=== PATIENT | female | born 1955 | race Caucasian/White ===

== ENCOUNTER 2017-05-17 11:00 | Inpatient (IN) | payer BC ==
--- NOTE | 2017-05-09 10:23 | HP ---
HISTORY AND PHYSICAL: DATE OF SURGERY: 05/17/17 DATE OF OFFICE VISIT: 05/04/17 SURGEON: Amanda Wright MD * (DICTATED BY TED BARRIGA) PROCEDURE: Right total knee arthroplasty. CHIEF COMPLAINT: Right knee pain. HISTORY OF PRESENT ILLNESS: Ms. Medina is a 62-year-old female with complaints of right knee pain secondary to advanced osteoarthritis. She has failed conservative management, has elected to proceed with a right total knee arthroplasty, which is scheduled for 05/17/17, with Dr. Wright. PAST MEDICAL HISTORY: History of a pulmonary embolism, history of MS, hypertension, high cholesterol, diabetes, history of alcohol and drug abuse. PAST SURGICAL HISTORY: Cardiac stent placement x3, angioplasty, thyroid removal. CURRENT MEDICATIONS: 1. Nitrostat. 2. Prozac 40 mg 2 tabs everyday. 3. Coumadin 2 mg. 4. Lisinopril 40 mg daily. 5. Metoprolol 100 mg twice daily. 6. Plavix 75 mg daily. 7. Aspirin 81 mg daily. 8. Metformin 500 mg. 9. Januvia. 10. Abilify. 11. Lipitor 80 mg at bedtime. 12. Atorvastatin. 13. Calcium. ALLERGIES: ZITHROMAX and WELLBUTRIN. FAMILY HISTORY: Cancer, stroke, hypertension, and heart disease. 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 She does not smoke or use drugs. She does have a history of drug and alcohol abuse. REVIEW OF SYSTEMS: A complete 14-point review of systems is reviewed with the patient and was positive for history of DVT, PE, as well as diabetes. PHYSICAL EXAMINATION GENERAL: She is well developed, well nourished, in no acute distress. VITAL SIGNS: She stands 5 feet 5 inches tall, weighs 220 pounds. Her blood pressure is 132/84, heart rate is 78. HEENT: Normocephalic, atraumatic. NECK: Supple. No palpable lymph nodes. PULMONARY: Lungs are clear to auscultation bilaterally. CARDIO: Regular rate and rhythm. Strong S1 and S2. ABDOMEN: Soft, nontender, and nondistended. NEUROLOGIC: She is alert and oriented x3. Cranial nerves II through XII are intact. MUSCULOSKELETAL: Right lower extremity, the skin is intact. There are no open wounds or abrasions. She has some tenderness over the medial and lateral joint line, 0 to 120 degrees range of motion with mild joint effusion. Her lower extremity muscle group strengths are intact at 5/5. She has 2+ dorsalis pedis pulses. Intact sensation. ASSESSMENT AND PLAN: Ms. Medina is a 62-year-old female with complaints of right knee pain secondary to advanced osteoarthritis. She has failed conservative management and has elected to proceed with a right total knee arthroplasty, which is scheduled for 05/17/[address] Wright discussed the risks and benefits of the surgery and all of her questions answered. She is currently on Coumadin, Plavix, and aspirin. She was asked to stop taking her Coumadin 5 days before the surgery. She will start Lovenox injections at that time daily and stop the Lovenox 24 hours prior to surgery. She was asked to continue her aspirin, but she will stop the Plavix on . She will follow up with Dr. Wright 2 weeks after the surgery. TDE BARRIGA [id number]/[facility] #: [id number] MIESHA
[~2017-05-17 11:00] MED LIST: Buffered Lidocaine 0.9% SYRIN* 5 ML/SYR SYRINGE INTRADERM ONE; Famotidine IV* 10 MG/ML 2 ML (20 mg) IV ONE; PROCHLORPERAZINE INJ 5 MG/ML 2 ML VIAL IV PRN; fentaNYL* 50 MCG/ML 2 ML VIAL (100 MCG VIAL) IV PRN
[2017-05-17] MEDS ORDERED: Midazolam* 1 MG/ML 5 ML VIAL (5 MG) ONE (11:22)
[2017-05-17] MEDS ORDERED: KETAMINE HCL* 50 MG/ML 10 ML VIAL ONE (11:22)
[2017-05-17] MEDS ORDERED: fentaNYL* 50 MCG/ML 2 ML VIAL (100 MCG VIAL) ONE (11:22)
[2017-05-17] MEDS ORDERED: Famotidine IV* 10 MG/ML 2 ML (20 mg) ONE (11:57)
[2017-05-17] MEDS ORDERED: Buffered Lidocaine 0.9% SYRIN* 5 ML/SYR SYRINGE ONE (11:57)
[2017-05-17] MEDS ORDERED: ceFAZolin 2 GM PREMIX (*) 50 ML IVPB ONE (11:58)
[2017-05-17] MEDS ORDERED: Morphine INJ* 10 MG/ML 1 ML SYRINGE ONE ×2 (14:17→17:40)
[2017-05-17] MEDS ORDERED: Bupivacaine 0.5% SDV PF* 30 ML VIAL ONE (15:01)
[2017-05-17] MEDS ORDERED: oxyCODONE TAB* 5 MG TAB PO PRN (15:29)
[2017-05-17] MEDS ORDERED: oxyCODONE/Acetamin 5/325 MG* TAB PO PRN (15:29)
[2017-05-17] MEDS ORDERED: Ondansetron TAB* 4 MG PO PRN (15:29)
[2017-05-17] MEDS ORDERED: Polyethylene Glycol 3350* 17 GM PACKET PO PRN (15:29)
[2017-05-17] MEDS ORDERED: Bisacodyl SUPP* 10 MG SUPP PR PRN (15:29)
[2017-05-17] MEDS ORDERED: Magnesium Hydroxide LIQ* 30 ML UDC PO PRN (15:29)
[2017-05-17] MEDS ORDERED: Acetaminophen TAB* 325 MG PO PRN (15:29)
[2017-05-17] MEDS ORDERED: diPHENhydraMINE IV* 50 MG/ML 1 ml VIAL (BENADRYL) IV PRN (15:29)
[2017-05-17] MEDS ORDERED: Phenylephrine INJ* 10 MG/ML 1 ML VIAL (10 MG) ONE (15:53)
[2017-05-17] MEDS ORDERED: Bupivacaine 0.25% SDV* 30 ML ONE (15:53)
[2017-05-17] MEDS ORDERED: Phenylephrine IV* 40 MCG/ML 10 ML SYRINGE ONE (15:53)
[2017-05-17] MEDS ORDERED: Lidocaine 2% PF * 5 ML VIAL ONE ×2 (15:54→16:31)
[2017-05-17] MEDS ORDERED: Ondansetron INJ* 2 MG/ML VIAL ONE (15:54)
[2017-05-17] MEDS ORDERED: Propofol* 10 MG/ML 20 ML BTL IV PUSH ONE (15:54)
[2017-05-17] MEDS ORDERED: Glycopyrrolate IV* 0.2 MG/ML 1 ML VIAL ONE (15:54)
[2017-05-17] MEDS ORDERED: PROCHLORPERAZINE INJ 5 MG/ML 2 ML VIAL ONE (15:54)
[2017-05-17] MEDS ORDERED: Ketorolac INJ* 30 MG/ML 1 ML VIAL ONE (15:54)
[2017-05-17] MEDS ORDERED: Metoprolol Tartrate IV* 1 MG/ML 5 ML VIAL ONE (16:31)
[2017-05-17] MEDS: oxyCODONE/Acetamin 5/325 MG* TAB PO PRN ×2 (17:40→17:41)
[2017-05-17] MEDS ORDERED: oxyCODONE/Acetamin 5/325 MG* TAB ONE (17:40)
[2017-05-17] MEDS: Morphine INJ* 2 MG/ML 1 ML SYRINGE IV PRN ×2 (17:43→17:49)
--- NOTE | 2017-05-17 17:47 | RAD ---
Indication: Immediate postop exam following RIGHT total knee replacement. Comparison: March 09, 2017 Technique: Portable AP and cross table lateral views RIGHT knee. Report: Status post total knee replacement. Anterior surgical drain in place. Post-op fluid and gas is seen in the joint space and anterior subcutaneous tissues. Alignment is anatomic. No periprosthetic fracture evident. IMPRESSION: Unremarkable immediate postoperative appearance following RIGHT knee replacement.
[2017-05-17] MEDS: Warfarin TAB(*) 6 MG PO SCH (19:38)
[2017-05-17] MEDS: Atorvastatin* 80 MG TAB PO SCH (22:06)
[2017-05-17] MEDS: Metoprolol Tartrate TAB* 100 MG TAB PO SCH (22:06)
[2017-05-17] MEDS: FLUoxetine CAP* 20 MG PO SCH (22:06)
[2017-05-17] MEDS: ceFAZolin 1 GM VIAL(*) 1 GM in NS 0.9% 50 ML* 50 ML IVPB SCH (22:06)
[2017-05-17] MEDS: Docusate CAP* 100 MG PO SCH (22:06)
--- NOTE | 2017-05-17 22:11 | CONS ---
CONSULTATION REPORT: DATE OF CONSULTATION: 05/17/17 PRIMARY CARE PHYSICIAN: Zeinab Momin MD ORTHOPEDIC SURGEON: Amanda Wright MD PROCEDURE: Right total knee arthroplasty. HISTORY OF PRESENT ILLNESS: Ms. Medina is a 62-year-old female with a past medical history of CAD, status post cardiac stents in 2002 and 2008, hypothyroidism, diabetes mellitus (noninsulin dependent), hypertension, recurrent DVT, on lifelong anticoagulation, hyperlipidemia, depression, osteoarthritis, who presents on 05/17/17 for elective right total knee replacement with Dr. Wright. Hospitalist service has been consulted for question of anticoagulation given the patient's history of recurrent DVTs on lifelong Coumadin while also using dual antiplatelet therapy aspirin and Plavix for CAD in the setting of a new knee surgery. The patient's anticoagulation history is as follows. Following MT in 2002 Pt had stents, the patient was placed on aspirin and 6 months of Plavix. The patient developed a pulmonary embolism in 2006, only risk factor at that time seemed to be a 5-hour plane trip from [place] to [place] and then back. The patient was placed on Coumadin for 6 months and then stopped. However, the patient developed another DVT in the right leg in April 2008 that was seemingly unprovoked. 02/29/08 ultrasound showed popliteal and calf DVT. The patient was again put on Coumadin this time for life. Of note, she did have some history of labile INRs using green leafy vegetables like kale on and off, which would alter her levels. The patient, in 2008, was evaluated for swollen hand and ultimately left heart catheterization revealed further coronary artery disease and third stent was placed and aspirin and Plavix were initiated by Dr. Montero (?for life). The patient then developed what may have been a new DVT again on the right side in 2010 with 06/07/11 ultrasound describing a nonocclusive thrombus in the distal right femoral vein with hypoechoic thrombus, which "MAY" be acute. The popliteal vein was diminutive in size with partial occlusion. No known risk factors at the time of 2010 DVT and in fact INR at that time had reportedly been high around the 4 to 5 range.Pt denies any evidence of further DVT or significant bleeding events since. The patient denies any history of blood clots or DVT is in her family. No personal history of cancer, weight has been steady, had a colonoscopy twice in the last decade first with polyp and second unknown date without any reported findings. The patient has never seen a carburizer oncologist or had further workup for hypercoagulable states. The patient says that she would like to consider alternative anticoagulation therapy other than warfarin given her labile INRs which include checking every 1 to 2 weeks. She currently takes warfarin 4 mg Sunday, Sunday, Sunday and 2 mg other days of the week. Current INR is 1.03. Reported plan included bridging her with Lovenox back to Coumadin. Consult question is to whether restart plavix. MEDICATIONS: Home medications include: 1. Lipitor 80. 2. Januvia. 3. Lisinopril 40. 4. Toprol 100 mg b.i.d. 5. Metformin 500 b.i.d. 6. Prozac 40 mg. 7. Abilify 5 mg. 8. Warfarin 4 mg Sunday, Sunday, Sunday; 2 mg Sunday, , Sunday, and Sunday. 9. Plavix 75 mg. 10. Aspirin 81 mg. PHYSICAL EXAM: In no acute distress. Lying in postacute care unit after a right total knee surgery. The patient is alert, in no significant pain. HEENT : Moist mucous membranes. No scleral icterus. Normocephalic and atraumatic. Neck: Supple. Lungs: Clear to auscultation anteriorly with no wheezing, rales , or rhonchi. Cardiovascular: Regular rate and rhythm with no murmurs, rubs, or gallops. Abdomen: Soft, obese, and nontender. No masses appreciated. Extremities: Warm and well perfused. No edema. Right leg in brace. Vital Signs: Include temperature 97.9, heart rate 73, respiratory rate 16, O2 sat 94% on room air, blood pressure 143/80. DIAGNOSTIC STUDIES/LAB DATA: Include INR 1.03, previous labs demonstrate no transaminitis. Creatinine 0.87 with GFR 85 these all on 05/04/17. ASSESSMENT AND PLAN: The patient is a 62-year-old female with extensive cardiac and clotting history including hypertension, coronary artery disease with myocardial infarction, status post 3 stents, pulmonary embolism, 2 deep venous thromboses despite second one being while on Coumadin, Plavix, and aspirin, who is here for elected total right knee replacement surgery. In terms of her anticoagulation, given her history of labile INRs, although reported supra-elevated INR during 2011 episode of questionable new acute deep venous thrombosis versus subacute or chronic occlusion during periods of lower INR, the patient may be a good candidate ultimately for novel oral anticoagulant NOAC and seems to be eager to hear more about this options. In the present setting status post total knee replacement surgery, it is reasonable to continue Lovenox with bridge to Coumadin with transition to NOAC at a later time after therapeutic INRs are obtained and postsurgical bleeding risk is reduced. She is well outside the window that necessitates dual antiplatelet therapy given her last stent was in 2008. It is not clear how much benefit in terms of deep venous thrombosis prevention that those are having , switching to NOAC that is more reliably dosed without labile INRs may be more beneficial than continuing Plavix for presumed contribution to deep venous thrombosis prevention. Recommend continuing holding Plavix for now and following up with as an outpatient. Aspirin would be okay to continue. Her HAS-BLED score is 3 for hypertension, labile INRs, and antiplatelet agent use though only 2 if hypertension is controlled or the patient switches to a NOAC. Ultimately Eliquis 5 mg p.o. b.i.d. may be a good option as an outpatient. Thank you for the consultation for this very interesting case of this pleasant 62-year-old female. We will sign off but please call for any further questions. [id number]/[facility] #: [id number] [id number]/[facility] #: [id number] MIESHA
--- NOTE | 2017-05-17 22:53 | CONS ---
CONSULTATION REPORT: * ADDENDUM: HISTORY OF PRESENT ILLNESS: Dr. Montero performed 3rd stent in 2008 and of note the patient has been on aspirin, Plavix, and Coumadin continuously since then without further evidence of DVT or significant bleeding events. The patient denies any history of blood clots or DVT is in her family. No personal history of cancer, weight has been steady, had a colonoscopy twice in the last decade first with polyp and second unknown date without any reported findings. The patient has never seen a [facility] strip gauger oncologist or had further workup for hypercoagulable states. The patient says that she would like to consider alternative anticoagulation therapy other than warfarin given her labile INRs which include checking every 1 to 2 weeks. She currently takes 4 mg Sunday, Sunday, Sunday and 2 mg other days of the week. Current INR is 1.03 depending on bridging her with Lovenox back to Coumadin. MEDICATIONS: Home medications include: 1. Lipitor 80. 2. Januvia. 3. Lisinopril 40. 4. Toprol 100 mg b.i.d. 5. Metformin 500 b.i.d. 6. Prozac 40 mg. 7. Abilify 5 mg. 8. Warfarin 4 mg Sunday, Sunday, Sunday; 2 mg Sunday, , Sunday, and Sunday. 9. Plavix 75 mg. 10. Aspirin 81 mg. PHYSICAL EXAM: In no acute distress. Lying in postacute care unit after a right total knee surgery. The patient is alert, in no significant pain. HEENT : Moist mucous membranes. No scleral icterus. Normocephalic and atraumatic. Neck: Supple. Lungs: Clear to auscultation anteriorly with no wheezing, rales , or rhonchi. Cardiovascular: Regular rate and rhythm with no murmurs, rubs, or gallops. Abdomen: Soft, obese, and nontender. No masses appreciated. Extremities: Warm and well perfused. No edema. Right leg in brace. Vital Signs: Include temperature 97.9, heart rate 73, respiratory rate 16, O2 sat 94% on room air, blood pressure 143/80. DIAGNOSTIC STUDIES/LAB DATA: Include INR 1.03, previous labs demonstrate no transaminitis. Creatinine 0.87 with GFR 85 these all on 05/04/17. ASSESSMENT AND PLAN: The patient is a 62-year-old female with extensive cardiac and coag history including hypertension, coronary artery disease with myocardial infarction, status post 3 stents, pulmonary embolism, 2 deep venous thromboses despite second one being while on Coumadin, Plavix, and aspirin, who is here for elected total right knee replacement surgery. In terms of her anticoagulation, given her history of labile INRs, although reported supra- elevated INR during 2011 episode of questionable new acute deep venous thrombosis versus subacute or chronic occlusion during periods of lower INR, the patient may be a good candidate ultimately for novel oral anticoagulant NOAC and seems to be eager to hear more about said options. In the present setting status post total knee replacement surgery, it is reasonable to continue Lovenox with bridge to Coumadin with transition to NOAC at a later time after therapeutic INRs are obtained and postsurgical bleeding risk is reduced. She is well outside the window for dual antiplatelet therapy per her stents last of which is in 2008. It is not clear how much benefit in terms of deep venous thrombosis prevention that those are having, switching to NOAC that is more reliably dosed without labile INRs may be more beneficial than continuing Plavix for presumed contribution to deep venous thrombosis prevention. Recommend holding Plavix for now. Aspirin would will be okay to continue. Her HAS-BLED score is 3 for hypertension, labile INRs, and antiplatelet agent use though only 2 if hypertension is controlled and the patient switches to a NOAC. Reasonable to transition Lovenox to Eliquis 5 mg p.o. b.i.d. or otherwise return to Coumadin bridging with decision later on as an outpatient, but would agree with holding Plavix at this time as there is no clear indication at this time. Thank you for the consultation for this very interesting case of this pleasant 62-year-old female. Please call for any further questions. [id number]/[facility] #: [id number] MIESHA
[2017-05-18] MEDS: ceFAZolin 1 GM VIAL(*) 1 GM in NS 0.9% 50 ML* 50 ML IVPB SCH ×2 (05:50→14:58)
[2017-05-18] MEDS: Morphine INJ* 2 MG/ML 1 ML SYRINGE IV PRN (06:23)
[2017-05-18 08:14] LABS: Hematocrit 31 % (35-47); Hemoglobin 10.3 g/dl (12.0-16.0)
[2017-05-18] MEDS: Docusate CAP* 100 MG PO SCH ×2 (08:18→20:44)
[2017-05-18] MEDS: ARIPiprazole TAB* 5 MG PO SCH (08:18)
[2017-05-18] MEDS: oxyCODONE/Acetamin 5/325 MG* TAB PO PRN ×4 (08:18→20:42)
[2017-05-18] MEDS: Lisinopril TAB* 10 MG PO SCH (08:19)
[2017-05-18] MEDS: metFORMIN* 500 MG TAB PO SCH (08:19)
[2017-05-18] MEDS: FLUoxetine CAP* 20 MG PO SCH ×2 (08:19→20:44)
[2017-05-18] MEDS: Metoprolol Tartrate TAB* 100 MG TAB PO SCH ×2 (08:21→20:45)
[2017-05-18 08:27] LABS: BUN/Creatinine Ratio 16.9 (8-20); Calcium 8.4 mg/dL (8.6-10.3); EGFR African American 98.3 (>60); EGFR Non-African American 76.5 (>60); Potassium 3.6 mmol/L (3.5-5.0)
[2017-05-18] MEDS ORDERED: PTO: SitaGLIPtin (NF) 100 MG TAB PO SCH (09:00)
--- NOTE | 2017-05-18 09:38 | PN ---
Progress Note - Progress Note Date of Service: 05/18/17 SOAP: Subjective: 62 y/o female s/p L TKA 05/[address] Wright, uncomplicated. Reports fatigue after working with PT, mild lightheadedness. pain well controlled. VSS, afebrile overnight. Objective: General- Well appearing, NAD, fatigued appearing, sleeping in chair MSK- Surgical dressing intact, no drainage noted, drain removed by Dr. Wright in AM, no bleeding. + DF/PF, PT 2+ b/l neg homans b/l, sensation grossl intact b/l LEs Vital Signs Temp 98.3 F 05/18/17 07:42 Pulse 82 05/18/17 07:42 Resp 18 05/18/17 08:18 BP 145/77 05/18/17 07:42 Pulse Ox 95 05/18/17 07:42 Intake & Output 05/17/17 05/18/17 05/18/17 18:59 06:59 18:59 Intake Total 2150 2217 Output Total 700 Balance 2150 1517 Weight 212 lb 12.8 oz Intake: IV Fluids 2150 1118 LR 1118 NS 50ML, Cefazolin 2G 50 lr 2100 IVPB 119 cefazolin 119 Oral 980 Output: Mcmanus 700 Laboratory Results - last 24 hr 05/17/17 05/17/17 05/17/17 11:50 12:11 15:46 Hgb Hct INR (Anticoag Therapy) 1.03 Sodium Potassium Chloride Carbon Dioxide Anion Gap BUN Creatinine Est GFR ( Amer) Est GFR (Non-Af Amer) BUN/Creatinine Ratio Glucose POC Glucose (mg/dL) 129 H 131 H Calcium 05/18/17 05/18/17 05/18/17 07:32 07:32 07:32 Hgb 10.3 L Hct 31 L INR (Anticoag Therapy) 1.01 Sodium 134 Potassium 3.6 Chloride 101 Carbon Dioxide 27 Anion Gap 6 BUN 13 Creatinine 0.77 Est GFR ( Amer) 98.3 Est GFR (Non-Af Amer) 76.5 BUN/Creatinine Ratio 16.9 Glucose 171 H POC Glucose (mg/dL) Calcium 8.4 L Assessment: Stable 62 y/o female s/p L TKA 05/[address] Wright, uncomplicated. Plan: - DVT prophyl- lovenox, coumadin. Will D/C coumadin, continue lovenox. Elquis at D/C, give dose prior to D/C. Plavix to resume tomorrow. - H&H stable - Continue PT/ OT - DM management per hospitalist, hospialists call will continue to follow. Active Medications Generic Name Dose Route Start Last Admin Trade Name Freq PRN Reason Stop Dose Admin Acetaminophen 650 mg 05/17/17 15:29 Tylenol Tab* PO Q4H PRN PAIN OR TEMPERATURE Aripiprazole 5 mg 05/18/17 09:00 05/18/17 08:18 Abilify Tab* PO 5 mg DAILY ALL Administration Atorvastatin Calcium 80 mg 05/17/17 21:00 05/17/17 22:06 Lipitor* PO 80 mg BEDTIME ALL Administration Bisacodyl 10 mg 05/17/17 15:29 Dulcolax Supp* AR DAILY PRN constipation Diphenhydramine HCl 12.5 mg 05/17/17 15:29 Benadryl Iv* IV Q6H PRN PRURITIS Docusate Sodium 100 mg 05/17/17 21:00 05/18/17 08:18 Colace Cap* PO 100 mg BID ALL Administration Enoxaparin Sodium 40 mg 05/18/17 16:00 Lovenox(*) SUBCUT Q24H ALL Fluoxetine HCl 40 mg 05/17/17 21:00 05/18/17 08:19 Prozac Cap* PO 40 mg BID ALL Administration Cefazolin Sodium 1 gm/ Sodium 50 mls @ 200 mls/hr 05/17/17 22:00 05/18/17 05: 50 Chloride IVPB 05/18/17 14:14 200 mls/hr Q8H ALL Administration Lactated Ringer's 1,000 mls @ 100 mls/hr 05/17/17 16:00 05/18/17 04:32 Lactated Ringers 1000 Ml Bag* IV 100 mls/hr PER RATE ALL Administration Lactulose 30 ml 05/17/17 15:29 Lactulose* PO Q6H PRN constipation Lisinopril 40 mg 05/18/17 09:00 05/18/17 08:19 Prinivil Tab* PO 40 mg QAM ALL Administration Magnesium Hydroxide 30 ml 05/17/17 15:29 Milk Of Magnesia Liq* PO Q6H PRN constipation Metformin HCl 500 mg 05/18/17 09:00 05/18/17 08:19 Glucophage* PO 500 mg DAILY ALL Administration Metoprolol Tartrate 100 mg 05/17/17 21:00 05/18/17 08:21 Lopressor Tab* PO 100 mg BID ALL Administration Morphine Sulfate 2 mg 05/17/17 15:29 05/18/17 06:23 Morphine Inj (Syringe)* IV 2 mg Q2H PRN Administration PAIN Ondansetron HCl 4 mg 05/17/17 15:29 Zofran Tab* PO Q6H PRN NAUSEA Oxycodone HCl 10 mg 05/17/17 15:29 Roxycodone Tab* PO Q4H PRN SEVERE PAIN Oxycodone/Acetaminophen 1 tab 05/17/17 15:29 05/18/17 05:03 Percocet 5/325 Tab* PO 1 tab Q3H PRN Administration PAIN - MODERATE Oxycodone/Acetaminophen 2 tab 05/17/17 15:29 05/18/17 08:18 Percocet 5/325 Tab* PO 2 tab Q3H PRN Administration PAIN - MODERATE Pharmacy Profile Note 1 note 05/20/17 05:40 Scopolomine Patch Remove* PATCH OFF 05/20/17 05:41 Q72H ONE Polyethylene Glycol/Electrolytes 17 gm 05/17/17 15:29 Miralax* PO DAILY PRN Constipation Sitagliptin Phosphate 100 mg 05/18/17 09:00 05/18/17 08:37 Januvia (Nf) PO Not Given DAILY [facility] Warfarin Sodium 6 mg 05/17/17 18:30 05/17/17 19:38 Coumadin Tab(*) PO 6 mg DAILY@1700 ALL Administration Protocol
--- NOTE | 2017-05-18 10:26 | OP ---
OPERATIVE REPORT: DATE OF OPERATION: 05/17/17 DATE OF : 59 SURGEON: Amanda Wright MD REHABILITATOR: TED Mike Ms. Coleman did help throughout the procedure with preparation of the leg, wound retraction, manipulation of the knee and wound closure. ANESTHESIOLOGIST: Dr. King. ANESTHESIA: General with adductor nerve block. PRE-OP DIAGNOSIS: Severe end-stage degenerative osteoarthritis of the right knee joint. POST-OP DIAGNOSIS: Severe end-stage degenerative osteoarthritis of the right knee joint. OPERATIVE PROCEDURE: Right total knee arthroplasty. HARDWARE USED: [employer] cemented total knee hardware with 2 packages of Simplex bone cement. For the femur, a size 4 narrow right posterior stabilized Legion narrow Oxinium femoral component. For the tibia, a right size 3 tibial base plate. For the insert, an 11 mm size 3-4 right posterior stabilized articular insert and for the patella 35 mm 7.5 thickness 3 peg all poly patella. TOURNIQUET TIME: 57 minutes. COMPLICATIONS: None. SPECIMEN: Bone and cartilage of the right knee joint sent to pathology. ESTIMATED BLOOD LOSS: 300 cc. BRIEF HISTORY/INDICATION: Ms. Medina is a 62-year-old female with years of increasingly severe right knee pain. Radiograph showed [id number] arthritis. She failed conservative treatment with anti-inflammatories, pain medications, intra- articular injections and physical therapy. Due to continued pain and decreased quality of life, the patient elected to under right total knee arthroplasty. Informed consent was obtained. Patient understood the risks of procedure included, but were not limited to bleeding, infection, damage to nearby structures, continued pain, need for further surgery, intraoperative fracture, nerve palsy, hardware failure or loosening, knee stiffness, loss of motion, stroke, heart attack, blood clot, and . She wished to proceed. INTRAOPERATIVE FINDINGS: Intraoperatively, the patient was noted to have tricompartmental cartilage loss worse in the medial and patellofemoral compartments. She had extensive osteophyte formation. There was some abnormal soft tissue appearance. The soft tissue was a adelaida orange color consistent with hemosiderin accumulation and mildly consistent with PVNS appearance. SPECIMENS: Multiple soft tissue specimens were sent to pathology for evaluation. DESCRIPTION OF PROCEDURE: Ms. Medina was identified in the preanesthesia unit. Her right lower extremity was marked as the correct operative side. Informed consent was signed and placed in the chart. The patient was taken to the operating room and placed under adductor nerve block with general anesthesia. A Mcmanus catheter was placed. Tourniquet was placed on the right thigh. Right lower extremity was prepped and draped in the usual sterile fashion. Preop time-out was made to correctly identify the patient's side and site. Appropriate perioperative antibiotics were given within 1 hour of incision. Tourniquet was inflated and total tourniquet time for this procedure was 57 minutes. A 12-cm midline incision was made with a 10-blade. This was carried down to the extensor mechanism. A new 10-blade was used to make a standard medial parapatellar arthrotomy. The patella was subluxed laterally. Electrocautery was used to subperiosteally elevate soft tissue off the superomedial tibia to the mid sagittal plane. The knee was flexed up. Anterior horn of the lateral meniscus and ACL were sharply released. A drill was used to enter the distal femur. Intramedullary distal femoral cutting guide was pinned into place. 9 mm of distal femur was carefully removed with an oscillating saw. Next, the external rotation guide was pinned on the distal femur. Distal femur was sized to a size 4. Size 4 multi-cutting jig was pinned on the distal femur. Oscillating saw was used to make the appropriate chamfer cuts. The PCL was completely released and the tibia was subluxed anteriorly. Extramedullary tibial cutting guide was pinned on the proximal tibia. Oscillating saw was used to make proximal tibial cut perpendicular to the mechanical axis of the tibia. Tibial bone was carefully removed. The knee was brought out into full extension and a spacer block had good fit. Medial and lateral ligaments were well balanced. Flexion and extension gaps were well balanced. The knee was flexed up. Lamina project eng was placed both medially and laterally. Any remaining meniscus was carefully removed using electrocautery. Curved osteotome was used to remove posterior osteophytes. Tibial tray and drop leonel were placed to once again confirm satisfactory tibial cut. This was confirmed. A right narrow size 4 femoral trial was impacted onto the distal femur and had good fit. The box for the posterior stabilized implant was prepared using a reamer and box cut osteotome. Size 3 tibial tray trial and 11-mm insert trial were placed. The knee was taken through range of motion and had full extension to 130 degrees of flexion with satisfactory patellofemoral tracking. The patella was everted. 7 mm of patellar bone and cartilage was carefully removed with an oscillating saw. The patella was sized to a size 35. Three peg holes were drilled through the size 35 guide. A 7.5 thickness 35 patella was placed and the knee was taken through a range of motion. The patellofemoral tracking was satisfactory. All trials were carefully removed. The tibia was subluxed anteriorly and sized to a size 3. Proximal tibia was prepared using a size 3 keel punch. All bony cut surfaces were copiously irrigated with sterile saline and dried. Final implants were cemented into place starting with the tibia, followed by the femur , and last the patella. An 11-mm insert trial was placed while the knee was brought into full extension. Tourniquet was turned down at 57 minutes. The knee was copiously irrigated with sterile saline. Once the cement had fully cured, the insert trial was removed. Any excess cement was carefully removed from around the hardware and capsule. Electrocautery was used to obtain meticulous hemostasis. Final insert chosen was an 11-mm posterior stabilized articular insert. This was locked into position on the tibial tray. Stability of the insert was checked and rechecked and noted to be stable. The knee was copiously irrigated with sterile saline. The extensor mechanism was closed using interrupted #1 Vicryl's over a medium Hemovac drain. The rest of the incision was closed in a layered fashion using 0 and 2-0 Vicryls. Skin was closed using running 3-0 nylon suture. Sterile Xeroform, 4x4s, and Webril were used to cover the incision. Golden wrap and cold pack were placed over this. Patient's anesthesia was reversed without difficulty. She was taken to the PACU in stable condition. Intended weightbearing will be weightbearing as tolerated. Intended DVT prophylaxis will be Lovenox in the hospital and home on eliquis. [id number] #: [id number] MIESHA
[2017-05-18] MEDS ORDERED: Dextrose 50% Syringe 50 ML* 25 GM/50 ML SYRINGE IV PUSH PRN (11:28)
--- NOTE | 2017-05-18 11:36 | CONSULT ---
Consult Consult: Full note to follow. Asked about DM managment. POCT qachs with SSI lispro ordered. For anticoagulation: Eliquis 5mg BID. Not a strong indication for Plavix given stents 8 years old but on review of outpatient notes, seems like her internventional fly worker wants her on life-long plavix. Given relatively low bleeding risk HAS-BLED 1-2 (if not using coumadin) really comes down to patient preference of reisk/benefit of bleed vs additional clot. No strong objection to reordering plavix but also would be reasonable to hold until she can follow-up as an outpatient with her fly worker.
[2017-05-18] MEDS: PTO: SitaGLIPtin (NF) 100 MG TAB PO SCH (14:58)
[2017-05-18] MEDS: Warfarin TAB(*) 6 MG PO SCH (16:22)
[2017-05-18] MEDS: Enoxaparin(*) 40 MG/0.4 ML SYR SUBCUT SCH (16:22)
--- NOTE | 2017-05-18 18:58 | CONSULT ---
Subjective Date of Service: 05/18/17 Interval History: POD#1 for TKR. Denies chest pain, SOB. Pain controlled. Review of Systems - Measurements Intake and Output: Intake and Output Last 24 Hours 05/16/17 05/17/17 05/18/17 05/19/17 06:59 06:59 06:59 06:59 Intake Total 4367 1486 Output Total 700 1200 Balance 3667 286 Weight 96.524 kg Intake: IV Fluids 3268 836 LR 1118 836 NS 50ML, Cefazolin 2G 50 lr 2100 IVPB 119 cefazolin 119 Oral 980 650 Output: Urine 350 Mcmanus 700 850 - Review of Systems General Comments: Reduced mobility 2/2 OA pain. Constitutional Symptoms: Positive: Weight Gain Dermatology: Positive: Normal HEENT: Positive: Normal Eyes: Positive: Normal Thyroid: Positive: Normal Pulmonary: Positive: Normal Cardiology: Positive: Normal Gastroenterology: Positive: Normal Genital - Urinary: Positive: Normal Musculoskeletal: Positive: Joint Pain, Arthritis Endocrinology: Positive: Obesity, Diabetes Mellitus Hematologic/Lymphatic: Positive: Use of Anticoagulant Neurology: Positive: Normal Psychiatry: Positive: Normal Objective Active Medications: Acetaminophen (Tylenol Tab*) 650 mg PO Q4H PRN PRN Reason: PAIN OR TEMPERATURE Aripiprazole (Abilify Tab*) 5 mg PO DAILY [facility] Last Admin: 05/18/17 08:18 Dose: 5 mg Atorvastatin Calcium (Lipitor*) 80 mg PO BEDTIME [facility] Last Admin: 05/17/17 22:06 Dose: 80 mg Bisacodyl (Dulcolax Supp*) 10 mg MO DAILY PRN PRN Reason: constipation Clopidogrel Bisulfate (Plavix Tab*) 75 mg PO DAILY [facility] Dextrose (D50w Syringe 50 Ml*) 12.5 gm IV PUSH .FOR FS < 60 - SS PRN PRN Reason: FS < 60 Diphenhydramine HCl (Benadryl Iv*) 12.5 mg IV Q6H PRN PRN Reason: PRURITIS Docusate Sodium (Colace Cap*) 100 mg PO BID [facility] Last Admin: 05/18/17 08:18 Dose: 100 mg Enoxaparin Sodium (Lovenox(*)) 40 mg SUBCUT Q24H [facility] Last Admin: 05/18/17 16:22 Dose: 40 mg Fluoxetine HCl (Prozac Cap*) 40 mg PO BID [facility] Last Admin: 05/18/17 08:19 Dose: 40 mg Lactated Ringer's (Lactated Ringers 1000 Ml Bag*) 1,000 mls @ 100 mls/hr IV PER RATE [facility] Last Admin: 05/18/17 04:32 Dose: 100 mls/hr Insulin Human Lispro (Humalog*) 0 units SUBCUT ACHS PRN; Protocol PRN Reason: PER PROTOCOL Lactulose (Lactulose*) 30 ml PO Q6H PRN PRN Reason: constipation Lisinopril (Prinivil Tab*) 40 mg PO QAM [facility] Last Admin: 05/18/17 08:19 Dose: 40 mg Magnesium Hydroxide (Milk Of Magnesia Liq*) 30 ml PO Q6H PRN PRN Reason: constipation Metformin HCl (Glucophage*) 500 mg PO DAILY [facility] Last Admin: 05/18/17 08:19 Dose: 500 mg Metoprolol Tartrate (Lopressor Tab*) 100 mg PO BID [facility] Last Admin: 05/18/17 08:21 Dose: 100 mg Morphine Sulfate (Morphine Inj (Syringe)*) 2 mg IV Q2H PRN PRN Reason: PAIN Last Admin: 05/18/17 06:23 Dose: 2 mg Ondansetron HCl (Zofran Tab*) 4 mg PO Q6H PRN PRN Reason: NAUSEA Oxycodone HCl (Roxycodone Tab*) 10 mg PO Q4H PRN PRN Reason: SEVERE PAIN Oxycodone/Acetaminophen (Percocet 5/325 Tab*) 1 tab PO Q3H PRN PRN Reason: PAIN - MODERATE Last Admin: 05/18/17 05:03 Dose: 1 tab Oxycodone/Acetaminophen (Percocet 5/325 Tab*) 2 tab PO Q3H PRN PRN Reason: PAIN - MODERATE Last Admin: 05/18/17 16:39 Dose: 2 tab Pharmacy Profile Note (Scopolomine Patch Remove*) 1 note PATCH OFF Q72H ONE Stop: 05/20/17 05:41 Polyethylene Glycol/Electrolytes (Miralax*) 17 gm PO DAILY PRN PRN Reason: Constipation Sitagliptin Phosphate (Januvia (Nf)) 100 mg PO 0900 [facility] Last Admin: 05/18/17 14:58 Dose: 100 mg Warfarin Sodium (Coumadin Tab(*)) 6 mg PO DAILY@1700 ALL PRN Reason: Protocol Last Admin: 05/18/17 16:22 Dose: 6 mg Vital Signs 05/17/17 05/17/17 05/17/17 19:03 20:00 20:11 Temperature 97.0 F 97.3 F Pulse Rate 66 72 Respiratory 16 16 17 Rate Blood Pressure 119/77 124/67 (mmHg) O2 Sat by Pulse 98 95 Oximetry 05/17/17 05/18/17 05/18/17 22:03 00:01 03:36 Temperature 96.7 F 98.4 F 98.3 F Pulse Rate 70 69 69 Respiratory 16 18 18 Rate Blood Pressure 119/61 112/57 118/68 (mmHg) O2 Sat by Pulse 95 96 97 Oximetry 05/18/17 05/18/17 05/18/17 05:03 06:23 07:03 Temperature Pulse Rate Respiratory 18 18 16 Rate Blood Pressure (mmHg) O2 Sat by Pulse Oximetry 05/18/17 05/18/17 05/18/17 07:23 07:40 07:42 Temperature 98.3 F Pulse Rate 82 Respiratory 16 18 18 Rate Blood Pressure 145/77 (mmHg) O2 Sat by Pulse 95 95 Oximetry 05/18/17 05/18/17 05/18/17 08:18 10:18 11:30 Temperature 98.6 F Pulse Rate 70 Respiratory 18 16 16 Rate Blood Pressure 123/69 (mmHg) O2 Sat by Pulse 97 Oximetry 05/18/17 05/18/17 05/18/17 12:33 14:33 14:59 Temperature Pulse Rate Respiratory 16 16 Rate Blood Pressure (mmHg) O2 Sat by Pulse 97 Oximetry 05/18/17 05/18/17 05/18/17 15:30 16:00 16:39 Temperature 98.5 F Pulse Rate 80 Respiratory 18 16 Rate Blood Pressure 131/85 (mmHg) O2 Sat by Pulse 97 97 Oximetry Oxygen Devices in Use Now: None Appearance: no acute distress. Sitting with leg propped up Eyes: No Scleral Icterus, PERRLA Ears/Nose/Mouth/Throat: NL Teeth, Lips, Gums, Mucous Membranes Moist Neck: NL Appearance and Movements; NL JVP, Trachea Midline Respiratory: Clear to Auscultation, Clear to Percussion Cardiovascular: NL Sounds; No Murmurs; No JVD, RRR Abdominal: NL Sounds; No Tenderness; No Distention, No Hepatosplenomegaly Extremities: No Edema, - - right leg in brace Skin: No Rash or Ulcers Neurological: Alert and Oriented x 3 Nutrition: Taking PO's Result Diagrams: 05/18/17 07:32 05/18/17 07:32 Additional Lab and Data: Laboratory Results - last 24 hr 05/18/17 05/18/17 05/18/17 07:32 07:32 07:32 Hgb 10.3 L Hct 31 L INR (Anticoag Therapy) 1.01 Sodium 134 Potassium 3.6 Chloride 101 Carbon Dioxide 27 Anion Gap 6 BUN 13 Creatinine 0.77 Est GFR ( Amer) 98.3 Est GFR (Non-Af Amer) 76.5 BUN/Creatinine Ratio 16.9 Glucose 171 H POC Glucose (mg/dL) Calcium 8.4 L 05/18/17 05/18/17 11:57 17:50 Hgb Hct INR (Anticoag Therapy) Sodium Potassium Chloride Carbon Dioxide Anion Gap BUN Creatinine Est GFR ( Amer) Est GFR (Non-Af Amer) BUN/Creatinine Ratio Glucose POC Glucose (mg/dL) 234 H 238 H Calcium Assessment/Plan - Billing Plan By Medical Problem: 1. Anticoagulation: Recommend start Eliquis 5mg BID given patient history of labile INRs on coumadin (which may have been factor of treatment failure in 2010 ) along with patient preference. There is not a strong indication for Plavix given her last stent is 8 years old but on review of outpatient notes, seems like her outreach clinician Dr. Montero wants her on life-long plavix. Given relatively low bleeding risk HAS-BLED 1-2 (if not using coumadin) really comes down to patient preference of risk/benefit of bleed vs additional clot. Don't have a strong objection to reordering plavix but also would be reasonable to hold until she can follow-up as an outpatient with Dr. Montero. 2. Diabetes Mellitus: POCT qachs with SSI lispro ordered. home medications are Januvia/Metformin which primary team have also ordered. 3. CAD/HTN/HLD continue home lisinopril 40mg, toprol 100mg BID, atorvastatin 80mg VTE PPX: see a/c above Diet: as per ortho, carb consistent; hear healthy Code Status: Full Admission Status and Rationale: POD#1 for TKR Attending: Alfredo Daily
[2017-05-18] MEDS: Atorvastatin* 80 MG TAB PO SCH (20:43)
[2017-05-18] MEDS: Insulin LISPRO* 1 UNITS UNIT SUBCUT PRN (20:59)
[2017-05-19] MEDS: oxyCODONE/Acetamin 5/325 MG* TAB PO PRN ×5 (01:22→21:16)
[2017-05-19] MEDS: Morphine INJ* 2 MG/ML 1 ML SYRINGE IV PRN (04:00)
[2017-05-19 07:45] LABS: Hematocrit 31 % (35-47); Hemoglobin 10.2 g/dl (12.0-16.0)
[2017-05-19 07:46] LABS: Comments Flag Yes
[2017-05-19] MEDS: Metoprolol Tartrate TAB* 100 MG TAB PO SCH ×2 (08:07→21:15)
[2017-05-19] MEDS: FLUoxetine CAP* 20 MG PO SCH ×2 (08:07→21:15)
[2017-05-19] MEDS: metFORMIN* 500 MG TAB PO SCH (08:09)
[2017-05-19] MEDS: Docusate CAP* 100 MG PO SCH ×2 (08:09→21:15)
[2017-05-19] MEDS: Lisinopril TAB* 10 MG PO SCH (08:09)
[2017-05-19] MEDS: ARIPiprazole TAB* 5 MG PO SCH (08:14)
[2017-05-19] MEDS: PTO: SitaGLIPtin (NF) 100 MG TAB PO SCH (08:15)
[2017-05-19] MEDS: Insulin LISPRO* 1 UNITS UNIT SUBCUT PRN ×4 (10:00→21:17)
--- NOTE | 2017-05-19 11:21 | PN ---
Progress Note - Progress Note Date of Service: 05/19/17 SOAP: Subjective: 62 y/o female s/p L TKA 05/[address] Wright, uncomplicated. States that she did not sleep well last night. pain well controlled. VSS, afebrile overnight. Objective: General- Well appearing, NAD, fatigued appearing MSK- Surgical dressing changed today, incision is c/d/i, no drainage noted. + DF/PF, PT 2+ b/l neg homans b/l, sensation grossl intact b/l LEs Vital Signs Temp 98.8 F 05/19/17 07:58 Pulse 74 05/19/17 07:58 Resp 15 05/19/17 10:00 BP 144/81 05/19/17 07:58 Pulse Ox 97 05/19/17 07:58 Intake & Output 05/18/17 05/19/17 05/19/17 18:59 06:59 18:59 Intake Total 1486 1220 240 Output Total 1200 1650 100 Balance 286 -430 140 Intake: IV Fluids 836 LR 836 Oral 650 1220 240 Output: Urine 350 1650 100 Mcmanus 850 Assessment: Stable 62 y/o female s/p L TKA 05/[address] Wright, uncomplicated. Plan: - DVT prophyl- continue current. Elquis at D/C, give dose prior to D/C. - H&H stable - Continue PT/ OT - DM management per hospitalist, hospialists call will continue to follow. - Likely D/C home tomorrow
[2017-05-19] MEDS: Clopidogrel TAB* 75 MG PO SCH (12:01)
[2017-05-19] MEDS: Enoxaparin(*) 40 MG/0.4 ML SYR SUBCUT SCH (16:00)
[2017-05-19] MEDS: Warfarin TAB(*) 6 MG PO SCH (16:00)
--- NOTE | 2017-05-19 16:11 | PN ---
Subjective Date of Service: 05/19/17 Interval History: Patient reports her knee pain is better today. Plan to go home tomorrow, reports she feels ready and has help at home. Overall she feels that she is doing well. Reports good appetite, No fever or chills. Denies CP/SOB. Objective Active Medications: Acetaminophen (Tylenol Tab*) 650 mg PO Q4H PRN PRN Reason: PAIN OR TEMPERATURE Aripiprazole (Abilify Tab*) 5 mg PO DAILY [facility] Last Admin: 05/19/17 08:14 Dose: 5 mg Atorvastatin Calcium (Lipitor*) 80 mg PO BEDTIME [facility] Last Admin: 05/18/17 20:43 Dose: 80 mg Bisacodyl (Dulcolax Supp*) 10 mg MS DAILY PRN PRN Reason: constipation Clopidogrel Bisulfate (Plavix Tab*) 75 mg PO DAILY [facility] Last Admin: 05/19/17 12:01 Dose: 75 mg Dextrose (D50w Syringe 50 Ml*) 12.5 gm IV PUSH .FOR FS < 60 - SS PRN PRN Reason: FS < 60 Diphenhydramine HCl (Benadryl Iv*) 12.5 mg IV Q6H PRN PRN Reason: PRURITIS Docusate Sodium (Colace Cap*) 100 mg PO BID [facility] Last Admin: 05/19/17 08:09 Dose: 100 mg Enoxaparin Sodium (Lovenox(*)) 40 mg SUBCUT Q24H [facility] Last Admin: 05/19/17 16:00 Dose: 40 mg Fluoxetine HCl (Prozac Cap*) 40 mg PO BID [facility] Last Admin: 05/19/17 08:07 Dose: 40 mg Lactated Ringer's (Lactated Ringers 1000 Ml Bag*) 1,000 mls @ 100 mls/hr IV PER RATE [facility] Last Admin: 05/18/17 04:32 Dose: 100 mls/hr Insulin Human Lispro (Humalog*) 0 units SUBCUT ACHS PRN; Protocol PRN Reason: PER PROTOCOL Last Admin: 05/19/17 12:20 Dose: 2 units Lactulose (Lactulose*) 30 ml PO Q6H PRN PRN Reason: constipation Lisinopril (Prinivil Tab*) 40 mg PO QAM [facility] Last Admin: 05/19/17 08:09 Dose: 40 mg Magnesium Hydroxide (Milk Of Magnesia Liq*) 30 ml PO Q6H PRN PRN Reason: constipation Metformin HCl (Glucophage*) 500 mg PO DAILY [facility] Last Admin: 05/19/17 08:09 Dose: 500 mg Metoprolol Tartrate (Lopressor Tab*) 100 mg PO BID [facility] Last Admin: 05/19/17 08:07 Dose: 100 mg Morphine Sulfate (Morphine Inj (Syringe)*) 2 mg IV Q2H PRN PRN Reason: PAIN Last Admin: 05/19/17 04:00 Dose: 2 mg Ondansetron HCl (Zofran Tab*) 4 mg PO Q6H PRN PRN Reason: NAUSEA Oxycodone HCl (Roxycodone Tab*) 10 mg PO Q4H PRN PRN Reason: SEVERE PAIN Oxycodone/Acetaminophen (Percocet 5/325 Tab*) 1 tab PO Q3H PRN PRN Reason: PAIN - MODERATE Last Admin: 05/18/17 05:03 Dose: 1 tab Oxycodone/Acetaminophen (Percocet 5/325 Tab*) 2 tab PO Q3H PRN PRN Reason: PAIN - MODERATE Last Admin: 05/19/17 16:00 Dose: 2 tab Pharmacy Profile Note (Scopolomine Patch Remove*) 1 note PATCH OFF Q72H ONE Stop: 05/20/17 05:41 Polyethylene Glycol/Electrolytes (Miralax*) 17 gm PO DAILY PRN PRN Reason: Constipation Sitagliptin Phosphate (Januvia (Nf)) 100 mg PO 0900 [facility] Last Admin: 05/19/17 08:15 Dose: 100 mg Warfarin Sodium (Coumadin Tab(*)) 6 mg PO DAILY@1700 [facility] PRN Reason: Protocol Last Admin: 05/19/17 16:00 Dose: 6 mg Vital Signs 05/18/17 05/18/17 05/18/17 16:39 19:45 20:42 Temperature 99.2 F Pulse Rate 74 Respiratory 16 16 18 Rate Blood Pressure 138/80 (mmHg) O2 Sat by Pulse 98 Oximetry 05/18/17 05/19/17 05/19/17 21:13 00:00 00:02 Temperature 99.0 F Pulse Rate 83 Respiratory 18 16 Rate Blood Pressure 126/66 (mmHg) O2 Sat by Pulse 95 95 Oximetry 05/19/17 05/19/17 05/19/17 01:22 03:21 04:00 Temperature 99.1 F Pulse Rate 80 Respiratory 18 16 16 Rate Blood Pressure 146/79 (mmHg) O2 Sat by Pulse 97 Oximetry 05/19/17 05/19/17 05/19/17 05:00 07:58 08:00 Temperature 98.8 F Pulse Rate 74 Respiratory 16 15 15 Rate Blood Pressure 144/81 (mmHg) O2 Sat by Pulse 97 Oximetry 05/19/17 05/19/17 05/19/17 08:05 10:00 11:32 Temperature 98.8 F Pulse Rate 69 Respiratory 17 15 14 Rate Blood Pressure 127/74 (mmHg) O2 Sat by Pulse 96 Oximetry 05/19/17 05/19/17 05/19/17 11:54 13:29 15:28 Temperature 98.8 F Pulse Rate 72 Respiratory 15 17 16 Rate Blood Pressure 113/65 (mmHg) O2 Sat by Pulse 97 Oximetry 05/19/17 05/19/17 15:54 16:00 Temperature Pulse Rate Respiratory 18 18 Rate Blood Pressure (mmHg) O2 Sat by Pulse Oximetry Oxygen Devices in Use Now: None Appearance: 62 yo female A+O x3 in NAD Eyes: No Scleral Icterus, PERRLA Ears/Nose/Mouth/Throat: NL Teeth, Lips, Gums, Mucous Membranes Moist Neck: NL Appearance and Movements; NL JVP Respiratory: Symmetrical Chest Expansion and Respiratory Effort, Clear to Auscultation Cardiovascular: NL Sounds; No Murmurs; No JVD, RRR, No Edema Abdominal: NL Sounds; No Tenderness; No Distention Extremities: No Edema, No Clubbing, Cyanosis, - - right knee with cryo unit + DP pulses Skin: No Rash or Ulcers Neurological: Alert and Oriented x 3, NL Sensation, NL Muscle Strength and Tone Lines/Tubes/Other Access: Clean, Dry and Intact Peripheral IV Nutrition: Taking PO's Result Diagrams: 05/19/17 07:27 05/18/17 07:32 Additional Lab and Data: Laboratory Results - last 24 hr 05/18/17 05/18/17 05/18/17 07:32 07:32 07:32 Hgb 10.3 L Hct 31 L INR (Anticoag Therapy) 1.01 Sodium 134 Potassium 3.6 Chloride 101 Carbon Dioxide 27 Anion Gap 6 BUN 13 Creatinine 0.77 Est GFR ( Amer) 98.3 Est GFR (Non-Af Amer) 76.5 BUN/Creatinine Ratio 16.9 Glucose 171 H POC Glucose (mg/dL) Calcium 8.4 L 05/18/17 05/18/17 11:57 17:50 Hgb Hct INR (Anticoag Therapy) Sodium Potassium Chloride Carbon Dioxide Anion Gap BUN Creatinine Est GFR ( Amer) Est GFR (Non-Af Amer) BUN/Creatinine Ratio Glucose POC Glucose (mg/dL) 234 H 238 H Calcium Assess/Plan/Problems-Billing - Patient Problems (1) Total knee replacement status Comment: Management per Ortho post-op day #2 - overall doing well clincially pain management/Bowel regimen PT Plan for possible DC tomorrow? (2) HTN (hypertension) Comment: continue home lisinopril 40mg, toprol 100mg BID (3) Diabetes Comment: FS QACHS with SSI lispro ordered. home medications are Januvia/Metformin which primary team have also ordered. (4) CAD (coronary artery disease) Comment: asymptomatic continue BB, plavix, atorvastatin (5) DVT prophylaxis Comment: continue lovenox to coumadin bridge (6) Full code status Status and Disposition: Dispo per ortho.
[2017-05-19] MEDS: Atorvastatin* 80 MG TAB PO SCH (21:15)
[2017-05-20] MEDS: oxyCODONE/Acetamin 5/325 MG* TAB PO PRN ×2 (02:10→07:42)
[2017-05-20] MEDS ORDERED: Scopolomine PATCH Remove* 1 NOTE MISC PATCH OFF ONE (05:40)
[2017-05-20] MEDS: ARIPiprazole TAB* 5 MG PO SCH (07:41)
[2017-05-20] MEDS: Lisinopril TAB* 10 MG PO SCH (07:41)
[2017-05-20] MEDS: Metoprolol Tartrate TAB* 100 MG TAB PO SCH (07:41)
[2017-05-20] MEDS: FLUoxetine CAP* 20 MG PO SCH (07:41)
[2017-05-20] MEDS: metFORMIN* 500 MG TAB PO SCH (07:42)
[2017-05-20] MEDS: Docusate CAP* 100 MG PO SCH (07:42)
[2017-05-20] MEDS: Clopidogrel TAB* 75 MG PO SCH (07:42)
[2017-05-20] MEDS: PTO: SitaGLIPtin (NF) 100 MG TAB PO SCH (07:43)
[2017-05-20 08:41] LABS: Hematocrit 30 % (35-47); Hemoglobin 9.6 g/dl (12.0-16.0); Mean Platelet Volume 9 um3 (7.4-10.4)
[2017-05-20] MEDS: Insulin LISPRO* 1 UNITS UNIT SUBCUT PRN (08:47)
--- NOTE | 2017-05-20 08:47 | PN ---
Progress Note - Progress Note Date of Service: 05/20/17 SOAP: SOAP: Subjective: 62 y/o female s/p L TKA 05/[address] Wright, uncomplicated. States that she slept much better last night. pain well controlled. VSS, afebrile overnight. Objective: General- Well appearing, NAD, fatigued appearing MSK- Surgical dressing is c/d/i. + DF/PF, PT 2+ b/l neg homans b/l, sensation grossl intact b/l LEs Vital Signs Temp 98.2 F 05/20/17 04:34 Pulse 69 05/20/17 04:34 Resp 18 05/20/17 07:42 BP 117/68 05/20/17 04:34 Pulse Ox 97 05/20/17 04:34 Intake & Output 05/19/17 05/20/17 05/20/17 18:59 06:59 18:59 Intake Total 240 1000 240 Output Total 1200 800 400 Balance -960 200 -160 Intake: Oral 240 1000 240 Output: Urine 1200 800 400 Other: # Bowel Movements 0 Assessment: Stable 62 y/o female s/p L TKA 05/[address] Wright, uncomplicated. Plan: - D/C home today. - DVT prophyl- Eliquis 5mg bid at home until she follows up with Dr. Montero. - Continue PT/ OT
[2017-05-20 09:22] VITALS: BP 134/80
[2017-05-20] MEDS ORDERED: Apixaban* 5 MG TAB PO SCH (10:00)
--- NOTE | 2017-05-21 17:13 | DS ---
DISCHARGE SUMMARY: DATE OF ADMISSION: 05/17/17 DATE OF DISCHARGE: 05/20/17 PROVIDER: Amanda Wright MD * (DICTATED BY TED LUO) ADMITTING DIAGNOSIS: Right total knee arthroplasty. CONSULTATIONS: Physical therapy, Occupational Therapy, Hospital Medicine. HISTORY OF PRESENT ILLNESS: Ms. Medina is a 62-year-old female with complaints of right knee pain secondary to advanced osteoarthritis. She had failed conservative management, elected to proceed with a right total knee arthroplasty, which was performed on 05/17/[address] Amanda Wright. HOSPITAL COURSE: The patient was admitted to [facility] on 05/17/17 and underwent a right total knee arthroplasty with no complications. The patient recovered briefly on the postanesthesia care unit and was then transferred to the short stay surgical unit in stable condition. On postop day #1, the patient's H and H was 10.3 and 31, INR was 1.01 after 6 mg of Coumadin the night before. Dressing was clean, dry, and intact, right lower extremity was neurovascularly intact. She did demonstrate dorsiflexion and plantar flexion with good strength. The patient was able to get out of bed with physical therapy. Pain was controlled with oral Percocet 5/325. On postop day #2, the urinary catheter was discontinued and the patient was able to void without difficulty. Incision was found to be benign with minimal drainage. No erythema or warmth. The patient's H and H was 10.2 and 31. INR was 1.52. Pain was well controlled with Percocet 5/325. The patient was able to ambulate with use of a rolling walker and assistance. On postop day #3, the patient's H and H was 9.6 and 30. INR was 1.77. The patient's pain was well controlled and found to be stable for discharge throughout the hospital course. The vital signs remained stable and the patient was afebrile. DISCHARGE CONDITION: Good. DISCHARGE MEDICATIONS: New medications: 1. Eliquis 5 mg. 2. Percocet 5/325. 3. Colace 100 mg. Home medications: 1. Nitrostat. 2. Prozac 40 mg. 3. Lisinopril 40 mg. 4. Metoprolol 100 mg. 5. Plavix 75 mg. 6. Aspirin 81 mg. 7. Metformin 500 mg. 8. Januvia. 9. Abilify. 10. Lipitor. 11. Atorvastatin. 12. Calcium. DISCHARGE INSTRUCTIONS: Weightbearing as tolerated. Wound care, okay to shower, no bathing, swimming, and submerging wound. Use gentle soap, pat dry. Cover with gauze, Golden wrap or tape. Call orthopedic office for increased drainage, redness, increased pain or fever. Go to the ER with shortness of breath or chest pain. DIET: Regular diet. Increase fluids and fiber to prevent constipation. Continue to use stool softeners. Call office if no bowel motion within 48 hours. Continue physical therapy and occupational therapy exercise as shown. Visiting home nurses to do wound check. Please utilize Eliquis 5 mg b.i.d. until you follow up with Dr. Montero. Antibiotics required prior to any dental work. FOLLOWUP: Follow up with Dr. Amanda Wright within 10 to 14 days and call for an appointment. TED LUO [id number]/[facility] #: [id number] MTDTomasz
== END 2017-05-20 11:55 | disposition home health service (06) | DRG 302 ==
LOC: AA 12:00 → SSU 15:29
PROVIDERS: ADMIT Orthopaedic Surgery Adult Reconstructive Orthopaedic Surgery; ATTEND Orthopaedic Surgery Adult Reconstructive Orthopaedic Surgery
PROC: 0SRC0J9 Replacement of Right Knee Joint with Synthetic Substitute, Cemented, Open Approach (ICD-10-PCS; principal; 2017-05-17 14:15)
DX: M17.11 Unilateral primary osteoarthritis, right knee (principal); I10 Essential (primary) hypertension; E78.00 Pure hypercholesterolemia, unspecified; E11.9 Type 2 diabetes mellitus without complications; E89.0 Postprocedural hypothyroidism; I25.10 Atherosclerotic heart disease of native coronary artery without angina pectoris; F32.9 Major depressive disorder, single episode, unspecified; M25.761 Osteophyte, right knee; Z79.01 Long term (current) use of anticoagulants; Z87.891 Personal history of nicotine dependence; Z80.9 Family history of malignant neoplasm, unspecified; Z82.3 Family history of stroke; Z82.49 Family history of ischemic heart disease and other diseases of the circulatory system; Z88.8 Allergy status to other drugs, medicaments and biological substances; Z86.718 Personal history of other venous thrombosis and embolism; Z88.1 Allergy status to other antibiotic agents; Z95.5 Presence of coronary angioplasty implant and graft; Z79.02 Long term (current) use of antithrombotics/antiplatelets; Z79.82 Long term (current) use of aspirin; Z79.84 Long term (current) use of oral hypoglycemic drugs; Z86.711 Personal history of pulmonary embolism; Z87.898 Personal history of other specified conditions; I25.2 Old myocardial infarction
CPT/HCPCS: 36415; 80048; 85014; 85018; 85049; 85610; 94760; A9270-GY; C1776; J0690; J0780; J1650; J1885; J2250; J2270; J2405; J2704; J3010

== ENCOUNTER 2017-10-30 07:30 | Inpatient (IN) | payer BC ==
--- NOTE | 2017-10-25 19:28 | HP ---
HISTORY AND PHYSICAL: DATE OF ADMISSION: 11/01/17 ATTENDING PROVIDER: Dr. Wright * (DICTATED BY TED LUO) HISTORY OF PRESENT ILLNESS: Ms. Medina is a 62-year-old female who is now status post right total knee arthroplasty. She also has pain in her left knee due to severe osteoarthritis. She would like to undergo a left total knee arthroplasty on 11/01/17. She has failed conservative management and is in pain daily. PAST MEDICAL HISTORY: 1. Essential hypertension. 2. Localized primary osteoarthritis. 3. Depressive disorder. 4. Type 2 diabetes mellitus, uncontrolled. 5. Pure hypercholesterolemia. 6. residential use of anticoagulant. PAST SURGICAL HISTORY: 1. Myomectomy, 2000. 2. Angioplasty, 2007, 2002. 3. Right total knee arthroplasty. MEDICATIONS: 1. Eliquis 5 mg 1 by mouth twice a day. 2. Nitrostat 0.4 mg one SL q. 5 up to 3 times a day as needed. 3. Prozac 40 mg take 2 capsules by mouth every day. 4. Lisinopril 40 mg 1 tablet. 5. Metoprolol 100 mg. 6. Plavix 75 mg. 7. Aspirin 81. 8. Januvia 100 mg. 9. Metformin extended release 500 mg. 10. Abilify 5 mg. 11. Lipitor 80 mg. ALLERGIES: 1. ZITHROMAX causes hives. 2. WELLBUTRIN causes headaches. FAMILY HISTORY: Heart disease, hypertension. SOCIAL HISTORY: The patient denies any illicit drug use. Denies any drinking. She does have a history of smoking one-pack per day x20 years but she quit in 1996. REVIEW OF SYSTEMS: The patient denies any fevers, chills, night sweats. No known anesthesia problems. HEENT: The patient denies headaches, lightheadedness, syncopal episodes. Cardiothoracic: Denies any shortness of breath, chest pain, heart palpitations. Pulmonary: Denies any shortness of breath with exertion, chronic cough, or COPD. GI: The patient denies any nausea, vomiting, diarrhea, or constipation. : The patient denies any nocturia, urinary frequency or urgency. MSK: The patient admits to left knee pain. Denies any chronic or intermittent back pain or fractures. Neuro: The patient denies any paresthesias, numbness, seizure, stroke. Integument: The patient denies any abrasions, lesions, rashes, lumps. PHYSICAL EXAMINATION GENERAL: The patient is alert and oriented x3 with appropriate mood and affect. HEENT: Normocephalic, atraumatic. Hearing and vision are grossly intact. PULMONARY: Lungs are clear to auscultation bilaterally. No wheezes, rales, or rhonchi. CARDIO: Regular rate and rhythm. Normal S1 and S2. No appreciable S3 or S4. No murmurs, rubs, or gallops. MSK: Inspection of the left knee reveals no erythema, no ecchymosis. Skin is warm, dry and intact. She has range of motion from 0 to 120 degrees of flexion with pain at terminal flexion. She has positive medial joint line tenderness to palpation, some mild lateral joint line tenderness to palpation. Negative Antonia. Negative anterior and posterior drawer test. Negative varus and valgus stress testing. She is neurovascularly intact, with 2+ dorsalis pedis pulse. IMPRESSION: Left knee osteoarthritis. PLAN: The patient will go to the OR on 11/01/17 for left total knee arthroplasty. The patient will return 10 to 14 days postoperatively for suture removal and to follow up. A prescription for Percocet has been sent to the pharmacy for record. 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 TED LUO [id number]/[facility] #: [id number] MIESHA
[2017-10-31] MEDS ORDERED: Buffered Lidocaine 0.9% SYRIN* 5 ML/SYR SYRINGE INTRADERM ONE (09:56)
[2017-11-01] MEDS ORDERED: ceFAZolin 2 GM in 100 MLS NS (*) BAG IVPB ONE (07:11)
[2017-11-01] MEDS ORDERED: Buffered Lidocaine 0.9% SYRIN* 5 ML/SYR SYRINGE ONE (07:11)
--- OUTSIDE RECORDS SUMMARY | 2017-11-01 07:13 | XMS REPORT ---
:1955 External Reference #:[id number] Author Organization [employer] Address [address] [address] Phone [phone] Care Team Providers Name Role Phone Zeinab Momin MD Primary Care Physician Unavailable Payers Type Date Identification Numbers Payment Provider Subscriber Health Maintenance Policy Number: [facility] Amanda Owens [place] Organization (O) [id number] Group Number: [id number] Group Name: [facility] [place] [address] PayID: [id number] Problems Date Description Provider Status Onset: 12/05/2013 Chronic ischemic heart disease oRland Montero M.D., Active CASSANDRA CORTEZ Onset: 11/03/2013 Coronary arteriosclerosis Roland Montero M.D., Active DIEGO, CASSANDRA Onset: 12/05/2013 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 Active Onset: 08/08/2017 Arthroplasty of knee Amanda Wright M.D. Active Family History Date Family Member(s) Problem(s) Comments General Heart Disease General Cancer Bone Marrow General Hypertension General Stroke Father Heart Disease passed Father due to Heart Disease () - [place] (55), Valve Disease, HTN, Hyperlipidemia Age 72 Mother Cancer passed Mother Bone Marrow Cancer HTN Age 83 Siblings 2 1 Brother - CAD - [place], stent (59) Age 62 1 Sister - Overweight, HTN Age 54 Social History Type Date Description Comments Marital Status Single Lives With Alone Occupation [employer] Occupation Retired ETOH Use Denies alcohol use Smoking Patient is a former smoker quit in 1996 Recreational Drug Use Denies Drug Use Smoking Not exposed to second hand smoke. Daily Caffeine consumes chocolate frequently Daily Caffeine Consumes on average 1 cup of regular coffee per day Exercise Type/Frequency Exercises sporadically Walks occasionally Allergies, Adverse Reactions, Alerts Date Description Reaction Status Severity Comments 10/14/2009 Zithromax RASH active Moderate 06/29/2010 Wellbutrin weird headaches active Moderate Medications Medication Date Status Form Strength Qnty SIG Indications Ordering Provider Alcohol Prep 07/26/ Active Pads 70% 400un Reva 2016 its Varn, N.P. Blood Glucose 05/22/ Active Kit W/Device 1unit test blood Reva Monitoring 2016 s sugars Varn, N.P. System once fasting and 2 hours after dinner meal Blood Glucose 05/22/ Active Strips 100un test blood Reva Test 2017 its sugar Varn, N.P. fasting in in the morning and 2 hours after dinner meal Eliquis 05/20/ Active Tablets 5mg 60tab 1 by mouth Reva 2017 s twice a Varn, N.P. day x 30 days( Pt states she continues to take replaced Warfarin) Nitrostat 02/15/ Active Tablets 0.4mg 25tab one sl Roland North 2014 Sub s q5min up Winston, to 3 doses M.D., as needed CASSANDRA CORTEZ Prozac 11/12/ Active Capsules 40mg 90cap take two Reva 2013 s capsules Varn, N.P. by mouth every day Lisinopril 02/23/ Active Tablets 40mg 90tab 1 tablet Roland North 2009 s daily Mark Montero, CASSANDRA CORTEZ Metoprolol 02/23/ Active Tablets 100mg 180ta 1 tablet Roland North Tartrate 2009 bs twice a Winston, day M.Jose, [facility] Plavix 02/23/ Active Tablets 75mg 90tab 1 tablet Roland North 2009 s daily Mark Montero, [facility] Aspir-81 02/23/ Active Tablets DR 81mg 1 tablet Yeni 2009 daily Mark Zavala, [facility] Januvia 02/23/ Active Tablets 100mg 90tab take 1 2009 s tablet Varn, N.P. every day 1 hour before dinner Metformin HCL 02/23/ Active Tablets ER 500mg 180ta take 2 Zeinab ER 2009 24HR bs tablets by Cotton, mouth once M.D. daily ( Pt continues to take Only 1 tablet po daily ) Abilify / Active Tablets 5mg 30tab 1 tabs [place] 0000 s by mouth rvath, every day DIMITRI HnacockW-R, RN Lipitor / Active Tablets 80mg 90tab Take 1 Zeinab 0000 s Tablet By Cotton, Mouth In M.D. The Evening Amoxicillin 05/04/ Hx Capsules 500mg 20cap take one Amanda 2016 - tab 4 Kyle, 10/11/ times a M.D. 2017 day for 5 days Percocet 05/04/ Hx Tablets 5-325mg 90tab 1-2 by Amanda 2016 - mouth Kyle, 10/21/ every 4-6 M.D. 2018 hours as needed for post-op pain. Lovenox 04/18/ Hx Solution 100mg/ml 7unit 1 Z01.818 Reva 2016 - injection Varn, N.P. 05/18/ q 12 hours 2016 starting 4 days before surgery, to stop 24 hours prior to surgery Fish Oil 04/16/ Hx Capsules 1000mg 30cap 1 by mouth Other 2014 - s every day Ordering 08/13/ Provider 2015 Nitrostat 11/02/ Hx Tablets 0.4mg 25tab one sl 414.01 Roland North 2015 - Sub s q5min up Winston, 02/15/ to 3 doses M.D., 2014 as needed, [facility], if no FASAL relief after 3 call 911 Prozac 07/11/ Hx Capsules 20mg 90cap Take One 311 Reva 2012 - s Capsule By Varn, N.P. 01/20/ Mouth 2015 Every Day Lovenox 05/29/ Hx Solution 40mg/0.4ML 10uni 1 Zeinab 2012 - ts injection Cotton, 10/31/ daily M.D. 2014 Flovent HFA 09/23/ Hx Aerosol 44mcg/Act 1unit 2 puffs 786.2 Yeni 2012 - s twice Sally, 10/31/ daily for M.D., FACP 2014 10 days Ipratropium 09/23/ Hx Solution 0.03% 30ml instill 2 786.2 Yeni [place] 2013 - sprays in Sally, 10/31/ each M.D., FACP 2014 nostril twice a day for 10 days Warfarin Sodium 04/12/ Hx Tablets 2mg 180ta 2 tablets Reva 2011 - bs for 5 days Varn, N.P. 05/22/ a week and 2016 1 tablet twice a week or as directed.( will stop 5 days prior to surgery) Warfarin Sodium 09/26/ Hx Tabs 3mg 45tab Take as Yeni 2010 - s Directed Sally, 10/31/ M.D., FACP 2013 Warfarin Sodium 08/28/ Hx Tabs 2.5mg 30tab Take as Yeni 2009 - s Directed , 10/31/ M.D., FACP 2013 Trazodone HCL 06/29/ Hx Tablets 50mg 30tab 1 tablet Yeni 2009 - s at bedtime Sally, 10/19/ as needed M.D., FACP 2010 Simvastatin 02/23/ Hx Tablets 80mg 45tab 1 tablet Yeni 2009 - s at bedtime Sally, 09/11/ M.D., FACP 2012 Nitroglycerin 02/23/ Hx Tablets 0.4mg 25tab 1 tablet Roland Can 2009 - Sub s under Montero, 02/15/ tongue as M.D., 2015 needed FACC, chest FASNC pain, may repeat x2 q5 mins, if no relief call 911 Contour Hx Test Yeni Glucometer 2010 - Strips Sally, 10/31/ M.D., FACP 2014 Microlet 02/23/ Hx Lancets Yeni 2009 - Sally, 10/31/ M.D., FACP 2014 Januvia 02/23/ Hx Tabs 100mg 30tab Take 1 Yeni 2009 - s Tablet Sally, 02/15/ Every Day Mark, FACP 2010 1 Hour Before Dinner Metformin HCL 02/23/ Hx Tablets ER 500mg 30tab Take 1 Yeni ER 2009 - 24HR s Tablet Sally, 06/08/ With Mark, FACP 2010 Dinner Coumadin 02/22/ Hx Tablets 3mg 60tab take as Yeni 2009 - s directed Sally, 10/19/ by dr Flores, FACP 2010 Fluoxetine HCL 02/22/ Hx Capsules 40mg 90cap Take One Yeni 2009 - Capsule By Sally, 11/12/ Mouth Mark, FACP 2012 Every Day Zetia / Hx Tablets 10mg 90tab 1 po qd Roland North 0000 - s Winston, 10/06/ Mark, 2014 FACC, FASNC Fluoxetine HCL / Hx Capsules 40mg 1 by mouth Unknown 0000 - every day 2016 Nitroglycerin / Hx Tablets 0.4mg 1 sl Unknown 0000 - Sub q5mins x3 04/18/ as needed 2016 for chest pain Atorvastatin / Hx Tablets 80mg 1 by mouth Unknown Calcium 0000 - every day 2016 Medications Administered in Office Medication Date Status Form Strength Qnty SIG Indications Ordering Provider Inj, Administered Injection Rolandsurya North Regadenoson, 018 Montero, 0.1 MG Mark, DIEGO, FASNC Technetium TC Administered Injection Roland North 99M 018 Portia Montero M.D., FACMiki, Per Unit Dose FASNC Up To 40 Millicuries Technetium TC Administered Injection Roland Can 99M 018 Portia Montero M.D., FACMiki, Per Unit Dose FASNC Up To 40 Millicuries Depomedrol Administered Injection Amanda 40MG Shasha Wright M.D. Depomedrol Administered Injection Amanda 40MG 017 Mark Wright Inj, Administered Injection Francois S. Regadenoson, 016 DO Ravindra 0.1 MG FACC Technetium TC Administered Injection Francois S. 99M 016 DO Ravindra Tetrofosmin, FACC Per Unit Dose Up To 40 Millicuries Depomedrol Administered Injection Aristeo 80MG 015 Mark Pimentel Inj, Administered Injection Joshua Regadenoson, 013 Stefek, 0.1 MG MEdawrDEdwar, FACC, FSCAI Technetium TC Administered Injection Joshua 99M 013 Stefek, TetrofosminMark, FACC, Per Unit Dose FSCAI Up To 40 Millicuries Immunizations CPT Code Status Date Vaccine Lot # [id number] Given 05/24/2016 Afluria Vaccine Q2039 Given 05/22/2014 Flu Vaccine NOS [id number] Given 07/11/2013 Pneumonia Vaccine [id number] Given 07/11/2013 Tdap - Tetanus/Diptheria/Acellular Pertussis [id number] Given 05/22/2013 Afluria Vaccine Q2035 Given 05/23/2012 Afluria Vaccine 16350 Given 06/08/2011 Influenza Virus 3Yrs & Over [id number] Given 06/29/2010 Influenza Virus 3Yrs & Over 53617 Given 10/14/2009 Influenza Virus Vaccine, Pandemic Formulation 66069 Given 10/14/2009 Administration Swine Flu Shot Vital Signs Date Vital Result Comment 10/22/2017 Height 65 inches 5'5" Weight 220.00 lb Heart Rate 76 /min BP Systolic 132 mmHg BP Diastolic 82 mmHg BMI (Body Mass Index) 36.6 kg/m2 10/17/2017 Height 65 inches 5'5" Weight 220.00 lb No shoes Heart Rate 68 /min BP Systolic Sitting 146 mmHg Lue lrg cuff BP Diastolic Sitting 88 mmHg Lue lrg cuff BP Systolic Standing 150 mmHg Lue lrg cuff BP Diastolic Standing 90 mmHg Lue lrg cuff Respiratory Rate 17 /min BMI (Body Mass Index) 36.6 kg/m2 Ejection Fraction 55-60% 04/30/17-echo 10/12/2017 Height 65 inches 5'5" Weight 223.00 lb with shoes Heart Rate 82 /min BP Systolic 140 mmHg BP Diastolic 70 mmHg Body Temperature 98.8 F O2 % BldC Oximetry 96 % BMI (Body Mass Index) 37.1 kg/m2 08/08/2017 Height 65 inches 5'5" Weight 208.00 lb BP Systolic 134 mmHg BP Diastolic 82 mmHg Body Temperature 97.8 F BMI (Body Mass Index) 34.6 kg/m2 07/11/2017 Height 65.5 inches 5'5.50" Weight 210.00 lb Heart Rate 82 /min Respiratory Rate 16 /min Body Temperature 97.2 F Pain Level 1 BMI (Body Mass Index) 34.4 kg/m2 06/12/2017 Height 65.5 inches 5'5.50" Weight 210.00 lb BP Systolic 124 mmHg BP Diastolic 78 mmHg Respiratory Rate 20 /min Pain Level 3 BMI (Body Mass Index) 34.4 kg/m2 05/28/2017 Height 65.5 inches 5'5.50" Weight 210.00 lb Heart Rate 72 /min BP Systolic 150 mmHg BP Diastolic 85 mmHg Body Temperature 97.8 F Pain Level 4 BMI (Body Mass Index) 34.4 kg/m2 05/07/2017 Height 65 inches 5'5" Weight 214.00 lb with shoes Heart Rate 62 /min BP Systolic Sitting 130 mmHg Rue lrg cuff BP Diastolic Sitting 88 mmHg Rue lrg cuff BP Systolic Standing 126 mmHg Rue lrg cuff BP Diastolic Standing 86 mmHg Rue lrg cuff Respiratory Rate 16 /min BMI (Body Mass Index) 35.6 kg/m2 Ejection Fraction 55-60% 04/30/2017-echo 05/04/2017 Height 65 inches 5'5" Weight 222.00 lb Heart Rate 78 /min BP Systolic 132 mmHg BP Diastolic 84 mmHg Respiratory Rate 18 /min Body Temperature 97.5 F Pain Level 0 BMI (Body Mass Index) 36.9 kg/m2 04/18/2017 Height 65 inches 5'5" Weight 213.00 lb Heart Rate 61 /min BP Systolic Sitting 144 mmHg BP Diastolic Sitting 98 mmHg O2 % BldC Oximetry 96 % BMI (Body Mass Index) 35.4 kg/m2 03/09/2017 Height 65 inches 5'5" Weight 222.00 lb Heart Rate 82 /min BP Systolic 132 mmHg BP Diastolic 80 mmHg Respiratory Rate 16 /min Body Temperature 95.3 F Pain Level 0 BMI (Body Mass Index) 36.9 kg/m2 12/06/2016 Weight 222.00 lb with shoes Heart Rate 62 /min BP Systolic 130 mmHg BP Diastolic 80 mmHg O2 % BldC Oximetry 99 % 09/07/2016 Height 65 inches 5'5" Weight 221.00 lb Heart Rate 67 /min BP Systolic 132 mmHg BP Diastolic 82 mmHg Body Temperature 96.5 F O2 % BldC Oximetry 97 % BMI (Body Mass Index) 36.8 kg/m2 07/12/2016 Height 65.5 inches 5'5.50" Weight 223.00 lb no shoes Heart Rate 74 /min BP Systolic Sitting 142 mmHg Rue large cuff BP Diastolic Sitting 90 mmHg Rue large cuff BP Systolic Standing 140 mmHg Rue large cuff BP Diastolic Standing 90 mmHg Rue large cuff Respiratory Rate 16 /min BMI (Body Mass Index) 36.5 kg/m2 04/26/2016 Height 65.5 inches 5'5.50" Weight 217.00 lb Heart Rate 76 /min BP Systolic Sitting 114 mmHg Ra large cuff BP Diastolic Sitting 78 mmHg Ra large cuff BP Systolic Standing 110 mmHg Ra BP Diastolic Standing 84 mmHg Ra Respiratory Rate 18 /min BMI (Body Mass Index) 35.6 kg/m2 Ejection Fraction 60-65% 02/15/2016 Weight 201.00 lb Heart Rate 62 /min BP Systolic Sitting 100 mmHg BP Diastolic Sitting 70 mmHg Body Temperature 96.0 F O2 % BldC Oximetry 99 % 01/03/2016 Height 65 inches 5'5" Weight 215.00 lb with shoes Heart Rate 80 /min BP Systolic Sitting 136 mmHg Ra reg cuff BP Diastolic Sitting 88 mmHg Ra reg cuff BP Systolic Standing 132 mmHg Ra reg cuff BP Diastolic Standing 88 mmHg Ra reg cuff Respiratory Rate 17 /min BMI (Body Mass Index) 35.8 kg/m2 Ejection Fraction 60-65% 10/04/12 08/13/2015 Height 65 inches 5'5" Weight 206.50 lb Heart Rate 82 /min BP Systolic Sitting 114 mmHg BP Diastolic Sitting 80 mmHg Body Temperature 96.2 F Pain Level 0 O2 % BldC Oximetry 97 % BMI (Body Mass Index) 34.4 kg/m2 02/05/2015 Weight 200.00 lb Heart Rate 75 /min BP Systolic Sitting 131 mmHg BP Diastolic Sitting 85 mmHg Body Temperature 96.2 F 12/04/2014 Height 65 inches 5'5" Heart Rate 61 /min BP Systolic 119 mmHg BP Diastolic 86 mmHg 11/02/2014 Height 65 inches 5'5" Weight 208.00 lb Heart Rate 68 /min BP Systolic Sitting 128 mmHg right arm, large cuff BP Diastolic Sitting 80 mmHg right arm, large cuff BP Systolic Standing 126 mmHg right arm, large cuff BP Diastolic Standing 80 mmHg right arm, large cuff Respiratory Rate 16 /min BMI (Body Mass Index) 34.6 kg/m2 10/20/2014 Height 65 inches 5'5" Weight 200.00 lb Heart Rate 77 /min BP Systolic 120 mmHg BP Diastolic 85 mmHg Pain Level 4 BMI (Body Mass Index) 33.3 kg/m2 09/29/2014 Weight 202.50 lb Heart Rate 76 /min BP Systolic Sitting 142 mmHg BP Diastolic Sitting 82 mmHg Body Temperature 98.2 F 01/28/2014 Height 65.5 inches 5'5.50" Weight 195.00 lb Heart Rate 72 /min BP Systolic 138 mmHg BP Diastolic 80 mmHg BMI (Body Mass Index) 32.0 kg/m2 11/03/2013 Height 65.5 inches 5'5.50" Weight 193.31 lb without shoes Heart Rate 68 /min sit and reg BP Systolic Sitting 138 mmHg LA reg cuff BP Diastolic Sitting 100 mmHg LA reg cuff BP Systolic Standing 130 mmHg LA reg cuff BP Diastolic Standing 100 mmHg LA reg cuff Respiratory Rate 17 /min BMI (Body Mass Index) 31.7 kg/m2 07/11/2013 Height 65 inches 5'5" Weight 204.00 lb Heart Rate 66 /min BP Systolic Sitting 122 mmHg BP Diastolic Sitting 80 mmHg BMI (Body Mass Index) 33.9 kg/m2 02/24/2013 Weight 196.00 lb Heart Rate 68 /min BP Systolic Sitting 130 mmHg BP Diastolic Sitting 84 mmHg 12/19/2012 Weight 185.00 lb Heart Rate 60 /min BP Systolic Sitting 124 mmHg BP Diastolic Sitting 76 mmHg 09/23/2012 Height 65 inches 5'5" Weight 177.00 lb Heart Rate 74 /min BP Systolic Sitting 122 mmHg BP Diastolic Sitting 76 mmHg Body Temperature 97.2 F BMI (Body Mass Index) 29.5 kg/m2 09/11/2012 Height 65 inches 5'5" Weight 176.00 lb Heart Rate 64 /min BP Systolic Sitting 124 mmHg BP Diastolic Sitting 76 mmHg BMI (Body Mass Index) 29.3 kg/m2 06/21/2012 Height 65 inches 5'5" Weight 166.00 lb Heart Rate 72 /min BP Systolic Sitting 122 mmHg BP Diastolic Sitting 78 mmHg BMI (Body Mass Index) 27.6 kg/m2 01/15/2012 Height 65 inches 5'5" Weight 192.00 lb Heart Rate 64 /min BP Systolic Sitting 104 mmHg BP Diastolic Sitting 72 mmHg BMI (Body Mass Index) 31.9 kg/m2 06/15/2011 Height 65 inches 5'5" Weight 187.00 lb Heart Rate 78 /min BP Systolic Sitting 130 mmHg BP Diastolic Sitting 68 mmHg BMI (Body Mass Index) 31.1 kg/m2 06/08/2011 Height 65 inches 5'5" Weight 184.00 lb Heart Rate 64 /min BP Systolic Sitting 138 mmHg BP Diastolic Sitting 66 mmHg BMI (Body Mass Index) 30.6 kg/m2 02/15/2011 Height 65 inches 5'5" Weight 176.00 lb Heart Rate 76 /min BP Systolic Sitting 122 mmHg BP Diastolic Sitting 78 mmHg BMI (Body Mass Index) 29.3 kg/m2 10/19/2010 Weight 204.00 lb Heart Rate 60 /min BP Systolic 124 mmHg BP Diastolic 96 mmHg 08/01/2010 Weight 209.75 lb Heart Rate 72 /min BP Systolic 140 mmHg BP Diastolic 88 mmHg Body Temperature 98.4 F 06/29/2010 Weight 206.00 lb Heart Rate 58 /min BP Systolic 130 mmHg BP Diastolic 86 mmHg Results Test Date Test Result H/L Range Note Laboratory test finding 10/12/2017 Hemoglobin A1c 7.2 High 5-7 Inr/Protime 05/08/2017 Inr 2.72 High 0.89-1.11 Comp Metabolic Panel 05/04/2017 Sodium 137 mmol/L 133-145 Potassium 4.0 mmol/L 3.5-5.0 Chloride 107 mmol/L 101-111 Co2 Carbon Dioxide 26 mmol/L 22-32 Anion Gap 4 mmol/L 2-11 Glucose 103 mg/dL High 70-100 Blood Urea Nitrogen 17 mg/dL 6-24 Creatinine 0.87 mg/dL 0.51-0.95 BUN/Creatinine Ratio 19.5 8-20 Calcium 9.4 mg/dL 8.6-10.3 Total Protein 6.7 g/dL 6.4-8.9 Albumin 4.1 g/dL 3.2-5.2 Globulin 2.6 g/dL 2-4 Albumin/Globulin Ratio 1.6 1-3 Total Bilirubin 0.60 mg/dL 0.2-1.0 Alkaline Phosphatase 54 U/L 34-104 Alt 36 U/L 7-52 Ast 24 U/L 13-39 Egfr Non- 66.4 >60 Egfr 85.4 >60 1 CBC No Diff 05/04/2017 White Blood Count 7.5 10^3/uL 3.5-10.8 Red Blood Count 5.42 10^6/uL High 4.0-5.4 Hemoglobin 13.2 g/dL 12.0-16.0 Hematocrit 41 % 35-47 Mean Corpuscular Volume 75 fL Low 80-97 Mean Corpuscular Hemoglobin 24 pg Low 27-31 Mean Corpuscular HGB Conc 32 g/dL 31-36 Red Cell Distribution Width 16 % High 10.5-15 Platelet Count 221 10^3/uL 150-450 Mean Platelet Volume 9 um3 7.4-10.4 Type & Screen 05/04/2017 Patient Blood Type B Positive Antibody Screen NEGATIVE Inr/Protime 05/01/2017 Inr 2.19 High 0.89-1.11 Inr/Protime 04/24/2017 Inr 1.40 High 0.89-1.11 Urine Culture And 04/24/2017 Urine Culture SEE RESULT BELOW 2 Sensitivities Urinalysis Profile 04/24/2017 Urine Color Jaki Urine Appearance Cloudy Urine Specific Ismay 1.025 1.010-1.030 Urine pH 5.0 5-9 Urine Urobilinogen Negative Negative Urine Ketones Negative Negative Urine Protein Negative Negative Urine Leukocytes 1+ Negative Urine Blood Negative Negative * * Negative 3 Urine Nitrite Negative Negative Urine Bilirubin Negative Negative Urine Glucose Negative Negative Urine White Blood Cell Trace(0-5/hpf) Absent Urine Red Blood Cell 1+(3-5/hpf) Absent Urine Bacteria Absent Absent Urine Squamous Epithelial Cell Present Absent Urine Hyaline Casts Present Absent Comp Metabolic Panel 04/24/2017 Sodium 139 mmol/L 133-145 Potassium 4.0 mmol/L 3.5-5.0 Chloride 105 mmol/L 101-111 Co2 Carbon Dioxide 27 mmol/L 22-32 Anion Gap 7 mmol/L 2-11 Glucose 129 mg/dL High 70-100 Blood Urea Nitrogen 13 mg/dL 6-24 Creatinine 0.99 mg/dL High 0.51-0.95 BUN/Creatinine Ratio 13.1 8-20 Calcium 9.1 mg/dL 8.6-10.3 Total Protein 6.7 g/dL 6.4-8.9 Albumin 4.3 g/dL 3.2-5.2 Globulin 2.4 g/dL 2-4 Albumin/Globulin Ratio 1.8 1-3 Total Bilirubin 0.80 mg/dL 0.2-1.0 Alkaline Phosphatase 58 U/L 34-104 Alt 40 U/L 7-52 Ast 30 U/L 13-39 Egfr Non- 57.2 >60 Egfr 73.6 >60 4 CBC Auto Diff 04/24/2017 White Blood Count 6.7 10^3/uL 3.5-10.8 Red Blood Count 5.40 10^6/uL 4.0-5.4 Hemoglobin 13.0 g/dL 12.0-16.0 Hematocrit 41 % 35-47 Mean Corpuscular Volume 75 fL Low 80-97 Mean Corpuscular Hemoglobin 24 pg Low 27-31 Mean Corpuscular HGB Conc 32 g/dL 31-36 Red Cell Distribution Width 15 % 10.5-15 Platelet Count 183 10^3/uL 150-450 Mean Platelet Volume 8 um3 7.4-10.4 Abs Neutrophils 4.1 10^3/uL 1.5-7.7 Abs Lymphocytes 1.6 10^3/uL 1.0-4.8 Abs Monocytes 0.5 10^3/uL 0-0.8 Abs Eosinophils 0.4 10^3/uL 0-0.6 Abs Basophils 0.1 10^3/uL 0-0.2 Abs Nucleated RBC 0.03 10^3/uL Granulocyte % 61.8 % 38-83 Lymphocyte % 24.4 % Low 25-47 Monocyte % 7.3 % 1-9 Eosinophil % 5.2 % 0-6 Basophil % 1.3 % 0-2 Nucleated Red Blood Cells % 0.5 Inr/Protime 04/17/2017 Inr 4.02 High 0.89-1.11 Inr/Protime 04/05/2017 Inr 3.28 High 0.89-1.11 Laboratory test finding 03/09/2017 Hemoglobin A1c 6.6 5-7 Inr/Protime 03/08/2017 Inr 2.79 High 0.89-1.11 Protime W/ Inr 02/13/2017 Prothrombin Time <pending> Inr <pending> Protime W/ Inr 02/08/2017 Inr 2.22 High 0.89-1.11 Inr/Protime 2017 Inr 2.74 High 0.89-1.11 Inr/Protime 12/28/2016 Inr 2.79 High 0.89-1.11 Inr/Protime 12/14/2016 Inr 2.03 High 0.89-1.11 Inr/Protime 12/07/2016 Inr 1.83 High 0.89-1.11 Inr/Protime 11/30/2016 Inr 1.82 High 0.89-1.11 Inr/Protime 11/23/2016 Inr 1.63 High 0.89-1.11 Inr/Protime 11/09/2016 Inr 2.30 High 0.89-1.11 Inr/Protime 11/03/2016 Inr 3.29 High 0.89-1.11 Inr/Protime 10/23/2016 Inr 2.12 High 0.89-1.11 Inr/Protime 10/02/2016 Inr 2.69 High 0.89-1.11 Inr/Protime 09/25/2016 Inr 2.72 High 0.89-1.11 Inr/Protime 09/21/2016 Inr 1.33 High 0.89-1.11 Laboratory test finding 09/07/2016 Cytology SEE RESULT BELOW 5 HPV Rna Ww/Reflex Genotype Negative Negative 6 Laboratory test finding 09/07/2016 Hemoglobin A1c 6.8 5-7 Inr/Protime 08/31/2016 Inr 2.05 High 0.89-1.11 Inr/Protime 07/27/2016 Inr 1.89 High 0.89-1.11 Inr/Protime 07/20/2016 Inr 2.05 High 0.89-1.11 Inr/Protime 07/14/2016 Inr 3.23 High 0.89-1.11 Inr/Protime 06/30/2016 Inr 2.27 High 0.89-1.11 Lipid Profile (Trig/Chol/HDL) 06/16/2016 Triglycerides 154 mg/dL 7 Cholesterol 148 mg/dL 8 HDL Cholesterol 44.2 mg/dL 9 LDL Cholesterol 73 mg/dL 10 Comp Metabolic Panel 06/16/2016 Sodium 138 mmol/L 133-145 Potassium 4.1 mmol/L 3.5-5.0 Chloride 104 mmol/L 101-111 Co2 Carbon Dioxide 25 mmol/L 22-32 Anion Gap 9 mmol/L 2-11 Glucose 141 mg/dL High 70-100 Blood Urea Nitrogen 19 mg/dL 6-24 Creatinine 0.97 mg/dL High 0.51-0.95 BUN/Creatinine Ratio 19.6 8-20 Calcium 8.9 mg/dL 8.6-10.3 Total Protein 6.6 g/dL 6.4-8.9 Albumin 3.9 g/dL 3.2-5.2 Globulin 2.7 g/dL 2-4 Albumin/Globulin Ratio 1.4 1-3 Total Bilirubin 0.50 mg/dL 0.2-1.0 Alkaline Phosphatase 66 U/L 34-104 Alt 40 U/L 7-52 Ast 25 U/L 13-39 Egfr Non- 58.8 >60 Egfr 75.6 >60 11 Inr/Protime 06/16/2016 Inr 2.46 High 0.89-1.11 Inr/Protime 05/31/2016 Inr 2.10 High 0.89-1.11 Inr/Protime 05/24/2016 Inr 1.65 High 0.89-1.11 Inr/Protime 04/26/2016 Inr 2.22 High 0.89-1.11 Laboratory test finding 04/26/2016 Free T4 (Free 0.86 ng/dL 0.61-1.12 Thyroxine) TSH (Thyroid Stim Horm) 1.38 mcIU/mL 0.34-5.60 Magnesium 2.3 mg/dL 1.9-2.7 Comp Metabolic Panel 04/26/2016 Sodium 139 mmol/L 133-145 Potassium 4.5 mmol/L 3.5-5.0 Chloride 102 mmol/L 101-111 Co2 Carbon Dioxide 28 mmol/L 22-32 Anion Gap 9 mmol/L 2-11 Glucose 97 mg/dL 70-100 Blood Urea Nitrogen 20 mg/dL 6-24 Creatinine 0.96 mg/dL High 0.51-0.95 BUN/Creatinine Ratio 20.8 High 8-20 Calcium 9.5 mg/dL 8.6-10.3 Total Protein 6.5 g/dL 6.4-8.9 Albumin 4.0 g/dL 3.2-5.2 Globulin 2.5 g/dL 2-4 Albumin/Globulin Ratio 1.6 1-3 Total Bilirubin 0.40 mg/dL 0.2-1.0 Alkaline Phosphatase 66 U/L 34-104 Alt 28 U/L 7-52 Ast 22 U/L 13-39 Egfr Non- 59.5 >60 Egfr 76.5 >60 12 CBC Auto Diff 04/26/2016 White Blood Count 8.7 10^3/uL 3.5-10.8 Red Blood Count 5.47 10^6/uL High 4.0-5.4 Hemoglobin 13.4 g/dL 12.0-16.0 Hematocrit 42 % 35-47 Mean Corpuscular Volume 76 fL Low 80-97 Mean Corpuscular Hemoglobin 25 pg Low 27-31 Mean Corpuscular HGB Conc 32 g/dL 31-36 Red Cell Distribution Width 16 % High 10.5-15 Platelet Count 215 10^3/uL 150-450 Mean Platelet Volume 9 um3 7.4-10.4 Abs Neutrophils 5.0 10^3/uL 1.5-7.7 Abs Lymphocytes 2.3 10^3/uL 1.0-4.8 Abs Monocytes 0.7 10^3/uL 0-0.8 Abs Eosinophils 0.5 10^3/uL 0-0.6 Abs Basophils 0.1 10^3/uL 0-0.2 Abs Nucleated RBC 0.02 10^3/uL Granulocyte % 58.0 % 38-83 Lymphocyte % 26.7 % 25-47 Monocyte % 8.0 % 1-9 Eosinophil % 6.3 % High 0-6 Basophil % 1.0 % 0-2 Nucleated Red Blood Cells % 0.2 Laboratory test finding 04/26/2016 B-Type Natriuretic 54 pg/mL 13 Peptide BNP Inr/Protime 04/11/2016 Inr 2.52 High 0.89-1.11 Inr/Protime 04/03/2016 Inr 2.67 High 0.89-1.11 Inr/Protime 03/28/2016 Inr 3.85 High 0.89-1.11 Inr/Protime 03/15/2016 Inr 2.21 High 0.89-1.11 Inr/Protime 03/06/2016 Inr 1.87 High 0.89-1.11 Inr/Protime 03/02/2016 Inr 3.89 High 0.89-1.11 Inr/Protime 02/29/2016 Inr 5.78 High 0.89-1.11 14 Inr/Protime 02/14/2016 Inr 2.84 High 0.89-1.11 Inr/Protime 01/31/2016 Inr 2.23 High 0.89-1.11 Inr/Protime 01/24/2016 Inr 1.72 High 0.89-1.11 Inr/Protime 01/17/2016 Inr 1.64 High 0.89-1.11 Inr/Protime 01/10/2016 Inr 1.66 High 0.89-1.11 Inr/Protime 01/07/2016 Inr 4.44 High 0.89-1.11 Inr/Protime 12/10/2015 Inr 2.73 High 0.89-1.11 Laboratory test finding 11/11/2015 Inr/Protime 2.07 High 0.89-1.11 15 Laboratory test finding 10/27/2015 Inr/Protime 2.76 High 0.89-1.11 16 Laboratory test finding 10/20/2015 Inr/Protime 1.87 High 0.89-1.11 17 Laboratory test finding 10/13/2015 Inr/Protime 3.51 High 0.89-1.11 18 Laboratory test finding 10/06/2015 Inr/Protime 3.48 High 0.89-1.11 Laboratory test finding 09/29/2015 Inr/Protime 1.95 High 0.89-1.11 19 Laboratory test finding 09/22/2015 Inr/Protime 1.95 High 0.89-1.11 Laboratory test finding 09/15/2015 Inr/Protime 1.68 High 0.89-1.11 Laboratory test finding 09/01/2015 Inr/Protime 2.27 High 0.89-1.11 Laboratory test finding 08/26/2015 Inr/Protime 1.60 High 0.89-1.11 Laboratory test finding 08/23/2015 Inr/Protime 1.76 High 0.89-1.11 Inr/Protime 08/20/2015 Inr 4.39 High 0.89-1.11 Urine Microalbumin 08/13/2015 Ur Microalbumin (mg/L) 16.0 mg/L Random Urine Creatinine 254.50 mg/dL Urine Microalbumin/Creatinine 6.2 ug/mg <31 Laboratory test 08/13/2015 Hemoglobin A1c 6.3 5-7 finding Laboratory test 07/30/2015 Inr/Protime 2.87 High 0.89-1.11 20 finding Laboratory test 07/16/2015 Inr/Protime 1.99 High 0.89-1.11 21 finding Laboratory test 06/18/2015 Inr/Protime 2.58 High 0.78-1.07 22, 23 finding Laboratory test 06/04/2015 Inr/Protime 2.62 High 0.78-1.07 24 finding Laboratory test 05/27/2015 Inr/Protime 1.63 High 0.78-1.07 finding Laboratory test 05/06/2015 Inr/Protime 2.28 High 0.78-1.07 25 finding Laboratory test 04/29/2015 Inr/Protime 2.22 High 0.78-1.07 26 finding Laboratory test 04/22/2015 Inr/Protime 1.19 High 0.78-1.07 27 finding Laboratory test 04/16/2015 Inr/Protime 4.41 High 0.78-1.07 finding Laboratory test 04/09/2015 Inr/Protime 3.88 High 0.78-1.07 28 finding Inr/Protime 03/19/2015 Inr 2.96 High 0.78-1.07 Laboratory test 03/05/2015 Inr/Protime 2.28 High 0.78-1.07 finding Laboratory test 02/25/2015 Inr/Protime 1.95 High 0.78-1.07 finding Laboratory test 02/18/2015 Inr/Protime 1.71 High 0.78-1.07 finding Laboratory test 02/02/2015 TSH (Thyroid Stim 1.56 ?IU/mL 0.34-5.60 29, 30 finding Horm) Hemoglobin A1c (Glyco HGB) 6.0 % Less than 6.0 29, 31 Hepatitis C Antibody Nonreactive Nonreactive 29 Lipid Profile (Trig/Chol/HDL) 02/02/2015 Triglycerides 69 mg/dL 29, 32 Cholesterol 113 mg/dL 29, 33 HDL Cholesterol 38.1 mg/dL 29, 34 LDL Cholesterol 61 mg/dL 29, 35 Comp Metabolic Panel 02/02/2015 Sodium 139 mmol/L 133-145 29 Potassium 4.0 mmol/L 3.5-5.0 29 Chloride 107 mmol/L 101-111 29 Co2 Carbon Dioxide 26 mmol/L 22-32 29 Anion Gap 6 mmol/L 2-11 29 Glucose 118 mg/dL High 70-100 29 Blood Urea Nitrogen 22 mg/dL 6-24 29 Creatinine 1.05 mg/dL High 0.51-0.95 29 BUN/Creatinine Ratio 21.0 High 8-20 29 Calcium 9.2 mg/dL 8.6-10.3 29 Total Protein 6.3 g/dL Low 6.4-8.9 29 Albumin 4.1 g/dL 3.2-5.2 29 Globulin 2.2 g/dL 2-4 29 Albumin/Globulin Ratio 1.9 1-3 29 Total Bilirubin 0.50 mg/dL 0.2-1.0 29 Alkaline Phosphatase 56 U/L 34-104 29 Alt 24 U/L 7-52 29 Ast 18 U/L 13-39 29 Egfr Non- 53.8 >60 29 Egfr 69.2 >60 29, 36 Laboratory test finding 01/21/2015 Inr 2.02 High 0.78-1.07 Laboratory test finding 01/07/2015 Inr 2.43 High 0.78-1.07 Laboratory test finding 12/31/2014 Inr 3.66 High 0.78-1.07 Laboratory test finding 12/18/2014 Inr 2.84 High 0.78-1.07 Laboratory test finding 12/03/2014 Inr 2.22 High 0.78-1.07 Laboratory test finding 11/26/2014 Inr 1.93 High 0.78-1.07 Laboratory test finding 11/19/2014 Inr 1.48 High 0.78-1.07 Laboratory test finding 11/05/2014 Inr 2.29 High 0.78-1.07 37 Laboratory test finding 10/30/2014 Inr 1.42 High 0.78-1.07 38 Laboratory test finding 10/23/2014 Inr 1.53 High 0.78-1.07 39 Laboratory test finding 10/16/2014 Inr 1.98 High 0.78-1.07 40 Laboratory test finding 10/12/2014 Inr 2.32 High 0.78-1.07 41 Laboratory test finding 10/08/2014 Inr 4.21 High 0.78-1.07 42 Laboratory test finding 10/05/2014 Inr 2.54 High 0.85-1.06 Inr/Protime 10/02/2014 Inr 5.11 High 0.85-1.06 Laboratory test finding 09/24/2014 Inr 3.30 High 0.85-1.06 Laboratory test finding 09/17/2014 Inr 1.76 High 0.85-1.06 Laboratory test finding 09/07/2014 Inr 1.91 High 0.85-1.06 Laboratory test finding 08/20/2014 Inr 2.01 High 0.85-1.06 Laboratory test finding 08/13/2014 Inr 1.91 High 0.85-1.06 Laboratory test finding 07/30/2014 Inr 2.58 High 0.85-1.06 Laboratory test finding 07/23/2014 Inr 3.17 High 0.85-1.06 Laboratory test finding 07/09/2014 Inr 2.18 High 0.85-1.06 Laboratory test finding 07/02/2014 Inr 1.48 High 0.85-1.06 Laboratory test finding 06/18/2014 Inr 1.53 High 0.85-1.06 Laboratory test finding 05/29/2014 Inr 2.39 High 0.85-1.06 Laboratory test finding 05/20/2014 Inr 3.89 High 0.85-1.06 Laboratory test finding 05/13/2014 Inr 3.13 High 0.85-1.06 CBC Auto Diff 04/27/2014 White Blood Count 5.7 10^3/uL 4.8-10.8 Red Blood Count 5.06 10^6/uL 4.0-5.4 Hemoglobin 12.5 g/dL 12.0-16.0 Hematocrit 38 % 35-47 Mean Corpuscular Volume 75 fL Low 80-97 Mean Corpuscular Hemoglobin 25 pg Low 27-31 Mean Corpuscular HGB Conc 33 g/dL 31-36 Red Cell Distribution Width 16 % High 10.5-15 Platelet Count 174 10^3/uL 150-450 Mean Platelet Volume 8 um3 7.4-10.4 Abs Neutrophils 3.6 10^3/uL 1.5-7.7 Abs Lymphocytes 1.4 10^3/uL 1.0-4.8 Abs Monocytes 0.3 10^3/uL 0-0.8 Abs Eosinophils 0.4 10^3/uL 0-0.6 Abs Basophils 0.1 10^3/uL 0-0.2 Abs Nucleated RBC 0.01 10^3/uL Granulocyte % 63.6 % 38-83 Lymphocyte % 24.0 % Low 25-47 Monocyte % 4.9 % 1-9 Eosinophil % 6.4 % High 0-6 Basophil % 1.1 % 0-2 Nucleated Red Blood Cells % 0.1 Laboratory test 04/27/2014 Inr 2.52 High 0.85-1.06 finding Laboratory test 04/20/2014 Inr 1.77 High 0.85-1.06 finding Laboratory test 04/06/2014 Inr 2.25 High 0.85-1.06 29, 43 finding Inr/Protime 03/30/2014 Inr 4.09 High 0.85-1.06 Laboratory test 03/19/2014 Inr 1.48 High 0.85-1.06 finding Laboratory test 03/05/2014 Inr 2.25 High 0.85-1.06 finding Laboratory test 02/26/2014 Inr 2.15 High 0.85-1.06 finding Laboratory test 02/24/2014 Inr 5.10 High 0.85-1.06 finding Laboratory test 01/28/2014 Hemoglobin A1c 6.0 5-7 finding Urine Microalbumin 01/28/2014 Ur Microalbumin 5.0 mg/dL <30 44 Random (mg/L) Urine Creatinine 66.09 mg/dL Urine Microalbumin/Creatinine 7.5 Less Than 31 Laboratory test 01/21/2014 Inr 2.35 High 0.85-1.06 finding Laboratory test 01/21/2014 TSH (Thyroid 1.67 IU/mL 0.34-5.60 45, 46 finding Stimulating Horm) Hemoglobin A1c 4.3 % Less than 6.0 45, 47 Hepatitis C Antibody Nonreactive Nonreactive 45 Comp Metabolic Panel 01/21/2014 Sodium 139 mmol/L 133-145 45 Potassium 4.1 mmol/L 3.7-5.6 45 Chloride 106 mmol/L 101-111 45 Co2 Carbon Dioxide 25 mmol/L 22-32 45 Anion Gap 8 mmol/L 2-11 45 Glucose 124 mg/dL High 70-100 45 Blood Urea Nitrogen 17 mg/dL 6-24 45 Creatinine 0.92 mg/dL 0.51-0.95 45 BUN/Creatinine Ratio 18.5 8-20 45 Calcium 8.9 mg/dL 8.6-10.3 45 Total Protein 6.3 g/dL Low 6.4-8.9 45 Albumin 3.9 g/dL 3.2-5.2 45 Globulin 2.4 g/dL 2-4 45 Albumin/Globulin Ratio 1.6 1-3 45 Total Bilirubin 0.50 mg/dL 0.2-1.0 45 Alkaline Phosphatase 43 U/L 34-104 45 Alt 33 U/L 7-52 45 Ast 23 U/L 13-39 45 Egfr Non- 62.9 >60 45 Egfr 80.9 >60 45, 48 Lipid Profile (Trig/Chol/HDL) 01/21/2014 Triglycerides 94 mg/dL 45, 49 Cholesterol 137 mg/dL 45, 50 HDL Cholesterol 55.4 mg/dL 45, 51 LDL Cholesterol 63 mg/dL 45, 52 Laboratory test finding 01/07/2014 Inr 2.04 High 0.85-1.06 Laboratory test finding 12/31/2013 Inr 1.35 High 0.85-1.06 Laboratory test finding 12/12/2013 Inr 2.80 High 0.85-1.06 Laboratory test finding 12/05/2013 Inr 3.73 High 0.85-1.06 Laboratory test finding 11/24/2013 Inr 1.72 High 0.85-1.06 Laboratory test finding 11/21/2013 Inr 4.08 High 0.85-1.06 Laboratory test finding 11/06/2013 Inr 3.07 High 0.85-1.06 Laboratory test finding 10/23/2013 Inr 2.24 High 0.85-1.06 Laboratory test finding 10/16/2013 Inr 1.80 High 0.85-1.06 Laboratory test finding 10/09/2013 Inr 1.78 High 0.85-1.06 Laboratory test finding 10/02/2013 Inr 1.68 High 0.85-1.06 Inr/Protime 09/25/2013 Inr 1.55 High 0.85-1.06 Laboratory test finding 09/11/2013 Inr 2.91 High 0.85-1.06 Laboratory test finding 08/28/2013 Inr 3.36 High 0.85-1.06 53 Laboratory test finding 08/21/2013 Inr 4.20 High 0.85-1.06 54 Laboratory test finding 08/14/2013 Inr 4.14 High 0.85-1.06 55 Laboratory test finding 07/17/2013 Inr 2.45 High 0.85-1.06 56 Laboratory test finding 07/10/2013 Inr 3.12 High 0.87-0.97 Laboratory test finding 07/03/2013 Inr 3.52 High 0.87-0.97 Laboratory test finding 06/23/2013 Inr 3.88 High 0.87-0.97 Laboratory test finding 06/16/2013 Inr 2.31 High 0.87-0.97 Laboratory test finding 06/13/2013 Inr 1.12 High 0.87-0.97 Laboratory test finding 05/30/2013 Inr 2.45 High 0.87-0.97 Laboratory test finding 05/01/2013 Inr 2.68 High 0.87-0.97 Laboratory test finding 04/04/2013 Inr 2.27 High 0.87-0.97 Inr/Protime 03/07/2013 Inr 2.61 High 0.87-0.97 Laboratory test finding 02/20/2013 Inr 2.97 High 0.87-0.97 CBC Auto Diff 02/16/2013 White Blood Count 7.6 10^3/uL 4.8-10.8 Red Blood Count 4.98 10^6/uL 4.0-5.4 Hemoglobin 12.6 g/dL 12.0-16.0 Hematocrit 38 % 35-47 Mean Corpuscular Volume 77 fL Low 80-97 Mean Corpuscular Hemoglobin 25 pg Low 27-31 Mean Corpuscular HGB Conc 33 g/dL 31-36 Red Cell Distribution Width 16 % High 10.5-15 Platelet Count 174 10^3/uL 150-450 Mean Platelet Volume 9 um3 7.4-10.4 Abs Neutrophils 4.8 10^3/uL 1.5-7.7 Abs Lymphocytes 1.6 10^3/uL 1.0-4.8 Abs Monocytes 0.7 10^3/uL 0-0.8 Abs Eosinophils 0.5 10^3/uL 0-0.6 Abs Basophils 0.1 10^3/uL 0-0.2 Abs Nucleated RBC 0.06 10^3/uL Granulocyte % 62.4 % 38-83 Lymphocyte % 20.4 % Low 25-47 Monocyte % 9.6 % High 1-9 Eosinophil % 6.7 % High 0-6 Basophil % 0.9 % 0-2 Nucleated Red Blood Cells % 0.7 Inr/Protime 02/16/2013 Inr 1.98 High 0.87-0.97 Laboratory test finding 02/13/2013 Inr 4.56 High 0.87-0.97 Laboratory test finding 01/23/2013 Inr 2.56 High 0.87-0.97 Laboratory test finding 01/16/2013 Inr 3.51 High 0.87-0.97 Protime W/ Inr 12/19/2012 Prothrombin Time 32.8 Inr 2.7 Laboratory test finding 12/05/2012 Inr 2.64 High 0.87-0.97 57 Laboratory test finding 11/28/2012 Inr 3.36 High 0.87-0.97 58 Laboratory test finding 11/21/2012 Inr 3.78 High 0.87-0.97 59 Laboratory test finding 11/14/2012 Inr 3.19 High 0.87-0.97 60 Laboratory test finding 11/07/2012 Inr 4.56 High 0.87-0.97 61 Basic Metabolic Panel 11/07/2012 Sodium 139 mmol/L 133-145 Potassium 4.1 mmol/L 3.5-5.0 Chloride 105 mmol/L 101-111 Co2 Carbon Dioxide 26.0 mmol/L 22-32 Anion Gap 8.0 mmol/L 2-11 Glucose 168 mg/dL High 70-100 Blood Urea Nitrogen 22 mg/dL 6-24 Creatinine 1.00 mg/dL 0.50-1.40 BUN/Creatinine Ratio 22.0 High 8-20 Calcium 9.1 mg/dL 8.1-9.9 Egfr Non- 57.6 >60 Egfr 74.0 >60 62 Laboratory test finding 10/07/2012 Inr 2.66 High 0.82-1.17 63 Laboratory test finding 09/11/2012 Hemoglobin A1c 5.6 5-7 Protime W/ Inr 09/11/2012 Inr 1.9 Laboratory test finding 09/09/2012 Inr 1.57 High 0.82-1.17 64 Inr/Protime 09/06/2012 Inr 3.76 High 0.82-1.17 65 Lipid Profile (Trig/Chol/HDL) 08/31/2012 Triglycerides 115 mg/dL 40-200 Cholesterol 194 mg/dL Less than 200 HDL Cholesterol 80 mg/dL High 40-60 66 Cholesterol/HDL Ratio 2.4 Average 1-4.44 LDL Cholesterol 91.0 mg/dL Less Than 100 67 Urine Microalbumin Random 08/31/2012 Ur Microalbumin (Mg/L) 23.0 mg/L 68 Urine Creatinine 197.5 mg/dL Urine Microalbumin/Creatinine 11.6 UG/MG Less Than 31 Laboratory test finding 08/31/2012 Hemoglobin A1c 5.8 % Less than 6.0 69 Laboratory test finding 08/29/2012 Inr 1.95 High 0.82-1.17 70 Laboratory test finding 08/22/2012 Inr 3.81 High 0.82-1.17 71 Laboratory test finding 07/19/2012 Inr 3.08 High 0.82-1.17 72 Laboratory test finding 07/17/2012 Inr 2.94 High 0.82-1.17 73 D Dimer Quantitative < 200 NG/ML Less Than 230 74 Laboratory test finding 07/17/2012 Uric Acid 5.4 mg/dL 2.6-7.2 C Reactive Protein < 0.5 mg/dL Less Than 0.5 CBC Auto Diff 07/17/2012 White Blood Count 8.6 10^3/uL 4.8-10.8 Red Blood Count 4.84 10^6/uL 4.0-5.4 Hemoglobin 12.1 g/dL 12.0-16.0 Hematocrit 37 % 35-47 Mean Corpuscular Volume 77 fL Low 80-97 Mean Corpuscular Hemoglobin 25 pg Low 27-31 Mean Corpuscular HGB Conc 33 g/dL 31-36 Red Cell Distribution Width 16 % High 10.5-15 Platelet Count 161 10^3/uL 150-450 Mean Platelet Volume 9 um3 7.4-10.4 Abs Neutrophils 5.9 10^3/uL 1.5-7.7 Abs Lymphocytes 1.5 10^3/uL 1.0-4.8 Abs Monocytes 0.7 10^3/uL 0-0.8 Abs Eosinophils 0.4 10^3/uL 0-0.6 Abs Basophils 0.1 10^3/uL 0-0.2 Abs Nucleated RBC 0 10^3/uL Granulocyte % 68.6 % 38-83 Lymphocyte % 17.8 % Low 25-47 Monocyte % 8.0 % 1-9 Eosinophil % 4.5 % 0-6 Basophil % 1.1 % 0-2 Nucleated Red Blood Cells % 0 Laboratory test finding 07/17/2012 Erythrocyte Sed Rate 9 MM/HR 0-30 Laboratory test finding 06/21/2012 Inr 2.25 High 0.82-1.17 75 International Normalized 05/24/2012 Inr 2.62 High 0.88-1.13 76 Ratio Protime 32.5 SEC High 10.3-13.5 77 International Normalized Ratio 04/26/2012 Inr 2.69 High 0.88-1.13 78 Protime 33.3 SEC High 10.3-13.5 79 International Normalized Ratio 04/19/2012 Inr 2.37 High 0.88-1.13 80 Protime 29.2 SEC High 10.3-13.5 81 International Normalized Ratio 04/12/2012 Inr 1.73 High 0.88-1.13 82 Protime 21.0 SEC High 10.3-13.5 83 International Normalized Ratio 04/05/2012 Inr 1.73 High 0.88-1.13 84 Protime 21.1 SEC High 10.3-13.5 85 International Normalized Ratio 03/22/2012 Inr 2.13 High 0.88-1.13 86 Protime 26.1 SEC High 10.3-13.5 87 Protime 03/15/2012 Inr 1.63 High 0.88-1.13 88 Protime 19.8 SEC High 10.3-13.5 89 Protime 02/15/2012 Inr 1.87 High 0.88-1.13 90 Protime 22.8 SEC High 10.3-13.5 91 International Normalized Ratio 01/18/2012 Inr 3.12 High 0.88-1.13 92 Protime 38.9 SEC High 10.3-13.5 93 International Normalized Ratio 01/04/2012 Inr 3.21 High 0.88-1.13 94 Protime 40.1 SEC High 10.3-13.5 95 International Normalized Ratio 12/07/2011 Inr 2.01 High 0.88-1.13 96 Protime 24.6 SEC High 10.3-13.5 97 International Normalized Ratio 11/09/2011 Inr 2.68 High 0.88-1.13 98 Protime 32.9 SEC High 10.3-13.5 99 International Normalized Ratio 10/11/2011 Inr 2.16 High 0.88-1.13 100 Protime 26.3 SEC High 10.3-13.5 101 International Normalized Ratio 09/27/2011 Inr 2.00 High 0.88-1.13 102 Protime 24.3 SEC High 10.3-13.5 103 International Normalized Ratio 09/13/2011 Inr 2.75 High 0.88-1.13 104 Protime 33.8 SEC High 10.3-13.5 105 Basic Metabolic Panel 09/08/2011 Sodium 140 mmol/L 135-145 Potassium 4.2 mmol/L 3.5-5.0 Chloride 107 mmol/L 101-111 Co2 (Carbon Dioxide) 26.0 mmol/L 22-32 Anion Gap 7.0 mmol/L 2-11 106 Glucose 122 mg/dL High 70-100 BUN 14 mg/dL 6-24 Creatinine 1.0 mg/dL 0.50-1.40 One Over Creatinine 1.00 BUN/Creatinine Ratio 14.0 8-20 Calcium 8.9 mg/dL 8.1-9.9 eGFR Non- 57.8 > 60 eGFR 74.3 > 60 107 Lipid Profile (Trig/Chol/HDL) 09/08/2011 Triglyceride 97 mg/dL 40-200 Cholesterol 120 mg/dL Less Than 200 108 High Density Lipoprotein 42 mg/dL 40-60 109 Cholesterol/HDL Ratio 2.86 AVERAGE 1-4.44 Low Density Lipoprotein 59 mg/dL Less Than 100 110 Laboratory test finding 09/08/2011 Alt (SGPT) 47 U/L 14-54 Protime 09/06/2011 Inr 3.57 High 0.88-1.13 111 Protime 44.4 SEC High 10.3-13.5 112 Protime W/ Inr 08/30/2011 Prothrombin Time 29.4 Inr 2.94 Protime W/ Inr 08/23/2011 Prothrombin Time 39.4 Inr 3.97 Protime W/ Inr 08/16/2011 Prothrombin Time 26.3 Inr 2.63 Protime W/ Inr 08/09/2011 Prothrombin Time 43.3 Inr 4.37 Protime W/ Inr 08/02/2011 Prothrombin Time 37.5 Inr 3.77 Protime W/ Inr 07/27/2011 Prothrombin Time 39.4 Inr 3.97 Protime W/ Inr 07/13/2011 Prothrombin Time 27.4 Inr 2.74 Protime W/ Inr 07/06/2011 Prothrombin Time 32.9 Inr 3.30 Protime W/ Inr 07/03/2011 Prothrombin Time 40.5 Inr 4.08 Protime W/ Inr 06/19/2011 Prothrombin Time 25.0 Inr 2.5 Protime W/ Inr 06/15/2011 Prothrombin Time 40.8 Inr 3.4 International Normalized Ratio 06/12/2011 Inr 1.53 High 0.82-1.17 113 Protime 18.5 SEC High 10.2-14.8 114 International Normalized Ratio 06/09/2011 Inr 4.26 High 0.82-1.17 115 Protime 54.2 SEC High 10.2-14.8 116 CBC Auto Diff 06/07/2011 White Blood Count 8.4 CUMM 4.8-10.8 Red Cell Count 4.42 CUMM 4.2-5.4 Hemoglobin 11.4 g/dL Low 12.0-16.0 Hematocrit 34 % Low 35-47 Mean Corpuscular Volume 76 um3 Low 79-97 Mean Corpuscular Hemoglob 26 pg Low 27-31 Mean Corpuscular HGB Cone 34 g/dL 32-36 Redcell Distribution WDTH 16 % High 10.5-15 Platelet Count 179 CUMM 150-450 Mean Platelet Volume 8.7 um3 7.4-10.4 117 Manual Differential 06/07/2011 Polysegmented Neutrophil 62 % 38-83 Lymphocyte 27 % 25-47 Monocyte 7 % 0-13 Eosinophil 4 % 0-6 Absolute Neutrophil Count 5.2 Anisocytosis SLIGHT Hypochromasia SLIGHT Polychromasia SLIGHT Ovalocytes FEW Protime 06/07/2011 Inr 5.66 High 0.82-1.17 118 Protime 73.1 SEC High 10.2-14.8 119 Laboratory test finding 06/07/2011 PTT (Aptt) 56.3 High 25.15-38.53 International Normalized Ratio 05/12/2011 Inr 2.94 High 0.82-1.17 120 Protime 36.7 SEC High 10.2-14.8 121 International Normalized Ratio 05/05/2011 Inr 3.54 High 0.82-1.17 122 Protime 44.6 SEC High 10.2-14.8 123 International Normalized Ratio 04/07/2011 Inr 2.02 High 0.82-1.17 124 Protime 24.7 SEC High 10.2-14.8 125 Lipid Profile (Trig/Chol/HDL) 04/07/2011 Triglyceride 82 mg/dL 40-200 Cholesterol 132 mg/dL Less Than 200 126 High Density Lipoprotein 45 mg/dL 40-60 127 Cholesterol/HDL Ratio 2.93 AVERAGE 1-4.44 Low Density Lipoprotein 71 mg/dL Less Than 100 128 Laboratory test finding 04/07/2011 Alt (SGPT) 32 U/L 14-54 International Normalized Ratio 03/10/2011 Inr 2.47 High 0.82-1.17 129 Protime 30.6 SEC High 10.2-14.8 130 International Normalized Ratio 02/24/2011 Inr 3.12 High 0.82-1.17 131 Protime 39.1 SEC High 10.2-14.8 132 International Normalized Ratio 02/17/2011 Inr 3.23 High 0.82-1.17 133 Protime 40.6 SEC High 10.2-14.8 134 Laboratory test finding 02/14/2011 Hemoglobin A1c 5.4 % Less Than 6.0 135 Protime W/ Inr 02/02/2011 Prothrombin Time 28.0 Inr 2.27 Protime W/ Inr 01/26/2011 Prothrombin Time 18.9 Inr 1.56 Protime W/ Inr 01/19/2011 Prothrombin Time 26 Inr 2.12 Protime W/ Inr 01/12/2011 Prothrombin Time 21.2 Inr 1.74 Protime W/ Inr 12/29/2010 Prothrombin Time 27.5 Inr 2.23 Protime W/ Inr 12/15/2010 Prothrombin Time 21.4 Inr 1.76 Protime W/ Inr 12/08/2010 Prothrombin Time 18.7 Inr 1.55 Low 2-3 Protime W/ Inr 12/01/2010 Prothrombin Time 17.1 Inr 1.42 Low 2-3 Protime W/ Inr 11/24/2010 Prothrombin Time 17.3 Inr 1.44 Low 2-3 DVT Protime W/ Inr 11/17/2010 Prothrombin Time 19.5 Inr 1.61 Low 2-3 Protime W/ Inr 11/10/2010 Prothrombin Time 21.7 Inr 1.78 Low 2-3 DVT Protime W/ Inr 10/12/2010 Inr 2.13 1 Because ethnic data is not always readily available, this report includes an eGFR for both -Americans and non- Americans. The National Kidney Disease Education Program (NKDEP) does not endorse the use of the MDRD equation for patients that are not between the ages of 18 and 70, are , have extremes of body size, muscle mass, or nutritional status, or are non- or non-. According to the National Kidney Foundation, irrespective of diagnosis, the stage of the disease is based on the level of kidney function: Stage Description GFR(mL/min/1.73 m(2)) 1 Kidney damage with normal or decreased GFR 90 2 Kidney damage with mild decrease in GFR 60-89 3 Moderate decrease in GFR 30-59 4 Severe decrease in GFR 15-29 5 Kidney failure <15 (or dialysis) 2 SEE RESULT BELOW Name: AMANDA MEDINA : [address]: Reva Birch NP Acct: [id number] Unit: [id number] AGE: 62 Location: LAB Re04/24/17 SEX: F Status: REG REF SPEC: [id number] ELDON: 04/24/17-[address]: Reva Birch NP REQ: [id number] RECD: 04/24/17-1049 STATUS: COMP _ SOURCE: URINE SPDESC: ORDERED: Urine Culture Procedure Result Reported Site Urine Culture Final 04/25/17- 1533 ML Organism 1 STREP GROUP B [place] Count 1-10,000 (Few) CFU/ML Susceptibility testing of penicillins and other B-lactams approved by FDA for treatment of Streptococcus pyogenes (Group A Strep) and Streptococcus agalactiae (Group B Strep) is not necessary for clinical purposes and need not be done routinely, since as with vancomycin, resistant strains have not been recognized. (CLSI K050-B15;p.66) Positive isolates will be saved for one week. Please call the Microbiology Laboratory if further susceptibility testing is needed. * ML - MAIN LAB (PSYCHIATRIC) . END OF REPORT * ML=Testing performed at Main Lab DEPARTMENT OF PATHOLOGY, [address] [place] [address] Scott Zapata M.D. Director [facility] # [id number] 3 *Ascorbic acid is present which may interfere with detection of blood. 4 Because ethnic data is not always readily available, this report includes an eGFR for both -Americans and non- Americans. The National Kidney Disease Education Program (NKDEP) does not endorse the use of the MDRD equation for patients that are not between the ages of 18 and 70, are , have extremes of body size, muscle mass, or nutritional status, or are non- or non-. According to the National Kidney Foundation, irrespective of diagnosis, the stage of the disease is based on the level of kidney function: Stage Description GFR(mL/min/1.73 m(2)) 1 Kidney damage with normal or decreased GFR 90 2 Kidney damage with mild decrease in GFR 60-89 3 Moderate decrease in GFR 30-59 4 Severe decrease in GFR 15-29 5 Kidney failure <15 (or dialysis) 5 SEE RESULT BELOW Name: AMANDA MEDINA : [address]: Reva Birch NP Acct: [id number] Unit: [id number] AGE: 61 Location: [facility] Re09/07/16 SEX: F Status: REG REF SPEC: [id number] ELDON: 09/07/16-[address] [facility] [address]: Reva Birhc NP REQ: [id number] RECD: 09/07/16 STATUS: SOUT _ ORDERED: IMAGE ANALYSIS, HPV/Thin Prep, HPV 16/18 GENE COMMENTS: [id number] FINAL DIAGNOSIS Negative for Intraepithelial lesion or Malignancy A. Ectocervical/Endocervical Specimen Adequacy: Satisfactory of evaluation Transformation zone component cannot be definitely identified due to presence of atrophy or other hormonal changes Patient Information: HPV: High risk HPV RNA testing regardless of pap results. HPV 16/18 Genotype Reflex Actual Specimen Date: 09/07/16 Spec Date if unknown: 10 yrs ago ?: N Post Menopausal?: Y Hysterectomy?: N Previous Abnormal Pap Smears?:N Date Time Test Result Flag (u) Normal Range 09/07/16 1010 HPV RNA RFLX GE Negative Negative The high-risk HPV types detected by the assay include: 16, 18, 31, 33, 35, 39, 45, 51, 52, 56, 58, 59, 66, and 68. Signed (signature on file) [facility]08 132 This Pap test was evaluated with the assistance of the Microbiome The[employer] Test Imaging System. Due to cytologic findings at the destination imagination coordinator microscope, comprehensive manual rescreening by a Hogshead Opener may be required. The Pap Smear is a screening test designed to aid in the detection of premalignant and malignant conditions of the uterine cervix. It is not a diagnostic procedure and should not be used as the sole means of detecting cervical cancer. Both false- positive and false- negative reports do occur. Depending on your risk status, a Pap smear should be obtained and evaluated every 1-3 years. END OF REPORT * ML=Testing performed at Main Lab DEPARTMENT OF PATHOLOGY, [address] [place] [address] RUN DATE: 09/08/16 [facility] LAB LIVE PAGE 1 Patient: AMANDA MEDINA [id number] (Continued) Scott Zapata M.D. Director [facility] # [id number] 6 The high-risk HPV types detected by the assay include: 16, 18, 31, 33, 35, 39, 45, 51, 52, 56, 58, 59, 66, and 68. 7 Desirable <150 Borderline high 150-199 High 200-499 Very High >500 8 Desirable <200 Borderline high 200-239 High >239 9 Low <40 Desirable: 40-60 High: >60 10 Desirable: <100 mg/dL Near Optimal: 100-129 mg/dL Borderline High: 130-159 mg/dL High: 160-189 mg/dL Very High: >189 mg/dL 11 Because ethnic data is not always readily available, this report includes an eGFR for both -Americans and non- Americans. The National Kidney Disease Education Program (NKDEP) does not endorse the use of the MDRD equation for patients that are not between the ages of 18 and 70, are , have extremes of body size, muscle mass, or nutritional status, or are non- or non-. According to the [employer], irrespective of diagnosis, the stage of the disease is based on the level of kidney function: Stage Description GFR(mL/min/1.73 m(2)) 1 Kidney damage with normal or decreased GFR 90 2 Kidney damage with mild decrease in GFR 60-89 3 Moderate decrease in GFR 30-59 4 Severe decrease in GFR 15-29 5 Kidney failure <15 (or dialysis) 12 Because ethnic data is not always readily available, this report includes an eGFR for both -Americans and non- Americans. The National Kidney Disease Education Program (NKDEP) does not endorse the use of the MDRD equation for patients that are not between the ages of 18 and 70, are , have extremes of body size, muscle mass, or nutritional status, or are non- or non-. According to the National Kidney Foundation, irrespective of diagnosis, the stage of the disease is based on the level of kidney function: Stage Description GFR(mL/min/1.73 m(2)) 1 Kidney damage with normal or decreased GFR 90 2 Kidney damage with mild decrease in GFR 60-89 3 Moderate decrease in GFR 30-59 4 Severe decrease in GFR 15-29 5 Kidney failure <15 (or dialysis) 13 >100 to <200 pg/mL: likely compensated congestive heart failure (CHF) 200 to 400 pg/mL: likely moderate CHF >400 pg/mL: likely moderate to severe CHF [address] Jj by [id number] at 0750 on 02/29/16. Results read back accurately. 15 STANDING ORDER VALID 07/30/15-01/28/16 STAT 16 STANDING ORDER VALID 07/30/15-01/28/16 STAT 17 STANDING ORDER VALID 07/30/15-01/28/16 STAT 18 STANDING ORDER VALID 07/30/15-01/28/16 STAT 19 STANDING ORDER VALID 07/30/15-01/28/16 STAT 20 Effective immediately, due to a laboratory mean normal Protime change, the reference range for the INR has changed. 21 Effective immediately, due to a laboratory mean normal Protime change, the reference range for the INR has changed. 22 EXP 09/07/15 23 EXP 09/07/15 24 EXP 09/07/15 25 EXP 09/07/15 26 EXP 09/07/15 27 EXP 09/07/15 28 EXP 09/07/15 29 FASTING 30 FASTING 31 Therapeutic target for the treatment of diabetes Mellitus patients is <7% HBA1C, and in selective patients <6.0%.Please refer to [place] [employer] Diabetic care guidelines for further information. 32 Desirable <150 Borderline high 150-199 High 200-499 Very High >500 33 Desirable <200 Borderline high 200-239 High >239 34 Low <40 Desirable: 40-60 High: >60 35 Desirable: <100 mg/dL Near Optimal: 100-129 mg/dL Borderline High: 130-159 mg/dL High: 160-189 mg/dL Very High: >189 mg/dL 36 Because ethnic data is not always readily available, this report includes an eGFR for both -Americans and non- Americans. The National Kidney Disease Education Program (NKDEP) does not endorse the use of the MDRD equation for patients that are not between the ages of 18 and 70, are , have extremes of body size, muscle mass, or nutritional status, or are non- or non-. According to the National Kidney Foundation, irrespective of diagnosis, the stage of the disease is based on the level of kidney function: Stage Description GFR(mL/min/1.73 m(2)) 1 Kidney damage with normal or decreased GFR 90 2 Kidney damage with mild decrease in GFR 60-89 3 Moderate decrease in GFR 30-59 4 Severe decrease in GFR 15-29 5 Kidney failure <15 (or dialysis) 37 Please note: Effective October 07, 2014, the reference value for this test has changed due to the validation and activation of a new reagent lot number. 38 Please note: Effective October 07, 2014, the reference value for this test has changed due to the validation and activation of a new reagent lot number. 39 Please note: Effective October 07, 2014, the reference value for this test has changed due to the validation and activation of a new reagent lot number. 40 Please note: Effective October 07, 2014, the reference value for this test has changed due to the validation and activation of a new reagent lot number. 41 Please note: Effective October 07, 2014, the reference value for this test has changed due to the validation and activation of a new reagent lot number. 42 Please note: Effective October 07, 2014, the reference value for this test has changed due to the validation and activation of a new reagent lot number. 43 FASTING 44 Microalbuminuria in a random sample is defined as: Microalbumin/Creatinine ratio of 30-299 ug/mg. 45 PT IS FASTING 46 PT IS FASTING 47 Therapeutic target for the treatment of diabetes Mellitus patients is <7% HBA1C, and in selective patients <6.0%.Please refer to [place] [employer] Diabetic care guidelines for further information. 48 Because ethnic data is not always readily available, this report includes an eGFR for both -Americans and non- Americans. The National Kidney Disease Education Program (NKDEP) does not endorse the use of the MDRD equation for patients that are not between the ages of 18 and 70, are , have extremes of body size, muscle mass, or nutritional status, or are non- or non-. According to the National Kidney Foundation, irrespective of diagnosis, the stage of the disease is based on the level of kidney function: Stage Description GFR(mL/min/1.73 m(2)) 1 Kidney damage with normal or decreased GFR 90 2 Kidney damage with mild decrease in GFR 60-89 3 Moderate decrease in GFR 30-59 4 Severe decrease in GFR 15-29 5 Kidney failure <15 (or dialysis) 49 Desirable <150 Borderline high 150-199 High 200-499 Very High >500 50 Desirable <200 Borderline high 200-239 High >239 51 Low <40 Desirable: 40-60 High: >60 52 Desirable <100 Near Optimal 100-129 Borderline high 130-159 High 160-189 Very High >189 53 Please note the change in the INR reference range effective 13. 54 Please note the change in the INR reference range effective 13. 55 Please note the change in the INR reference range effective 13. 56 Please note the change in the INR reference range effective 13. 57 Please note the change in INR reference range effective 12. The INR(International Normalized Ratio) was adopted by the World Health Organization (WHO) in 1983 as a standardized system of reporting PT (Prothrombin Time). The Centers for Disease Control (CDC) states that reporting of PT results in INR only is the preferred method. Recommended INR for Patients on Oral Anticoagulants Prophylaxis 2.0 - 3.0 Treatment of thrombosis 2.0 - 3.0 Prevention of embolism 2.0 - 3.0 Prevention of embolism from prosthetic heart valves 2.5 - 3.5 58 Please note the change in INR reference range effective 12. The INR(International Normalized Ratio) was adopted by the World Health Organization (WHO) in 1982 as a standardized system of reporting PT (Prothrombin Time). The Centers for Disease Control (CDC) states that reporting of PT results in INR only is the preferred method. Recommended INR for Patients on Oral Anticoagulants Prophylaxis 2.0 - 3.0 Treatment of thrombosis 2.0 - 3.0 Prevention of embolism 2.0 - 3.0 Prevention of embolism from prosthetic heart valves 2.5 - 3.5 59 Please note the change in INR reference range effective 12. The INR(International Normalized Ratio) was adopted by the World Health Organization (WHO) in 1982 as a standardized system of reporting PT (Prothrombin Time). The Centers for Disease Control (CDC) states that reporting of PT results in INR only is the preferred method. Recommended INR for Patients on Oral Anticoagulants Prophylaxis 2.0 - 3.0 Treatment of thrombosis 2.0 - 3.0 Prevention of embolism 2.0 - 3.0 Prevention of embolism from prosthetic heart valves 2.5 - 3.5 60 Please note the change in INR reference range effective 12. The INR(International Normalized Ratio) was adopted by the World Health Organization (WHO) in 1982 as a standardized system of reporting PT (Prothrombin Time). The Centers for Disease Control (CDC) states that reporting of PT results in INR only is the preferred method. Recommended INR for Patients on Oral Anticoagulants Prophylaxis 2.0 - 3.0 Treatment of thrombosis 2.0 - 3.0 Prevention of embolism 2.0 - 3.0 Prevention of embolism from prosthetic heart valves 2.5 - 3.5 61 Please note the change in INR reference range effective 12. The INR(International Normalized Ratio) was adopted by the World Health Organization (WHO) in 1982 as a standardized system of reporting PT (Prothrombin Time). The Centers for Disease Control (CDC) states that reporting of PT results in INR only is the preferred method. Recommended INR for Patients on Oral Anticoagulants Prophylaxis 2.0 - 3.0 Treatment of thrombosis 2.0 - 3.0 Prevention of embolism 2.0 - 3.0 Prevention of embolism from prosthetic heart valves 2.5 - 3.5 62 Because ethnic data is not always readily available, this report includes an eGFR for both -Americans and non- Americans. The National Kidney Disease Education Program (NKDEP) does not endorse the use of the MDRD equation for patients that are not between the ages of 18 and 70, are , have extremes of body size, muscle mass, or nutritional status, or are non- or non-. According to the National Kidney Foundation, irrespective of diagnosis, the stage of the disease is based on the level of kidney function: Stage Description GFR(mL/min/1.73 m(2)) 1 Kidney damage with normal or decreased GFR 90 2 Kidney damage with mild decrease in GFR 60-89 3 Moderate decrease in GFR 30-59 4 Severe decrease in GFR 15-29 5 Kidney failure <15 (or dialysis) 63 The INR(International Normalized Ratio) was adopted by the World Health Organization (WHO) in 1982 as a standardized system of reporting PT (Prothrombin Time). The Centers for Disease Control (CDC) states that reporting of PT results in INR only is the preferred method. Recommended INR for Patients on Oral Anticoagulants Prophylaxis 2.0 - 3.0 Treatment of thrombosis 2.0 - 3.0 Prevention of embolism 2.0 - 3.0 Prevention of embolism from prosthetic heart valves 2.5 - 3.5 64 The INR(International Normalized Ratio) was adopted by the World Health Organization (WHO) in 1982 as a standardized system of reporting PT (Prothrombin Time). The Centers for Disease Control (CDC) states that reporting of PT results in INR only is the preferred method. Recommended INR for Patients on Oral Anticoagulants Prophylaxis 2.0 - 3.0 Treatment of thrombosis 2.0 - 3.0 Prevention of embolism 2.0 - 3.0 Prevention of embolism from prosthetic heart valves 2.5 - 3.5 65 The INR(International Normalized Ratio) was adopted by the World Health Organization (WHO) in 1982 as a standardized system of reporting PT (Prothrombin Time). The Centers for Disease Control (CDC) states that reporting of PT results in INR only is the preferred method. Recommended INR for Patients on Oral Anticoagulants Prophylaxis 2.0 - 3.0 Treatment of thrombosis 2.0 - 3.0 Prevention of embolism 2.0 - 3.0 Prevention of embolism from prosthetic heart valves 2.5 - 3.5 66 HDL Interpretation: Undesirable: High Risk: Less than 40 MG/DL Desirable: Low Risk: Greater than 60 MG/DL 67 LDL Interpretation: Low Risk Optimal Level: LDL Less than 100 MG/DL Near or Above Optimal: LDL 100-129 MG/DL Borderline High Risk: LDL 130-159 MG/DL High Risk: LDL 160-189 MG/DL Very High Risk: LDL Greater than 189 MG/DL 68 Microalbuminuria in a random sample is defined as: Microalbumin/Creatinine ratio of 30-299 ug/mg. 69 Therapeutic target for the treatment of diabetes Mellitus patients is <7% HBA1C, and in selective patients <6.0%.Please refer to [place] [employer] Diabetic care guidelines for further information. 70 The INR(International Normalized Ratio) was adopted by the World Health Organization (WHO) in 1983 as a standardized system of reporting PT (Prothrombin Time). The Centers for Disease Control (CDC) states that reporting of PT results in INR only is the preferred method. Recommended INR for Patients on Oral Anticoagulants Prophylaxis 2.0 - 3.0 Treatment of thrombosis 2.0 - 3.0 Prevention of embolism 2.0 - 3.0 Prevention of embolism from prosthetic heart valves 2.5 - 3.5 71 The INR(International Normalized Ratio) was adopted by the World Health Organization (WHO) in 1983 as a standardized system of reporting PT (Prothrombin Time). The Centers for Disease Control (CDC) states that reporting of PT results in INR only is the preferred method. Recommended INR for Patients on Oral Anticoagulants Prophylaxis 2.0 - 3.0 Treatment of thrombosis 2.0 - 3.0 Prevention of embolism 2.0 - 3.0 Prevention of embolism from prosthetic heart valves 2.5 - 3.5 72 Effective June 10, 2012, in conjunction with the upgrade of the hospital information system, [facility] will release the International Normalized Ratio (INR) only. Patient reports will no longer contain prothrombin time (PT) results in seconds. This allows for consistency in patient evaluation and treatment. The INR was adopted by the World Health Organization (WHO) in 1983 as a standardized system of reporting PT. The Centers for Disease Control (CDC) states that reporting of PT results in INR only is the preferred method. Recommended INR for Patients on Oral Anticoagulants Prophylaxis 2.0 - 3.0 Treatment of thrombosis 2.0 - 3.0 Prevention of embolism 2.0 - 3.0 Prevention of embolism from prosthetic heart valves 2.5 - 3.5 73 Effective June 10, 2012, in conjunction with the upgrade of the hospital information system, [facility] will release the International Normalized Ratio (INR) only. Patient reports will no longer contain prothrombin time (PT) results in seconds. This allows for consistency in patient evaluation and treatment. The INR was adopted by the World Health Organization (WHO) in 1983 as a standardized system of reporting PT. The Centers for Disease Control (CDC) states that reporting of PT results in INR only is the preferred method. Recommended INR for Patients on Oral Anticoagulants Prophylaxis 2.0 - 3.0 Treatment of thrombosis 2.0 - 3.0 Prevention of embolism 2.0 - 3.0 Prevention of embolism from prosthetic heart valves 2.5 - 3.5 74 Please note: The following may produce a false positive D Dimer test: - Rheumatoid factor greater than 60 IU/ml - Plasma hemoglobin greater than 0.05 gm/dl - Bilirubin greater than 50 mg/dl - Lipids greater than 1000 mg/dl - FDP greater than 20 ug/ml 75 Recommended INR for Patients on Oral Anticoagulants Prophylaxis 2.0 - 3.0 Treatment of thrombosis 2.0 - 3.0 Prevention of embolism 2.0 - 3.0 Prevention of embolism from prosthetic heart valves 2.5 - 3.5 76 Recommended INR for Patients on Oral Anticoagulants Prophylaxis 2.0 - 3.0 Treatment of thrombosis 2.0 - 3.0 Prevention of embolism 2.0 - 3.0 Prevention of embolism from prosthetic heart valves 2.5 - 3.5 77 DIAGNOSIS,TREATMENT,AND THERAPY MUST BE BASED ON THE INR VALUE ALONE. 78 Recommended INR for Patients on Oral Anticoagulants Prophylaxis 2.0 - 3.0 Treatment of thrombosis 2.0 - 3.0 Prevention of embolism 2.0 - 3.0 Prevention of embolism from prosthetic heart valves 2.5 - 3.5 79 DIAGNOSIS,TREATMENT,AND THERAPY MUST BE BASED ON THE INR VALUE ALONE. 80 Recommended INR for Patients on Oral Anticoagulants Prophylaxis 2.0 - 3.0 Treatment of thrombosis 2.0 - 3.0 Prevention of embolism 2.0 - 3.0 Prevention of embolism from prosthetic heart valves 2.5 - 3.5 81 DIAGNOSIS,TREATMENT,AND THERAPY MUST BE BASED ON THE INR VALUE ALONE. 82 Recommended INR for Patients on Oral Anticoagulants Prophylaxis 2.0 - 3.0 Treatment of thrombosis 2.0 - 3.0 Prevention of embolism 2.0 - 3.0 Prevention of embolism from prosthetic heart valves 2.5 - 3.5 83 DIAGNOSIS,TREATMENT,AND THERAPY MUST BE BASED ON THE INR VALUE ALONE. 84 Recommended INR for Patients on Oral Anticoagulants Prophylaxis 2.0 - 3.0 Treatment of thrombosis 2.0 - 3.0 Prevention of embolism 2.0 - 3.0 Prevention of embolism from prosthetic heart valves 2.5 - 3.5 85 DIAGNOSIS,TREATMENT,AND THERAPY MUST BE BASED ON THE INR VALUE ALONE. 86 Recommended INR for Patients on Oral Anticoagulants Prophylaxis 2.0 - 3.0 Treatment of thrombosis 2.0 - 3.0 Prevention of embolism 2.0 - 3.0 Prevention of embolism from prosthetic heart valves 2.5 - 3.5 87 DIAGNOSIS,TREATMENT,AND THERAPY MUST BE BASED ON THE INR VALUE ALONE. 88 Recommended INR for Patients on Oral Anticoagulants Prophylaxis 2.0 - 3.0 Treatment of thrombosis 2.0 - 3.0 Prevention of embolism 2.0 - 3.0 Prevention of embolism from prosthetic heart valves 2.5 - 3.5 89 DIAGNOSIS,TREATMENT,AND THERAPY MUST BE BASED ON THE INR VALUE ALONE. 90 Recommended INR for Patients on Oral Anticoagulants Prophylaxis 2.0 - 3.0 Treatment of thrombosis 2.0 - 3.0 Prevention of embolism 2.0 - 3.0 Prevention of embolism from prosthetic heart valves 2.5 - 3.5 91 DIAGNOSIS,TREATMENT,AND THERAPY MUST BE BASED ON THE INR VALUE ALONE. 92 Recommended INR for Patients on Oral Anticoagulants Prophylaxis 2.0 - 3.0 Treatment of thrombosis 2.0 - 3.0 Prevention of embolism 2.0 - 3.0 Prevention of embolism from prosthetic heart valves 2.5 - 3.5 93 DIAGNOSIS,TREATMENT,AND THERAPY MUST BE BASED ON THE INR VALUE ALONE. 94 Recommended INR for Patients on Oral Anticoagulants Prophylaxis 2.0 - 3.0 Treatment of thrombosis 2.0 - 3.0 Prevention of embolism 2.0 - 3.0 Prevention of embolism from prosthetic heart valves 2.5 - 3.5 95 DIAGNOSIS,TREATMENT,AND THERAPY MUST BE BASED ON THE INR VALUE ALONE. 96 Recommended INR for Patients on Oral Anticoagulants Prophylaxis 2.0 - 3.0 Treatment of thrombosis 2.0 - 3.0 Prevention of embolism 2.0 - 3.0 Prevention of embolism from prosthetic heart valves 2.5 - 3.5 97 DIAGNOSIS,TREATMENT,AND THERAPY MUST BE BASED ON THE INR VALUE ALONE. 98 Recommended INR for Patients on Oral Anticoagulants Prophylaxis 2.0 - 3.0 Treatment of thrombosis 2.0 - 3.0 Prevention of embolism 2.0 - 3.0 Prevention of embolism from prosthetic heart valves 2.5 - 3.5 99 DIAGNOSIS,TREATMENT,AND THERAPY MUST BE BASED ON THE INR VALUE ALONE. 100 Recommended INR for Patients on Oral Anticoagulants Prophylaxis 2.0 - 3.0 Treatment of thrombosis 2.0 - 3.0 Prevention of embolism 2.0 - 3.0 Prevention of embolism from prosthetic heart valves 2.5 - 3.5 101 DIAGNOSIS,TREATMENT,AND THERAPY MUST BE BASED ON THE INR VALUE ALONE. 102 Recommended INR for Patients on Oral Anticoagulants Prophylaxis 2.0 - 3.0 Treatment of thrombosis 2.0 - 3.0 Prevention of embolism 2.0 - 3.0 Prevention of embolism from prosthetic heart valves 2.5 - 3.5 103 DIAGNOSIS,TREATMENT,AND THERAPY MUST BE BASED ON THE INR VALUE ALONE. 104 Recommended INR for Patients on Oral Anticoagulants Prophylaxis 2.0 - 3.0 Treatment of thrombosis 2.0 - 3.0 Prevention of embolism 2.0 - 3.0 Prevention of embolism from prosthetic heart valves 2.5 - 3.5 105 DIAGNOSIS,TREATMENT,AND THERAPY MUST BE BASED ON THE INR VALUE ALONE. 106 Anion gap measurement may be of limited value in the presence of any alkalosis, especially in a combined acid base disorder. . 107 Because ethnic data is not always readily available, this report includes an eGFR for both -Americans and non- Americans. The National Kidney Disease Education Program (NKDEP) does not endorse the use of the MDRD equation for patients that are not between the ages of 18 and 70, are , have extremes of body size, muscle mass, or nutritional status, or are non- or non-. According to the National Kidney Foundation, irrespective of diagnosis, the stage of the disease is based on the level of kidney function: Stage Description GFR(mL/min/1.73 m(2)) 1 Kidney damage with normal or decreased GFR 90 2 Kidney damage with mild decrease in GFR 60-89 3 Moderate decrease in GFR 30-59 4 Severe decrease in GFR 15-29 5 Kidney failure <15 (or dialysis) 108 CHOLESTEROL INTERPRETATION: Desirable: Less than 200 MG/DL Borderline-High Risk: 200-239 MG/DL High-Risk: 240 MG/DL and over 109 HDL INTERPRETATION: Undesirable: High Risk: Less than 40 MG/DL Desirable: Low Risk: Greater than 60 MG/DL 110 LDL INTERPRETATION: Low Risk Optimal Level: LDL Less than 100 MG/DL Near or Above Optimal: LDL 100-129 MG/DL Borderline High Risk: LDL 130-159 MG/DL High Risk: LDL 160-189 MG/DL Very High Risk: LDL Greater than 189 MG/DL 111 Recommended INR for Patients on Oral Anticoagulants Prophylaxis 2.0 - 3.0 Treatment of thrombosis 2.0 - 3.0 Prevention of embolism 2.0 - 3.0 Prevention of embolism from prosthetic heart valves 2.5 - 3.5 112 DIAGNOSIS,TREATMENT,AND THERAPY MUST BE BASED ON THE INR VALUE ALONE. 113 Recommended INR for Patients on Oral Anticoagulants Prophylaxis 2.0 - 3.0 Treatment of thrombosis 2.0 - 3.0 Prevention of embolism 2.0 - 3.0 Prevention of embolism from prosthetic heart valves 2.5 - 3.5 114 DIAGNOSIS,TREATMENT,AND THERAPY MUST BE BASED ON THE INR VALUE ALONE. 115 Recommended INR for Patients on Oral Anticoagulants Prophylaxis 2.0 - 3.0 Treatment of thrombosis 2.0 - 3.0 Prevention of embolism 2.0 - 3.0 Prevention of embolism from prosthetic heart valves 2.5 - 3.5 116 DIAGNOSIS,TREATMENT,AND THERAPY MUST BE BASED ON THE INR VALUE ALONE. 117 Imm. NE 1 118 VERBAL TO KEITH/ED BY EDD at 1944 on 06/07/11. Results read back accurately. RESULTS VERIFIED BY REPEAT ANALYSIS ON THE SAME SAMPLE. REPEATED RESULT IS:5.87 Recommended INR for Patients on Oral Anticoagulants Prophylaxis 2.0 - 3.0 Treatment of thrombosis 2.0 - 3.0 Prevention of embolism 2.0 - 3.0 Prevention of embolism from prosthetic heart valves 2.5 - 3.5 119 DIAGNOSIS,TREATMENT,AND THERAPY MUST BE BASED ON THE INR VALUE ALONE. 120 Recommended INR for Patients on Oral Anticoagulants Prophylaxis 2.0 - 3.0 Treatment of thrombosis 2.0 - 3.0 Prevention of embolism 2.0 - 3.0 Prevention of embolism from prosthetic heart valves 2.5 - 3.5 121 DIAGNOSIS,TREATMENT,AND THERAPY MUST BE BASED ON THE INR VALUE ALONE. 122 Recommended INR for Patients on Oral Anticoagulants Prophylaxis 2.0 - 3.0 Treatment of thrombosis 2.0 - 3.0 Prevention of embolism 2.0 - 3.0 Prevention of embolism from prosthetic heart valves 2.5 - 3.5 123 DIAGNOSIS,TREATMENT,AND THERAPY MUST BE BASED ON THE INR VALUE ALONE. 124 Recommended INR for Patients on Oral Anticoagulants Prophylaxis 2.0 - 3.0 Treatment of thrombosis 2.0 - 3.0 Prevention of embolism 2.0 - 3.0 Prevention of embolism from prosthetic heart valves 2.5 - 3.5 125 DIAGNOSIS,TREATMENT,AND THERAPY MUST BE BASED ON THE INR VALUE ALONE. 126 CHOLESTEROL INTERPRETATION: Desirable: Less than 200 MG/DL Borderline-High Risk: 200-239 MG/DL High-Risk: 240 MG/DL and over 127 HDL INTERPRETATION: Undesirable: High Risk: Less than 40 MG/DL Desirable: Low Risk: Greater than 60 MG/DL 128 LDL INTERPRETATION: Low Risk Optimal Level: LDL Less than 100 MG/DL Near or Above Optimal: LDL 100-129 MG/DL Borderline High Risk: LDL 130-159 MG/DL High Risk: LDL 160-189 MG/DL Very High Risk: LDL Greater than 189 MG/DL 129 Recommended INR for Patients on Oral Anticoagulants Prophylaxis 2.0 - 3.0 Treatment of thrombosis 2.0 - 3.0 Prevention of embolism 2.0 - 3.0 Prevention of embolism from prosthetic heart valves 2.5 - 3.5 130 DIAGNOSIS,TREATMENT,AND THERAPY MUST BE BASED ON THE INR VALUE ALONE. 131 Recommended INR for Patients on Oral Anticoagulants Prophylaxis 2.0 - 3.0 Treatment of thrombosis 2.0 - 3.0 Prevention of embolism 2.0 - 3.0 Prevention of embolism from prosthetic heart valves 2.5 - 3.5 132 DIAGNOSIS,TREATMENT,AND THERAPY MUST BE BASED ON THE INR VALUE ALONE. 133 Recommended INR for Patients on Oral Anticoagulants Prophylaxis 2.0 - 3.0 Treatment of thrombosis 2.0 - 3.0 Prevention of embolism 2.0 - 3.0 Prevention of embolism from prosthetic heart valves 2.5 - 3.5 134 DIAGNOSIS,TREATMENT,AND THERAPY MUST BE BASED ON THE INR VALUE ALONE. 135 THERAPEUTIC TARGET FOR THE TREATMENT OF DIABETES MELLITUS PATIENTS IS <7% HBA1C, AND IN SELECTIVE PATIENTS <6.0%. PLEASE REFER TO [place] DIABETIC CARE GUIDELINES FOR FURTHER INFORMATION. Procedures Date CPT Code Description Status Comment 10/17/2017 18244 Stress Test Completed 10/17/2017 71762 EKG Tracing & Completed Interpretation 05/17/2017 76702 TKR Total Knee Replacement Completed 05/17/2017 61202 TKR Total Knee Replacement Completed 05/07/2017 09158 EKG Tracing & Completed Interpretation 05/04/2017 64442 EKG, Interpretation Only Completed 04/30/2017 64620 ECHO Transthoracic, Real-Time Completed 2D With Doppler And Color Flow 03/09/2017 [id number] Inject/Drain Joint/Bursa Major Completed 09/27/2016 Mammogram Completed 06/02/2016 01298 Event Monitor/Phys Completed Review/Interp. 05/10/2016 57014 Myocardial Perfusion Imaging Completed Tomographic (Spect) Multiple Studies 05/10/2016 29994 Stress Test Completed 05/05/2016 56330 Holter Monitor Review (24 hr)dr Completed review & interp only 05/03/2016 14040 ECG Monitor/Recording W/Visual Completed Superimposition Scanning 04/26/2016 64297 ECG Monitor/Recording W/Visual Completed Superimposition Scanning 04/26/2016 34264 EKG Tracing & Completed Interpretation 01/03/2016 65169 EKG Tracing & Completed Interpretation 11/01/2015 Diabetic Retinal Eye Exam Completed 08/26/2015 Mammogram Completed 11/02/2014 98313 EKG Tracing & Completed Interpretation 10/20/2014 97817 Inject/Drain Joint/Bursa Major Completed 06/09/2014 Diabetic Retinal Eye Exam Completed 04/23/2014 Diabetic Retinal Eye Exam Completed Document: 04/23/14 - Eye Exam Form For Diabetes 11/03/2013 61641 EKG Tracing & Completed Interpretation 06/11/2013 Colonoscopy Completed 12/23/2012 Diabetic Retinal Eye Exam Completed 10/04/2012 15401 ECHO Transthoracic, Real-Time Completed 2D With Doppler And Color Flow 10/01/2012 28751 Stress Test Completed 10/01/2012 94041 Myocardial Perfusion Imaging Completed Tomographic (Spect) Multiple Studies 09/26/2012 66953 EKG Tracing & Completed Interpretation 09/11/2012 86199 EKG Tracing & Completed Interpretation 2010 95232 Endometrial Sampling W Or W/O Completed Endocervical BX W Or W/O Cerv Dilat 12/31/2009 30293 Endometrial Sampling W Or W/O Completed Endocervical BX W Or W/O Cerv Dilat 07/10/2008 Mammogram Completed 06/04/2008 16667 EKG Tracing & Completed Interpretation Encounters Type Date Location Provider CPT E/M Dx Office Visit 10/12/2017 [facility] Internal Zeinab Momin, 00142 Z01.818 4:20p Tonja - Elijah Flores E11.9 Z79.01 M17.12 Office Visit 07/11/2017 9:15a [facility] Wright M.D. 05757 M25.562 C.[facility]. M25.462 M17.12 Office Visit 05/19/2017 2:13p [facility] [place] [address] I25.10 Assoc, Hospitalists Z79.01 Z86.711 Z96.651 Office Visit 05/18/2017 2:12p [facility], [place] [address] I25.10 Hospitalists Z79.01 Z86.711 Z96.651 Office Visit 05/17/2017 2:10p [facility], [place] [address] Z79.01 Hospitalists Z86.711 I25.10 Z96.651 Office Visit 05/07/2017 11:15a [facility] Roland Montero, 15449 I25.10 Marcelina Flores, [facility] M17.11 Z01.810 Office Visit 04/18/2017 11:20a [facility] Reva Birch, N.P. 51716 Z01.818 - [place] M17.0 E11.9 Z86.711 I25.10 I10 E78.00 Office Visit 03/09/2017 10:20a [facility] Reva Birch, N.P. 09407 E11.9 - [place] I10 Office Visit 03/09/2017 8:00a [facility] Wright M.D. 51644 M25.562 C.M.A. M25.561 M25.462 M25.461 M17.0 Office Visit 02/08/2017 8:00a [facility] Zeinab Momin 56118 Z79.01 - Elijah RodD. Z86.711 Office Visit 12/06/2016 8:40a [facility] Reva Birch, N.P. 71507 I10 - [place] Office Visit 10/23/2016 8:00a [facility] Reva Birch, N.P. 30994 Z79.01 - [place] Z86.711 Office Visit 09/21/2016 8:00a [facility] Reva Birch, N.P. 26717 Z79.01 - [place] Z86.711 Office Visit 09/07/2016 9:00a [facility] Reva Birch, N.P. 92156 Z00.01 - [place] Z12.31 I10 E78.00 Z79.84 E11.9 D68.8 I25.10 Z12.4 Z11.51 Office Visit 07/12/2016 8:45a [facility] Roland Montero, 04290 R07.9 Marcelina Flores, [facility] I25.10 Office Visit 06/01/2016 12:37p [facility] Reva Birch, N.P. 49487 Z79.01 - [place] Z86.711 Office Visit 04/26/2016 2:20p [facility] [place] [address] R07.9 [facility] R00.2 R06.02 I25.2 Z86.711 R94.31 I10 E11.9 Z79.01 E78.5 Office Visit 02/15/2016 4:00p [facility] Reva Birch, N.P. 33821 I10 [place] E11.9 Office Visit 01/03/2016 8:45a [facility] Roland Montero, 85906 I25.10 Marcelina Flores, [facility] Office Visit 08/13/2015 3:20p [facility] Reva Birch, N.P. 99708 Z00.00 - [place] Z12.39 I10 D68.8 E11.9 I25.10 F32.9 Office Visit 03/10/2015 4:03p [facility] Reva Birch, N.P. 60572 286.9 - [place] V58.61 Office Visit 02/05/2015 8:40a [facility] Reva Birch, N.P. 07110 401.1 - [place] 250.00 272.4 Office Visit 12/09/2014 4:01p [facility] Reva Birch, N.P. 82123 286.9 - [place] V58.61 Office Visit 12/04/2014 10:30a [facility] Aristeo Pimentel, 84268 715.16 C.M.A. M.D. Office Visit 11/02/2014 8:45a [facility] Roland Can Montero, 42146 414.01 Marcelina Flores, [facility] Office Visit 10/20/2014 11:00a [facility] Aritseo Pimentel, 48246 715.16 C.M.A. M.Tomasz. Office Visit 09/29/2014 4:00p [facility] Reva Birch, N.P. 11485 844.9 - [place] 719.46 Office Visit 09/11/2014 12:35p [facility] Reva Birch, N.P. 58068 286.9 - [place] V58.61 Office Visit 06/10/2014 8:53a [facility] Zeinab Momin 38340 V58.61 - [place] M.D. 286.9 Office Visit 03/10/2014 3:14p [facility] Zeinab Momin 51884 286.9 - [place] M.D. V58.61 Office Visit 01/28/2014 4:00p [facility] Reva Birch, N.P. 04584 250.00 - [place] 401.1 681.11 Office Visit 12/09/2013 9:40a [facility] Samira Zavala M.D., 55796 286.9 [place] FACP V58.61 Office Visit 11/03/2013 12:15p [facility] Rolandsurya Montero, 83099 414.01 Marcelina Flores, [facility] Office Visit 09/11/2013 3:43p [facility] - Yeni Zavala M.D., 36642 286.9 [place] FACP V58.61 Office Visit 07/11/2013 3:00p [facility] Reva Birch, N.P. 75870 V70.0 - [place] V76.10 250.00 272.4 286.9 414.01 401.1 311 V03.82 V06.1 Office Visit 06/10/2013 9:48a [facility] Yeni Zavala M.D., 31863 V58.61 - [place] FACP 444.22 Office Visit 03/10/2013 10:12a [facility] Yeni Zavala M.D., 59444 V58.61 - [place] FACP 444.22 Office Visit 02/24/2013 2:20p [facility] Reva Birch, N.P. 29667 729.5 - [place] Office Visit 12/19/2012 4:00p [facility] Yeni Zavala M.D., 49949 414.01 - [place] FACP V58.61 719.46 Office Visit 12/09/2012 8:59a [facility] Yeni Zavala M.D., 26981 V58.61 - [place] FACP 444.22 Office Visit 10/07/2012 10:15a [facility] Roland Montero, 36278 414.9 Marcelina Flores, FAC, [facility] Office Visit 09/26/2012 8:30a [facility] Montero, 54021 414.9 Marcelina Flores, FACC, FASAL Office Visit 09/23/2012 12:00p [facility] - Yeni Zavala M.D., 90318 786.2 [place] FACP Office Visit 09/11/2012 4:11p [facility] - Yeni Zavala M.D., 27764 444.22 [place] FACP V58.61 Office Visit 09/11/2012 4:20p [facility] Yeni Zavala M.D., 96445 V72.84 - [place] FACP 414.00 250.00 626.8 Office Visit 06/21/2012 3:40p [facility] Reva Birch, N.P. 67257 789.07 - [place] Office Visit 06/10/2012 9:04a [facility] Yeni Zavala M.D., 51630 V58.61 - [place] FACP 444.22 Office Visit 01/15/2012 1:20p [facility] Reva Birch, N.P. 37712 719.43 - [place] Office Visit 06/15/2011 4:00p DO Not Use Yeni Zavala M.D., 51527 V58.61 [facility] FACP 444.22 Office Visit 06/08/2011 11:40a DO Not Use [facility] Yeni Zavala, 00505 924.00 M.D., FACP 444.22 v04.81 Office Visit 02/15/2011 4:00p DO Not Use [facility] Yeni Zavala, 28739 250.00 M.D., FACP Office Visit 10/19/2010 4:00p DO Not Use [facility] Yeni Zavala, 06739 250.00 M.D., FACP 414.00 780.79 401.1 Office Visit 08/01/2010 4:00p DO Not Use Reva Birch, 60720 535.00 [facility] N.P. Office Visit 06/29/2010 4:00p DO Not Use Yeni Zavala M.D., 06003 414.00 [facility] FACP 250.00 780.79 311 V04.81 Office Visit 02/23/2010 4:00p DO Not Use [facility] Yeni Zavala 44615 250.00 M.D., FACP 414.00 Office Visit 12/01/2009 11:30a DO Not Use Reva Birch, 93665 626.2 [facility] N.P. Office Visit 11/22/2009 10:15a DO Not Use Yeni Zavala M.D., 66526 250.00 [facility] FACP 626.2 Office Visit 10/14/2009 4:00p DO Not Use [facility] Yeni Zavala 28807 382.9 M.D., FACP V04.81 Office Visit 06/30/2009 9:30a DO Not Use [facility] Yeniluther Zavala, 12991 250.00 M.D., FACP 414.00 Office Visit 03/30/2009 9:45a DO Not Use [facility] Yeniluther Zavala, 00327 250.02 M.D., FACP Office Visit 02/04/2009 9:00a DO Not Use [facility] Yeniluther Zavala, 31718 250.00 M.D., FACP 414.00 Office Visit 01/05/2009 11:00a DO Not Use Reva Birch, 01714 727.05 [facility] N.P. Office Visit 10/02/2008 9:00a DO Not Use Yeni Zavala M.D., 66378 250.00 [facility] FACP Office Visit 08/28/2008 9:00a DO Not Use Yeni Zavala M.D., 60105 414.00 [facility] FACP 277.7 Office Visit 06/17/2008 8:30a DO Not Use [facility] Reva Birch, 94142 272.0 N.P. 790.21 Office Visit 06/04/2008 10:15a DO Not Use Reva Varn, 48382 V72.31 [facility] N.P. 401.1 Plan of Care Future Appointment(s):11/09/2017 8:45 am - Amanda Wright M.D. at [facility]01/14/2018 4:00 pm - Reva Birch, N.P. at [facility] - Nnkoamoff14/22/2018 9:30 am - Darrin Diop PA-C at [facility]11/01/2017 9:30 am - TED Marroquin at [facility]11/01/2017 9:30 am - Amanda Wright M.D. at [facility]10/22/2017 - Amanda Wright M.D.M25.562 Pain in left kneeFollow up:Follow up: to orM17.12 Unilateral primary osteoarthritis, left knee
--- OUTSIDE RECORDS SUMMARY | 2017-11-01 07:15 | XMS REPORT ---
:1955 External Reference #:[id number] Author Organization [facility] Address [address] [address] Phone [phone] Care Team Providers Name Role Phone Zeinab Momin MD Primary Care Physician Unavailable Payers Type Date Identification Numbers Payment Provider Subscriber Health Maintenance Policy Number: [facility] Amanda Owens [place] Organization (O) [id number] Group Number: [id number] Group Name: [facility] [place] [id number] PayID: [id number] Problems Date Description Provider Status Onset: 12/05/2013 Chronic ischemic heart disease Roland Montero M.D., Active CASSANDRA CORTEZ Onset: 11/03/2013 Coronary arteriosclerosis Roland Montero M.D., Active DIEGO, CASSANDRA Onset: 12/05/2013 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 Zavala M.D., CANDY Active leg artery Onset: 12/05/2013 Anticoagulants Nursing Home (Current) Yeni Zavala M.D., FACP Active Use [...] Father due to Heart Disease () - MD (55), Valve Disease, HTN, Hyperlipidemia Age 72 Mother Cancer passed Mother Bone Marrow Cancer HTN Age 83 Siblings 2 1 Brother - CAD - MD, stent (59) Age 62 1 Sister - Overweight, HTN Age 54 Social History Type Date Description Comments Marital Status Single Lives With Alone 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 System once fasting and 2 hours after dinner meal Blood Glucose 05/22/ Active Strips 100un test blood Reva Test 2017 its sugar Varn, N.P. fasting in in the morning and 2 hours after dinner meal Eliquis 05/20/ Active Tablets 5mg 60tab 1 by mouth Reva 2016 s twice a Varn, N.P. day x 30 days( Pt states she continues to take replaced Warfarin) Percocet 05/04/ Active Tablets 5-325mg 90tab 1-2 by Amanda 2017 s mouth Kyle, every 4-6 M.D. hours as needed for post-op pain. Nitrostat 02/15/ Active Tablets 0.4mg 25tab one sl Roland North 2014 Sub s q5min up Montero, to 3 doses M.D., as needed FACC, FASNC Prozac 11/12/ Active Capsules 40mg 90cap take two Reva 2012 s capsules Varn, N.P. by mouth every day Lisinopril 02/23/ Active Tablets 40mg 90tab 1 tablet Roland North 2009 s daily Mark Montero, [facility], [facility] Metoprolol 02/23/ Active Tablets 100mg 180ta 1 tablet Roland North Tartrate 2009 bs twice a Winston, day Mark, [facility] Plavix 02/23/ Active Tablets 75mg 90tab 1 tablet Roland North 2009 s daily Mark Montero, [facility] Aspir-81 02/23/ Active Tablets DR 81mg 1 tablet Yeni 2009 daily Mark Zavala, [facility] Januvia 02/23/ Active Tablets 100mg 90tab take 1 Reva 2010 s tablet Varn, N.P. every day 1 hour before dinner Metformin HCL 02/23/ Active Tablets ER 500mg 180ta take 2 Zeinab ER 2009 24HR bs tablets by Cotton, mouth once M.D. daily ( Pt continues to take Only 1 tablet po daily ) Abilify / Active Tablets 5mg 30tab 1 tabs [place] 0000 s by mouth rvath, every day Argenis Scott, CENSUS CLERK-R, RN Lipitor / Active Tablets 80mg 90tab Take 1 Zeinab 0000 s Tablet By Cotton, Mouth In M.D. The Evening Amoxicillin 05/04/ Hx Capsules 500mg 20cap take one Amanda 2016 - s tab 4 Kyle, 10/11/ times a M.D. 2017 day for 5 days Lovenox 04/18/ Hx Solution 100mg/ml 7unit 1 Z01.818 Reva 2016 - s injection Varn, N.P. 05/18/ q 12 hours 2016 starting 4 days before surgery, to stop 24 hours prior to surgery Fish Oil 04/16/ Hx Capsules 1000mg 30cap 1 by mouth Other 2014 - s every day Ordering 08/13/ Provider 2015 Nitrostat 11/02/ Hx Tablets 0.4mg 25tab one sl 414.01 Roland North 2015 - Sub s q5min up Winston 02/15/ to 3 doses M.D., 2015 as needed, [facility], if no FASNC relief after 3 call 911 Prozac 07/11/ Hx Capsules 20mg 90cap Take One 311 Reva 2012 - s Capsule By Varn, N.P. 09/29/ Mouth 2015 Every Day Lovenox 05/29/ Hx Solution 40mg/0.4ML 10uni 1 Zeinab 2012 - ts injection Cotton, 10/31/ daily M.D. 2014 Flovent HFA 09/23/ Hx Aerosol 44mcg/Act 1unit 2 puffs 786.2 Yeni 2012 - s twice Sally, 10/31/ daily for M.D., FACP 2014 10 days Ipratropium 09/23/ Hx Solution 0.03% 30ml instill 2 786.2 Yeni [place] 2013 - sprays in Sally, 10/31/ each [...] - s Directed , 10/31/ M.D., FACP 2014 Trazodone HCL 06/29/ Hx Tablets 50mg 30tab 1 tablet Yeni 2009 - s at bedtime Sally, 10/19/ as needed M.D., FACP 2010 Simvastatin 02/23/ Hx Tablets 80mg 45tab 1 tablet Yeni 2009 - s at bedtime Sally, 09/11/ M.D., FACP 2012 Nitroglycerin 02/23/ Hx Tablets 0.4mg 25tab 1 tablet Roland North 2009 - Sub s under Montero, 02/15/ tongue as M.D., 2015 needed FACC, chest FASNC pain, may repeat x2 q5 mins, if no relief call 911 Contour Hx Test Yeni Glucometer 2009 - Strips Sally, 10/31/ M.D., FACP 2014 Microlet Hx Lancets Yeni 2009 - Sally, 10/31/ [...] Tablets 10mg 90tab 1 po qd Roland Can 0000 - s Winston, 10/06/ Mark, 2014 [...] SIG Indications Ordering Provider Inj, Administered Injection Roland North Regadenoson, 018 Montero, 0.1 MG Mark, FACC, FASNC Technetium TC Administered Injection Roland North 99M 018 Portia Montero M.D., FACC, Per Unit Dose FASNC Up To 40 Millicuries Technetium TC Administered Injection Roland North 99M 018 Portia Montero M.D., FACC, Per Unit Dose FASNC Up To 40 Millicuries Depomedrol Administered Injection Amanda 40MG Shasha Wright M.D. Depomedrol Administered Injection Amanda 40MG 017 Mark Wright Inj, Administered Injection Francois Scott Regadenoson, 016 DO Ravindra 0.1 MG FACC Technetium TC Administered Injection Francois SEdwar 99M 016 DO Ravindra Tetrofosmin, FACC Per Unit Dose Up To 40 Millicuries Depomedrol Administered Injection Aristeo 80MG 015 Mark Pimentel Inj, Administered Injection Joshua Regadenoson, 013 Stefek, 0.1 MG M.DEdwar, FACC, FSCAI Technetium TC Administered Injection Joshua 99M 013 Stefek, Tetrofosmin, Mark, FACC, Per Unit Dose FSCAI Up To 40 Millicuries Immunizations CPT Code Status Date Vaccine Lot # [id number] Given 05/24/2016 Afluria Vaccine Q2039 Given 05/22/2014 Flu Vaccine NOS 02860 Given 07/11/2013 Pneumonia Vaccine [id number] Given 07/11/2013 Tdap - Tetanus/Diptheria/Acellular Pertussis [id number] Q2035 Given 05/22/2013 Afluria Vaccine Q2035 Given 05/23/2012 Afluria Vaccine 51035 Given 06/08/2011 Influenza Virus 3Yrs & Over [id number] 66709 Given 06/29/2010 Influenza Virus 3Yrs & Over 89000 Given 10/14/2009 Influenza Virus Vaccine, Pandemic Formulation [id number] Given 10/14/2009 Administration Swine Flu Shot Vital Signs Date Vital Result Comment 10/17/2017 Height 65 inches 5'5" Weight 220.00 [...] NEGATIVE Inr/Protime 05/01/2017 Inr 2.19 High 0.89-1.11 CBC Auto Diff 04/24/2017 White Blood Count [...] 0-2 Nucleated Red Blood Cells % 0.5 Comp Metabolic Panel 04/24/2017 Sodium 139 mmol/L [...] Egfr Non- 57.2 >60 Egfr 73.6 >60 2 Urinalysis Profile 04/24/2017 Urine Color Jaki Urine Appearance Cloudy Urine Specific [place] 1.025 1.010-1.030 Urine pH 5.0 5-9 Urine [...] Present Absent Urine Hyaline Casts Present Absent Inr/Protime 04/24/2017 Inr 1.40 High 0.89-1.11 Urine Culture And 04/24/2017 Urine Culture SEE RESULT BELOW 4 Sensitivities Inr/Protime 04/17/2017 Inr 4.02 High 0.89-1.11 Inr/Protime [...] 0.89-1.11 Inr/Protime 06/30/2016 Inr 2.27 High 0.89-1.11 Inr/Protime 06/16/2016 Inr 2.46 High 0.89-1.11 Comp Metabolic Panel 06/16/2016 Sodium 138 mmol/L [...] Egfr Non- 58.8 >60 Egfr 75.6 >60 7 Lipid Profile (Trig/Chol/HDL) 06/16/2016 Triglycerides 154 mg/dL 8 Cholesterol 148 mg/dL 9 HDL Cholesterol 44.2 mg/dL 10 LDL Cholesterol 73 mg/dL 11 Inr/Protime 05/31/2016 Inr 2.10 High 0.89-1.11 Inr/Protime 05/24/2016 Inr 1.65 High 0.89-1.11 Laboratory test 04/26/2016 B-Type Natriuretic 54 pg/mL 12 finding Peptide BNP CBC Auto Diff 04/26/2016 White Blood Count [...] 0-2 Nucleated Red Blood Cells % 0.2 Comp Metabolic Panel 04/26/2016 Sodium 139 mmol/L [...] Egfr Non- 59.5 >60 Egfr 76.5 >60 13 Laboratory test finding 04/26/2016 Free T4 (Free Thyroxine) 0.86 ng/dL 0.61-1.12 TSH (Thyroid Stim Horm) 1.38 mcIU/mL 0.34-5.60 Magnesium 2.3 mg/dL 1.9-2.7 Inr/Protime 04/26/2016 Inr 2.22 High 0.89-1.11 Inr/Protime 04/11/2016 Inr 2.52 High 0.89-1.11 Inr/Protime [...] Urine Microalbumin/Creatinine 6.2 ug/mg <31 Laboratory test finding 08/13/2015 Hemoglobin A1c 6.3 5-7 Laboratory test finding 07/30/2015 Inr/Protime 2.87 High 0.89-1.11 20 Laboratory test finding 07/16/2015 Inr/Protime 1.99 High 0.89-1.11 21 Laboratory test finding 06/18/2015 Inr/Protime 2.58 High 0.78-1.07 22, 23 Laboratory test finding 06/04/2015 Inr/Protime 2.62 High 0.78-1.07 24 Laboratory test finding 05/27/2015 Inr/Protime 1.63 High 0.78-1.07 Laboratory test finding 05/06/2015 Inr/Protime 2.28 High 0.78-1.07 25 Laboratory test finding 04/29/2015 Inr/Protime 2.22 High 0.78-1.07 26 Laboratory test finding 04/22/2015 Inr/Protime 1.19 High 0.78-1.07 27 Laboratory test finding 04/16/2015 Inr/Protime 4.41 High 0.78-1.07 Laboratory test finding 04/09/2015 Inr/Protime 3.88 High 0.78-1.07 28 Inr/Protime 03/19/2015 Inr 2.96 High 0.78-1.07 Laboratory test finding 03/05/2015 Inr/Protime 2.28 High 0.78-1.07 Laboratory test finding 02/25/2015 Inr/Protime 1.95 High 0.78-1.07 Laboratory test finding 02/18/2015 Inr/Protime 1.71 High 0.78-1.07 Comp Metabolic Panel 02/02/2015 Sodium 139 mmol/L [...] 53.8 >60 29 Egfr 69.2 >60 29, 30 Lipid Profile (Trig/Chol/HDL) 02/02/2015 Triglycerides 69 mg/dL 29, 31 Cholesterol 113 mg/dL 29, 32 HDL Cholesterol 38.1 mg/dL 29, 33 LDL Cholesterol 61 mg/dL 29, 34 Laboratory test finding 02/02/2015 TSH (Thyroid Stim 1.56 ?IU/mL 0.34- 5.60 29, 35 Horm) Hemoglobin A1c (Glyco HGB) 6.0 % Less than 6.0 29, 36 Hepatitis C Antibody Nonreactive Nonreactive 29 Laboratory test finding 01/21/2015 Inr 2.02 High [...] mg/dL Urine Microalbumin/Creatinine 7.5 Less Than 31 Lipid Profile (Trig/Chol/HDL) 01/21/2014 Triglycerides 94 mg/dL 45, 46 Cholesterol 137 mg/dL 45, 47 HDL Cholesterol 55.4 mg/dL 45, 48 LDL Cholesterol 63 mg/dL 45, 49 Comp Metabolic Panel 01/21/2014 Sodium 139 mmol/L [...] 62.9 >60 45 Egfr 80.9 >60 45, 50 Laboratory test 01/21/2014 TSH (Thyroid 1.67 IU/mL 0.34-5.60 45, 51 finding Stimulating Horm) Hemoglobin A1c 4.3 % Less than 6.0 45, 52 Hepatitis C Antibody Nonreactive Nonreactive 45 Laboratory test finding 01/21/2014 Inr 2.35 High 0.85-1.06 Laboratory test finding 01/07/2014 Inr 2.04 High [...] finding 10/07/2012 Inr 2.66 High 0.82-1.17 63 Protime W/ Inr 09/11/2012 Inr 1.9 Laboratory test finding 09/11/2012 Hemoglobin A1c 5.6 5-7 Laboratory test finding 09/09/2012 Inr 1.57 High [...] 122 Protime 44.6 SEC High 10.2-14.8 123 Lipid Profile (Trig/Chol/HDL) 04/07/2011 Triglyceride 82 mg/dL 40-200 Cholesterol 132 mg/dL Less Than 200 124 High Density Lipoprotein 45 mg/dL 40-60 125 Cholesterol/HDL Ratio 2.93 AVERAGE 1-4.44 Low Density Lipoprotein 71 mg/dL Less Than 100 126 Laboratory test finding 04/07/2011 Alt (SGPT) 32 U/L 14-54 International Normalized Ratio 04/07/2011 Inr 2.02 High 0.82-1.17 127 Protime 24.7 SEC High 10.2-14.8 128 International Normalized Ratio 03/10/2011 Inr 2.47 High [...] 5 Kidney failure <15 (or dialysis) 2 Because ethnic data is not always readily [...] 15-29 5 Kidney failure <15 (or dialysis) 3 *Ascorbic acid is present which may interfere with detection of blood. 4 SEE RESULT BELOW Name: AMANDA MEDINA : [address]: Reva Birch NP Acct: [id number] Unit: [id number] AGE: 62 Location: LAB Re04/24/17 SEX: F Status: REG REF SPEC: [id number] ELDON: 04/24/17-[address]: Reva Birch NP REQ: [id number] RECD: 04/24/17 STATUS: COMP _ SOURCE: URINE SPDESC: ORDERED: Urine Culture Procedure Result Reported Site Urine Culture Final 04/25/17- 1533 ML Organism 1 STREP GROUP B Treece Count 1-10,000 (Few) CFU/ML Susceptibility testing of penicillins and other B-lactams approved by FDA for treatment of Streptococcus pyogenes (Group A Strep) and Streptococcus agalactiae (Group B Strep) is not necessary for clinical purposes and need not be done routinely, since as with vancomycin, resistant strains have not been recognized. (CLSI C414-L22;p.66) Positive isolates will be saved for one week. Please call the Microbiology Laboratory if further susceptibility testing is needed. * ML - MAIN LAB ([facility]) . END OF REPORT * ML=Testing performed at Main Lab DEPARTMENT OF PATHOLOGY, [address] [place] [address] Scott Zapata M.D. Director [facility] # [id number] 5 SEE RESULT BELOW Name: AMANDA MEDINA : [address]: Reva Birch NP Acct: [id number] Unit: [id number] AGE: 61 Location: [facility] Re09/07/16 SEX: F Status: REG REF SPEC: [id number] ELDON: 09/07/16-1010 [facility] DR: Reva Birch NP REQ: [id number] RECD: 09/07/16 STATUS: SOUT _ ORDERED: IMAGE ANALYSIS, HPV/Thin Prep, HPV 16/18 GENE COMMENTS: [id number] FINAL DIAGNOSIS Negative for Intraepithelial lesion or [...] 66, and 68. Signed (signature on file) NIRAV Simpson (ASCP) 09/08 8195 This Pap test was evaluated with the assistance of the Pllop.itp Test Imaging System. Due to cytologic findings at the concierge receptionist microscope, comprehensive manual rescreening by a Proof Passer may be required. The Pap Smear is [...] performed at Main Lab DEPARTMENT OF PATHOLOGY, [address] [place] [address] RUN DATE: 09/08/16 [facility] LAB LIVE PAGE 1 Patient: AMANDA MEDINA [id number] (Continued) Scott Zapata M.D. Director [facility] # [id number] 6 The high-risk HPV types detected by the assay include: 16, 18, 31, 33, 35, 39, 45, 51, 52, 56, 58, 59, 66, and 68. 7 Because ethnic data is not always readily [...] 15-29 5 Kidney failure <15 (or dialysis) 8 Desirable <150 Borderline high 150-199 High 200-499 Very High >500 9 Desirable <200 Borderline high 200-239 High >239 10 Low <40 Desirable: 40-60 High: >60 11 Desirable: <100 mg/dL Near Optimal: 100-129 mg/dL Borderline High: 130-159 mg/dL High: 160-189 mg/dL Very High: >189 mg/dL 12 >100 to <200 pg/mL: likely compensated congestive heart failure (CHF) 200 to 400 pg/mL: likely moderate CHF >400 pg/mL: likely moderate to severe CHF 13 Because ethnic data is not always readily [...] 15-29 5 Kidney failure <15 (or dialysis) [address] Jj by [id number] at 0750 on 02/29/16. Results read back [...] 09/07/15 28 EXP 09/07/15 29 FASTING 30 Because ethnic data is not always readily [...] 15-29 5 Kidney failure <15 (or dialysis) 31 Desirable <150 Borderline high 150-199 High 200-499 Very High >500 32 Desirable <200 Borderline high 200-239 High >239 33 Low <40 Desirable: 40-60 High: >60 34 Desirable: <100 mg/dL Near Optimal: 100-129 mg/dL Borderline High: 130-159 mg/dL High: 160-189 mg/dL Very High: >189 mg/dL 35 FASTING 36 Therapeutic target for the treatment of diabetes Mellitus patients is <7% HBA1C, and in selective patients <6.0%.Please refer to [employer] Diabetic care guidelines for further information. 37 Please note: Effective October 07, 2014, [...] 30-299 ug/mg. 45 PT IS FASTING 46 Desirable <150 Borderline high 150-199 High 200-499 Very High >500 47 Desirable <200 Borderline high 200-239 High >239 48 Low <40 Desirable: 40-60 High: >60 49 Desirable <100 Near Optimal 100-129 Borderline high 130-159 High 160-189 Very High >189 50 Because ethnic data is not always readily [...] 15-29 5 Kidney failure <15 (or dialysis) 51 PT IS FASTING 52 Therapeutic target for the treatment of diabetes Mellitus patients is <7% HBA1C, and in selective patients <6.0%.Please refer to [employer] Diabetic care guidelines for further information. 53 Please note the change in the [...] and in selective patients <6.0%.Please refer to [employer] Diabetic care guidelines for further [...] in conjunction with the upgrade of the reading hospital information [facility] will release the International Normalized Ratio [...] the upgrade of the hospital information system, [facility] will release the International Normalized Ratio (INR) only. Patient reports will no longer contain prothrombin time (PT) results in seconds. This allows for consistency in patient evaluation and treatment. The INR was adopted by the World Health Organization (WHO) in 1982 as a standardized system of reporting PT. [...] BASED ON THE INR VALUE ALONE. 124 CHOLESTEROL INTERPRETATION: Desirable: Less than 200 MG/DL Borderline-High Risk: 200-239 MG/DL High-Risk: 240 MG/DL and over 125 HDL INTERPRETATION: Undesirable: High Risk: Less than 40 MG/DL Desirable: Low Risk: Greater than 60 MG/DL 126 LDL INTERPRETATION: Low Risk Optimal Level: LDL Less than 100 MG/DL Near or Above Optimal: LDL 100-129 MG/DL Borderline High Risk: LDL 130-159 MG/DL High Risk: LDL 160-189 MG/DL Very High Risk: LDL Greater than 189 MG/DL 127 Recommended INR for Patients on Oral Anticoagulants Prophylaxis 2.0 - 3.0 Treatment of thrombosis 2.0 - 3.0 Prevention of embolism 2.0 - 3.0 Prevention of embolism from prosthetic heart valves 2.5 - 3.5 128 DIAGNOSIS,TREATMENT,AND THERAPY MUST BE BASED ON THE INR VALUE ALONE. 129 Recommended INR for Patients on Oral [...] IN SELECTIVE PATIENTS <6.0%. PLEASE REFER TO [place] [employer] DIABETIC CARE GUIDELINES FOR FURTHER INFORMATION. Procedures Date CPT Code Description Status Comment 10/17/2017 98316 EKG Tracing & Completed Interpretation 05/17/2017 06117 TKR Total Knee Replacement Completed 05/17/2017 36195 TKR Total Knee Replacement Completed 05/07/2017 83440 EKG Tracing & Completed Interpretation 05/04/2017 97491 EKG, Interpretation Only Completed 04/30/2017 98945 ECHO Transthoracic, Real-Time Completed 2D With Doppler And Color Flow 03/09/2017 58712 Inject/Drain Joint/Bursa Major Completed 09/27/2016 Mammogram Completed 06/02/2016 66563 Event Monitor/Phys Completed Review/Interp. 05/10/2016 47131 Stress Test Completed 05/10/2016 84688 Myocardial Perfusion Imaging Completed Tomographic (Spect) Multiple Studies 05/05/2016 68562 Holter Monitor Review (24 hr)dr Completed review & interp only 05/03/2016 27678 ECG Monitor/Recording W/Visual Completed Superimposition Scanning 04/26/2016 08678 ECG Monitor/Recording W/Visual Completed Superimposition Scanning 04/26/2016 27961 EKG Tracing & Completed Interpretation 01/03/2016 39344 EKG Tracing & Completed Interpretation 11/01/2015 Diabetic Retinal Eye Exam Completed 08/26/2015 Mammogram Completed 11/02/2014 98905 EKG Tracing & Completed Interpretation 10/20/2014 26327 Inject/Drain Joint/Bursa Major Completed 06/09/2014 Diabetic Retinal Eye Exam Completed 04/23/2014 Diabetic Retinal Eye Exam Completed Document: 04/23/14 - Eye Exam Form For Diabetes 11/03/2013 36135 EKG Tracing & Completed Interpretation 06/11/2013 Colonoscopy Completed 12/23/2012 Diabetic Retinal Eye Exam Completed 10/04/2012 41460 ECHO Transthoracic, Real-Time Completed 2D With Doppler And Color Flow 10/01/2012 96947 Myocardial Perfusion Imaging Completed Tomographic (Spect) Multiple Studies 10/01/2012 78415 Stress Test Completed 09/26/2012 29207 EKG Tracing & Completed Interpretation 09/11/2012 00608 EKG Tracing & Completed Interpretation 2010 37310 Endometrial Sampling W Or W/O Completed Endocervical BX W Or W/O Cerv Dilat 12/31/2009 96267 Endometrial Sampling W Or W/O Completed Endocervical BX W Or W/O Cerv Dilat 07/10/2008 Mammogram Completed 06/04/2008 27394 EKG Tracing & Completed Interpretation Encounters Type Date Location Provider CPT E/M Dx Office Visit 10/17/2017 [facility] Roland Montero, 49862 I25.10 9:45a Marcelina Flores, [facility] Office Visit 07/11/2017 [facility] Amanda Wright M.D. 48024 M25.562 9:15a Of LillyMEdwarAEdwar M25.462 M17.12 Office Visit 05/19/2017 2:13p [facility] Lu Ellison, ROUTER OPERATOR 16505 I25.10 Assoc, Hospitalists Z79.01 Z86.711 Z96.651 Office Visit 05/18/2017 2:12p [facility] [place] [address] I25.10 Hospitalists Z79.01 Z86.711 Z96.651 Office Visit 05/17/2017 2:10p [facility] [place] [address] Z79.01 Hospitalists Z86.711 I25.10 Z96.651 Office Visit 05/07/2017 11:15a [facility] Roland Montero, 96115 I25.10 Marcelina Flores, [facility], [facility] M17.11 Z01.810 Office Visit 04/18/2017 11:20a [facility] Internal Medicine Reva Birch, N.P. 89460 Z01.818 - [place] M17.0 E11.9 Z86.711 I25.10 I10 E78.00 Office Visit 03/09/2017 10:20a [facility] Internal Medicine Reva Birch, N.P. 35187 E11.9 - [place] I10 Office Visit 03/09/2017 8:00a [facility] Of Amanda Wright M.D. 49069 M25.562 C.M.AEdwar M25.561 M25.462 M25.461 M17.0 Office Visit 02/08/2017 8:00a [facility] Internal Medicine Zeinab Momin 74678 Z79.01 - Elijah Flores Z86.711 Office Visit 12/06/2016 8:40a [facility] Internal Medicine Reva Birch, N.P. 07991 I10 - [place] Office Visit 10/23/2016 8:00a [facility] Internal Medicine Reva Birch, N.P. 81158 Z79.01 - [place] Z86.711 Office Visit 09/21/2016 8:00a [facility] Medicine Reva Birch, N.P. 56437 Z79.01 - [place] Z86.711 Office Visit 09/07/2016 9:00a [facility] Internal Medicine Reva Birch, N.P. 24228 Z00.01 - [place] Z12.31 I10 E78.00 Z79.84 E11.9 D68.8 I25.10 Z12.4 Z11.51 Office Visit 07/12/2016 8:45a [facility] Roland Montero, 84920 R07.9 [facility] Mark, [facility] I25.10 Office Visit 06/01/2016 12:37p [facility] Internal Medicine Reva Birch, N.P. 43985 Z79.01 - [place] Z86.711 Office Visit 04/26/2016 2:20p [facility] [place] [address] R07.9 [facility] R00.2 R06.02 I25.2 Z86.711 R94.31 I10 E11.9 Z79.01 E78.5 Office Visit 02/15/2016 4:00p [facility] Internal Medicine - Reva Birch, N.P. 04736 I10 [place] E11.9 Office Visit 01/03/2016 8:45a [facility] Roland Montero, 62632 I25.10 Marcelina Flores, [facility] Office Visit 08/13/2015 3:20p [facility] Internal Medicine Reva Birch, N.P. 94568 Z00.00 - [place] Z12.39 I10 D68.8 E11.9 I25.10 F32.9 Office Visit 03/10/2015 4:03p [facility] Internal Medicine Reva Birch, N.P. 62928 286.9 - [place] V58.61 Office Visit 02/05/2015 8:40a [facility] Internal Medicine Reva Birch, N.P. 12650 401.1 - [place] 250.00 272.4 Office Visit 12/09/2014 4:01p [facility] Internal Tonja Birch, N.P. 89112 286.9 - [place] V58.61 Office Visit 12/04/2014 10:30a [facility] Of Aristeo Pimentel, 90858 715.16 C.M.A. MeFderico. Office Visit 11/02/2014 8:45a [facility] Roland North Montero, 95354 414.01 Marcelina Flores, [facility] Office Visit 10/20/2014 11:00a [facility] Of [place]o Pimentel, 59404 715.16 C.M.A. MFederico. Office Visit 09/29/2014 4:00p [facility] Internal Medicine Reva Birch, N.P. 07536 844.9 - [place] 719.46 Office Visit 09/11/2014 12:35p [facility] Internal [facility] Reva Birch, N.P. 18759 286.9 - [place] V58.61 Office Visit 06/10/2014 8:53a [facility] Internal Medicine Zeinab Momin, 98153 V58.61 - [place] M.D. 286.9 Office Visit 03/10/2014 3:14p [facility] Internal Medicine Zeinab Momin, 29016 286.9 - [place] M.D. V58.61 Office Visit 01/28/2014 4:00p [facility] Internal [facility] Reva Birch, N.P. 54152 250.00 - [place] 401.1 681.11 Office Visit 12/09/2013 9:40a [facility] Internal Medicine Samira Zavala M.D., 47996 286.9 [place] FACP V58.61 Office Visit 11/03/2013 12:15p [facility] Roland Can Montero, 40479 414.01 Marcelina Flores, [facility] [facility] Office Visit 09/11/2013 3:43p [facility] - Yeni Zavala M.D., 81649 286.9 [place] FACP V58.61 Office Visit 07/11/2013 3:00p [facility] Reva Birch, N.P. 68978 V70.0 - [place] V76.10 250.00 272.4 286.9 414.01 401.1 311 V03.82 V06.1 Office Visit 06/10/2013 9:48a [facility] Yeni Zavala M.D., 94567 V58.61 - [place] FACP 444.22 Office Visit 03/10/2013 10:12a [facility] Yeni Zavala M.D., 03311 V58.61 - [place] FACP 444.22 Office Visit 02/24/2013 2:20p [facility] Reva Birch, N.P. 04265 729.5 - [place] Office Visit 12/19/2012 4:00p [facility] Yeni Zavala M.D., 46260 414.01 - [place] FACP V58.61 719.46 Office Visit 12/09/2012 8:59a [facility] Yeni Zavala M.D., 58183 V58.61 - [place] FACP 444.22 Office Visit 10/07/2012 10:15a [facility] Can Montero, 45854 414.9 [facility] Mark, FACC, FASNC Office Visit 09/26/2012 8:30a [facility] Can Montero, 25352 414.9 [facility] Mark, FACC, FASNC Office Visit 09/23/2012 12:00p [facility] - Yeni Zavala M.D., 94445 786.2 [place] FACP Office Visit 09/11/2012 4:11p [facility] - Yeni Zavala M.D., 39533 444.22 [place] FACP V58.61 Office Visit 09/11/2012 4:20p [facility] Yeni Zavala M.D., 26811 V72.84 - [place] FACP 414.00 250.00 626.8 Office Visit 06/21/2012 3:40p [facility] Reva Birch, N.P. 99714 789.07 - [place] Office Visit 06/10/2012 9:04a [facility] Yeni Zavala M.D., 96096 V58.61 - [place] FACP 444.22 Office Visit 01/15/2012 1:20p [facility] Reva Birch, N.P. 40041 719.43 - [place] Office Visit 06/15/2011 4:00p DO Not Use Yeni Zavala M.D., 17787 V58.61 [facility] FACP 444.22 Office Visit 06/08/2011 11:40a DO Not Use [facility] Yeni Zavala, 50229 924.00 M.D., FACP 444.22 v04.81 Office Visit 02/15/2011 4:00p DO Not Use [facility] Yeni Zavala, 98421 250.00 M.D., FACP Office Visit 10/19/2010 4:00p DO Not Use [facility] Yeni Zavala, 05714 250.00 M.D., FACP 414.00 780.79 401.1 Office Visit 08/01/2010 4:00p DO Not Use Reva Birch, 40710 535.00 [facility] N.P. Office Visit 06/29/2010 4:00p DO Not Use Yeni Zavala M.D., 70522 414.00 [facility] FACP 250.00 780.79 311 V04.81 Office Visit 02/23/2010 4:00p DO Not Use [facility] Yeni Zavala, 86498 250.00 M.D., FACP 414.00 Office Visit 12/01/2009 11:30a DO Not Use Reva Birch, 19544 626.2 [facility] N.P. Office Visit 11/22/2009 10:15a DO Not Use Yeni Zavala M.D., 99155 250.00 [facility] FACP 626.2 Office Visit 10/14/2009 4:00p DO Not Use [facility] Yeni Zavala, 04656 382.9 M.D., FACP V04.81 Office Visit 06/30/2009 9:30a DO Not Use [facility] Yeni Zavala, 50628 250.00 M.D., FACP 414.00 Office Visit 03/30/2009 9:45a DO Not Use [facility] Yeni Zavala, 28253 250.02 M.D., FACP Office Visit 02/04/2009 9:00a DO Not Use [facility] Yeni Zavala, 71669 250.00 M.D., FACP 414.00 Office Visit 01/05/2009 11:00a DO Not Use Reva Varn, 85490 727.05 [facility] N.P. Office Visit 10/02/2008 9:00a DO Not Use Yeni Zavala M.D., 23528 250.00 [facility] FACP Office Visit 08/28/2008 9:00a DO Not Use Yeni Zavala M.D., 28627 414.00 [facility] FACP 277.7 Office Visit 06/17/2008 8:30a DO Not Use [facility] Reva Varervin, 00022 272.0 N.P. 790.21 Office Visit 06/04/2008 10:15a DO Not Use Reva Varn, 23332 V72.31 [facility] N.P. 401.1 Plan of Care Future Appointment(s):01/14/2018 4:00 pm - Reva Birch, N.P. at [facility] - Amttkqoly67/22/2018 9:30 am - Darrin Diop PA-C at [facility]11/01/2017 9:30 am - TED Marroquin at [facility]10/22/2017 9:15 am - Amanda Wright M.D. at [facility]11/01/2017 9:30 am - Amanda Wright M.D. at [facility]10/17/2017 - Roland Montero M.D., [facility], [id number] [facility] heart disease of [place] coronary artery w/o ang pctrsComments:As discussed, I feel you may have left knee replacement with Dr. Wright as scheduled from a heart standpoint. Please stop Eliquis after your evening dose on 10/29/17 and stop Plavix after your dose on 10/26/17.Follow up:1 year
--- OUTSIDE RECORDS SUMMARY | 2017-11-01 07:17 | XMS REPORT ---
:1955 External Reference #:[id number] Author Organization [place] [employer] Address [address] [address] Phone [phone] Care Team Providers Name Role Phone Zeinab Momin MD Primary Care Physician Unavailable Payers Type Date Identification Numbers Payment Provider Subscriber Health Maintenance Policy Number: [facility] Amanda Owens [place] Organization (O) [id number] Group Number: [id number] Group Name: [facility] [place] [address] PayID: [id number] Problems Date Description Provider Status Onset: 12/05/2013 Chronic ischemic heart disease Roland Montero M.D., Active CASSANDRA CORTEZ Onset: 11/03/2013 Coronary arteriosclerosis Roland Montero M.D., Active DIEGO, CASSANDRA Onset: 12/05/2013 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 Zavala M.D., CANDY Active leg artery Onset: 12/05/2013 Anticoagulants Fdc (Current) Yeni Zavala M.D., FACP Active Use [...] Father due to Heart Disease () - [place] (55), Valve Disease, HTN, Hyperlipidemia Age 72 Mother Cancer passed Mother Bone Marrow Cancer HTN Age 83 Siblings 2 1 Brother - CAD - [place], stent (59) Age 62 1 Sister - Overweight, HTN Age 54 Social History Type Date Description Comments Marital Status Single Lives With Alone 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 day x 30 days Percocet 05/04/ Active Tablets 5-325mg 90tab 1-2 by Amanda 2017 s mouth Kyle, every 4-6 M.D. hours as needed for post-op pain. Nitrostat 02/15/ Active Tablets 0.4mg 25tab one sl Roland North 2014 Sub s q5min up Winston, to 3 doses M.D., as needed FACC, FASNC Prozac 11/12/ Active Capsules 40mg 90cap take two Reva 2013 s capsules Varn, N.P. by mouth every day Lisinopril 02/23/ Active Tablets 40mg 90tab 1 tablet Roland North 2009 s daily Mark Montero, [facility], [facility] Metoprolol 02/23/ Active Tablets 100mg 180ta 1 tablet Roland North Tartrate 2009 bs twice a Montero, kathy Owens.Jose, [facility], [facility] Plavix 02/23/ Active Tablets 75mg 90tab 1 tablet Roland [place] 2009 s daily Mark Montero, [facility] Aspir-81 02/23/ Active Tablets DR 81mg 1 tablet Yeni 2009 daily Mark Zavala, [facility] Januvia 02/23/ Active Tablets 100mg 90tab take 1 Reva 2010 s tablet Varn, N.P. every day 1 hour before dinner Metformin HCL 02/23/ Active Tablets ER 500mg 180ta take 2 Zeinab ER 2009 24HR bs tablets by Cotton, mouth once M.D. daily Abilify / Active Tablets 5mg 30tab 1 tabs [place]-Ho 0000 s by mouth rvath, every day Argenis Scott, ENVELOPE MACHINE ADJUSTER-R, RN Lipitor / Active Tablets 80mg 90tab [...] up Winston 02/15/ to 3 doses M.D., 2014 as needed, [facility], if no FASVA relief after 3 call 911 Prozac 07/11/ Hx Capsules 20mg 90cap Take One 311 Reva 2012 - s Capsule By Varn, N.P. 09/29/ Mouth 2014 Every Day Lovenox 05/29/ Hx Solution 40mg/0.4ML 10uni 1 Zeinab 2012 - ts injection Cotton, 10/31/ daily M.D. 2013 Flovent HFA 09/23/ Hx Aerosol 44mcg/Act 1unit 2 puffs 786.2 Yeni 2012 - s twice Sally, 10/31/ daily for M.D., FACP 2014 10 days Ipratropium 09/23/ Hx Solution 0.03% 30ml instill 2 786.2 Yeni Coldiron 2013 - sprays in Sally, 10/31/ each [...] Take as Yeni 2009 - s Directed Sally, 10/31/ M.D., FACP 2014 Trazodone HCL 06/29/ [...] - s Tablet Sally, 02/15/ Every Day M.D., FACP 2010 1 Hour Before Dinner Metformin [...] 0000 - s Winston, 10/06/ Mark, 2014 [facility], DANYELLEVA Fluoxetine HCL / Hx Capsules 40mg 1 [...] Form Strength Qnty SIG Indications Ordering Provider Depomedrol Administered Injection Amanda 40MG 017 Mark Wright Depomedrol Administered Injection Amanda 40MG 017 Mark Wright Inj, Administered Injection Francois SEdwar Regadenoson, 016 DO Ravindra 0.1 MG FACC Technetium TC Administered Injection Francois S. 99M 016 DO Ravindra Tetrofosmin, FACC Per Unit Dose Up To 40 Millicuries Depomedrol Administered Injection Aristeo 80MG 015 Mark Pimentel Inj, Administered Injection Joshua Regadenoson, 013 Stefek, 0.1 MG MEdwarDEdwar, FACMiki, FSCAI Technetium TC Administered Injection Joshua 99M 013 Vickk, TetrofMark harden, FACC, Per Unit Dose FSCAI Up To 40 Millicuries Immunizations CPT Code Status Date Vaccine Lot # [id number] Given 05/24/2016 Afluria Vaccine Q2039 Given 05/22/2014 Flu Vaccine NOS 55744 Given 07/11/2013 Pneumonia Vaccine [id number] 08327 Given 07/11/2013 Tdap - Tetanus/Diptheria/Acellular Pertussis [id number] Q2035 Given 05/22/2013 Afluria Vaccine Q2035 Given 05/23/2012 Afluria Vaccine 97826 Given 06/08/2011 Influenza Virus 3Yrs & Over [id number] 63050 Given 06/29/2010 Influenza Virus 3Yrs & Over 08942 Given 10/14/2009 Influenza Virus Vaccine, Pandemic Formulation 25479 Given 10/14/2009 Administration Swine Flu Shot Vital Signs Date Vital Result Comment 10/12/2017 Height 65 inches 5'5" Weight 223.00 [...] Color Jaki Urine Appearance Cloudy Urine Specific [place] 1.025 1.010-1.030 Urine pH 5.0 5-9 Urine [...] 1.33 High 0.89-1.11 Laboratory test finding 09/07/2016 Hemoglobin A1c 6.8 5-7 Laboratory test finding 09/07/2016 Cytology SEE RESULT BELOW 5 HPV Rna Ww/Reflex Genotype Negative Negative 6 Inr/Protime 08/31/2016 Inr 2.05 High 0.89-1.11 Inr/Protime [...] 11.6 UG/MG Less Than 31 Laboratory test 08/31/2012 Hemoglobin A1c 5.8 % Less than 6.0 69 finding Laboratory test 08/29/2012 Inr 1.95 High 0.82-1.17 70 finding Laboratory test 08/22/2012 Inr 3.81 High 0.82-1.17 71 finding Laboratory test 07/19/2012 Inr 3.08 High 0.82-1.17 72 finding Laboratory test 07/17/2012 Erythrocyte Sed Rate 9 MM/HR 0-30 finding CBC Auto Diff 07/17/2012 White Blood Count [...] Cells % 0 Laboratory test finding 07/17/2012 Uric Acid 5.4 mg/dL 2.6-7.2 C Reactive Protein < 0.5 mg/dL Less Than 0.5 Laboratory test finding 07/17/2012 Inr 2.94 High 0.82-1.17 73 D Dimer Quantitative < 200 NG/ML Less Than 230 74 Laboratory test finding 06/21/2012 Inr 2.25 High 0.82-1.17 75 International Normalized Ratio 05/24/2012 Inr 2.62 High 0.88-1.13 76 Protime 32.5 SEC High 10.3-13.5 77 International [...] 104 Protime 33.8 SEC High 10.3-13.5 105 Laboratory test finding 09/08/2011 Alt (SGPT) 47 U/L 14-54 Lipid Profile (Trig/Chol/HDL) 09/08/2011 Triglyceride 97 mg/dL 40-200 Cholesterol 120 mg/dL Less Than 200 106 High Density Lipoprotein 42 mg/dL 40-60 107 Cholesterol/HDL Ratio 2.86 AVERAGE 1-4.44 Low Density Lipoprotein 59 mg/dL Less Than 100 108 Basic Metabolic Panel 09/08/2011 Sodium 140 mmol/L 135-145 Potassium 4.2 mmol/L 3.5-5.0 Chloride 107 mmol/L 101-111 Co2 (Carbon Dioxide) 26.0 mmol/L 22-32 Anion Gap 7.0 mmol/L 2-11 109 Glucose 122 mg/dL High 70-100 BUN 14 mg/dL 6-24 Creatinine 1.0 mg/dL 0.50-1.40 One Over Creatinine 1.00 BUN/Creatinine Ratio 14.0 8-20 Calcium 8.9 mg/dL 8.1-9.9 eGFR Non- 57.8 > 60 eGFR 74.3 > 60 110 Protime 09/06/2011 Inr 3.57 High 0.88-1.13 111 [...] 115 Protime 54.2 SEC High 10.2-14.8 116 Manual Differential 06/07/2011 Polysegmented Neutrophil 62 % 38-83 Lymphocyte 27 % 25-47 Monocyte 7 % 0-13 Eosinophil 4 % 0-6 Absolute Neutrophil Count 5.2 Anisocytosis SLIGHT Hypochromasia SLIGHT Polychromasia SLIGHT Ovalocytes FEW Protime 06/07/2011 Inr 5.66 High 0.82-1.17 117 Protime 73.1 SEC High 10.2-14.8 118 Laboratory test finding 06/07/2011 PTT (Aptt) 56.3 High 25.15-38.53 CBC Auto Diff 06/07/2011 White Blood Count [...] 150-450 Mean Platelet Volume 8.7 um3 7.4-10.4 119 International Normalized Ratio 05/12/2011 Inr 2.94 High [...] [address]: Reva Birch NP Acct: [id number] Unit: [id number] AGE: 62 Location: LAB Re04/24/17 SEX: F Status: REG REF SPEC: [id number] ELDON: 04/24/17-[address]: Reva Birch NP REQ: [id number] RECD: 04/24/17 STATUS: COMP _ SOURCE: URINE SPDESC: ORDERED: Urine Culture Procedure Result Reported Site Urine Culture Final 04/25/17- 1533 ML Organism 1 STREP GROUP B Bryant Count 1-10,000 (Few) CFU/ML Susceptibility testing of penicillins and other B-lactams approved by FDA for treatment of Streptococcus pyogenes (Group A Strep) and Streptococcus agalactiae (Group B Strep) is not necessary for clinical purposes and need not be done routinely, since as with vancomycin, resistant strains have not been recognized. (CLSI M662-R56;p.66) Positive isolates will be saved for one week. Please call the Microbiology Laboratory if further susceptibility testing is needed. * ML - MAIN LAB ([facility]) . END OF REPORT * ML=Testing performed at Main Lab DEPARTMENT OF PATHOLOGY, [address] [place] [address] Scott Zapata M.D. 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 Due to cytologic findings at the undergraduate internship microscope, comprehensive manual rescreening by a Clinical Data Abstractor may be required. The Pap Smear is [...] performed at Main Lab DEPARTMENT OF PATHOLOGY, [address] [place] [address] RUN DATE: 09/08/16 [facility] LAB LIVE PAGE 1 Patient: MEDINAAMANDA [id number] (Continued) Scott Zapata M.D. Director [facility] # [id number] 6 The high-risk HPV types detected by [...] 5 Kidney failure <15 (or dialysis) 12 >100 to <200 pg/mL: likely compensated [...] dialysis) [address] Jj by [id number] at 0750 on 02/29/16. Results read back [...] and in selective patients <6.0%.Please refer to [place] [employer] Diabetic care guidelines for further [...] and in selective patients <6.0%.Please refer to [place] [employer] Diabetic care guidelines for further [...] and in selective patients <6.0%.Please refer to [place] [employer] Diabetic care guidelines for further [...] the upgrade of the hospital information system, [facility] will release the International Normalized Ratio [...] the upgrade of the hospital information system, [facility] will release the International Normalized Ratio [...] BASED ON THE INR VALUE ALONE. 106 CHOLESTEROL INTERPRETATION: Desirable: Less than 200 MG/DL Borderline-High Risk: 200-239 MG/DL High-Risk: 240 MG/DL and over 107 HDL INTERPRETATION: Undesirable: High Risk: Less than 40 MG/DL Desirable: Low Risk: Greater than 60 MG/DL 108 LDL INTERPRETATION: Low Risk Optimal Level: LDL Less than 100 MG/DL Near or Above Optimal: LDL 100-129 MG/DL Borderline High Risk: LDL 130-159 MG/DL High Risk: LDL 160-189 MG/DL Very High Risk: LDL Greater than 189 MG/DL 109 Anion gap measurement may be of limited value in the presence of any alkalosis, especially in a combined acid base disorder. . 110 Because ethnic data is not always readily [...] 15-29 5 Kidney failure <15 (or dialysis) 111 Recommended INR for Patients on Oral [...] BASED ON THE INR VALUE ALONE. 117 VERBAL TO KEITH/MARIO BY EDD at 1944 on 06/07/11. Results read back accurately. RESULTS VERIFIED BY REPEAT ANALYSIS ON THE SAME SAMPLE. REPEATED RESULT IS:5.87 Recommended INR for Patients on Oral Anticoagulants Prophylaxis 2.0 - 3.0 Treatment of thrombosis 2.0 - 3.0 Prevention of embolism 2.0 - 3.0 Prevention of embolism from prosthetic heart valves 2.5 - 3.5 118 DIAGNOSIS,TREATMENT,AND THERAPY MUST BE BASED ON THE INR VALUE ALONE. 119 Imm. NE 1 120 Recommended INR for Patients on Oral [...] IN SELECTIVE PATIENTS <6.0%. PLEASE REFER TO [place] [employer] DIABETIC CARE GUIDELINES FOR FURTHER INFORMATION. Procedures Date CPT Code Description Status Comment 05/17/2017 20020 TKR Total Knee Replacement Completed 05/17/2017 75865 TKR Total Knee Replacement Completed 05/07/2017 96515 EKG Tracing & Completed Interpretation 05/04/2017 46066 EKG, Interpretation Only Completed 04/30/2017 87816 ECHO Transthoracic, Real-Time Completed 2D With Doppler And Color Flow 03/09/2017 09194 Inject/Drain Joint/Bursa Major Completed 09/27/2016 Mammogram Completed 06/02/2016 78583 Event Monitor/Phys Completed Review/Interp. 05/10/2016 84921 Stress Test Completed 05/10/2016 35714 Myocardial Perfusion Imaging Completed Tomographic (Spect) Multiple Studies 05/05/2016 56052 Holter Monitor Review (24 hr) Completed review & interp only 05/03/2016 32825 ECG Monitor/Recording W/Visual Completed Superimposition Scanning 04/26/2016 21894 ECG Monitor/Recording W/Visual Completed Superimposition Scanning 04/26/2016 41668 EKG Tracing & Completed Interpretation 01/03/2016 17294 EKG Tracing & Completed Interpretation 11/01/2015 Diabetic Retinal Eye Exam Completed 08/26/2015 Mammogram Completed 11/02/2014 73580 EKG Tracing & Completed Interpretation 10/20/2014 59395 Inject/Drain Joint/Bursa Major Completed 06/09/2014 Diabetic Retinal Eye Exam Completed 04/23/2014 Diabetic Retinal Eye Exam Completed Document: 04/23/14 - Eye Exam Form For Diabetes 11/03/2013 02877 EKG Tracing & Completed Interpretation 06/11/2013 Colonoscopy Completed 12/23/2012 Diabetic Retinal Eye Exam Completed 10/04/2012 64458 ECHO Transthoracic, Real-Time Completed 2D With Doppler And Color Flow 10/01/2012 19915 Myocardial Perfusion Imaging Completed Tomographic (Spect) Multiple Studies 10/01/2012 24733 Stress Test Completed 09/26/2012 96762 EKG Tracing & Completed Interpretation 09/11/2012 59063 EKG Tracing & Completed Interpretation 2010 44999 Endometrial Sampling W Or W/O Completed Endocervical BX W Or W/O Cerv Dilat 12/31/2009 17740 Endometrial Sampling W Or W/O Completed Endocervical BX W Or W/O Cerv Dilat 07/10/2008 Mammogram Completed 06/04/2008 44941 EKG Tracing & Completed Interpretation Encounters Type Date Location Provider CPT E/M Dx Office Visit 07/11/2017 [facility] Amanda Wright M.D. 39016 M25.562 9:15a Of Miki.M.AEdwar M25.462 M17.12 Office Visit 05/19/2017 2:13p [facility] [address] I25.10 Assoc, Hospitalists Z79.01 Z86.711 Z96.651 Office Visit 05/18/2017 2:12p [facility], [place] [address] I25.10 Hospitalists Z79.01 Z86.711 Z96.651 Office Visit 05/17/2017 2:10p [facility],[place] [address] Z79.01 Hospitalists Z86.711 I25.10 Z96.651 Office Visit 05/07/2017 11:15a [facility] Roland Montero, 87836 I25.10 Marcelina Flores, [facility] M17.11 Z01.810 Office Visit 04/18/2017 11:20a [facility] Internal Medicine Reva Birch, N.P. 28557 Z01.818 - [place] M17.0 E11.9 Z86.711 I25.10 I10 E78.00 Office Visit 03/09/2017 8:00a [facility] Amanda Wright M.D. 07920 M25.562 Ajay M25.561 M25.462 M25.461 M17.0 Office Visit 03/09/2017 10:20a [facility] Internal Medicine Reva Birch, N.P. 07434 E11.9 - [place] I10 Office Visit 02/08/2017 8:00a [facility] Internal Medicine Zeinab Momin, 99608 Z79.01 - [place] MMitch Z86.711 Office Visit 12/06/2016 8:40a [facility] Internal Medicine Reva Birch, N.P. 39947 I10 - [place] Office Visit 10/23/2016 8:00a [facility] Internal Medicine Reva Birch, N.P. 51225 Z79.01 - [place] Z86.711 Office Visit 09/21/2016 8:00a [facility] Internal Medicine Reva Birch, N.P. 70390 Z79.01 - [place] Z86.711 Office Visit 09/07/2016 9:00a [facility] Internal Medicine Reva Birch, N.P. 01286 Z00.01 - [place] Z12.31 I10 E78.00 Z79.84 E11.9 D68.8 I25.10 Z12.4 Z11.51 Office Visit 07/12/2016 8:45a [facility] Roland Montero, 75191 R07.9 [facility] Mark, FAC, FASNC I25.10 Office Visit 06/01/2016 12:37p [facility] Internal Medicine Reva Birch, N.P. 91588 Z79.01 - [place] Z86.711 Office Visit 04/26/2016 2:20p [facility] [place] [address] R07.9 [facility] R00.2 R06.02 I25.2 Z86.711 R94.31 I10 E11.9 Z79.01 E78.5 Office Visit 02/15/2016 4:00p [facility] Internal Medicine - Reva Birch N.P. 01426 I10 [place] E11.9 Office Visit 01/03/2016 8:45a [facility] Rolandsurya Montero, 71869 I25.10 Marcelina Flores, [facility] Office Visit 08/13/2015 3:20p [facility] Internal Medicine Reva Birch, N.P. 27101 Z00.00 - [place] Z12.39 I10 D68.8 E11.9 I25.10 F32.9 Office Visit 03/10/2015 4:03p [facility] Internal Medicine Reva Birch, N.P. 57452 286.9 - [place] V58.61 Office Visit 02/05/2015 8:40a [facility] Internal Medicine Reva Birch, N.P. 77470 401.1 - [place] 250.00 272.4 Office Visit 12/09/2014 4:01p [facility] Internal [facility] Reva Birch, N.P. 83831 286.9 - [place] V58.61 Office Visit 12/04/2014 10:30a [facility] Aristeo Sandyino, 57067 715.16 C.MEdwarAEdwar Flores Office Visit 11/02/2014 8:45a [facility] Rolandsurya Montero, 93942 414.01 Marcelina Flores, [facility] Office Visit 10/20/2014 11:00a [facility] [place] Pimentel, 10616 715.16 C.MOllie Flores Office Visit 09/29/2014 4:00p [facility] Internal Medicine Reva Birch, N.P. 45806 844.9 - [place] 719.46 Office Visit 09/11/2014 12:35p [facility] Internal Medicine Reva Birch, N.P. 31100 286.9 - [place] V58.61 Office Visit 06/10/2014 8:53a [facility] Internal Medicine Zeinab Momin 28547 V58.61 - [place] Mark 286.9 Office Visit 03/10/2014 3:14p [facility] Internal Medicine Zeinab Momin 16074 286.9 - [place] MMitch V58.61 Office Visit 01/28/2014 4:00p [facility] Internal Medicine Reva Birch, N.P. 07888 250.00 - [place] 401.1 681.11 Office Visit 12/09/2013 9:40a [facility] Internal Medicine - Yeni Zavala M.D., 09148 286.9 [place] FACP V58.61 Office Visit 11/03/2013 12:15p [facility] Rolandsurya Montero, 84649 414.01 Marcelina Flores, FAC, [facility] Office Visit 09/11/2013 3:43p [facility] Internal Medicine - Yeni Zavala M.D., 40470 286.9 [place] FACP V58.61 Office Visit 07/11/2013 3:00p [facility] Internal Medicine Reva Birch, N.P. 68173 V70.0 - [place] V76.10 250.00 272.4 286.9 414.01 401.1 311 V03.82 V06.1 Office Visit 06/10/2013 9:48a [facility] Internal Medicine Yeni Zavala M.D., 86360 V58.61 - [place] FACP 444.22 Office Visit 03/10/2013 10:12a [facility] Internal Medicine Yeni Zavala M.D., 80168 V58.61 - [place] FACP 444.22 Office Visit 02/24/2013 2:20p [facility] Internal Medicine Reva Birch, N.P. 67586 729.5 - [place] Office Visit 12/19/2012 4:00p [facility] Internal Medicine Yeni Zavala M.D., 28117 414.01 - [place] FACP V58.61 719.46 Office Visit 12/09/2012 8:59a [facility] Internal Medicine Yeni Zavala M.D., 94555 V58.61 - [place] FACP 444.22 Office Visit 10/07/2012 10:15a [facility] Rolandsurya Montero, 67470 414.9 Marcelina Flores, FAC, [facility] Office Visit 09/26/2012 8:30a [facility] Roland Can Montero, 80192 414.9 Marcelina Flores, FACC, [facility] Office Visit 09/23/2012 12:00p [facility] Internal Medicine - Yeni Zavala M.D., 06118 786.2 [place] FACP Office Visit 09/11/2012 4:11p [facility] Internal Medicine - Yeni Zavala M.D., 10230 444.22 [place] FACP V58.61 Office Visit 09/11/2012 4:20p [facility] Internal Medicine Yeni Zavala M.D., 54787 V72.84 - [place] FACP 414.00 250.00 626.8 Office Visit 06/21/2012 3:40p [facility] Internal Medicine Reva Birch, N.P. 00704 789.07 - [place] Office Visit 06/10/2012 9:04a [facility] Internal Medicine Yeni Zavala M.D., 03127 V58.61 - [place] FACP 444.22 Office Visit 01/15/2012 1:20p [facility] Internal Medicine Reva Birch, N.P. 70883 719.43 - [place] Office Visit 06/15/2011 4:00p DO Not Use Yeni Zavala M.D., 24339 V58.61 [employer] FACP 444.22 Office Visit 06/08/2011 11:40a DO Not Use [employer] Yeni Zavala, 01146 924.00 M.D., FACP 444.22 v04.81 Office Visit 02/15/2011 4:00p DO Not Use [employer] Yeni Zavala 23002 250.00 M.D., FACP Office Visit 10/19/2010 4:00p DO Not Use [employer] Yeni Zavala, 86382 250.00 M.D., FACP 414.00 780.79 401.1 Office Visit 08/01/2010 4:00p DO Not Use Reva Birch, 48448 535.00 [employer] N.P. Office Visit 06/29/2010 4:00p DO Not Use Yeni Zavala M.D., 62495 414.00 [employer] FACP 250.00 780.79 311 V04.81 Office Visit 02/23/2010 4:00p DO Not Use [employer] Yeni Zavala 24123 250.00 M.D., FACP 414.00 Office Visit 12/01/2009 11:30a DO Not Use Reva Birch, 33964 626.2 [employer] N.P. Office Visit 11/22/2009 10:15a DO Not Use Yeni Zavala M.D., 28797 250.00 [employer] Agent[employer] FACP 626.2 Office Visit 10/14/2009 4:00p DO Not Use [employer] Yeni Zavala 67057 382.9 M.D., FACP V04.81 Office Visit 06/30/2009 9:30a DO Not Use [employer] Yeni Zavala, 29662 250.00 M.D., FACP 414.00 Office Visit 03/30/2009 9:45a DO Not Use [employer] Yeni Zavala, 30019 250.02 M.D., FACP Office Visit 02/04/2009 9:00a DO Not Use [employer] Yeni Zavala, 62767 250.00 M.D., FACP 414.00 Office Visit 01/05/2009 11:00a DO Not Use Reva Birch, 26061 727.05 [employer] Agent[employer] N.P. Office Visit 10/02/2008 9:00a DO Not Use Yeni Zavala M.D., 34554 250.00 Counter [employer] FACP Office Visit 08/28/2008 9:00a DO Not Use Yeni Zavala M.D., 22137 414.00 Counter [employer] FACP 277.7 Office Visit 06/17/2008 8:30a DO Not Use [employer] Reva Birch, 86181 272.0 N.P. 790.21 Office Visit 06/04/2008 10:15a DO Not Use Reva Birch, 28052 V72.31 Counter [employer] Agent[employer] N.P. 401.1 Plan of Care Future Appointment(s):01/14/2018 4:00 pm - Reva Birch, N.P. at [facility] Internal Medicine [facility]11/01/2017 9:30 am - Darrin Diop PA-C at [facility]11/01/2017 9:30 am - TED Marroquin at [facility]10/17/2017 9:45 am - [facility]10/22/2017 9:15 am - [facility]/15/2017 9:30 am - [facility]11/01/2017 9:30 am - Amanda Wright M.D. at [facility]10/12/2017 - Zeinab Momin M.D.Z01.818 Encounter for other preprocedural examinationComments:Please do fasting blood tests On the morning of surgery, take the lisinopril and metoprolol with a sip of yxdlwX96.9 Type 2 diabetes mellitus without complicationsComments:Your A1C today is 7.2 which is a little too highThe A1C measures the sugar level inside red blood cells. Since red cells circulate in the blood for 3 months, the A1C estimates the average blood sugar over that time frame. Increase the metformin to 2 tablets once dailyYou need to see Dr. Edwards - please call him for an appointment in December/JanuaryFollow up:January for diabetes with MVZ79.01 USP ( current) use of anticoagulantsComments:Take the last Eliquis dose 3 days prior to surgery (10/29). No Eliquis on 10/30 or 10/31.Dr. Wright willdetermine when you can resume Eliquis after surgery Please talk to Dr. Montero about the aspirin and Plavix
[2017-11-01] MEDS ORDERED: CEFAZOLIN IVPB ONE (07:30)
[2017-11-01] MEDS ORDERED: D5W IVPB ONE (07:30)
[2017-11-01] MEDS ORDERED: Midazolam* 1 MG/ML 2 ML VIAL (2 MG) ONE (08:49)
[2017-11-01] MEDS ORDERED: fentaNYL* 50 MCG/ML 2 ML VIAL (100 MCG VIAL) ONE ×3 (08:49→12:24)
[2017-11-01] MEDS ORDERED: Bupivacaine 0.25% SDV* 30 ML ONE (09:35)
[2017-11-01] MEDS ORDERED: Lidocaine 2% PF * 5 ML VIAL ONE (09:35)
[2017-11-01] MEDS ORDERED: Propofol* 10 MG/ML 20 ML BTL IV PUSH ONE ×2 (09:35→09:43)
[2017-11-01] MEDS ORDERED: Ondansetron INJ* 2 MG/ML VIAL ONE (09:35)
[2017-11-01] MEDS ORDERED: EPHEDrine (Pressors)* 50 MG/ML VIAL ONE (09:41)
[2017-11-01] MEDS ORDERED: DiMENhydriNATE IV* 50 MG/ML VIAL IV PUSH PRN (10:13)
[2017-11-01] MEDS ORDERED: HYDROcodone/ACETAMIN 5-325 MG* 1 TAB PO PRN (10:13)
[2017-11-01] MEDS ORDERED: Metoclopramide IV* 5 MG/ML 2 ML VIAL IV PRN (10:13)
[2017-11-01] MEDS ORDERED: Naloxone* 0.4 MG/ML 1 ML VIAL IV PRN (10:13)
[2017-11-01] MEDS ORDERED: HYDROmorphone INJ* 1 MG/ML CARPUJECT SYRINGE IV PRN (10:13)
[2017-11-01] MEDS ORDERED: PROCHLORPERAZINE INJ 5 MG/ML 2 ML VIAL IV PRN (10:13)
[2017-11-01] MEDS ORDERED: Ondansetron INJ* 2 MG/ML VIAL IV PRN (10:46)
[2017-11-01] MEDS ORDERED: Bisacodyl SUPP* 10 MG SUPP PR PRN (10:46)
[2017-11-01] MEDS ORDERED: Magnesium Hydroxide LIQ* 30 ML UDC PO PRN (10:46)
[2017-11-01] MEDS ORDERED: diPHENhydraMINE IV* 50 MG/ML 1 ml VIAL (BENADRYL) IV PRN (10:46)
[2017-11-01] MEDS ORDERED: oxyCODONE/Acetamin 5/325 MG* TAB PO PRN (10:46)
[2017-11-01] MEDS ORDERED: Cyclobenzaprine TAB* 10 MG PO PRN (10:46)
[2017-11-01] MEDS: fentaNYL* 50 MCG/ML 2 ML VIAL (100 MCG VIAL) IV PRN ×4 (12:27→13:06)
[2017-11-01] MEDS ORDERED: oxyCODONE/Acetamin 5/325 MG* TAB ONE (12:37)
--- NOTE | 2017-11-01 12:37 | RAD ---
Indication: Left total knee replacement. 2 views of left knee demonstrates bipolar left knee arthroplasty in satisfactory position. No loosening is noted. IMPRESSION: Left knee replacement in satisfactory position.
[2017-11-01] MEDS ORDERED: Dextrose 50% Syringe 50 ML* 25 GM/50 ML SYRINGE IV PUSH PRN (13:31)
[2017-11-01] MEDS: oxyCODONE TAB* 5 MG TAB PO PRN ×2 (14:47→21:13)
[2017-11-01] MEDS: Morphine INJ* 2 MG/ML 1 ML CARPUJECT IV PRN ×2 (16:35→22:13)
[2017-11-01] MEDS: ceFAZolin 1 GM in Dextrose (*) 1 GM/50 ML BAG IVPB SCH (17:43)
[2017-11-01] MEDS: Atorvastatin* 80 MG TAB PO SCH (17:44)
[2017-11-01] MEDS: Insulin LISPRO* 1 UNITS UNIT SUBCUT SCH (17:44)
[2017-11-01] MEDS: oxyCODONE/Acetamin 5/325 MG* TAB PO PRN ×2 (17:50→23:34)
[2017-11-01] MEDS: Docusate CAP* 100 MG PO SCH (21:12)
[2017-11-01] MEDS: Magnesium Hydroxide LIQ* 30 ML UDC PO SCH (21:13)
[2017-11-01] MEDS: Metoprolol Tartrate TAB* 100 MG TAB PO SCH (21:13)
--- NOTE | 2017-11-01 21:57 | CONS ---
CC: Dr. Momin; Dr. Wright * CONSULTATION REPORT: DATE OF CONSULT: 11/01/17 PRIMARY CARE PHYSICIAN: Dr. Momin. ATTENDING PHYSICIAN WHILE IN THE HOSPITAL: Eduardo Moody MD (report dictated by Garland Sanchez NP) REQUESTING PHYSICIAN FOR CONSULT: Dr. Amanda Wright. REASON FOR CONSULT: Evaluation and medical management of comorbid medical conditions. HISTORY OF PRESENT ILLNESS: I refer you to Dr. Wright's H and P for further details. In short, Ms. Medina is a 62-year-old female patient with multiple medical problems. She has a history of CAD, diabetes, arthritis, depression, hypertension, history of DVT and recurrent PE, history of CAD and also [place]. She has had heart catheterization with stenting most recently in the [facility]. She presented to Dr. Wright's service in the outpatient setting with complaints of left knee pain failing conservative therapy and it was felt that she would require a left knee replacement, so we were asked to evaluate for in consult. She was evaluated in the PACU. She states she is feeling well. She denies having any chest pain or shortness of breath. She says that she is having some pain in her knee, but it is tolerable. She denies having any nausea, vomiting. Denies having any headache and says she just feels drowsy, but no lightheadedness or dizziness. Because of her medical complexity, we were asked to evaluate. PAST MEDICAL HISTORY: Significant for: 1. Diabetes. 2. Arthritis. 3. Depression. 4. Hyperlipidemia. 5. DVT and PE. 6. CAD. 7. WV. PAST SURGICAL HISTORY: The patient has had a right total knee replacement, now she has had a left total knee replacement. She has had 2 heart catheterizations and she has had a myomectomy. HOME MEDICATIONS: Include: 1. Metformin 500 mg daily. 2. Metoprolol 100 mg p.o. b.i.d. 3. Lisinopril 40 mg daily. 4. Aspirin 81 mg daily. 5. Prozac 80 mg daily. 6. Eliquis 5 mg p.o. b.i.d. 7. Abilify 5 mg p.o. q.a.m. 8. Nitro 1 tablet sublingual every 5 minutes x3 for chest pain. 9. Lipitor 80 mg a day. 10. Plavix 75 mg a day. 11. Januvia 100 mg a day. ALLERGIES TO MEDICATIONS: Include AZITHROMYCIN, BUPROPION. She is also allergic to LACTULOSE. FAMILY HISTORY: Mother of cancer. Father had a history of an [place] at 55. SOCIAL HISTORY: She is a former smoker. 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 Her surrogate decision maker is her sister. REVIEW OF SYSTEMS: There is no documented fever. She denied having any significant weight change. No double vision. No ear discharge. There is no rhinorrhea, no sore throat, no thyroid enlargement. Denies having any chest pain. There is no orthopnea. There is no nocturnal dyspnea. There is no abdominal pain. No nausea, no vomiting. No dysuria, no frequency. No seizure. No loss of consciousness. No pruritus and no skin ulceration. Review of 14 systems completed, all others negative. PHYSICAL EXAM: Vital Signs: Blood pressure 151/95, pulse 62, respirations 14, O2 sat 94%, temperature 96.7. General: At this time, Ms. Medina is a 62-year- old female patient. She is sitting in the PACU stretcher. She is morbidly obese. She does not appear to be in any acute distress. HEENT: Head atraumatic, normocephalic. Eyes: Sclerae anicteric and not pale. Neck was supple. Throat: Oral mucosa appears to be moist. No oropharyngeal erythema. Heart: Sounds S1, S2. Regular rate and rhythm. No murmurs, rubs, or gallops. Lungs were clear to auscultation. No wheezes, rales, or rhonchi. Abdomen was soft, flat. Bowel sounds hypoactive. Extremities: Distal CSM checks were intact to the left lower extremity. She is moving her upper extremity with 5/5 strength. Neurologically, she is awake, alert, oriented x3. No gross focal deficits. Skin: Intact with the exception of incision to the left knee, which is clean, dry and intact. DIAGNOSTIC STUDIES/LAB DATA: Preop WBC of 9.2, RBC of 5.47, hemoglobin of 13.7 , hematocrit of 41, platelet count of 211. Chemistries: Sodium 138, potassium 4, chloride of 104, bicarb 26, BUN 16, creatinine 0.86. She did have a preop stress test, which was negative. She had a preop chest x-ray, impression: No acute cardiopulmonary disease. Preop EKG again shows a sinus bradycardia, rate of 47 with a left ventricular hypertrophy and no ST elevations. She did have inversions in lead III and aVF. Old medical records were reviewed. ASSESSMENT AND PLAN: Ms. Medina is a 62-year-old female patient with multiple medical problems presenting to orthopedic services today for an elective total knee replacement. We were asked to evaluate in consult. Recommendations at this point are: 1. Status post left total knee. Defer the management to Dr. Wright and her team. 2. Diabetes. Lispro sliding scale has been ordered. 3. Depression. Continue with supportive care. 4. Arthritis. Continue her current medical regimen. Follow with her primary. 5. Hyperlipidemia. Continue statin therapy. 6. History of coronary artery disease. Continue the patient's beta-rosa, statin. I am also going to continue her aspirin. She can restart her Plavix when it is deemed safe by Dr. Wright. 7. History of deep venous thrombosis and pulmonary embolism, now in the setting of having a total knee replacement. I would recommend getting her started back on full dose anticoagulation. I touched base with Dr. Wright. The plan would be for Lovenox 100 b.i.d., then Eliquis at discharge. DVT prophylaxis again. She is at high risk. She can be placed on therapeutic Lovenox. 8. Code status. Full code. 9. Fluids, electrolytes, and nutrition. She was ordered a regular diet. I recommend a consistent carb diet. TIME SPENT: Time spent on the consult 60 minutes, greater than half the time was spent [id number] with the patient obtaining my history and physical, the other half of the time was spent going over the plan of care with the patient and implementing plan of care. I did discuss the plan of care with my attending , Dr. Moody, he is in agreement. GARLAND SANCHEZ NP [id number]/[facility] #: [id number] MIESHA
[2017-11-02] MEDS: Morphine INJ* 2 MG/ML 1 ML CARPUJECT IV PRN (00:38)
[2017-11-02] MEDS: ceFAZolin 1 GM in Dextrose (*) 1 GM/50 ML BAG IVPB SCH ×2 (02:54→09:40)
[2017-11-02] MEDS: oxyCODONE/Acetamin 5/325 MG* TAB PO PRN ×2 (03:39→07:55)
[2017-11-02 05:40] LABS: ABS Basophils 0 10^3/ul (0-0.2); ABS Eosinophils 0.1 10^3/ul (0-0.6); ABS Lymphocytes 1.9 10^3/ul (1.0-4.8); ABS Monocytes 0.8 10^3/ul (0-0.8); ABS Neutrophils 7.2 10^3/ul (1.5-7.7); ABS Nucleated RBC 0 10^3/ul; Eosinophil % 0.8 % (0-6); Hematocrit 33 % (35-47); Lymphocyte % 18.6 % (25-47); Mean Corpuscular HGB Conc 33 g/dl (31-36); Mean Corpuscular Hemoglobin 25 pg (27-31); Mean Corpuscular Volume 75 fL (80-97); Mean Platelet Volume 8 um3 (7.4-10.4); Nucleated Red Blood Cells % 0.1; Platelet Count 183 10^3/ul (150-450); Red Blood Count 4.45 10^6/ul (4.0-5.4); Red Cell Distribution Width 15 % (10.5-15)
[2017-11-02 05:48] LABS: EGFR Non-African American 88.3 (>60)
[2017-11-02] MEDS: Lisinopril TAB* 10 MG PO SCH (07:54)
[2017-11-02] MEDS: Metoprolol Tartrate TAB* 100 MG TAB PO SCH ×2 (07:54→22:49)
[2017-11-02] MEDS: Magnesium Hydroxide LIQ* 30 ML UDC PO SCH ×2 (07:54→20:22)
[2017-11-02] MEDS: ARIPiprazole TAB* 5 MG PO SCH (07:54)
[2017-11-02] MEDS: Insulin LISPRO* 1 UNITS UNIT SUBCUT SCH ×3 (07:54→17:42)
[2017-11-02] MEDS: Vitamin THERAPEUTIC TAB PO SCH (07:54)
[2017-11-02] MEDS: Aspirin Low Dose CHEW TAB* 81 MG PO SCH (07:54)
[2017-11-02] MEDS: FLUoxetine CAP* 20 MG PO SCH (07:55)
[2017-11-02] MEDS: Docusate CAP* 100 MG PO SCH ×2 (07:55→20:22)
[2017-11-02] MEDS: Morphine TAB Extended Release (*) 30 MG TAB.ER PO SCH ×2 (07:55→20:22)
[2017-11-02] MEDS ORDERED: Apixaban* 2.5 MG TAB PO SCH (09:00)
[2017-11-02] MEDS ORDERED: Enoxaparin(*) 40 MG/0.4 ML SYR SUBCUT SCH (09:00)
--- NOTE | 2017-11-02 10:49 | PN ---
Progress Note - Progress Note Date of Service: 11/02/17 SOAP: Subjective: 62 y/o female s/p L TKA by DR. Queen. Dr queen increased pain medication this AM, patient states pain under control now, however dizzy, sleepy. Not much sleep last night due to pain. No other complaints, questions. VSS, afebrile overnight. Objective: General- Well appearing, NAD, AO, sitting in chair, sleepy. MSK- DF/PF 2+ b/l, PT 2+, negative homans sign Vital Signs Temp 96.7 F 11/02/17 07:39 Pulse 63 11/02/17 07:39 Resp 18 11/02/17 09:51 BP 135/77 11/02/17 07:39 Pulse Ox 95 11/02/17 08:00 Intake & Output 11/01/17 11/02/17 11/02/17 18:59 06:59 18:59 Intake Total 2250 2142 1244 Output Total 1225 1100 0 Balance 1025 1042 1244 Weight 99.79 kg Intake: IV Fluids 1850 1042 ABX - CEFAZOLIN 54 LR 1800 988 NS 50ML, Cefazolin 2G 50 IVPB 1019 ABX - CEFAZOLIN 116 LR 903 Oral 400 1100 225 Output: Mcmanus 975 1100 0 Estimated Blood Loss 250 Assessment: Stable 62 y/o female s/p L TKA by DR. Queen Plan: - DVT prophylaxis- lovenox in house, Eliquis, plavix at home per pre-op - Continue PT/ OT - Follow up with Dr. Queen within 10-14 days - Pain medication- Continue long acting, decreased short acting amounts, continue to monitor. - H&H Stable - Post-op IV ABX - running. - Possible D/C home tomorrow, home care set up. - Hyponaterimia- Hosp aware, IV fluids held, continue to monitor, possible fluid restrictions if no improvement. Active Medications Generic Name Dose Route Start Last Admin Trade Name Freq PRN Reason Stop Dose Admin Acetaminophen 650 mg 11/01/17 10:46 Tylenol Tab* PO Q4H PRN PAIN OR TEMPERATURE Aripiprazole 5 mg 11/02/17 09:00 11/02/17 07:54 Abilify Tab* PO 5 mg QAM ALL Administration Aspirin 81 mg 11/02/17 09:00 02/23/18 07:54 Aspirin Low Dose Tab* PO 81 mg QAM ALL Administration Atorvastatin Calcium 80 mg 11/01/17 18:00 11/01/17 17:44 Lipitor* PO 80 mg QPM ALL Administration Bisacodyl 10 mg 11/01/17 10:46 Dulcolax Supp* [place] DAILY PRN constipation Cyclobenzaprine HCl 10 mg 11/01/17 10:46 Flexeril Tab* PO TID PRN SPASMS Dextrose 12.5 gm 11/01/17 13:31 D50w Syringe 50 Ml* IV PUSH .FOR FS < 60 - SS PRN FS < 60 Diphenhydramine HCl 25 mg 11/01/17 10:46 Benadryl Iv* IV Q6H PRN itching Docusate Sodium 100 mg 11/01/17 21:00 11/02/17 07:55 Colace Cap* PO 100 mg BID ALL Administration Enoxaparin Sodium 100 mg 11/02/17 12:00 Lovenox(*) SUBCUT BID [facility] Fluoxetine HCl 80 mg 11/02/17 09:00 11/02/17 07:55 Prozac Cap* PO 80 mg QAM [facility] Administration Insulin Glargine 5 units 11/02/17 11:00 Lantus(*) SUBCUT Q24H ALL Insulin Human Lispro 0 units 11/01/17 16:30 11/02/17 07:54 Humalog* SUBCUT 6 units AC ALL Administration Protocol Lactulose 30 ml 11/01/17 10:46 Lactulose* PO Q6H PRN constipation Lisinopril 40 mg 11/02/17 09:00 11/02/17 07:54 Prinivil Tab* PO 40 mg QAM ALL Administration Magnesium Hydroxide 30 ml 11/01/17 21:00 11/02/17 07:54 Milk Of Magnesia Liq* PO 30 ml BID ALL Administration Magnesium Hydroxide 30 ml 11/01/17 10:46 Milk Of Magnesia Liq* PO Q6H PRN constipation Metoprolol Tartrate 100 mg 11/01/17 21:00 11/02/17 07:54 Lopressor Tab* PO 100 mg BID ALL Administration Morphine Sulfate 2 mg 11/01/17 10:46 11/02/17 00:38 Morphine Inj (Syringe)* IV 2 mg Q2H PRN Administration PAIN - UNCONTROLLED Morphine Sulfate 30 mg 11/02/17 08:00 11/02/17 07:55 Ms Contin(*) PO 30 mg Q12H ALL Administration Multivitamins 1 tab 11/02/17 09:00 11/02/17 07:54 Theragran Tab* PO 1 tab DAILY ALL Administration Ondansetron HCl 4 mg 11/01/17 10:46 Zofran Inj* IV Q6H PRN nausea Oxycodone HCl 10 mg 11/01/17 10:46 11/01/17 21:13 Roxycodone Tab* PO 10 mg Q4H PRN Administration PAIN - SEVERE Oxycodone/Acetaminophen 1 tab 11/01/17 10:46 11/01/17 12:37 Percocet 5/325 Tab* PO 1 tab Q4H PRN Administration PAIN - MODERATE
[2017-11-02] MEDS ORDERED: Enoxaparin(*) 100 MG/ML SYR SUBCUT SCH (12:00)
[2017-11-02] MEDS: Acetaminophen TAB* 325 MG PO PRN (12:07)
[2017-11-02] MEDS: oxyCODONE TAB* 5 MG TAB PO PRN (12:07)
[2017-11-02] MEDS: Enoxaparin(*) 100 MG/ML SYR SUBCUT SCH ×2 (12:08→22:49)
[2017-11-02] MEDS: Insulin GLARGINE(*) 1 UNITS UNIT SUBCUT SCH (12:48)
--- NOTE | 2017-11-02 14:27 | OP ---
OPERATIVE NOTE: DATE OF OPERATION: 11/01/17 DATE OF : 59 ATTENDING SURGEON: Amanda Wright MD BEHAVIORAL SCIENCES INSTRUCTOR: TED Hinkle Ms. did help throughout the procedure with preparation of the leg, wound retraction, manipulation of the knee, and wound closure. ANESTHESIOLOGIST: Dr. Morel. ANESTHESIA: Adductor nerve block with general anesthesia. PRE-OP DIAGNOSIS: Severe end-stage degenerative osteoarthritis of the left knee joint. POST-OP DIAGNOSIS: Severe end-stage degenerative osteoarthritis of the left knee joint. OPERATIVE PROCEDURE: Left total knee arthroplasty. TOURNIQUET TIME: 53 minutes. COMPLICATIONS: None. SPECIMENS: Bone and cartilage from the left knee joint sent to Pathology. HARDWARE USED: This is cemented [employer] total knee arthroplasty hardware. Two packages of Simplex bone cement were used. For the femur, a size 4 narrow left Oxinium Legion femoral component. For the tibia, a size 3 left tibial base plate Jaelyn II. For the insert, an 11 mm posterior stabilized articular insert size 3/4 and for the patella 35 mm 3-peg all poly patella. BRIEF HISTORY/INDICATIONS: Ms. Medina is a 62-year-old female with years of increasingly severe left knee pain. Radiographs showed severe end-stage arthritis with [id number] contact. She failed conservative treatment with antiinflammatories, pain medications, intraarticular injections, and physical therapy. She elected to undergo a left total knee arthroplasty due to continued pain and decreased quality of life. Informed consent was obtained from the patient. She understood the risks of surgery included but were not limited to bleeding, infection, damage to near by structures, continued pain, need for further surgery, intraoperative fracture, nerve palsy, hardware failure, loosening, knee stiffness, loss of motion, stroke , heart attack, blood clot, and . She wished to proceed. INTRAOPERATIVE FINDINGS: Intraoperatively, the patient was noted to have severe end-stage arthritis with complete loss of cartilage in all 3 compartments. She had extensive osteophyte formation. DESCRIPTION OF PROCEDURE: Ms. Medina was identified in the preanesthesia unit. Her left lower extremity was marked as the correct operative site. Informed consent was signed and placed in the chart. The patient was taken to the operating room and placed under general anesthesia with an adductor nerve block. A Mcmanus catheter was placed. Tourniquet was placed on the left thigh. Left lower extremity was prepped and draped in the usual sterile fashion. Preop time-out was made to correctly identify the patient, side and site. Appropriate perioperative antibiotics were given within 1 hour of incision. A 12-cm midline incision was made with a 10 blade and carried down to the extensor mechanism. Tourniquet was inflated until tourniquet time for this procedure was 53 minutes. A new 10-blade was used to make a standard medial parapatellar arthrotomy. Patella was subluxed laterally. Electrocautery was used to subperiosteally elevate soft tissue off the superomedial tibia to the mid sagittal plane. The knee was flexed up. Anterior horn of the lateral meniscus and ACL were sharply released. A drill was used to enter the distal femur. Intramedullary distal femoral cutting guide was pinned on the distal femur. Oscillating saw was used to make the distal femoral cut. Next, the external rotation guide was pinned on the distal femur. Distal femur was sized to a size 4. Size 4 multi-cutting jig was pinned on the distal femur. The oscillating saw was used to make the appropriate chamfer cuts. The PCL was completely released and the tibia was subluxed anteriorly. Extramedullary tibial cutting guide was pinned on the proximal tibia. Oscillating saw was used to make a proximal tibial cut perpendicular to the mechanical axis of the tibia. The bone was carefully removed. The knee was brought out into full extension. Spacer block had good fit with medial and lateral ligamentous balancing. The knee was in full extension. Flexion and extension gaps were well balanced. The knee was flexed up. Lamina barrel inspector tight was placed both medially and laterally. Any remaining meniscus was carefully removed using electrocautery. Curved osteotome was used to remove any posterior osteophytes. A left size 4 narrow femoral trial was impacted onto the distal femur. This had excellent fit. The box for the posterior stabilized implant was prepared using a reamer and box- cut osteotome. A size 3 tibial tray trial with an 11-mm insert trial was placed and the knee was taken through range of motion. The knee had full extension to 130 degrees of flexion with satisfactory patellofemoral tracking. The patella was everted. 9 mm of patellar bone and cartilage was removed using an oscillating saw. The patella was sized to a size 35. Three peg holes were drilled through the size 35 guide. 35 trial patellar was placed and the knee was taken through range of motion. There was satisfactory patellofemoral tracking. All trials were removed. The tibia was subluxed anteriorly and sized to a size 3. Proximal tibia was prepared using a size 3 keel punch. All bony cut surfaces were copiously irrigated with sterile saline and dried. Final implants were cemented into place starting with the tibia followed by the femur and last the patella. An 11-mm insert trial was placed and the knee was brought out into full extension. The tourniquet was turned down at 53 minutes. The cement was allowed to fully cure. The knee was copiously irrigated with sterile saline. Once the cement had fully cured, the insert trial was removed. Any excess cement was removed from around the hardware and capsule. Final insert chosen was an 11-mm posterior stabilized articular insert of the high flexion variety. This was locked into position on the tibial tray. Stability of the insert was checked and rechecked and noted to be stable. The knee was copiously irrigated with sterile saline. The extensor mechanism was closed using interrupted #1 Vicryls over a medium Hemovac drain. The rest of the incision was closed in a layered fashion using 0 and 2-0 Vicryls. Skin was closed using running 3-0 nylon suture. Sterile Xeroform, 4x4s, and Webril were used to cover the incision. Golden wrap and cold pack were placed over this. The patient's anesthesia was reversed without difficulty. She was taken to the PACU in stable condition. Intended weightbearing will be weightbearing as tolerated. Intended DVT prophylaxis will be Lovenox while in the hospital and home on her home dose of Eliquis and Plavix. [id number]/[facility] #: [id number] [facility]
--- NOTE | 2017-11-02 16:03 | PN ---
Subjective Date of Service: 11/02/17 Interval History: Patient complains of intermittent lightheadedness this morning with standing. Denies vertigo, states this is not normal for her but denies presyncope, syncope , palpitations, chest pain, or shortness of breath. Patient also denies F/C, N/V , abdominal pain. Patient has not urinated since her begum was removed. Patient is passing flatus but has not had a BM today. Family History: Unchanged from Admission Social History: Unchanged from Admission Past Medical History: Unchanged from Admission Objective Active Medications: Acetaminophen (Tylenol Tab*) 650 mg PO Q4H PRN PRN Reason: PAIN OR TEMPERATURE Last Admin: 11/02/17 12:07 Dose: 650 mg Aripiprazole (Abilify Tab*) 5 mg PO QAM [facility] Last Admin: 11/02/17 07:54 Dose: 5 mg Aspirin (Aspirin Low Dose Tab*) 81 mg PO QAM [facility] Last Admin: 11/02/17 07:54 Dose: 81 mg Atorvastatin Calcium (Lipitor*) 80 mg PO QPM [facility] Last Admin: 11/01/17 17:44 Dose: 80 mg Bisacodyl (Dulcolax Supp*) 10 mg [place] DAILY PRN PRN Reason: constipation Cyclobenzaprine HCl (Flexeril Tab*) 10 mg PO TID PRN PRN Reason: SPASMS Dextrose (D50w Syringe 50 Ml*) 12.5 gm IV PUSH .FOR FS < 60 - SS PRN PRN Reason: FS < 60 Diphenhydramine HCl (Benadryl Iv*) 25 mg IV Q6H PRN PRN Reason: itching Docusate Sodium (Colace Cap*) 100 mg PO BID [facility] Last Admin: 11/02/17 07:55 Dose: 100 mg Enoxaparin Sodium (Lovenox(*)) 100 mg SUBCUT BID [facility] Last Admin: 11/02/17 12:08 Dose: 100 mg Fluoxetine HCl (Prozac Cap*) 80 mg PO QAM [facility] Last Admin: 11/02/17 07:55 Dose: 80 mg Insulin Glargine (Lantus(*)) 5 units SUBCUT Q24H [facility] Last Admin: 11/02/17 12:48 Dose: 5 units Insulin Human Lispro (Humalog*) 0 units SUBCUT AC [facility] PRN Reason: Protocol Last Admin: 11/02/17 12:49 Dose: 3 units Lactulose (Lactulose*) 30 ml PO Q6H PRN PRN Reason: constipation Lisinopril (Prinivil Tab*) 40 mg PO QAM [facility] Last Admin: 11/02/17 07:54 Dose: 40 mg Magnesium Hydroxide (Milk Of Magnesia Liq*) 30 ml PO BID [facility] Last Admin: 11/02/17 07:54 Dose: 30 ml Magnesium Hydroxide (Milk Of Magnesia Liq*) 30 ml PO Q6H PRN PRN Reason: constipation Metoprolol Tartrate (Lopressor Tab*) 100 mg PO BID [facility] Last Admin: 11/02/17 07:54 Dose: 100 mg Morphine Sulfate (Morphine Inj (Syringe)*) 2 mg IV Q2H PRN PRN Reason: PAIN - UNCONTROLLED Last Admin: 11/02/17 00:38 Dose: 2 mg Morphine Sulfate (Ms Contin(*)) 30 mg PO Q12H [facility] Last Admin: 11/02/17 07:55 Dose: 30 mg Multivitamins (Theragran Tab*) 1 tab PO DAILY [facility] Last Admin: 11/02/17 07:54 Dose: 1 tab Ondansetron HCl (Zofran Inj*) 4 mg IV Q6H PRN PRN Reason: nausea Oxycodone HCl (Roxycodone Tab*) 10 mg PO Q4H PRN PRN Reason: PAIN - SEVERE Last Admin: 11/02/17 12:07 Dose: 10 mg Oxycodone/Acetaminophen (Percocet 5/325 Tab*) 1 tab PO Q4H PRN PRN Reason: PAIN - MODERATE Last Admin: 11/01/17 12:37 Dose: 1 tab Vital Signs - 8 hr 11/02/17 11/02/17 11/02/17 08:00 09:51 11:20 Temperature 97.8 F Pulse Rate 78 Respiratory 18 18 18 Rate Blood Pressure 115/72 (mmHg) O2 Sat by Pulse 95 94 Oximetry 11/02/17 11/02/17 11/02/17 11:30 11:32 12:07 Temperature Pulse Rate Respiratory 18 Rate Blood Pressure 120/70 115/72 (mmHg) O2 Sat by Pulse Oximetry 11/02/17 14:41 Temperature Pulse Rate Respiratory 18 Rate Blood Pressure (mmHg) O2 Sat by Pulse Oximetry Oxygen Devices in Use Now: None Appearance: Patient is a 62yo Female who appears stated age and is sitting in the bed in NAD. Eyes: No Scleral Icterus, PERRLA Ears/Nose/Mouth/Throat: NL Teeth, Lips, Gums, Clear Oropharnyx, Mucous Membranes Moist Neck: NL Appearance and Movements; NL JVP, Trachea Midline Respiratory: Symmetrical Chest Expansion and Respiratory Effort, Clear to Auscultation Cardiovascular: NL Sounds; No Murmurs; No JVD, RRR, - - Trace edema in LLE. Pulses 2+. Abdominal: NL Sounds; No Tenderness; No Distention, No Hepatosplenomegaly Lymphatic: No Cervical Adenopathy Extremities: No Clubbing, Cyanosis Skin: No Rash or Ulcers, No Nodules or Sclerosis, - - Surgical Incision covered with bulky dressing. 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 - Patient Problems (1) Total knee replacement status Current Visit: No Status: Acute Code(s): Z96.659 - PRESENCE OF UNSPECIFIED ARTIFICIAL KNEE JOINT SNOMED Code(s): 3849564991296 Comment: Management per Ortho post-op day #1 - overall doing well clinically pain management/Bowel regimen. Has not urinated or had a BM post-op. PT/OT. Plan for VNS at discharge. (2) CAD (coronary artery disease) Current Visit: No Status: Chronic Code(s): I25.10 - ATHSCL HEART DISEASE OF [place] CORONARY ARTERY W/O ANG PCTRS SNOMED Code(s): 31960347 Comment: asymptomatic continue BB, aspirin, atorvastatin Resume Plavix at discretion of Ortho. (3) Diabetes Current Visit: No Status: Acute Code(s): E11.9 - TYPE 2 DIABETES MELLITUS WITHOUT COMPLICATIONS SNOMED Code(s): 34771549 Comment: [facility]SB[facility] QACHS with SSI lispro ordered. Add on Basal insulin. Home medications are Januvia/Metformin Resume at discharge. (4) HTN (hypertension) Current Visit: No Status: Acute Code(s): I10 - ESSENTIAL (PRIMARY) HYPERTENSION SNOMED Code(s): 85997876 Comment: continue home lisinopril 40mg, toprol 100mg BID (5) Hyponatremia Current Visit: Yes Status: Acute Code(s): E87.1 - HYPO-OSMOLALITY AND HYPONATREMIA SNOMED Code(s): 69719756 Comment: Sodium at 129. Could be due to volume expansion from fluids which have been stopped or from SIADH due to pain or opiates. Will monitor and restrict fluids if needed. (6) Dizziness Current Visit: Yes Status: Acute Code(s): R42 - DIZZINESS AND GIDDINESS SNOMED Code(s): 309449365 Comment: Likely due to new pain medication. Orthostatics normal, no prodromal symptoms. Monitor. (7) History of pulmonary embolism Current Visit: Yes Status: Acute Code(s): Z86.711 - PERSONAL HISTORY OF PULMONARY EMBOLISM SNOMED Code(s): 593692402 Comment: Full anticoagulation. (8) DVT prophylaxis Current Visit: No Status: Acute Code(s): SNK1148 - SNOMED Code(s): 177638413 Comment: continue lovenox with Eliquis at D/C. (9) Full code status Current Visit: No Status: Acute Code(s): Z78.9 - OTHER SPECIFIED HEALTH STATUS SNOMED Code(s): 244931391 Status and Disposition: Dispo per ortho.
[2017-11-02] MEDS ORDERED: NS 0.9% 1000 ML* 1,000 ML IV ONE (18:48)
[2017-11-02] MEDS ORDERED: NS 0.9% 1000 ML* 1,000 ML IV SCH (19:00)
[2017-11-02] MEDS: Atorvastatin* 80 MG TAB PO SCH (20:22)
[2017-11-03] MEDS: Acetaminophen TAB* 325 MG PO PRN ×3 (02:43→13:31)
[2017-11-03] MEDS: oxyCODONE TAB* 5 MG TAB PO PRN ×3 (02:43→13:30)
[2017-11-03 05:21] LABS: Hematocrit 30 % (35-47); Hemoglobin 9.9 g/dl (12.0-16.0); Mean Platelet Volume 8 um3 (7.4-10.4); Platelet Count 146 10^3/ul (150-450)
[2017-11-03 05:28] LABS: EGFR Non-African American 76.5 (>60)
[2017-11-03] MEDS: Morphine TAB Extended Release (*) 30 MG TAB.ER PO SCH ×2 (08:13→19:56)
[2017-11-03] MEDS: Insulin LISPRO* 1 UNITS UNIT SUBCUT SCH ×3 (08:13→17:42)
--- NOTE | 2017-11-03 08:39 | PN ---
Progress Note - Progress Note Date of Service: 11/03/17 SOAP: Subjective: resting comfortably with continued complaints of moderate left knee pain Objective: Vital Signs Temp Pulse Resp BP Pulse Ox 98.2 F 77 18 128/69 93 11/03/17 07:51 11/03/17 07:51 11/03/17 08:13 11/03/17 07:51 11/03/17 08:00 Laboratory Last Values WBC 10.0 10^3/ul (3.5-10.8) 11/02/17 04:57 RBC 4.45 10^6/ul (4.0-5.4) 11/02/17 04:57 Hgb 9.9 g/dl (12.0-16.0) L 11/03/17 04:37 Hct 30 % (35-47) L 11/03/17 04:37 MCV 75 fL (80-97) L 11/02/17 04:57 MCH 25 pg (27-31) L 11/02/17 04:57 MCHC 33 g/dl (31-36) 11/02/17 04:57 RDW 15 % (10.5-15) 11/02/17 04:57 Plt Count 146 10^3/ul (150-450) L 11/03/17 04:37 MPV 8 um3 (7.4-10.4) 11/03/17 04:37 Neut % (Auto) 72.1 % (38-83) 11/02/17 04:57 Lymph % (Auto) 18.6 % (25-47) L 11/02/17 04:57 Real % (Auto) 8.2 % (0-7) H 11/02/17 04:57 Eos % (Auto) 0.8 % (0-6) 11/02/17 04:57 Baso % (Auto) 0.3 % (0-2) 11/02/17 04:57 Absolute Neuts (auto) 7.2 10^3/ul (1.5-7.7) 11/02/17 04:57 Absolute Lymphs (auto) 1.9 10^3/ul (1.0-4.8) 11/02/17 04:57 Absolute Monos (auto) 0.8 10^3/ul (0-0.8) 11/02/17 04:57 Absolute Eos (auto) 0.1 10^3/ul (0-0.6) 11/02/17 04:57 Absolute Basos (auto) 0 10^3/ul (0-0.2) 11/02/17 04:57 Absolute Nucleated RBC 0 10^3/ul 11/02/17 04:57 Nucleated RBC % 0.1 11/02/17 04:57 Sodium 125 mmol/L (133-145) L 11/03/17 04:37 Potassium 4.2 mmol/L (3.5-5.0) 11/03/17 04:37 Chloride 93 mmol/L (101-111) L 11/03/17 04:37 Carbon Dioxide 27 mmol/L (22-32) 11/03/17 04:37 Anion Gap 5 mmol/L (2-11) 11/03/17 04:37 BUN 12 mg/dL (6-24) 11/03/17 04:37 Creatinine 0.77 mg/dL (0.51-0.95) 11/03/17 04:37 Est GFR ( Amer) 98.3 (>60) 11/03/17 04:37 Est GFR (Non-Af Amer) 76.5 (>60) 11/03/17 04:37 BUN/Creatinine Ratio 15.6 (8-20) 11/03/17 04:37 Glucose 166 mg/dL (70-100) H 11/03/17 04:37 POC Glucose (mg/dL) 159 mg/dL (70-100) H 11/03/17 07:54 Calcium 8.3 mg/dL (8.6-10.3) L 11/03/17 04:37 incision: c/d; dressing changed PE: NVI Assessment: s/p left TKA; POD #2 Plan: 1) Continue PT/OT- WBAT 2) Continue Lovenox/SCD's for DVT prophylaxis 3) Hospitalist co-managing 4) Home tomorrow
[2017-11-03] MEDS: Enoxaparin(*) 100 MG/ML SYR SUBCUT SCH ×2 (09:37→19:58)
[2017-11-03] MEDS: Lisinopril TAB* 10 MG PO SCH (09:37)
[2017-11-03] MEDS: Docusate CAP* 100 MG PO SCH ×2 (09:38→19:56)
[2017-11-03] MEDS: Metoprolol Tartrate TAB* 100 MG TAB PO SCH ×2 (09:38→19:57)
[2017-11-03] MEDS: ARIPiprazole TAB* 5 MG PO SCH (09:38)
[2017-11-03] MEDS: Vitamin THERAPEUTIC TAB PO SCH (09:38)
[2017-11-03] MEDS: FLUoxetine CAP* 20 MG PO SCH (09:38)
[2017-11-03] MEDS: Aspirin Low Dose CHEW TAB* 81 MG PO SCH (09:38)
[2017-11-03] MEDS: Magnesium Hydroxide LIQ* 30 ML UDC PO SCH ×2 (09:38→19:58)
[2017-11-03] MEDS: Insulin GLARGINE(*) 1 UNITS UNIT SUBCUT SCH (11:40)
--- NOTE | 2017-11-03 12:36 | PN ---
Subjective Date of Service: 11/03/17 Interval History: Patient complains of continued dizziness on standing. Patient denies associated palpitations, CP, SOB, nausea, or presyncope. Patient voiding adequate amounts. States pain in leg is 3/10. Working well with PT/OT. Denies F/C, N/V, Abdominal pain, diarrhea, constipation, F/C, or other pain. Discussed fluid restriction and patient states understanding and agreement. Family History: Unchanged from Admission Social History: Unchanged from Admission Past Medical History: Unchanged from Admission Objective Active Medications: Acetaminophen (Tylenol Tab*) 650 mg PO Q4H PRN PRN Reason: PAIN OR TEMPERATURE Last Admin: 11/03/17 07:37 Dose: 650 mg [facility]ipraz[facility] ([facility]ilify [facility]*) [facility] Admin: 11/03/17 09:38 Dose: 5 mg Aspirin (Aspirin Low Dose Tab*) 81 mg PO QAM [facility] Last Admin: 11/03/17 09:38 Dose: 81 mg Atorvastatin Calcium (Lipitor*) 80 mg PO QPM [facility] Last Admin: 11/02/17 20:22 Dose: 80 mg Bisacodyl (Dulcolax Supp*) 10 mg CO DAILY PRN PRN Reason: constipation Cyclobenzaprine HCl (Flexeril Tab*) 10 mg PO TID PRN PRN Reason: SPASMS Last Admin: 11/02/17 22:52 Dose: 10 mg Dextrose (D50w Syringe 50 Ml*) 12.5 gm IV PUSH .FOR FS < 60 - SS PRN PRN Reason: FS < 60 Diphenhydramine HCl (Benadryl Iv*) 25 mg IV Q6H PRN PRN Reason: itching Docusate Sodium (Colace Cap*) 100 mg PO BID [facility] Last Admin: 11/03/17 09:38 Dose: 100 mg Enoxaparin Sodium (Lovenox(*)) 100 mg SUBCUT BID [facility] Last Admin: 11/03/17 09:37 Dose: 100 mg Fluoxetine HCl (Prozac Cap*) 80 mg PO QAM [facility] Last Admin: 11/03/17 09:38 Dose: 80 mg Insulin Glargine (Lantus(*)) 5 units SUBCUT Q24H [facility] Last Admin: 11/03/17 11:40 Dose: 5 units Insulin Human Lispro (Humalog*) 0 units SUBCUT [facility] PRN Reason: Protocol Last Admin: 11/03/17 11:40 Dose: 3 units Lactulose (Lactulose*) 30 ml PO Q6H PRN PRN Reason: constipation Last Admin: 11/03/17 09:37 Dose: 30 ml Lisinopril (Prinivil Tab*) 40 mg PO QAM [facility] Last Admin: 11/03/17 09:37 Dose: 40 mg Magnesium Hydroxide (Milk Of Magnesia Liq*) 30 ml PO BID [facility] Last Admin: 11/03/17 09:38 Dose: Not Given Magnesium Hydroxide (Milk Of Magnesia Liq*) 30 ml PO Q6H PRN PRN Reason: constipation Metoprolol Tartrate (Lopressor Tab*) 100 mg PO BID [facility] Last Admin: 11/03/17 09:38 Dose: 100 mg Morphine Sulfate (Ms Contin(*)) 30 mg PO Q12H [facility] Last Admin: 11/03/17 08:13 Dose: 30 mg Multivitamins (Theragran Tab*) 1 tab PO DAILY [facility] Last Admin: 11/03/17 09:38 Dose: 1 tab Ondansetron HCl (Zofran Inj*) 4 mg IV Q6H PRN PRN Reason: nausea Last Admin: 11/02/17 18:06 Dose: 4 mg Oxycodone HCl (Roxycodone Tab*) 10 mg PO Q4H PRN PRN Reason: PAIN - SEVERE Last Admin: 11/03/17 07:38 Dose: 10 mg Oxycodone/Acetaminophen (Percocet 5/325 Tab*) 1 tab PO Q4H PRN PRN Reason: PAIN - MODERATE Last Admin: 11/01/17 12:37 Dose: 1 tab Vital Signs - 8 hr 11/03/17 11/03/17 11/03/17 04:45 07:38 07:51 Temperature 98.2 F Pulse Rate 77 Respiratory 16 20 16 Rate Blood Pressure 128/69 (mmHg) O2 Sat by Pulse 93 Oximetry 11/03/17 11/03/17 11/03/17 08:00 08:13 10:53 Temperature Pulse Rate Respiratory 18 18 18 Rate Blood Pressure (mmHg) O2 Sat by Pulse 93 Oximetry 11/03/17 11:36 Temperature 98.0 F Pulse Rate 73 Respiratory 16 Rate Blood Pressure 121/68 (mmHg) O2 Sat by Pulse 92 Oximetry Oxygen Devices in Use Now: None Appearance: Patient is a 62yo female who appears stated age and is sitting in the bed in NAD. Eyes: No Scleral Icterus, PERRLA Ears/Nose/Mouth/Throat: NL Teeth, Lips, Gums, Clear Oropharnyx, Mucous Membranes Moist Neck: NL Appearance and Movements; NL JVP, Trachea Midline Respiratory: Symmetrical Chest Expansion and Respiratory Effort, Clear to Auscultation Cardiovascular: NL Sounds; No Murmurs; No JVD, RRR, - - Trace edema in B/L LE. Slightly worse on surgical side. Abdominal: NL Sounds; No Tenderness; No Distention, No Hepatosplenomegaly Lymphatic: No Cervical Adenopathy Extremities: No Edema, No Clubbing, Cyanosis Skin: No Rash or Ulcers, No Nodules or Sclerosis Neurological: Alert and Oriented x 3, NL Sensation, NL Muscle Strength and Tone , - - CN II-XII intact. Cerebellar testing normal. 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 Patient is asymptomatically hyponatremic which is worsening. - Patient Problems (1) Total knee replacement status Current Visit: No Status: Acute Code(s): Z96.659 - PRESENCE OF UNSPECIFIED ARTIFICIAL KNEE JOINT SNOMED Code(s): 3880673907660 Comment: Management per Ortho post-op day #2 - overall doing well clinically pain management/Bowel regimen. Urinating copious amounts after fluids which have been stopped due to hyponatremia. PT/OT. Plan for VNS at discharge. (2) CAD (coronary artery disease) Current Visit: No Status: Chronic Code(s): I25.10 - ATHSCL HEART DISEASE OF [place] CORONARY ARTERY W/O ANG PCTRS SNOMED Code(s): 74018860 Comment: asymptomatic continue BB, aspirin, atorvastatin Resume Plavix at discretion of Ortho. (3) Diabetes Current Visit: No Status: Acute Code(s): E11.9 - TYPE 2 DIABETES MELLITUS WITHOUT COMPLICATIONS SNOMED Code(s): 34317959 Comment: FSBG ACHS with SSI lispro ordered. Add on Basal insulin. Better control today. Home medications are Januvia/Metformin Resume at discharge. (4) HTN (hypertension) Current Visit: No Status: Acute Code(s): I10 - ESSENTIAL (PRIMARY) HYPERTENSION SNOMED Code(s): 22515456 Comment: continue home lisinopril 40mg, toprol 100mg BID (5) Hyponatremia Current Visit: Yes Status: Acute Code(s): E87.1 - HYPO-OSMOLALITY AND HYPONATREMIA SNOMED Code(s): 44212856 Comment: Sodium at 125 down for 129. Could be due to volume expansion from fluids which have been stopped or from SIADH due to pain or opiates. Fluid restricted. Will monitor. Urine sodium and osmolality pending. (6) Dizziness Current Visit: Yes Status: Acute Code(s): R42 - DIZZINESS AND GIDDINESS SNOMED Code(s): 645689430 Comment: Persistent Likely due to new pain medication. Orthostatics normal, no prodromal symptoms. Monitor. (7) History of pulmonary embolism Current Visit: Yes Status: Acute Code(s): Z86.711 - PERSONAL HISTORY OF PULMONARY EMBOLISM SNOMED Code(s): 144403043 Comment: Full anticoagulation. (8) DVT prophylaxis Current Visit: No Status: Acute Code(s): AFD3636 - SNOMED Code(s): 866955247 Comment: continue lovenox with Eliquis at D/C. (9) Full code status Current Visit: No Status: Acute Code(s): Z78.9 - OTHER SPECIFIED HEALTH STATUS SNOMED Code(s): 108505057 Status and Disposition: Dispo per ortho.
[2017-11-03] MEDS: Atorvastatin* 80 MG TAB PO SCH (17:41)
[2017-11-04 05:30] LABS: Hematocrit 27 % (35-47); Mean Platelet Volume 8 um3 (7.4-10.4); Platelet Count 157 10^3/ul (150-450)
[2017-11-04 05:54] LABS: EGFR Non-African American 72.1 (>60)
[2017-11-04] MEDS: ARIPiprazole TAB* 5 MG PO SCH (08:09)
[2017-11-04] MEDS: Lisinopril TAB* 10 MG PO SCH (08:10)
[2017-11-04] MEDS: Aspirin Low Dose CHEW TAB* 81 MG PO SCH (08:11)
[2017-11-04] MEDS: Metoprolol Tartrate TAB* 100 MG TAB PO SCH (08:11)
[2017-11-04] MEDS: Morphine TAB Extended Release (*) 30 MG TAB.ER PO SCH (08:11)
[2017-11-04] MEDS: FLUoxetine CAP* 20 MG PO SCH (08:11)
[2017-11-04] MEDS: Docusate CAP* 100 MG PO SCH (08:11)
[2017-11-04] MEDS: Vitamin THERAPEUTIC TAB PO SCH (08:12)
[2017-11-04] MEDS: Magnesium Hydroxide LIQ* 30 ML UDC PO SCH (08:12)
[2017-11-04] MEDS: Insulin LISPRO* 1 UNITS UNIT SUBCUT SCH ×2 (08:13→14:17)
--- NOTE | 2017-11-04 09:21 | PN ---
Progress Note - Progress Note Date of Service: 11/04/17 SOAP: Subjective: patient OOB to chair with improved pain, no complaints Objective: Vital Signs Temp Pulse Resp BP Pulse Ox 99.0 F 78 16 132/73 91 11/04/17 07:49 11/04/17 07:49 11/04/17 08:11 11/04/17 07:49 11/04/17 07:49 Laboratory Last Values WBC 10.0 10^3/ul (3.5-10.8) 11/02/17 04:57 RBC 4.45 10^6/ul (4.0-5.4) 11/02/17 04:57 Hgb 9.0 g/dl (12.0-16.0) L 11/04/17 05:14 Hct 27 % (35-47) L 11/04/17 05:14 MCV 75 fL (80-97) L 11/02/17 04:57 MCH 25 pg (27-31) L 11/02/17 04:57 MCHC 33 g/dl (31-36) 11/02/17 04:57 RDW 15 % (10.5-15) 11/02/17 04:57 Plt Count 157 10^3/ul (150-450) 11/04/17 05:14 MPV 8 um3 (7.4-10.4) 11/04/17 05:14 Neut % (Auto) 72.1 % (38-83) 11/02/17 04:57 Lymph % (Auto) 18.6 % (25-47) L 11/02/17 04:57 [place] % (Auto) 8.2 % (0-7) H 11/02/17 04:57 Eos % (Auto) 0.8 % (0-6) 11/02/17 04:57 Baso % (Auto) 0.3 % (0-2) 11/02/17 04:57 Absolute Neuts (auto) 7.2 10^3/ul (1.5-7.7) 11/02/17 04:57 Absolute Lymphs (auto) 1.9 10^3/ul (1.0-4.8) 11/02/17 04:57 Absolute Monos (auto) 0.8 10^3/ul (0-0.8) 11/02/17 04:57 Absolute Eos (auto) 0.1 10^3/ul (0-0.6) 11/02/17 04:57 Absolute Basos (auto) 0 10^3/ul (0-0.2) 11/02/17 04:57 Absolute Nucleated RBC 0 10^3/ul 11/02/17 04:57 Nucleated RBC % 0.1 11/02/17 04:57 Sodium 126 mmol/L (133-145) L 11/04/17 05:14 Potassium 4.0 mmol/L (3.5-5.0) 11/04/17 05:14 Chloride 94 mmol/L (101-111) L 11/04/17 05:14 Carbon Dioxide 27 mmol/L (22-32) 11/04/17 05:14 Anion Gap 5 mmol/L (2-11) 11/04/17 05:14 BUN 15 mg/dL (6-24) 11/04/17 05:14 Creatinine 0.81 mg/dL (0.51-0.95) 11/04/17 05:14 Est GFR ( Amer) 92.8 (>60) 11/04/17 05:14 Est GFR (Non-Af Amer) 72.1 (>60) 11/04/17 05:14 BUN/Creatinine Ratio 18.5 (8-20) 11/04/17 05:14 Glucose 167 mg/dL (70-100) H 11/04/17 05:14 POC Glucose (mg/dL) 154 mg/dL (70-100) H 11/03/17 16:45 Calcium 8.4 mg/dL (8.6-10.3) L 11/04/17 05:14 Ur Random Sodium 18 mmol/L 11/03/17 12:28 incision: c/d PE: NVI Assessment: s/p left TKA; POD#3 Plan: 1) Lovenox for DVT prophylaxis; will get before DC home 2) Home today; RTC 2 weeks; will resume home meds for DVT prophylaxis tomorrow( Eliquis, Plavix, ASA) 3) Patient may shower if desired before DC 4) PT/OT-WBAT
[2017-11-04] MEDS: Enoxaparin(*) 100 MG/ML SYR SUBCUT SCH (09:43)
[2017-11-04] MEDS: Insulin GLARGINE(*) 1 UNITS UNIT SUBCUT SCH (11:27)
[2017-11-04 15:28] VITALS: BP 112/60
--- NOTE | 2017-11-04 21:27 | DS ---
DISCHARGE SUMMARY: DATE OF ADMISSION: 11/01/17 DATE OF DISCHARGE: 11/04/17 SURGEON: Amanda Wright MD * (DICTATED BY TED BARRIGA) PRINCIPAL DIAGNOSIS: End-stage osteoarthritis of the left knee. DISCHARGE DIAGNOSIS: End-stage osteoarthritis of the left knee. HISTORY OF PRESENT ILLNESS: Ms. Medina is a 62-year-old female who underwent a left total knee arthroplasty secondary to severe degenerative osteoarthritis of the left knee. HOSPITAL COURSE: Ms. Medina was admitted electively to the hospital on and underwent a left total knee arthroplasty secondary to severe left knee pain. She tolerated the procedure well with no complications. Postoperatively, she was placed on Lovenox for DVT prophylaxis and on postoperative day 1, her H and H was 11 and 33; on post-operative day 2, 9.9 and 30; and on postoperative day 3, 9 and 27. Her hospital course was fairly unremarkable. She remained afebrile and her vital signs were stable. She was discharged home on 11/04/17 in stable condition. DISCHARGE MEDICATIONS: 1. Percocet 5/325 mg 1 to 2 tabs every 4 to 6 hours as needed for pain. 2. MS-Contin 30 mg every 12 hours as needed for pain. 3. Colace 100 mg 2 to 3 tabs daily for constipation. 4. Eliquis 5 mg twice daily. 5. Plavix 75 mg daily. 6. Aspirin 81 mg daily. 7. Abilify 5 mg daily. 8. Lipitor 80 mg daily. 9. Prozac 80 mg daily. 10. Lantus. 11. Humalog. 12. Lisinopril 40 mg daily. 13. Metoprolol 100 mg twice daily. PHYSICAL EXAMINATION UPON DISCHARGE: She was afebrile. Her vital signs were stable. Her wound was clean and dry with no signs of infection. She was ambulating well with the aid of a walker and she was distally neurovascularly intact. DISCHARGE INSTRUCTIONS: She was discharged home on 11/04/17. She was given prescription for Percocet to take every 4 to 6 hours for pain as well as 30 mg of MS-Contin to take every 12 hours. She was given Colace for constipation. She was given her last dose of Lovenox prior to discharge and asked to restart her home dose Eliquis, Plavix, and aspirin on 11/05/17. She can start showering when she gets home and let soap and water run over the incision. She cannot submerge the knee in water. No baths, hot tubs, or pools. She can leave the area open to the air. She will begin inpatient physical therapy next week. She is weightbearing as tolerated. We have recommended the use of a walker and Dr. Wright would like to see her back in 2 weeks. We have asked her to call sooner with any questions or concerns. TED BARRIGA [id number]/[facility] #: [id number] MIESHA
--- NOTE | 2017-11-05 21:14 | HP ---
HISTORY AND PHYSICAL: DATE OF ADMISSION: For observation is 11/01/17. PROVIDER: Amanda Wright MD * (DICTATED BY TED AYALA) HISTORY OF PRESENT ILLNESS: Ms. Medina is a 62-year-old female who presents to [facility] Emergency Room on 11/05/17. She is status post left total knee arthroplasty on 11/01/[address] Amanda Wright. The patient's hospital course status post surgery was fairly unremarkable, though she did have hyponatremia. She was managed by the hospitalist service for hypertension , diabetes, coronary artery disease, hyponatremia, dizziness. The patient has a history of DVT and pulmonary embolism. She was on Lovenox during her previous hospital stay and then today she restarted her home medications of Eliquis, Plavix and aspirin. The patient states that her reason for presenting back to [facility] today is that she was having too much pain at home to be able to safely mobilize. She was able to walk slowly with her walker effectively, but her biggest difficulty was getting up from a chair on her own. She did not have 24-hour care which she felt that she needed. The patient did successfully have a right total knee arthroplasty late last year, which she did very well with and was able to tolerate going home after surgery without any short-term rehab. Today, patient states that she has pain localized to her left knee. It does not radiate up or down the leg. She states that the appearance of the knee has not changed in the past day. She does not feel that she has any fever or chills. She does not feel short of breath. PAST MEDICAL HISTORY: Includes: 1. Hypertension. 2. Osteoarthritis. 3. Depressive disorder. 4. Type 2 diabetes. 5. Hypercholesterolemia. 6. Long-term use of anticoagulant. 7. Hyponatremia. PAST SURGICAL HISTORY: 1. Myomectomy, 2000. 2. Angioplasty, 1999 and 2002. 3. Right total knee arthroplasty. 4. Left total knee arthroplasty. MEDICATIONS: As in chart. ALLERGIES: ZITHROMAX causing hives, WELLBUTRIN causing headaches, LACTOSE. FAMILY HISTORY: Includes heart disease and hypertension. SOCIAL HISTORY: Former smoker. Denies alcohol or drug use. REVIEW OF SYSTEMS: General: The patient denies fever or chills. HEENT: Denies any headaches. Confirms some lightheadedness. Denies any changes in vision. Cardiothoracic: Denies chest pain or irregular beats. Pulmonary: Denies any shortness of breath. Denies cough. GI: Denies any nausea, vomiting, diarrhea, constipation. Musculoskeletal: Left knee pain. Neuro: Denies any numbness, tingling or weakness in the left lower extremity. Integumentary: Feels that her left knee is healing well. PHYSICAL EXAMINATION GENERAL: The patient is in no acute distress. She has appropriate mood and affect. VITAL SIGNS: Temperature 97.8, pulse 76, respiratory rate 16, oxygen saturation 99%, blood pressure 132/75. HEENT: Normocephalic, atraumatic. Grossly normal hearing and vision. PULMONARY: Lungs are clear to auscultation bilaterally without wheezes, rales or rhonchi. CARDIO: Regular rate and rhythm. S1, S2. No murmurs. MUSCULOSKELETAL: Incision of left knee is well approximated. There is no wound site erythema or discharge. The patient does have some swelling about the knee. She is able to flex and extend the knee. NEUROLOGIC: Dorsiflexion, plantar flexion intact. Sensation intact distally. VASCULAR: Left lower extremity dorsalis pedis and posterior tibial pulses are 2 +. Her calves are supple, nontender, without erythema or palpable cords. Left calf is mildly edematous. SKIN: Some ecchymosis about the left knee. The patient has some mild erythema of the inside of the medial thigh and of the medial knee. IMPRESSION: Status post left total knee arthroplasty. PLAN: The patient is admitted as an observation patient, hospitalist service is consulted. She has a bed at [facility], which she will go to when insurance allows. Hospitalist service will manage medical comorbidities. I have made them aware of her hyponatremia. We will watch for any fever, watch for any increased redness or decreased range of motion of her left knee joint. TED AYALA [id number]/[facility] #: [id number] MTDD
== END 2017-11-04 15:40 | disposition home or self-care (01) | DRG 302 ==
LOC: AA 11-01 07:07 → SSU 11-01 14:15
PROVIDERS: ADMIT Orthopaedic Surgery Adult Reconstructive Orthopaedic Surgery; ATTEND Orthopaedic Surgery Adult Reconstructive Orthopaedic Surgery
PROC: 0SRD069 Replacement of Left Knee Joint with Oxidized Zirconium on Polyethylene Synthetic Substitute, Cemented, Open Approach (ICD-10-PCS; principal; 2017-11-01 09:00)
DX: M17.12 Unilateral primary osteoarthritis, left knee (principal); E87.1 Hypo-osmolality and hyponatremia; I11.9 Hypertensive heart disease without heart failure; M25.762 Osteophyte, left knee; E11.9 Type 2 diabetes mellitus without complications; F32.9 Major depressive disorder, single episode, unspecified; I25.10 Atherosclerotic heart disease of native coronary artery without angina pectoris; E78.00 Pure hypercholesterolemia, unspecified; F10.21 Alcohol dependence, in remission; Z96.651 Presence of right artificial knee joint; I25.2 Old myocardial infarction; Z86.718 Personal history of other venous thrombosis and embolism; Z86.711 Personal history of pulmonary embolism; Z79.01 Long term (current) use of anticoagulants; Z79.84 Long term (current) use of oral hypoglycemic drugs; Z79.02 Long term (current) use of antithrombotics/antiplatelets; Z79.82 Long term (current) use of aspirin; Z79.899 Other long term (current) drug therapy; Z88.1 Allergy status to other antibiotic agents; Z88.8 Allergy status to other drugs, medicaments and biological substances; Z80.9 Family history of malignant neoplasm, unspecified; Z82.49 Family history of ischemic heart disease and other diseases of the circulatory system; Z87.891 Personal history of nicotine dependence
CPT/HCPCS: 36415; 80048; 83935; 84300; 85014; 85018; 85025; 85049; A9270-GY; J0690; J1650; J2250; J2270; J2405; J2704; J3010

== ENCOUNTER 2017-11-05 11:56 | Inpatient (IN) | payer BC ==
[2017-11-05] MEDS ORDERED: oxyCODONE/Acetamin 5/325 MG* TAB PO ONE (14:18)
[2017-11-05] MEDS ORDERED: Docusate CAP* 100 MG PO PRN (15:31)
[2017-11-05] MEDS ORDERED: Morphine INJ* 2 MG/ML 1 ML CARPUJECT IV PRN (15:31)
[2017-11-05] MEDS ORDERED: oxyCODONE TAB* 5 MG TAB PO PRN (15:31)
[2017-11-05] MEDS ORDERED: Magnesium Hydroxide LIQ* 30 ML UDC PO PRN (15:31)
[2017-11-05] MEDS ORDERED: Nitroglycerin TAB 0.4 MG* 0.4 MG TAB SL PRN (15:42)
[2017-11-05] MEDS ORDERED: Dextrose 50% Syringe 50 ML* 25 GM/50 ML SYRINGE IV PUSH PRN (16:11)
[2017-11-05 16:27] LABS: Hematocrit 25 % (35-47); Hemoglobin 8.2 g/dl (12.0-16.0); Mean Corpuscular HGB Conc 33 g/dl (31-36); Mean Corpuscular Hemoglobin 25 pg (27-31); Mean Corpuscular Volume 75 fL (80-97); Mean Platelet Volume 8 um3 (7.4-10.4); Platelet Count 220 10^3/ul (150-450); Red Blood Count 3.33 10^6/ul (4.0-5.4); Red Cell Distribution Width 16 % (10.5-15)
[2017-11-05 16:50] LABS: EGFR Non-African American 80.1 (>60)
[2017-11-05 17:01] LABS: ABS Basophils 0.1 10^3/ul (0-0.2); ABS Eosinophils 0.4 10^3/ul (0-0.6); ABS Lymphocytes 1.5 10^3/ul (1.0-4.8); ABS Monocytes 0.9 10^3/ul (0-0.8); ABS Neutrophils 9.2 10^3/ul (1.5-7.7); ABS Nucleated RBC 0 10^3/ul; Eosinophil % 3.1 % (0-6); Lymphocyte % 12.7 % (25-47); Nucleated Red Blood Cells % 0.2
[2017-11-05] MEDS: Atorvastatin* 80 MG TAB PO SCH (18:06)
[2017-11-05] MEDS: Insulin LISPRO* 1 UNITS UNIT SUBCUT SCH (18:06)
[2017-11-05 18:34] LABS: Corrected Retic Count 1.4 % (0.5-1.5); Hematocrit for Retic CNT 23 % (35-47); Immature Retic Fraction 0.64
[2017-11-05 19:25] LABS: Urine Appearance Clear; Urine Blood 1+ (Negative); Urine Color Yellow; Urine Ketones Negative (Negative); Urine Protein 1+(30 mg/dL) (Negative); Urine Specific Gravity 1.017 (1.010-1.030); Urine Urobilinogen Negative (Negative)
[2017-11-05] MEDS: oxyCODONE/Acetamin 5/325 MG* TAB PO PRN (20:39)
[2017-11-05] MEDS ORDERED: Metoprolol Tartrate TAB* 100 MG TAB PO SCH (21:00)
--- NOTE | 2017-11-05 22:21 | CONS ---
CC: Dr. Wright; Dr. Momin * CONSULTATION REPORT: DATE OF CONSULTATION: 11/05/17 REQUESTING PHYSICIAN ON CONSULT: Dr. Wright. MY ATTENDING PHYSICIAN WHILE IN THE HOSPITAL: Dr. Alfredo Daily (report dictated by Garland Sanchez NP). REASON FOR CONSULTATION: Evaluation and medical management of comorbid medical conditions. HISTORY OF PRESENT ILLNESS: Mrs. Medina is a 62-year-old female patient, who was recently discharged yesterday. She had undergone a left total knee replacement just on 11/01/17. She was postop day #4. She was discharged and at home, she was having trouble managing according to the patient, she did not have enough help to get up. She was having more pain in the knee, was not well controlled, and she was really unable to get up and ambulate without assistance and she was unable to get the help. So, she came in to the hospital today. She states that she has not had any chest pain or shortness of breath. She denies having any abdominal pain. She states she has not been having vomiting or diarrhea. There has been no chest pain. She has been taking her medications as prescribed. She has not had any change in meds of late. She came in, was evaluated by Orthopedics. They are admitting her initially to again senior care care at this point, to try to find her a placement. She does carry a history of diabetes, arthritis, depression, hyperlipidemia. She has a history of DVT/PE in the past, CAD, OK and hypertension. Because of her medical complexity, we were asked to evaluate in consult. She is again evaluated in the ER. She said she is feeling well with the exception she just had some increased pain in that left knee. She says the wound has not been draining. She has not noticed any purulent discharge. She has not noticed any redness. She says it does look swollen; but she says to her, it looks the same size as when she was discharged. She denies any pain in the back of the calf, it is mostly at the knee. Because of her medical complexity, we were asked to evaluate in consult. PAST MEDICAL HISTORY: Significant for: 1. Diabetes. 2. Arthritis. 3. Depression. 4. Hyperlipidemia. 5. DVT/PE in the past. 6. CAD. 7. OK. 8. Hypertension. PAST SURGICAL HISTORY: 1. She has had left and right total knee replacement. 2. She has had a myomectomy. 3. She has had 2 heart catheterizations for a total of 3 stents. HOME MEDICATIONS: Include: 1. Lopressor 100 mg p.o. b.i.d. 2. Apixaban 5 mg p.o. b.i.d. 3. Abilify 5 mg daily. 4. Plavix 75 mg daily. 5. Lipitor 80 mg daily. 6. Aspirin 81 mg daily. 7. Januvia 100 mg daily. 8. Prozac 80 mg daily. 9. Colace 100 mg p.o. b.i.d. 10. Morphine extended release 30 mg twice a day. 11. Prozac 80 mg daily. 12. Lisinopril 40 mg daily. 13. Percocet 1 tablet every 4 hours as needed. 14. Nitro 0.4 mg sublingual q.5 minutes x3 p.r.n. chest pain. 15. Metformin 500 mg daily in the morning. ALLERGIES TO MEDICATIONS: Include WELLBUTRIN, LACTULOSE, and AZITHROMYCIN. FAMILY HISTORY: Her mother had cancer. Father had a history of OK. 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 Surrogate decision maker is her sister. REVIEW OF SYSTEMS: There is no documented fever. She denied having any significant weight change. There was no double vision. She denies having any ear discharge. There is no rhinorrhea. No sore throat. No thyroid enlargement. She denies having any chest pain. There is no orthopnea. No nocturnal dyspnea. No abdominal pain. No nausea, no vomiting, no dysuria. No frequency, no seizure. No loss of consciousness. No pruritus and no skin ulceration. Review of 14 systems completed, all others negative. PHYSICAL EXAMINATION: Blood pressure 132/75, pulse 76, respirations 16, O2 sat 99%, temperature 97.8. General: At this time, Mrs. Medina is a 62-year-old female patient. She is sitting in the ED stretcher. She does not appear to be in any acute distress. HEENT: Head: Atraumatic, normocephalic. Eyes: EOMs are intact. Sclerae were anicteric and not pale. Throat: Oral mucosa appears to be moist. No oropharyngeal erythema. Neck: Supple. Lungs: Clear to auscultation. No wheezes, rales, or rhonchi. Heart: Sounds S1, S2. Regular rate and rhythm. No murmurs, rubs, or gallops. Abdomen: Soft, it was flat, nontender. Bowel sounds are present. Extremities: Distal CSM checks were intact to the left lower extremity. She does have some ecchymosis about just right around that knee where the incision was. There was some swelling there, but there is no erythema or discharge noted. Neurologic: The patient is awake , alert, oriented x3. Tongue midline. Hops Farmworker were equal. She had no gross focal deficits. Skin: Intact with the exception she has an incision noted to the left knee, which is clean, dry, and intact, open there. DIAGNOSTIC STUDIES/LAB DATA: Labs are pending for today, but yesterday's labs revealed a WBC of 10, RBC of 4.45, hemoglobin of 9, hematocrit was 27. The H and H has been stable, repeat CBC is pending. Platelet count was 157. Her sodium was 126, which was down from 129, on the 11/03/17 it was 124, but it is trending up with fluid restriction. Potassium was 4, chloride was 94. BUN was 15, creatinine 0.81. Her glucose was 167. Old medical records were reviewed. ASSESSMENT AND PLAN: Mrs. Medina is a 62-year-old female patient coming into the ED again with complaints of having difficulty managing at home. She was admitted under orthopedic services senior care care. We were asked to evaluate in consult. My recommendations at this point are: 1. Status post left total knee. I will defer the management to Dr. Wright and her team. 2. Diabetes. I will put her on lispro sliding scale. 3. Hyperlipidemia. Continue statin therapy. 4. Coronary artery disease. She is on aspirin, Plavix, statin, and beta rosa therapy, we will continue. 5. History of deep venous thrombosis/pulmonary embolism. She is on Eliquis. We will continue this. 6. Arthritis. Follow with her primary. 7. Depression. Continue with supportive care. 8. Hypothyroidism. I am repeating her labs now. She is on a fluid restriction. I will continue that. There was concern previously, this could be SIADH. I would like to get a urine sodium and the urine osmol and serum osmol, which are all unfortunately pending at this point. We will repeat a UA today. I will restrict her down to 1500 cc. We will monitor the BMP closely. 9. DVT prophylaxis. Again, she is on Eliquis. 10. Code status. Full code. 11. Fluids, electrolytes, and nutrition. I would recommend a consistent carb diet. TIME SPENT: Time spent on consult 60 minutes, greater than half the time was spent [id number] with the patient obtaining my history and physical; other half time was spent going over the plan of care with the patient and implementing plan of care. I did discuss the plan of care with my attending, Dr. Daily; he is in agreement. GARLAND SANCHEZ, KHADRA [id number]/CPS #: [id number] MTDD
[2017-11-05] MEDS: Metoprolol Tartrate TAB* 100 MG TAB PO SCH (22:34)
[2017-11-05] MEDS: Docusate CAP* 100 MG PO SCH (22:34)
[2017-11-05] MEDS: Apixaban* 5 MG TAB PO SCH (22:34)
[2017-11-05] MEDS: Morphine TAB Extended Release (*) 30 MG TAB.ER PO SCH (22:35)
[2017-11-06] MEDS: oxyCODONE/Acetamin 5/325 MG* TAB PO PRN ×3 (03:01→18:08)
[2017-11-06 05:25] LABS: Hematocrit 26 % (35-47); Hemoglobin 8.8 g/dl (12.0-16.0); Mean Corpuscular HGB Conc 34 g/dl (31-36); Mean Corpuscular Hemoglobin 26 pg (27-31); Mean Corpuscular Volume 76 fL (80-97); Mean Platelet Volume 8 um3 (7.4-10.4); Platelet Count 206 10^3/ul (150-450); Red Blood Count 3.41 10^6/ul (4.0-5.4); Red Cell Distribution Width 17 % (10.5-15)
[2017-11-06 05:39] LABS: EGFR Non-African American 85.4 (>60)
[2017-11-06 06:02] LABS: ABS Basophils 0.1 10^3/ul (0-0.2); ABS Eosinophils 0.6 10^3/ul (0-0.6); ABS Lymphocytes 1.9 10^3/ul (1.0-4.8); ABS Monocytes 0.9 10^3/ul (0-0.8); ABS Neutrophils 7.6 10^3/ul (1.5-7.7); ABS Nucleated RBC 0 10^3/ul; Eosinophil % 5.2 % (0-6); Lymphocyte % 17.5 % (25-47); Nucleated Red Blood Cells % 0.1
--- NOTE | 2017-11-06 07:29 | PN ---
Progress Note - Progress Note Date of Service: 11/06/17 SOAP: Subjective: Pt. is alert, reports pain L knee and difficulty getting out of a chair. She was admitted yesterday from ER for SNF placement. Objective: LLE - sutures at L knee intact, no drainage. large hematoma. Some medial thigh erythema and significant warmth. distally nvi. Vital Signs: Temp Pulse Resp BP Pulse Ox 98.5 F 70 16 134/77 97 11/06/17 04:22 11/06/17 04:22 11/06/17 04:22 11/06/17 04:22 11/06/17 04:22 Laboratory Results - last 24 hr 11/05/17 11/05/17 11/05/17 13:40 13:40 16:19 WBC RBC RBC (Retic) Hgb Hct HCT (Retic) MCV MCH MCHC RDW Plt Count MPV Neut % (Auto) Lymph % (Auto) Russell % (Auto) Eos % (Auto) Baso % (Auto) Absolute Neuts (auto) Absolute Lymphs (auto) Absolute Monos (auto) Absolute Eos (auto) Absolute Basos (auto) Absolute Nucleated RBC Nucleated RBC % Polychromasia Hypochromasia Retic Count, Calc Corrected Retic Count Retic Shift Factor Retic Production Index Immature Retic Fraction Mean Retic Volume Sodium 132 L Potassium 4.1 Chloride 98 L Carbon Dioxide 28 Anion Gap 6 BUN 12 Creatinine 0.74 Est GFR ( Amer) 103.0 Est GFR (Non-Af Amer) 80.1 BUN/Creatinine Ratio 16.2 Glucose 130 H POC Glucose (mg/dL) Calcium 8.5 L Iron 19 L TIBC 246 L % Saturation 8 L Unsat Iron Binding 227 Ferritin 192.0 Lactate Dehydrogenase 218 Vitamin B12 447 Folate 6.44 TSH 1.78 Cortisol 20.22 Urine Color Yellow Urine Appearance Clear Urine pH 6.0 Ur Specific [place] 1.017 Urine Protein 1+(30 mg/dl) H Urine Ketones Negative Urine Blood 1+ H Urine Nitrate Negative Urine Bilirubin Negative Urine Urobilinogen Negative Ur Leukocyte Esterase Negative Urine WBC (Auto) Trace(0-5/hpf) Urine RBC (Auto) Trace(0-2/hpf) Ur Squamous Epith Cells Present H Urine Bacteria Absent Ur Random Sodium 30 Urine Glucose 1+(50 mg/dl) H Blood Type Antibody Screen Crossmatch 11/05/17 11/05/17 11/05/17 16:19 16:19 17:01 WBC 12.0 H RBC 3.33 L RBC (Retic) 3.10 L Hgb 8.2 L Hct 25 L HCT (Retic) 23 L MCV 75 L MCH 25 L MCHC 33 RDW 16 H Plt Count 220 MPV 8 Neut % (Auto) 76.3 Lymph % (Auto) 12.7 L Russell % (Auto) 7.4 H Eos % (Auto) 3.1 Baso % (Auto) 0.5 Absolute Neuts (auto) 9.2 H Absolute Lymphs (auto) 1.5 Absolute Monos (auto) 0.9 H Absolute Eos (auto) 0.4 Absolute Basos (auto) 0.1 Absolute Nucleated RBC 0 Nucleated RBC % 0.2 Polychromasia 2+ Hypochromasia 1+ Retic Count, Calc 2.7 H Corrected Retic Count 1.4 Retic Shift Factor 2.0 Retic Production Index 0.70 Immature Retic Fraction 0.64 Mean Retic Volume 106.7 Sodium Potassium Chloride Carbon Dioxide Anion Gap BUN Creatinine Est GFR ( Amer) Est GFR (Non-Af Amer) BUN/Creatinine Ratio Glucose POC Glucose (mg/dL) 160 H Calcium Iron TIBC % Saturation Unsat Iron Binding Ferritin Lactate Dehydrogenase Vitamin B12 Folate TSH Cortisol Urine Color Urine Appearance Urine pH Ur Specific [place] Urine Protein Urine Ketones Urine Blood Urine Nitrate Urine Bilirubin Urine Urobilinogen Ur Leukocyte Esterase Urine WBC (Auto) Urine RBC (Auto) Ur Squamous Epith Cells Urine Bacteria Ur Random Sodium Urine Glucose Blood Type B Positive Antibody Screen Negative Crossmatch See Detail 11/06/17 11/06/17 05:16 05:16 WBC 11.0 H RBC 3.41 L RBC (Retic) Hgb 8.8 L Hct 26 L HCT (Retic) MCV 76 L MCH 26 L MCHC 34 RDW 17 H Plt Count 206 MPV 8 Neut % (Auto) 68.9 Lymph % (Auto) 17.5 L Russell % (Auto) 7.8 H Eos % (Auto) 5.2 Baso % (Auto) 0.6 Absolute Neuts (auto) 7.6 Absolute Lymphs (auto) 1.9 Absolute Monos (auto) 0.9 H Absolute Eos (auto) 0.6 Absolute Basos (auto) 0.1 Absolute Nucleated RBC 0 Nucleated RBC % 0.1 Polychromasia Hypochromasia Retic Count, Calc Corrected Retic Count Retic Shift Factor Retic Production Index Immature Retic Fraction Mean Retic Volume Sodium 132 L Potassium 4.2 Chloride 101 Carbon Dioxide 25 Anion Gap 6 BUN 11 Creatinine 0.70 Est GFR ( Amer) 109.8 Est GFR (Non-Af Amer) 85.4 BUN/Creatinine Ratio 15.7 Glucose 180 H POC Glucose (mg/dL) Calcium 8.5 L Iron TIBC % Saturation Unsat Iron Binding Ferritin Lactate Dehydrogenase Vitamin B12 Folate TSH Cortisol Urine Color Urine Appearance Urine pH Ur Specific [place] Urine Protein Urine Ketones Urine Blood Urine Nitrate Urine Bilirubin Urine Urobilinogen Ur Leukocyte Esterase Urine WBC (Auto) Urine RBC (Auto) Ur Squamous Epith Cells Urine Bacteria Ur Random Sodium Urine Glucose Blood Type Antibody Screen Crossmatch Assessment: 62 yo F POD 5 s/p LTKA Plan: Pt. will be inpatient until she is given a bed at a SNF Start keflex for some thigh cellulitis Pt. has large hematoma L knee - suspect from eliquis and plavix which are home meds. PT/OT today
[2017-11-06] MEDS ORDERED: metFORMIN* 500 MG TAB PO SCH (08:00)
[2017-11-06] MEDS ORDERED: Polyethylene Glycol 3350* 17 GM PACKET PO PRN (08:25)
[2017-11-06] MEDS ORDERED: SITAGLIPTIN 100 MG PO SCH (09:00)
[2017-11-06] MEDS ORDERED: Lisinopril TAB* 10 MG PO SCH (09:00)
[2017-11-06] MEDS: Insulin LISPRO* 1 UNITS UNIT SUBCUT SCH ×3 (09:17→18:07)
[2017-11-06] MEDS: Morphine TAB Extended Release (*) 30 MG TAB.ER PO SCH ×2 (09:18→21:48)
[2017-11-06] MEDS: Senna TAB PO SCH (09:19)
[2017-11-06] MEDS: Metoprolol Tartrate TAB* 100 MG TAB PO SCH ×2 (09:19→21:48)
[2017-11-06] MEDS: ARIPiprazole TAB* 5 MG PO SCH (09:19)
[2017-11-06] MEDS: FLUoxetine CAP* 20 MG PO SCH (09:20)
[2017-11-06] MEDS: Lisinopril TAB* 10 MG PO SCH (09:20)
[2017-11-06] MEDS: Cephalexin CAP* 500 MG PO SCH ×2 (09:21→13:10)
[2017-11-06] MEDS: Docusate CAP* 100 MG PO SCH ×2 (09:22→21:48)
[2017-11-06] MEDS: Apixaban* 5 MG TAB PO SCH ×2 (09:22→21:48)
[2017-11-06] MEDS: Clopidogrel TAB* 75 MG PO SCH (09:22)
[2017-11-06] MEDS: Aspirin EC Low Dose* 81 MG TAB.EC PO SCH (09:22)
[2017-11-06] MEDS: Magnesium Hydroxide LIQ* 30 ML UDC PO PRN (09:23)
--- NOTE | 2017-11-06 13:07 | HP ---
ADMISSION HISTORY AND PHYSICAL: DATE OF ADMISSION: 11/05/17 I have evaluated Ms. Medina and read the H and P from TED Sanchez and I fully agree. CHIEF COMPLAINT: Uncontrolled pain, left knee and difficulty mobilizing. HISTORY OF PRESENT ILLNESS: Ms. Medina is a 62-year-old female who was discharged on 11/04/17 on postop day 3 from left total knee arthroplasty. She did well in the hospital and her course is unremarkable except for some post- operative pain and mild hyponatremia. She was seen by physical therapy daily and deemed stable for discharge to home with services. She was seen on by [facility] who recognized that she could not get out of her chair independently and was having difficulty mobilizing. She was deemed to be unsafe for home and was sent to the Emergency Room at [facility]. We have admitted her with the intention of discharging her to a group home facility for extra care. PAST MEDICAL HISTORY: 1. Diabetes. 2. DVT. 3. PE. 4. Osteoarthritis. 5. Depression. 6. Hyperlipidemia. 7. CAD. 8. MA. 9. Hypertension. PAST SURGICAL HISTORY: 1. Right total knee arthroplasty in 2017. 2. Left total knee arthroplasty 11/01/17 3. Myomectomy. 4. Heart cath x2 with stents x3. HOME MEDICATIONS: 1. Lopressor 100 mg p.o. b.i.d. 2. Apixaban 5 mg p.o. b.i.d. 3. Abilify 5 mg p.o. daily. 4. Plavix 75 mg p.o. daily. 5. Lipitor 80 mg p.o. daily. 6. Aspirin 81 mg p.o. daily. 7. Januvia 100 mg p.o. daily. 8. Prozac 80 mg p.o. daily. 9. Colace 100 mg p.o. b.i.d. 10. Morphine extended release 30 mg p.o. b.i.d. 11. Percocet one to two tablets 5/325 q. 4-6 hours p.r.n. for pain. 12. Prozac 80 mg p.o. daily. 13. Lisinopril 40 mg p.o. daily. 13. Nitro 0.4 mg sublingual p.r.n. chest pain. 15. Metformin 500 mg p.o. daily q.a.m. ALLERGIES: WELLBUTRIN, LACTULOSE, and AZITHROMYCIN. FAMILY HISTORY: Maternal cancer, paternal MA, heart disease. SOCIAL HISTORY: The patient is a former smoker, former alcoholic, sober for 30 years. Normally ambulates independently or with a cane. Does live alone. REVIEW OF SYSTEMS: Fourteen systems reviewed with the patient. Positive for left knee pain, some fatigue. Negative for fevers, chills, chest pain, shortness of breath. Otherwise, the patient reports review of systems is negative or not relevant. PHYSICAL EXAMINATION GENERAL: The patient is a well nourished female in no apparent distress. Alert and oriented x3, pleasant mood and appropriate affect. VITAL SIGNS: Temperature 98.5, pulse 70, blood pressure 134/77. HEENT: Atraumatic, normocephalic. Pupils equal and reactive to light. NECK: Trachea midline. Neck supple. LUNGS: Clear to auscultation in all lung mcneill. No wheezes, rubs, or rhonchi. HEART: S1 and S2. No murmurs, rubs or gallops. ABDOMEN: Soft, nontender, nondistended. EXTREMITIES: Left lower extremity, the patient's skin is intact. Her sutures are intact. No drainage. She has significant hematoma, effusion at the knee joint. There is some medial erythema around the thigh. There is significant warmth here. Distally, neurovascularly intact. DIAGNOSTIC STUDIES/LAB DATA: White blood cells 11.0, hematocrit 26, platelets 206. Sodium 132, potassium 4.2, chloride 101, BUN and creatinine 11 and 0.7, glucose 180, calcium 8.5. Urine negative for leukocyte esterase. ASSESSMENT AND PLAN: Ms. Medina is a 62-year-old female postop day #5 status post left total knee arthroplasty. The patient did well with physical therapy while in the hospital. She reports that once she got home, she had difficulty mobilizing and standing from a seated position. We will continue to work with physical therapy. Certainly for safety, we will discharge her to a group home facility. We will control her pain while she is here with Percocet and long acting morphine. I have started Keflex due to some erythema along the thigh. I feel she certainly has a hematoma from her home medications of Eliquis , Plavix and aspirin. We will watch her carefully and discharge her to SNF when she has bed offer. Thank you for hospitalist consultation. [id number]/CPS #: [id number] MIESHA
--- NOTE | 2017-11-06 14:30 | ED ---
Carmelo Mercado Angela, scribed for Efe Garcia MD on 11/05/17 at 1417 . Lower Extremity - HPI Summary HPI Summary: This pt is a 62 y/o female presenting to [facility] c/o right knee pain s/p total right knee arthroplasty 4 days ago (by Dr. Wright). Pt reports after her knee surgery she has been less ambulatory at home. Pt uses a walker but states she even needs help getting to her walker and around her house. She notes her right knee is swollen and red. Pt rates her pain 6/10 in severity. She reports she would like to be in inpatient rehab. She took morphine last at 08:30 and percocet last at 09:30 today. PMHx: diabetes, MD in 2002, s/p right knee total replacement in 2016. - History of Current Complaint Chief Complaint: EDExtremityLower Stated Complaint: LEFT LEG PAIN Time Seen by Provider: 11/05/17 14:07 Hx Obtained From: Patient Mechanism Of Injury: Other - s/p total left knee replacement Onset of Pain: Days Onset/Duration: Still Present Severity Currently: Moderate Pain Intensity: 6 Pain Scale Used: 0-10 Numeric Timing: Lasting Days Location: Is Discrete @ - left knee Associated Signs And Symptoms: Positive: Swelling, Redness, Knee Pain - left Aggravating Factor(s): Ambulation Alleviating Factor(s): Rest Able to Bear Weight: No - Allergies/Home Medications Allergies/Adverse Reactions: Allergies Allergy/AdvReac Type Severity Reaction Status Date / Time azithromycin Allergy Hives Verified 10/22/17 13:01 bupropion Allergy Headache Verified 10/22/17 13:01 lactose Allergy GI Upset Verified 10/22/17 13:01 Home Medications: Home Medications Aspirin EC Low Dose* [Ecotrin EC Low Dose 81 MG*] 81 mg PO QAM 11/05/17 [ History Confirmed 11/05/17] Lisinopril TAB* [Prinivil TAB*] 40 mg PO QAM 11/05/17 [History Confirmed ] Metformin ER (NF) 500 mg PO QAM 11/05/17 [History Confirmed 11/05/17] Metoprolol Tartrate TAB* [Lopressor TAB*] 100 mg PO BID 11/05/17 [History Confirmed 11/05/17] Nitroglycerin TAB 0.4 MG* 0.4 mg SL Q5M PRN 11/05/17 [History Confirmed 11/05/17 ] SitaGLIPtin (NF) [Januvia (NF)] 100 mg PO QAM 11/05/17 [History Confirmed ] PMH/Surg Hx/FS Hx/Imm Hx Endocrine/Hematology History: Reports: Hx Diabetes, Hx Anemia - Late teens, early 20's Denies: Hx Thyroid Disease Cardiovascular History: Reports: Hx Angina, Hx Coronary Artery Disease - 3 stents, Hx Hypertension, Hx Myocardial Infarction, Hx Peripheral Vascular Disease Denies: Hx Cardiomegaly, Hx Valvular Heart Disease, Other Cardiovascular Problems/Disorders Respiratory History: Reports: Hx Pulmonary Embolism, Hx Sleep Apnea - possible, not tested, Other Respiratory Problems/Disorders - PULMONARY EMBOLISM 2006 Denies: Hx Asthma, Hx Chronic Obstructive Pulmonary Disease (COPD) GI History: Denies: Hx Ulcer, Other GI Disorders History: Reports: Other Problems/Disorders - frequent urination, stress incontinence Musculoskeletal History: Reports: Hx Arthritis Denies: Hx Osteoporosis, Other Musculoskeletal History Comment Only: Hx Rheumatoid Arthritis - OSTEO Sensory History: Reports: Hx Contacts or Glasses - glasses Denies: Hx Hearing Aid Opthamlomology History: Reports: Hx Contacts or Glasses - glasses Neurological History: Reports: Hx Headaches, Hx Migraine - no more Denies: Other Neuro Impairments/Disorders Psychiatric History: Reports: Hx Anxiety - ok now, Hx Depression - on meds, Hx Substance Abuse - Cocaine, speed, marijuana, hallucinogenics, alcohol- history of Denies: Other Psychiatric Issues/Disorders - Cancer History Hx Chemotherapy: No Hx Radiation Therapy: No - Surgical History Surgery Procedure, Year, and Place: uterine fibroids removed, 2000, [facility]. CARDIAC STENTS 2002 and 2008 Hx Anesthesia Reactions: No Infectious Disease History: No Infectious Disease History: Denies: Hx Clostridium Difficile, Hx Hepatitis, Hx Human Immunodeficiency Virus (HIV), Hx of Known/Suspected MRSA, Hx Shingles, Hx Tuberculosis, Hx Known/ Suspected VRE, Hx Known/Suspected VRSA, History Other Infectious Disease, Traveled Outside the [place] in Last 30 Days - Family History Known Family History: Positive: Cardiac Disease, Hypertension - Social History Alcohol Use: None Alcohol Amount: hx etoh abuse Substance Use Type: Reports: Cocaine, Marijuana Substance Use Comment - Amount & Last Used: clean 31 years Hx Tobacco Use: No Smoking Status (MU): Former Smoker Type: Cigarettes Amount Used/How Often: pack a day for 20 ears Length of Time of Smoking/Using Tobacco: 17 years Have You Smoked in the Last Year: No Review of Systems Negative: Fever, Chills Negative: Erythema Negative: Sore Throat Negative: Chest Pain Negative: Shortness Of Breath, Cough Negative: Abdominal Pain, Vomiting, Nausea Negative: dysuria, hematuria Musculoskeletal: Other - left knee pain Negative: Myalgia, Edema Skin: Other - left knee swelling Negative: Rash Neurological: Other - NEG: dizziness All Other Systems Reviewed And Are Negative: Yes Physical Exam - Summary Physical Exam Summary: Constitutional: Well-developed, Well-nourished, Alert. (-) Distressed Skin: Warm, Dry HENT: Normocephalic; Atraumatic Eyes: Conjunctiva normal Neck: Musculoskeletal ROM normal neck. (-) JVD, (-) Stridor, (-) Tracheal deviation Cardio: Rhythm regular, rate normal, Heart sounds normal; Intact distal pulses; The pedal pulses are 2+ and symmetric. Radial pulses are 2+ and symmetric. (-) Murmur Pulmonary/Chest wall: Effort normal. (-) Respiratory distress, (-) Wheezes, (-) Rales Abd: Soft, (-) Tenderness, (-) Distension, (-) Guarding, (-) Rebound Musculoskeletal: Left lower extremity: mild warmth. No flunctuance. No induration. Lymph: (-) Cervical adenopathy Neuro: Alert, Oriented x3 Psych: Mood and affect Normal Triage Information Reviewed: Yes Vital Signs On Initial Exam: Initial Vitals Temp Pulse Resp BP Pulse Ox 97.8 F 76 16 132/75 99 11/05/17 12:00 11/05/17 12:00 11/05/17 12:00 11/05/17 12:11/05/17 12:00 Vital Signs Reviewed: Yes Diagnostics - Vital Signs Vital Signs Temp Pulse Resp BP Pulse Ox 11/05/17 12:00 97.8 F 76 16 132/75 99 - Laboratory Lab Statement: Any lab studies that have been ordered have been reviewed, and results considered in the medical decision making process. Lower Extremity Course/Dx - Course Course Of Treatment: In the ED course the pt was given Percocet. I discussed pt care with Dr. Wright (orthopedist) who reports Mary JEAN, is coming to the ED to admit the pt for inpatient rehab. - Diagnoses Provider Diagnoses: Inability to ambulate due to left knee, Postoperative swelling - Physician Notifications Discussed Care Of Patient With: Amanda Wright Time Discussed With Above Provider: 14:24 Instructed by Provider To: Other - I discussed pt care with Dr. Wright, who reports Mray JEAN, is coming to the ED to admit the pt for inpatient rehab admission. Discharge - Discharge Plan Condition: Stable Disposition: ADMITTED TO [facility] Discharge Disposition Comment: inpatient rehab. Referrals: Zeinab Momin MD [Primary Care Provider] - The documentation as recorded by the Carmelo trujillo Angela accurately reflects the service I personally performed and the decisions made by , Efe Garcia MD.
--- NOTE | 2017-11-06 14:48 | PN ---
Subjective Date of Service: 11/06/17 Interval History: Pt able to ambulate independently. Pain 4/10. on ms contin 30 q12. percoset q4h prn. no BM in few days. keflex started for erythema. Iron supplemenation started. Na improved since d/c. Objective Active Medications: Apixaban (Eliquis*) 5 mg PO BID [facility] Last Admin: 11/06/17 09:22 Dose: 5 mg [facility]ip[facility] ([facility]*) [facility] Admin: 11/06/17 09:19 Dose: 5 mg Aspirin (Aspirin Ec Low Dose*) [facility] Last Admin: 11/06/17 09:22 Dose: 81 mg Atorvastatin Calcium (Lipitor*) 80 mg PO QPM [facility] Last Admin: 11/05/17 18:06 Dose: 80 mg Cephalexin HCl (Keflex Cap*) 500 mg PO QID [facility] Last Admin: 11/06/17 13:10 Dose: 500 mg Clopidogrel Bisulfate (Plavix Tab*) 75 mg PO [facility] Last Admin: 11/06/17 09:22 Dose: 75 mg Dextrose (D50w Syringe 50 Ml*) 12.5 gm IV PUSH .FOR FS < 60 - SS PRN PRN Reason: FS < 60 Docusate Sodium (Colace Cap*) 100 mg PO BID PRN PRN Reason: CONSTIPATION Docusate Sodium (Colace Cap*) 100 mg PO BID [facility] Last Admin: 11/06/17 09:22 Dose: 100 mg Ferrous Gluconate (Fergon Tab*) 324 mg PO BID [facility] Fluoxetine HCl (Prozac Cap*) [facility] Admin: 11/06/17 09:20 Dose: 80 mg Insulin Human Lispro (Humalog*) 0 units SUBCUT AC [facility] PRN Reason: Protocol Last Admin: 11/06/17 13:11 Dose: 3 units Lisinopril (Prinivil Tab*) [facility] Last Admin: 11/06/17 09:20 Dose: 40 mg Magnesium Hydroxide (Milk Of Magnesia Liq*) 30 ml PO BID PRN PRN Reason: CONSTIPATION Last Admin: 11/06/17 09:23 Dose: 30 ml Magnesium Hydroxide (Milk Of Magnesia Liq*) 30 ml PO Q6H PRN PRN Reason: constipation Metoprolol Tartrate (Lopressor Tab*) 100 mg PO BID [facility] Last Admin: 11/06/17 09:19 Dose: 100 mg Morphine Sulfate (Morphine Inj (Syringe)*) 2 mg IV Q2H PRN PRN Reason: PAIN - BREAKTHROUGH Morphine Sulfate (Ms Contin(*)) 30 mg PO Q12HR [facility] Last Admin: 11/06/17 09:18 Dose: 30 mg Nitroglycerin (Nitroglycerin Tab 0.4 Mg*) 0.4 mg SL Q5M PRN PRN Reason: ANGINA Oxycodone HCl (Roxycodone Tab*) 10 mg PO Q4H PRN PRN Reason: PAIN - SEVERE Oxycodone/Acetaminophen (Percocet 5/325 Tab*) 2 tab PO Q4H PRN PRN Reason: PAIN - MODERATE TO SEVERE Last Admin: 11/06/17 09:18 Dose: 2 tab Oxycodone/Acetaminophen (Percocet 5/325 Tab*) 1 tab PO Q4H PRN PRN Reason: PAIN - MILD TO MODERATE Polyethylene Glycol/Electrolytes (Miralax*) 17 gm PO DAILY PRN PRN Reason: CONSTIPATION Senna (Senokot Tab*) 2 tab PO DAILY [facility] Last Admin: 11/06/17 09:19 Dose: 2 tab Vital Signs - 8 hr 11/06/17 11/06/17 09:18 11:39 Temperature 98.4 F Pulse Rate 62 Respiratory 16 17 Rate Blood Pressure 123/68 (mmHg) O2 Sat by Pulse 96 Oximetry Oxygen Devices in Use Now: None Appearance: NAD Eyes: No Scleral Icterus, PERRLA Ears/Nose/Mouth/Throat: NL Teeth, Lips, Gums, Mucous Membranes Moist Neck: NL Appearance and Movements; NL JVP Respiratory: Symmetrical Chest Expansion and Respiratory Effort, Clear to Auscultation Cardiovascular: NL Sounds; No Murmurs; No JVD, RRR Abdominal: NL Sounds; No Tenderness; No Distention, No Hepatosplenomegaly Extremities: - - sutures left knee. erythma left medial thigh superior to knee. effusion. Nutrition: Taking PO's Result Diagrams: 11/06/17 05:16 11/06/17 05:16 Additional Lab and Data: Laboratory Results - last 24 hr 11/05/17 11/05/17 11/05/17 13:40 13:40 16:19 WBC RBC RBC (Retic) Hgb Hct HCT (Retic) MCV MCH MCHC RDW Plt Count MPV Neut % (Auto) Lymph % (Auto) [place] % (Auto) Eos % (Auto) Baso % (Auto) Absolute Neuts (auto) Absolute Lymphs (auto) Absolute Monos (auto) Absolute Eos (auto) Absolute Basos (auto) Absolute Nucleated RBC Nucleated RBC % Polychromasia Hypochromasia Retic Count, Calc Corrected Retic Count Retic Shift Factor Retic Production Index Immature Retic Fraction Mean Retic Volume Sodium 132 L Potassium 4.1 Chloride 98 L Carbon Dioxide 28 Anion Gap 6 BUN 12 Creatinine 0.74 Est GFR ( Amer) 103.0 Est GFR (Non-Af Amer) 80.1 BUN/Creatinine Ratio 16.2 Glucose 130 H POC Glucose (mg/dL) Uric Acid Calcium 8.5 L Iron 19 L TIBC 246 L % Saturation 8 L Unsat Iron Binding 227 Ferritin 192.0 Lactate Dehydrogenase 218 Vitamin B12 447 Folate 6.44 TSH 1.78 Cortisol 20.22 Urine Color Yellow Urine Appearance Clear Urine pH 6.0 Ur Specific [place] 1.017 Urine Protein 1+(30 mg/dl) H Urine Ketones Negative Urine Blood 1+ H Urine Nitrate Negative Urine Bilirubin Negative Urine Urobilinogen Negative Ur Leukocyte Esterase Negative Urine WBC (Auto) Trace(0-5/hpf) Urine RBC (Auto) Trace(0-2/hpf) Ur Squamous Epith Cells Present H Urine Bacteria Absent Ur Random Sodium 30 Urine Glucose 1+(50 mg/dl) H Blood Type Antibody Screen Crossmatch 11/05/17 11/05/17 11/05/17 16:19 16:19 17:01 WBC 12.0 H RBC 3.33 L RBC (Retic) 3.10 L Hgb 8.2 L Hct 25 L HCT (Retic) 23 L MCV 75 L MCH 25 L MCHC 33 RDW 16 H Plt Count 220 MPV 8 Neut % (Auto) 76.3 Lymph % (Auto) 12.7 L [place] % (Auto) 7.4 H Eos % (Auto) 3.1 Baso % (Auto) 0.5 Absolute Neuts (auto) 9.2 H Absolute Lymphs (auto) 1.5 Absolute Monos (auto) 0.9 H Absolute Eos (auto) 0.4 Absolute Basos (auto) 0.1 Absolute Nucleated RBC 0 Nucleated RBC % 0.2 Polychromasia 2+ Hypochromasia 1+ Retic Count, Calc 2.7 H Corrected Retic Count 1.4 Retic Shift Factor 2.0 Retic Production Index 0.70 Immature Retic Fraction 0.64 Mean Retic Volume 106.7 Sodium Potassium Chloride Carbon Dioxide Anion Gap BUN Creatinine Est GFR ( Amer) Est GFR (Non-Af Amer) BUN/Creatinine Ratio Glucose POC Glucose (mg/dL) 160 H Uric Acid Calcium Iron TIBC % Saturation Unsat Iron Binding Ferritin Lactate Dehydrogenase Vitamin B12 Folate TSH Cortisol Urine Color Urine Appearance Urine pH Ur Specific [place] Urine Protein Urine Ketones Urine Blood Urine Nitrate Urine Bilirubin Urine Urobilinogen Ur Leukocyte Esterase Urine WBC (Auto) Urine RBC (Auto) Ur Squamous Epith Cells Urine Bacteria Ur Random Sodium Urine Glucose Blood Type B Positive Antibody Screen Negative Crossmatch See Detail 11/06/17 11/06/17 11/06/17 05:16 05:16 07:40 WBC 11.0 H RBC 3.41 L RBC (Retic) Hgb 8.8 L Hct 26 L HCT (Retic) MCV 76 L MCH 26 L MCHC 34 RDW 17 H Plt Count 206 MPV 8 Neut % (Auto) 68.9 Lymph % (Auto) 17.5 L [place] % (Auto) 7.8 H Eos % (Auto) 5.2 Baso % (Auto) 0.6 Absolute Neuts (auto) 7.6 Absolute Lymphs (auto) 1.9 Absolute Monos (auto) 0.9 H Absolute Eos (auto) 0.6 Absolute Basos (auto) 0.1 Absolute Nucleated RBC 0 Nucleated RBC % 0.1 Polychromasia Hypochromasia Retic Count, Calc Corrected Retic Count Retic Shift Factor Retic Production Index Immature Retic Fraction Mean Retic Volume Sodium 132 L Potassium 4.2 Chloride 101 Carbon Dioxide 25 Anion Gap 6 BUN 11 Creatinine 0.70 Est GFR ( Amer) 109.8 Est GFR (Non-Af Amer) 85.4 BUN/Creatinine Ratio 15.7 Glucose 180 H POC Glucose (mg/dL) 179 H Uric Acid 4.9 Calcium 8.5 L Iron TIBC % Saturation Unsat Iron Binding Ferritin Lactate Dehydrogenase Vitamin B12 Folate TSH Cortisol Urine Color Urine Appearance Urine pH Ur Specific [place] Urine Protein Urine Ketones Urine Blood Urine Nitrate Urine Bilirubin Urine Urobilinogen Ur Leukocyte Esterase Urine WBC (Auto) Urine RBC (Auto) Ur Squamous Epith Cells Urine Bacteria Ur Random Sodium Urine Glucose Blood Type Antibody Screen Crossmatch 11/06/17 11:45 WBC RBC RBC (Retic) Hgb Hct HCT (Retic) MCV MCH MCHC RDW Plt Count MPV Neut % (Auto) Lymph % (Auto) [place] % (Auto) Eos % (Auto) Baso % (Auto) Absolute Neuts (auto) Absolute Lymphs (auto) Absolute Monos (auto) Absolute Eos (auto) Absolute Basos (auto) Absolute Nucleated RBC Nucleated RBC % Polychromasia Hypochromasia Retic Count, Calc Corrected Retic Count Retic Shift Factor Retic Production Index Immature Retic Fraction Mean Retic Volume Sodium Potassium Chloride Carbon Dioxide Anion Gap BUN Creatinine Est GFR ( Amer) Est GFR (Non-Af Amer) BUN/Creatinine Ratio Glucose POC Glucose (mg/dL) 180 H Uric Acid Calcium Iron TIBC % Saturation Unsat Iron Binding Ferritin Lactate Dehydrogenase Vitamin B12 Folate TSH Cortisol Urine Color Urine Appearance Urine pH Ur Specific [place] Urine Protein Urine Ketones Urine Blood Urine Nitrate Urine Bilirubin Urine Urobilinogen Ur Leukocyte Esterase Urine WBC (Auto) Urine RBC (Auto) Ur Squamous Epith Cells Urine Bacteria Ur Random Sodium Urine Glucose Blood Type Antibody Screen Crossmatch Assess/Plan/Problems-Billing Assessment: 62 yo female PMH CAD (3 stents, plavix, asa 81mg), 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 Effusion + erythema. on keflex, needing placement at [facility]. - Patient Problems (1) Diabetes Current Visit: No Status: Acute Code(s): E11.9 - TYPE 2 DIABETES MELLITUS WITHOUT COMPLICATIONS SNOMED Code(s): 98612480 Comment: FSBG ACHS with SSI lispro ordered. holding home medications are Januvia/Metformin (2) HTN (hypertension) Current Visit: No Status: Acute Code(s): I10 - ESSENTIAL (PRIMARY) HYPERTENSION SNOMED Code(s): 77143307 Comment: continue home lisinopril 40mg, toprol 100mg BID. Well controlled. (3) History of pulmonary embolism Current Visit: No Status: Acute Code(s): Z86.711 - PERSONAL HISTORY OF PULMONARY EMBOLISM SNOMED Code(s): 263432500 Comment: continue lifelong eliquis anticoagulation. sounds like 1st dvt/pe may have been provoked by air travel (2006). but recurred 2007. (4) Hyponatremia Current Visit: No Status: Acute Code(s): E87.1 - HYPO-OSMOLALITY AND HYPONATREMIA SNOMED Code(s): 24039922 Comment: Na improved from discharge. 132 from 126. Uric acid serum 4.9 wnl TSH 1.78 wnl cortisol 20 Urine sodium 30 (5) Total knee replacement status Current Visit: No Status: Acute Code(s): Z96.659 - PRESENCE OF UNSPECIFIED ARTIFICIAL KNEE JOINT SNOMED Code(s): 9531176720007 Comment: Management per Ortho post-op day #5 pain management Bowel regimen: added senna. continue colace BId. continue PT/OT. Plan for [facility] at discharge. effusion and erythema. now on keflex. (6) CAD (coronary artery disease) Current Visit: No Status: Chronic Code(s): I25.10 - ATHSCL HEART DISEASE OF [place] CORONARY ARTERY W/O ANG PCTRS SNOMED Code(s): 96938723 Comment: continue BB, aspirin, atorvastatin continue Plavix Status and Disposition: medicine inpatient.
[2017-11-06] MEDS: Atorvastatin* 80 MG TAB PO SCH (18:08)
[2017-11-06] MEDS: ceFAZolin 1 GM VIAL(*) 1 GM in NS 0.9% 50 ML* 50 ML IVPB SCH (18:09)
[2017-11-06] MEDS: Ferrous Gluconate TAB* 324 MG TAB PO SCH (21:48)
[2017-11-07] MEDS: ceFAZolin 1 GM VIAL(*) 1 GM in NS 0.9% 50 ML* 50 ML IVPB SCH ×3 (02:10→17:23)
[2017-11-07 06:20] LABS: Hematocrit 29 % (35-47); Hemoglobin 9.4 g/dl (12.0-16.0); Mean Platelet Volume 7 um3 (7.4-10.4); Platelet Count 261 10^3/ul (150-450)
[2017-11-07] MEDS: oxyCODONE/Acetamin 5/325 MG* TAB PO PRN ×3 (08:03→21:58)
[2017-11-07 08:36] LABS: Mean Corpuscular HGB Conc 33 g/dl (31-36); Mean Corpuscular Hemoglobin 26 pg (27-31); Mean Corpuscular Volume 77 fL (80-97); Red Blood Count 3.72 10^6/ul (4.0-5.4); Red Cell Distribution Width 17 % (10.5-15); White Blood Count 10.6 10^3/ul (3.5-10.8)
[2017-11-07] MEDS: Insulin LISPRO* 1 UNITS UNIT SUBCUT SCH ×3 (08:44→17:40)
[2017-11-07] MEDS: ARIPiprazole TAB* 5 MG PO SCH (08:46)
[2017-11-07] MEDS: Magnesium Hydroxide LIQ* 30 ML UDC PO PRN (08:46)
[2017-11-07] MEDS: Clopidogrel TAB* 75 MG PO SCH (08:46)
[2017-11-07] MEDS: Apixaban* 5 MG TAB PO SCH ×2 (08:46→21:08)
[2017-11-07] MEDS: Metoprolol Tartrate TAB* 100 MG TAB PO SCH ×2 (08:47→21:08)
[2017-11-07] MEDS: FLUoxetine CAP* 20 MG PO SCH (08:47)
[2017-11-07] MEDS: Senna TAB PO SCH (08:47)
[2017-11-07] MEDS: Lisinopril TAB* 10 MG PO SCH (08:47)
[2017-11-07] MEDS: Morphine TAB Extended Release (*) 30 MG TAB.ER PO SCH ×2 (08:47→21:07)
[2017-11-07] MEDS: Ferrous Gluconate TAB* 324 MG TAB PO SCH ×2 (08:47→21:07)
[2017-11-07] MEDS: Docusate CAP* 100 MG PO SCH ×2 (08:47→21:08)
[2017-11-07] MEDS: Aspirin EC Low Dose* 81 MG TAB.EC PO SCH (08:48)
[2017-11-07 09:08] LABS: Monocytes % 6 % (0-7)
--- NOTE | 2017-11-07 11:03 | PN ---
Progress Note - Progress Note Date of Service: 11/07/17 SOAP: Subjective: []Patient seen OOB in chair. She is feeling well with decreased pain of her left knee. Denies fever, chills, CP, SOB, nausea, vomiting or dizziness. Objective: [] Vital Signs Temp 98.2 F 11/07/17 07:31 Pulse 65 11/07/17 07:31 Resp 18 11/07/17 09:54 BP 145/84 11/07/17 07:31 Pulse Ox 97 11/07/17 07:31 Intake & Output 11/06/17 11/07/17 11/07/17 18:59 06:59 18:59 Intake Total 995 0 360 Output Total 800 900 500 Balance 195 -900 -140 Intake: IV Fluids 40 abx 40 Oral 995 0 320 Output: Urine 800 900 500 Other: Estimated Void Medium Laboratory Last Values WBC 10.6 10^3/ul (3.5-10.8) 11/07/17 06:10 RBC 3.72 10^6/ul (4.0-5.4) L 11/07/17 06:10 RBC (Retic) 3.10 10^6/ul (4.6-6.2) L 11/05/17 16:19 Hgb 9.4 g/dl (12.0-16.0) L 11/07/17 06:10 Hct 29 % (35-47) L 11/07/17 06:10 HCT (Retic) 23 % (35-47) L 11/05/17 16:19 MCV 77 fL (80-97) L 11/07/17 06:10 MCH 26 pg (27-31) L 11/07/17 06:10 MCHC 33 g/dl (31-36) 11/07/17 06:10 RDW 17 % (10.5-15) H 11/07/17 06:10 Plt Count 261 10^3/ul (150-450) 11/07/17 06:10 MPV 7 um3 (7.4-10.4) L 11/07/17 06:10 Neut % (Auto) Not Reportable 11/07/17 06:10 Lymph % (Auto) Not Reportable 11/07/17 06:10 [place] % (Auto) Not Reportable 11/07/17 06:10 Eos % (Auto) Not Reportable 11/07/17 06:10 Baso % (Auto) Not Reportable 11/07/17 06:10 Absolute Neuts (auto) Not Reportable 11/07/17 06:10 Absolute Lymphs (auto) Not Reportable 11/07/17 06:10 Absolute Monos (auto) Not Reportable 11/07/17 06:10 Absolute Eos (auto) Not Reportable 11/07/17 06:10 Absolute Basos (auto) Not Reportable 11/07/17 06:10 Absolute Nucleated RBC Not Reportable 11/07/17 06:10 Immature Gran % 2 % (0-9) 11/07/17 06:10 Neutrophils % 71 % (38-83) 11/07/17 06:10 Lymphocytes % 17 % (25-47) L 11/07/17 06:10 Monocytes % 6 % (0-7) 11/07/17 06:10 Eosinophils % 4 % (0-6) 11/07/17 06:10 Basophils % 0 % (0-2) 11/07/17 06:10 Myelocytes % 2 % (0-1) H 11/07/17 06:10 Nucleated RBC % Not Reportable 11/07/17 06:10 Abs Neuts (Manual) 7.5 10^3/ul (1.5-7.7) 11/07/17 06:10 Abs Monocytes (Manual) 0.6 10^3/ul (0-0.8) 11/07/17 06:10 Absolute Eos (Manual) 0.4 10^3/ul (0-0.6) 11/07/17 06:10 Abs Basophils (Manual) 0 10^3/ul (0-0.2) 11/07/17 06:10 Nucleated RBCs/100 WBC 1 (0-0) H 11/07/17 06:10 Normal RBC Morphology Not Reportable 11/07/17 06:10 Polychromasia 1+ 11/07/17 06:10 Hypochromasia 1+ 11/07/17 06:10 Elliptocytes 1+ 11/07/17 06:10 Retic Count, Calc 2.7 % (0.5-1.5) H 11/05/17 16:19 Corrected Retic Count 1.4 % (0.5-1.5) 11/05/17 16:19 Retic Shift Factor 2.0 11/05/17 16:19 Retic Production Index 0.70 11/05/17 16:19 Immature Retic Fraction 0.64 11/05/17 16:19 Mean Retic Volume 106.7 11/05/17 16:19 Sodium 133 mmol/L (133-145) 11/07/17 06:10 Potassium 4.2 mmol/L (3.5-5.0) 11/06/17 05:16 Chloride 101 mmol/L (101-111) 11/06/17 05:16 Carbon Dioxide 25 mmol/L (22-32) 11/06/17 05:16 Anion Gap 6 mmol/L (2-11) 11/06/17 05:16 BUN 11 mg/dL (6-24) 11/06/17 05:16 Creatinine 0.70 mg/dL (0.51-0.95) 11/06/17 05:16 Est GFR ( Amer) 109.8 (>60) 11/06/17 05:16 Est GFR (Non-Af Amer) 85.4 (>60) 11/06/17 05:16 BUN/Creatinine Ratio 15.7 (8-20) 11/06/17 05:16 Glucose 180 mg/dL (70-100) H 11/06/17 05:16 POC Glucose (mg/dL) 184 mg/dL (70-100) H 11/07/17 08:06 Uric Acid 4.9 mg/dL (2.3-6.6) 11/06/17 05:16 Calcium 8.5 mg/dL (8.6-10.3) L 11/06/17 05:16 Iron 19 ug/dL (50-212) L 11/05/17 16:19 TIBC 246 mcg/dL (250-450) L 11/05/17 16:19 % Saturation 8 % (15-55) L 11/05/17 16:19 Unsat Iron Binding 227 ug/dL 11/05/17 16:19 Ferritin 192.0 ng/mL (11-307) 11/05/17 16:19 Lactate Dehydrogenase 218 U/L (140-271) 11/05/17 16:19 Vitamin B12 447 pg/mL (180-914) 11/05/17 16:19 Folate 6.44 ng/mL (>3.99) 11/05/17 16:19 TSH 1.78 mcIU/mL (0.34-5.60) 11/05/17 16:19 Cortisol 20.22 mcg/dL 11/05/17 16:19 Urine Color Yellow 11/05/17 13:40 Urine Appearance Clear 11/05/17 13:40 Urine pH 6.0 (5-9) 11/05/17 13:40 Ur Specific [place] 1.017 (1.010-1.030) 11/05/17 13:40 Urine Protein 1+(30 mg/dl) (Negative) H 11/05/17 13:40 Urine Ketones Negative (Negative) 11/05/17 13:40 Urine Blood 1+ (Negative) H 11/05/17 13:40 Urine Nitrate Negative (Negative) 11/05/17 13:40 Urine Bilirubin Negative (Negative) 11/05/17 13:40 Urine Urobilinogen Negative (Negative) 11/05/17 13:40 Ur Leukocyte Esterase Negative (Negative) 11/05/17 13:40 Urine WBC (Auto) Trace(0-5/hpf) (Absent) 11/05/17 13:40 Urine RBC (Auto) Trace(0-2/hpf) (Absent) 11/05/17 13:40 Ur Squamous Epith Cells Present (Absent) H 11/05/17 13:40 Urine Bacteria Absent (Absent) 11/05/17 13:40 Ur Random Sodium 30 mmol/L 11/05/17 13:40 Urine Glucose 1+(50 mg/dl) (Negative) H 11/05/17 13:40 Blood Type B Positive 11/05/17 16:19 Antibody Screen Negative 11/05/17 16:19 Crossmatch See Detail 11/05/17 16:19 General: Sitting in chair, well appearing, NAD LLE: Erythema of medial knee/thigh is receding and warmth much decreased as compared to yesterday. Knee effusion remains with no sign of skin breakdown. Calf and foot with 1+ edema. Calf is nontender, nonerythematous and without palpable cords. DP 2+ though difficult to palpable due to edema. Capillary refill less than two seconds. DF/PF intact. RLE: Calf supple and nontender without erythema, edema or palpable cords. Assessment: []SP LTK, cellulitis, knee effusion Plan: []WBAT PT/OT Discontinue IV abx ancef and restart PO abx keflex January d/c to [facility] when insurance approves
[2017-11-07] MEDS ORDERED: Bisacodyl SUPP* 10 MG SUPP PR ONE (13:41)
[2017-11-07] MEDS: Atorvastatin* 80 MG TAB PO SCH (17:22)
--- NOTE | 2017-11-07 18:21 | PN ---
Subjective Date of Service: 11/07/17 Interval History: Had BM, pain controlled. erythema slightly improved. still with effusion. Hgb improved to 9.4. Na 133 also up. Objective Active Medications: Apixaban (Eliquis*) 5 mg PO BID [facility] Last Admin: 11/07/17 08:46 Dose: 5 mg Aripiprazole (Abilify Tab*) [address] [facility] [place] [facility] Admin: 11/07/17 08:46 Dose: 5 mg Aspirin (Aspirin Ec Low Dose*) [address] [facility] [place] Last Admin: 11/07/17 08:48 Dose: 81 mg Atorvastatin Calcium (Lipitor*) 80 mg PO QPM [facility] Last Admin: 11/07/17 17:22 Dose: 80 mg Clopidogrel Bisulfate (Plavix Tab*) [address] [facility] [place] Last Admin: 11/07/17 08:46 Dose: 75 mg Dextrose (D50w Syringe 50 Ml*) 12.5 gm IV PUSH .FOR FS < 60 - SS PRN PRN Reason: FS < 60 Docusate Sodium (Colace Cap*) 100 mg PO BID PRN PRN Reason: CONSTIPATION Docusate Sodium (Colace Cap*) 100 mg PO BID [facility] Last Admin: 11/07/17 08:47 Dose: 100 mg Ferrous Gluconate (Fergon Tab*) 324 mg PO BID [facility] Last Admin: 11/07/17 08:47 Dose: 324 mg Fluoxetine HCl (Prozac Cap*) [address] [facility] [place] Last Admin: 11/07/17 08:47 Dose: 80 mg Cefazolin Sodium 1 gm/ Sodium (Chloride) 50 mls @ 200 mls/hr IVPB Q8H [facility] Last Admin: 11/07/17 17:23 Dose: 200 mls/hr Insulin Human Lispro (Humalog*) 0 units SUBCUT AC [facility] PRN Reason: Protocol Last Admin: 11/07/17 17:40 Dose: 3 units Lisinopril (Prinivil Tab*) [address] [facility] [place] Last Admin: 11/07/17 08:47 Dose: 40 mg Magnesium Hydroxide (Milk Of Magnesia Liq*) 30 ml PO BID PRN PRN Reason: CONSTIPATION Last Admin: 11/07/17 08:46 Dose: 30 ml Magnesium Hydroxide (Milk Of Magnesia Liq*) 30 ml PO Q6H PRN PRN Reason: constipation Metoprolol Tartrate (Lopressor Tab*) 100 mg PO BID [facility] Last Admin: 11/07/17 08:47 Dose: 100 mg Morphine Sulfate (Morphine Inj (Syringe)*) 2 mg IV Q2H PRN PRN Reason: PAIN - BREAKTHROUGH Morphine Sulfate (Ms Contin(*)) 30 mg PO Q12HR [facility] Last Admin: 11/07/17 08:47 Dose: 30 mg Nitroglycerin (Nitroglycerin Tab 0.4 Mg*) 0.4 mg SL Q5M PRN PRN Reason: ANGINA Oxycodone HCl (Roxycodone Tab*) 10 mg PO Q4H PRN PRN Reason: PAIN - SEVERE Oxycodone/Acetaminophen (Percocet 5/325 Tab*) 2 tab PO Q4H PRN PRN Reason: PAIN - MODERATE TO SEVERE Last Admin: 11/07/17 17:41 Dose: 2 tab Oxycodone/Acetaminophen (Percocet 5/325 Tab*) 1 tab PO Q4H PRN PRN Reason: PAIN - MILD TO MODERATE Polyethylene Glycol/Electrolytes (Miralax*) 17 gm PO DAILY PRN PRN Reason: CONSTIPATION Last Admin: 11/06/17 21:47 Dose: 17 gm Senna (Senokot Tab*) 2 tab PO DAILY [facility] Last Admin: 11/07/17 08:47 Dose: 2 tab Vital Signs - 8 hr 11/07/17 11/07/17 11/07/17 11:26 11:35 15:30 Temperature 98.0 F 97.9 F Pulse Rate 63 69 Respiratory 17 18 16 Rate Blood Pressure 128/80 122/73 (mmHg) O2 Sat by Pulse 98 100 Oximetry 11/07/17 17:41 Temperature Pulse Rate Respiratory 20 Rate Blood Pressure (mmHg) O2 Sat by Pulse Oximetry Oxygen Devices in Use Now: None Appearance: NAD, sitting in chair. Eyes: No Scleral Icterus Ears/Nose/Mouth/Throat: NL Teeth, Lips, Gums Neck: NL Appearance and Movements; NL JVP Respiratory: Symmetrical Chest Expansion and Respiratory Effort, Clear to Auscultation Cardiovascular: NL Sounds; No Murmurs; No JVD, RRR Extremities: - - improving erythema left knee medially. effusion left knee. sutures. Skin: - - medial superior left knee erythema. less warmth. Neurological: Alert and Oriented x 3, NL Sensation, NL Muscle Strength and Tone Result Diagrams: 11/07/17 06:10 11/07/17 06:10 Additional Lab and Data: Laboratory Results - last 24 hr 11/05/17 11/05/17 11/05/17 13:40 16:19 16:19 WBC RBC Hgb Hct MCV MCH MCHC RDW Plt Count MPV Neut % (Auto) Lymph % (Auto) [place] % (Auto) Eos % (Auto) Baso % (Auto) Absolute Neuts (auto) Absolute Lymphs (auto) Absolute Monos (auto) Absolute Eos (auto) Absolute Basos (auto) Absolute Nucleated RBC Immature Gran % Neutrophils % Lymphocytes % Monocytes % Eosinophils % Basophils % Myelocytes % Nucleated RBC % Abs Neuts (Manual) Abs Monocytes (Manual) Absolute Eos (Manual) Abs Basophils (Manual) Nucleated RBCs/100 WBC Normal RBC Morphology Polychromasia Hypochromasia Elliptocytes Haptoglobin 445 H Sodium POC Glucose (mg/dL) Osmolality 273 L Transferrin 156 L Urine Osmolality 481 11/07/17 11/07/17 11/07/17 06:10 06:10 08:06 WBC 10.6 RBC 3.72 L Hgb 9.4 L Hct 29 L MCV 77 L MCH 26 L MCHC 33 RDW 17 H Plt Count 261 MPV 7 L Neut % (Auto) Not Reportable Lymph % (Auto) Not Reportable [place] % (Auto) Not Reportable Eos % (Auto) Not Reportable Baso % (Auto) Not Reportable Absolute Neuts (auto) Not Reportable Absolute Lymphs (auto) Not Reportable Absolute Monos (auto) Not Reportable Absolute Eos (auto) Not Reportable Absolute Basos (auto) Not Reportable Absolute Nucleated RBC Not Reportable Immature Gran % 2 Neutrophils % 71 Lymphocytes % 17 L Monocytes % 6 Eosinophils % 4 Basophils % 0 Myelocytes % 2 H Nucleated RBC % Not Reportable Abs Neuts (Manual) 7.5 Abs Monocytes (Manual) 0.6 Absolute Eos (Manual) 0.4 Abs Basophils (Manual) 0 Nucleated RBCs/100 WBC 1 H Normal RBC Morphology Not Reportable Polychromasia 1+ Hypochromasia 1+ Elliptocytes 1+ Haptoglobin Sodium 133 POC Glucose (mg/dL) 184 H Osmolality Transferrin Urine Osmolality 11/07/17 11/07/17 12:31 17:23 WBC RBC Hgb Hct MCV MCH MCHC RDW Plt Count MPV Neut % (Auto) Lymph % (Auto) [place] % (Auto) Eos % (Auto) Baso % (Auto) Absolute Neuts (auto) Absolute Lymphs (auto) Absolute Monos (auto) Absolute Eos (auto) Absolute Basos (auto) Absolute Nucleated RBC Immature Gran % Neutrophils % Lymphocytes % Monocytes % Eosinophils % Basophils % Myelocytes % Nucleated RBC % Abs Neuts (Manual) Abs Monocytes (Manual) Absolute Eos (Manual) Abs Basophils (Manual) Nucleated RBCs/100 WBC Normal RBC Morphology Polychromasia Hypochromasia Elliptocytes Haptoglobin Sodium POC Glucose (mg/dL) 186 H 160 H Osmolality Transferrin Urine Osmolality Microbiology and Other Data: Microbiology 11/07/17 15:20 Stool Stool Occult Blood ([facility]) - Final Assess/Plan/Problems-Billing Assessment: 62 yo female PMH CAD (3 stents, plavix, asa 81mg), 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 Effusion + erythema. on keflex, needing placement at [facility]. - Patient Problems (1) Total knee replacement status Current Visit: No Status: Acute Code(s): Z96.659 - PRESENCE OF UNSPECIFIED ARTIFICIAL KNEE JOINT SNOMED Code(s): 3893562402494 Comment: Management per Ortho post-op day #6 pain management Bowel regimen: continue senna. continue colace BId. continue PT/OT. Plan for [facility] at discharge. effusion and erythema. now on po keflex. (2) Diabetes Current Visit: No Status: Acute Code(s): E11.9 - TYPE 2 DIABETES MELLITUS WITHOUT COMPLICATIONS SNOMED Code(s): 77398439 Comment: FSBG ACHS with SSI lispro ordered. last A1c January 2015 6.0, repeat in AM. holding home medications are Januvia/Metformin while inpatient. (3) HTN (hypertension) Current Visit: No Status: Acute Code(s): I10 - ESSENTIAL (PRIMARY) HYPERTENSION SNOMED Code(s): 64555086 Comment: continue home lisinopril 40mg, toprol 100mg BID. Well controlled. (4) Anemia Current Visit: Yes Status: Acute Code(s): D64.9 - ANEMIA, UNSPECIFIED SNOMED Code(s): 328568815 Comment: post operative hematoma in setting of DAPT + eliquis. microcytic with iron deficiency, elevated RDW. hgb improving no e/o hemolysis iron 19 iron sat 8% ferritin 192 started iron supplementation 11/06 RPI 0.7% (5) History of pulmonary embolism Current Visit: No Status: Acute Code(s): Z86.711 - PERSONAL HISTORY OF PULMONARY EMBOLISM SNOMED Code(s): 763237738 Comment: continue lifelong eliquis anticoagulation. sounds like 1st dvt/pe may have been provoked by air travel (2006). but recurred 2007. (6) Hyponatremia Current Visit: No Status: Acute Code(s): E87.1 - HYPO-OSMOLALITY AND HYPONATREMIA SNOMED Code(s): 13576707 Comment: Na improved from discharge. 133 from 126. Uric acid serum 4.9 wnl TSH 1.78 wnl cortisol 20 Urine sodium 30 (7) CAD (coronary artery disease) Current Visit: No Status: Chronic Code(s): I25.10 - ATHSCL HEART DISEASE OF [place] CORONARY ARTERY W/O ANG PCTRS SNOMED Code(s): 93778870 Comment: continue BB, aspirin, atorvastatin continue Plavix Status and Disposition: medicine inpatient. to [facility] insurance clearance
[2017-11-08] MEDS: oxyCODONE/Acetamin 5/325 MG* TAB PO PRN ×3 (02:25→16:15)
[2017-11-08] MEDS: ceFAZolin 1 GM VIAL(*) 1 GM in NS 0.9% 50 ML* 50 ML IVPB SCH ×2 (02:25→09:22)
[2017-11-08 06:18] LABS: Hematocrit 28 % (35-47); Hemoglobin 9.1 g/dl (12.0-16.0); Mean Platelet Volume 8 um3 (7.4-10.4); Platelet Count 282 10^3/ul (150-450)
[2017-11-08] MEDS: Insulin LISPRO* 1 UNITS UNIT SUBCUT SCH ×2 (09:12→13:08)
[2017-11-08] MEDS: Senna TAB PO SCH (09:13)
[2017-11-08] MEDS: Docusate CAP* 100 MG PO SCH (09:14)
[2017-11-08] MEDS: Apixaban* 5 MG TAB PO SCH (09:14)
[2017-11-08] MEDS: Morphine TAB Extended Release (*) 30 MG TAB.ER PO SCH (09:14)
[2017-11-08] MEDS: Metoprolol Tartrate TAB* 100 MG TAB PO SCH (09:14)
[2017-11-08] MEDS: Ferrous Gluconate TAB* 324 MG TAB PO SCH (09:14)
[2017-11-08] MEDS: FLUoxetine CAP* 20 MG PO SCH (09:14)
[2017-11-08] MEDS: Clopidogrel TAB* 75 MG PO SCH (09:14)
[2017-11-08] MEDS: Aspirin EC Low Dose* 81 MG TAB.EC PO SCH (09:14)
[2017-11-08] MEDS: ARIPiprazole TAB* 5 MG PO SCH (09:14)
[2017-11-08] MEDS: Lisinopril TAB* 10 MG PO SCH (09:15)
--- NOTE | 2017-11-08 12:56 | PN ---
Progress Note - Progress Note Date of Service: 11/08/17 SOAP: Subjective: []Patient seen at bedside. She is feeling well, her left knee pain is much improved. Denies CP, SOB, fever, chills, nausea. Objective: [] Vital Signs Temp 97.4 F 11/08/17 11:48 Pulse 67 11/08/17 11:48 Resp 16 11/08/17 11:48 BP 143/72 11/08/17 11:48 Pulse Ox 100 11/08/17 11:48 Intake & Output 11/07/17 11/08/17 11/08/17 18:59 06:59 18:59 Intake Total 1030 1375 550 Output Total 1000 900 400 Balance 30 475 150 Intake: IV Fluids 85 45 50 ABX - CEFAZOLIN 45 50 abx 85 Oral 945 1330 500 Output: Urine 1000 900 400 Other: Date of Last Bowel 11/07/17 Movement # Bowel Movements 1 1 Estimated Stool Amount Medium Small Laboratory Last Values WBC 10.6 10^3/ul (3.5-10.8) 11/07/17 06:10 RBC 3.72 10^6/ul (4.0-5.4) L 11/07/17 06:10 RBC (Retic) 3.10 10^6/ul (4.6-6.2) L 11/05/17 16:19 Hgb 9.1 g/dl (12.0-16.0) L 11/08/17 04:58 Hct 28 % (35-47) L 11/08/17 04:58 HCT (Retic) 23 % (35-47) L 11/05/17 16:19 MCV 77 fL (80-97) L 11/07/17 06:10 MCH 26 pg (27-31) L 11/07/17 06:10 MCHC 33 g/dl (31-36) 11/07/17 06:10 RDW 17 % (10.5-15) H 11/07/17 06:10 Plt Count 282 10^3/ul (150-450) 11/08/17 04:58 MPV 8 um3 (7.4-10.4) 11/08/17 04:58 Neut % (Auto) Not Reportable 11/07/17 06:10 Lymph % (Auto) Not Reportable 11/07/17 06:10 [place] % (Auto) Not Reportable 11/07/17 06:10 Eos % (Auto) Not Reportable 11/07/17 06:10 Baso % (Auto) Not Reportable 11/07/17 06:10 Absolute Neuts (auto) Not Reportable 11/07/17 06:10 Absolute Lymphs (auto) Not Reportable 11/07/17 06:10 Absolute Monos (auto) Not Reportable 11/07/17 06:10 Absolute Eos (auto) Not Reportable 11/07/17 06:10 Absolute Basos (auto) Not Reportable 11/07/17 06:10 Absolute Nucleated RBC Not Reportable 11/07/17 06:10 Immature Gran % 2 % (0-9) 11/07/17 06:10 Neutrophils % 71 % (38-83) 11/07/17 06:10 Lymphocytes % 17 % (25-47) L 11/07/17 06:10 Monocytes % 6 % (0-7) 11/07/17 06:10 Eosinophils % 4 % (0-6) 11/07/17 06:10 Basophils % 0 % (0-2) 11/07/17 06:10 Myelocytes % 2 % (0-1) H 11/07/17 06:10 Nucleated RBC % Not Reportable 11/07/17 06:10 Abs Neuts (Manual) 7.5 10^3/ul (1.5-7.7) 11/07/17 06:10 Abs Monocytes (Manual) 0.6 10^3/ul (0-0.8) 11/07/17 06:10 Absolute Eos (Manual) 0.4 10^3/ul (0-0.6) 11/07/17 06:10 Abs Basophils (Manual) 0 10^3/ul (0-0.2) 11/07/17 06:10 Nucleated RBCs/100 WBC 1 (0-0) H 11/07/17 06:10 Normal RBC Morphology Not Reportable 11/07/17 06:10 Polychromasia 1+ 11/07/17 06:10 Hypochromasia 1+ 11/07/17 06:10 Elliptocytes 1+ 11/07/17 06:10 Retic Count, Calc 2.7 % (0.5-1.5) H 11/05/17 16:19 Corrected Retic Count 1.4 % (0.5-1.5) 11/05/17 16:19 Retic Shift Factor 2.0 11/05/17 16:19 Retic Production Index 0.70 11/05/17 16:19 Immature Retic Fraction 0.64 11/05/17 16:19 Mean Retic Volume 106.7 11/05/17 16:19 Haptoglobin 445 mg/dL (30 - 200) H 11/05/17 16:19 Sodium 133 mmol/L (133-145) 11/07/17 06:10 Potassium 4.2 mmol/L (3.5-5.0) 11/06/17 05:16 Chloride 101 mmol/L (101-111) 11/06/17 05:16 Carbon Dioxide 25 mmol/L (22-32) 11/06/17 05:16 Anion Gap 6 mmol/L (2-11) 11/06/17 05:16 BUN 11 mg/dL (6-24) 11/06/17 05:16 Creatinine 0.70 mg/dL (0.51-0.95) 11/06/17 05:16 Est GFR ( Amer) 109.8 (>60) 11/06/17 05:16 Est GFR (Non-Af Amer) 85.4 (>60) 11/06/17 05:16 BUN/Creatinine Ratio 15.7 (8-20) 11/06/17 05:16 Glucose 180 mg/dL (70-100) H 11/06/17 05:16 POC Glucose (mg/dL) 148 mg/dL (70-100) H 11/08/17 12:10 Hemoglobin A1c 7.1 % (4.0-5.6) H 11/08/17 04:58 Osmolality 273 mOsm/kg (275 - 295) L 11/05/17 16:19 Uric Acid 4.9 mg/dL (2.3-6.6) 11/06/17 05:16 Calcium 8.5 mg/dL (8.6-10.3) L 11/06/17 05:16 Iron 19 ug/dL (50-212) L 11/05/17 16:19 TIBC 246 mcg/dL (250-450) L 11/05/17 16:19 % Saturation 8 % (15-55) L 11/05/17 16:19 Unsat Iron Binding 227 ug/dL 11/05/17 16:19 Transferrin 156 mg/dL (200 - 360) L 11/05/17 16:19 Ferritin 192.0 ng/mL (11-307) 11/05/17 16:19 Lactate Dehydrogenase 218 U/L (140-271) 11/05/17 16:19 Vitamin B12 447 pg/mL (180-914) 11/05/17 16:19 Methylmalonic Acid 0.13 nmol/mL (<=0.40) 11/05/17 16:19 Folate 6.44 ng/mL (>3.99) 11/05/17 16:19 TSH 1.78 mcIU/mL (0.34-5.60) 11/05/17 16:19 Cortisol 20.22 mcg/dL 11/05/17 16:19 Urine Color Yellow 11/05/17 13:40 Urine Appearance Clear 11/05/17 13:40 Urine pH 6.0 (5-9) 11/05/17 13:40 Ur Specific [place] 1.017 (1.010-1.030) 11/05/17 13:40 Urine Protein 1+(30 mg/dl) (Negative) H 11/05/17 13:40 Urine Ketones Negative (Negative) 11/05/17 13:40 Urine Blood 1+ (Negative) H 11/05/17 13:40 Urine Nitrate Negative (Negative) 11/05/17 13:40 Urine Bilirubin Negative (Negative) 11/05/17 13:40 Urine Urobilinogen Negative (Negative) 11/05/17 13:40 Ur Leukocyte Esterase Negative (Negative) 11/05/17 13:40 Urine WBC (Auto) Trace(0-5/hpf) (Absent) 11/05/17 13:40 Urine RBC (Auto) Trace(0-2/hpf) (Absent) 11/05/17 13:40 Ur Squamous Epith Cells Present (Absent) H 11/05/17 13:40 Urine Bacteria Absent (Absent) 11/05/17 13:40 Urine Osmolality 481 mOsm/kg (150 - 1150) 11/05/17 13:40 Ur Random Sodium 30 mmol/L 11/05/17 13:40 Urine Glucose 1+(50 mg/dl) (Negative) H 11/05/17 13:40 Blood Type B Positive 11/05/17 16:19 Antibody Screen Negative 11/05/17 16:19 Crossmatch See Detail 11/05/17 16:19 General: Well appearing, NAD LLE: Left knee with moderate effusion, erythema is resolving. Incision CDI, no surrounding erythema and no discharge. BL LE: Calves supple and nontender without erythema, edema or palpable cords. Assessment: []SP left total knee replacement, cellulitis, knee effusion Plan: []WBAT PT/OT Rehab as soon as bed available to patient.
[2017-11-08] MEDS ORDERED: Cephalexin CAP* 500 MG PO SCH (14:00)
[2017-11-08 16:20] VITALS: BP 123/75
--- NOTE | 2017-11-09 12:58 | DS ---
DISCHARGE SUMMARY: DATE OF ADMISSION: 11/06/17 DATE OF DISCHARGE: 11/08/17 PROVIDER: Dr. Amanda Wright* (dictated by TED Sanchez). CHIEF COMPLAINT: uncontrolled pain of the left knee and difficulty mobilizing. HISTORY: Ms. Medina is a 62-year-old female who was discharged on 11/04/17 on postop day 3 from a left total knee arthroplasty. She did well in the hospital and her course was unremarkable except for some postoperative pain and mild hyponatremia. She was seen by physical therapy daily and deemed stable for discharge with services to go home. She was seen on 11/05/17 by visiting nurse services who recognized that she could not get out of her chair independently as well as was having difficulty mobilizing. She was seen unsafe to be at home with self care even with fdc coming in. She was sent back to the emergency room at [facility] so that she may be admitted to a short term rehab facility. HOSPITAL COURSE: The patient was admitted to [facility] on . During her stay, it was identified that her left thigh showed some erythema medially and she had an effusion of her left knee. The patient was placed on Keflex 500 mg p.o. t.i.d. for 2 doses. After a little improvement, she was switched to Ancef 1 g every 8 hours. She did show significant improvement of the erythema with this medication. During her stay, the patient felt reasonably well. She did not have any fever or chills. She worked well with physical therapy, though she was deemed to need assistance at home. Her labs on 11/08/17 showed hemoglobin of 9.1, hematocrit of 28. Her most recent sodium was 133 on 11/07/17. Vital signs on the day of discharge: Temperature 97.4, pulse rate 67, respiratory rate 16, oxygen saturation 100%, blood pressure 143/ 72. The patient is deemed to be medically and orthopedically stable to discharge to [facility] for short term rehab. DISCHARGE MEDICATIONS: 1. Plavix 75 mg p.o. q.a.m. 2. Atorvastatin 80 mg p.o. q.p.m. 3. Fluoxetine 80 mg p.o. q.a.m. 4. Aripiprazole 5 mg p.o. q.a.m. 5. Eliquis 5 mg p.o. b.i.d. 6. Docusate 100 mg p.o. b.i.d. 7. Morphine extended release 30 mg tabs 30 mg p.o. q.12 hours as needed for pain, max daily dose of 2. 8. Percocet 5/325 one tablet p.o. q.4 hours p.r.n., max daily dose of 10. 9. Aspirin 81 mg p.o. q.a.m. 10. Januvia 100 mg p.o. q.a.m. 11. Metoprolol 100 mg p.o. b.i.d. 12. Lisinopril 40 mg q.a.m. 13. Nitroglycerin 0.4 mg sublingual q.5 minutes p.r.n. 14. Metformin 500 mg p.o. q.a.m. 15. Cephalexin tablets 500 mg p.o. q.8 hours for 10 days. 16. Docusate 100 mg p.o. b.i.d. 17. Percocet 5/325 one to two tablets p.o. q.4 to 6 hours p.r.n., max daily dose of 10. DISCHARGE PLAN: The patient will be discharged to [facility]. She will be weightbearing as tolerated. She will continue physical therapy. She may shower. She may not submerge the wound on her left knee. She will continue Percocet 5/325 one to two tablets every 4 to 6 hours as needed for pain. She will continue her home anticoagulation medications including Eliquis, Plavix and aspirin as she normally take some new medication that she will need to take is Keflex 500 mg 1 tablet every 8 hours for 10 days. Please call our office with increased redness, pain, discharge or fever. Please go to the emergency room with chest pain or shortness of breath. She has an appointment with Dr. Wright's office on 11/12/17 at 9:30 a.m. TED AYALA [id number]/[facility] #: [id number] MIESHA
== END 2017-11-08 16:40 | DRG 383 ==
LOC: ED 11:56 → SSU 15:31 → OBSVTOIN 11-06 08:00
PROVIDERS: ADMIT Orthopaedic Surgery Adult Reconstructive Orthopaedic Surgery; ATTEND Orthopaedic Surgery Adult Reconstructive Orthopaedic Surgery
PROC: 30233N1 Transfusion of Nonautologous Red Blood Cells into Peripheral Vein, Percutaneous Approach (ICD-10-PCS; principal; 2017-11-05)
DX: L03.116 Cellulitis of left lower limb (principal); I11.9 Hypertensive heart disease without heart failure; E87.1 Hypo-osmolality and hyponatremia; M96.840 Postprocedural hematoma of a musculoskeletal structure following a musculoskeletal system procedure; E11.9 Type 2 diabetes mellitus without complications; D64.9 Anemia, unspecified; F10.21 Alcohol dependence, in remission; M25.462 Effusion, left knee; I25.10 Atherosclerotic heart disease of native coronary artery without angina pectoris; Z96.653 Presence of artificial knee joint, bilateral; I25.2 Old myocardial infarction; Z88.1 Allergy status to other antibiotic agents; Z88.8 Allergy status to other drugs, medicaments and biological substances; Z82.49 Family history of ischemic heart disease and other diseases of the circulatory system; Z80.9 Family history of malignant neoplasm, unspecified; Z95.5 Presence of coronary angioplasty implant and graft; Z87.891 Personal history of nicotine dependence; Z86.711 Personal history of pulmonary embolism; Z86.718 Personal history of other venous thrombosis and embolism; Z79.02 Long term (current) use of antithrombotics/antiplatelets; Z79.84 Long term (current) use of oral hypoglycemic drugs; Z79.01 Long term (current) use of anticoagulants; Z79.82 Long term (current) use of aspirin; Z79.891 Long term (current) use of opiate analgesic; Z79.899 Other long term (current) drug therapy
CPT/HCPCS: 36415; 80048; 81003; 81015; 82272; 82533; 82607; 82728; 82746; 83010; 83036; 83540; 83550; 83615; 83921; 83930; 83935; 84300; 84443; 84466; 84550; 85014; 85018; 85025; 85045; 85049; 86850; 86900; 86901; 86922; 94760; 99282; A9270-GY; G0378; J0690; P9040

== ENCOUNTER 2017-11-17 05:10 | Emergency (ER) | payer SELFPAY ==
--- OUTSIDE RECORDS SUMMARY | 2017-11-17 05:33 | XMS REPORT ---
:1955 External Reference #:[id number] Author Organization [employer] Address [address] [address] Phone [phone] Care Team Providers Name Role Phone Zeinab Momin MD Primary Care Physician Unavailable Payers Type Date Identification Numbers Payment Provider Subscriber Health Maintenance Policy Number: [facility] Amanda Owens [place] Organization (O) [id number] Group Number: [id number] [address] [id number] Group Name: [facility] [place] [address] PayID: [id number] Problems Date Description Provider Status Onset: 12/05/2013 Chronic ischemic heart disease Roland Montero M.D., Active CASSANDRA CORTEZ Onset: 11/03/2013 Coronary arteriosclerosis Roland Montero M.D., Active DIEGO, CASSANDRA Onset: 12/05/2013 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 Zavala M.D., CANDY Active leg artery Onset: 12/05/2013 Anticoagulants [employer] (Current) Yeni aZvala M.D., FACP Active Use Encounter Onset: 08/13/2015 [...] Father due to Heart Disease () - CT (55), Valve Disease, HTN, Hyperlipidemia Age 72 Mother Cancer passed Mother Bone Marrow Cancer HTN Age 83 Siblings 2 1 Brother - CAD - CT, stent (59) Age 62 1 Sister - Overweight, HTN Age 54 Social History Type Date Description Comments Marital Status Single Lives With Alone 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 day as needed MS Contin 11/04/ Active Tablets ER 30mg 14tab take 1 by Amanda 2018 s mouth Kyle, every 12 M.D. hours as needed for pain Percocet 10/31/ Active Tablets 5-325mg 90tab 1-2 by Amanda 2018 s mouth Kyle, every 4-6 M.D. hours as needed pain Bactrim DS 10/24/ Active Tablets 800-160mg 6tabs take 1 by Amanda 2018 mouth Kyle, twice a M.D. day for 3 days Alcohol Prep 07/26/ Active Pads 70% 400un [...] Active Tablets 0.4mg 25tab one sl Roland Can 2014 Sub s q5min up Winston, to 3 doses M.D., as needed [facility] Prozac 11/12/ Active Capsules 40mg 90cap take two Reva 2012 s capsules Varn, N.P. by mouth every day Lisinopril 02/23/ Active Tablets 40mg 90tab 1 tablet Roland North 2009 s daily Mark Montero, [facility] Metoprolol 02/23/ Active Tablets 100mg 180ta 1 tablet Roland North Tartrate 2009 bs twice a Montero, kathy Flores, [facility] Plavix 02/23/ Active Tablets 75mg 90tab 1 tablet Roland North 2009 s daily Mark Montero, [facility] Aspir-81 02/23/ Active Tablets DR 81mg 1 tablet Yeni 2009 daily Mark Zavala, [facility] Januvia 02/23/ Active Tablets 100mg 90tab take [...] s by mouth rvath, every day Argenis Scott LCSW-R, RN Lipitor / Active Tablets 80mg 90tab [...] injection Varn, N.P. 05/18/ q 12 hours 2017 starting 4 days before surgery, to stop 24 hours prior to surgery Fish Oil 04/16/ Hx Capsules 1000mg 30cap 1 by mouth Other 2015 - s every day Ordering 08/13/ Provider 2015 Nitrostat 11/02/ Hx Tablets 0.4mg 25tab one sl 414.01 Roland Can 2015 - Sub s q5min up Montero, 02/15/ to 3 doses M.D., 2015 as needed, [facility], if no FASNC relief after [...] s twice Sally, 10/31/ daily for M.D., [facility] 2014 10 days Ipratropium 09/23/ Hx Solution 0.03% 30ml instill 2 786.2 Yeni Cassadaga 2013 - sprays in Sally, 10/31/ each M.D., [facility] 2014 nostril twice a day for 10 [...] s Directed Sally, 10/31/ M.D., FACP 2013 Trazodone HCL 06/29/ Hx Tablets 50mg 30tab 1 tablet Yeni 2009 - s at bedtime Sally, 10/19/ as needed M.D., [facility] 2010 Simvastatin 02/23/ Hx Tablets 80mg 45tab 1 tablet Yeni 2009 - s at bedtime Sally, 09/11/ Mark, FACP 2012 Nitroglycerin 02/23/ Hx Tablets 0.4mg 25tab 1 tablet Roland Can 2009 - Sub s under Winston, 02/15/ tongue as Mark, 2015 needed FACC, chest FASNC pain, may repeat x2 q5 mins, if no relief call 911 Contour Hx Test Yeni Glucometer 2009 - Strips Sally, 10/31/ MMitch, FACP 2013 Microlet Hx Lancets Yeni 2009 - Sally, 10/31/ M.DEdwar, FACP 2013 Januvia 02/23/ Hx Tabs 100mg 30tab Take [...] Inj, Administered Injection Roland North Regadenoson, 018 Winston, 0.1 MG Mark, FACC, FASNC Technetium TC Administered Injection Roland North 99M 018 Portia Montero M.D., FACC, Per Unit Dose FASNC Up To 40 Millicuries Technetium TC Administered Injection Roland North 99M 018 Portia Montero M.D., FACC, Per Unit Dose FASNC Up To 40 Millicuries Depomedrol Administered Injection Amanda 40MG 017 Mark Wright Depomedrol Administered Injection Amanda 40MG 017 Mark Wright Inj, Administered Injection Francois S. Regadenoson, 016 Waite, DO 0.1 MG FACC Technetium TC Administered Injection Francois S. 99M 016 Waite, DO Tetrofosmin, FACC Per Unit Dose Up To 40 Millicuries Depomedrol Administered Injection Aristeo 80MG 015 Mark Pimentel Inj, Administered Injection Joshua Regadenoson, 013 Stefek, 0.1 MG M.DEdwar, FACC, FSCAI Technetium TC Administered Injection Joshua 99M 013 Stefeaura, TetrofMark harden, FACC, Per Unit Dose FSCAI Up To 40 Millicuries Immunizations CPT Code Status Date Vaccine Lot # [id number] Given 05/24/2016 Afluria Vaccine Q2039 Given 05/22/2014 Flu Vaccine NOS [id number] Given 07/11/2013 Pneumonia Vaccine [id number] Given 07/11/2013 Tdap - Tetanus/Diptheria/Acellular Pertussis [id number] Q2035 Given 05/22/2013 Afluria Vaccine Q2035 Given 05/23/2012 Afluria Vaccine [id number] Given 06/08/2011 Influenza Virus 3Yrs & Over [id number] 88497 Given 06/29/2010 Influenza Virus 3Yrs & Over 45349 Given 10/14/2009 Influenza Virus Vaccine, Pandemic Formulation 24012 Given 10/14/2009 Administration Swine Flu Shot Vital Signs Date Vital Result Comment 11/12/2017 Height 65 inches 5'5" Weight 220.00 lb BP Systolic 128 mmHg BP Diastolic 70 mmHg Respiratory Rate 18 /min Body Temperature 97.3 F Pain Level 6 BMI (Body Mass Index) 36.6 kg/m2 10/22/2017 Height 65 inches 5'5" Weight 220.00 [...] Test Date Test Result H/L Range Note CBC Auto Diff 11/05/2017 White Blood Count 12.0 10^3/uL High 3.5-10.8 1 Red Blood Count 3.33 10^6/uL Low 4.0-5.4 1 Hemoglobin 8.2 g/dL Low 12.0-16.0 1 Hematocrit 25 % Low 35-47 1 Mean Corpuscular Volume 75 fL Low 80-97 1 Mean Corpuscular Hemoglobin 25 pg Low 27-31 1 Mean Corpuscular HGB Conc 33 g/dL 31-36 1 Red Cell Distribution Width 16 % High 10.5-15 1 Platelet Count 220 10^3/uL 150-450 1 Mean Platelet Volume 8 um3 7.4-10.4 1 Abs Neutrophils 9.2 10^3/uL High 1.5-7.7 1 Abs Lymphocytes 1.5 10^3/uL 1.0-4.8 1 Abs Monocytes 0.9 10^3/uL High 0-0.8 1 Abs Eosinophils 0.4 10^3/uL 0-0.6 1 Abs Basophils 0.1 10^3/uL 0-0.2 1 Abs Nucleated RBC 0 10^3/uL 1 Granulocyte % 76.3 % 38-83 1 Lymphocyte % 12.7 % Low 25-47 1 Monocyte % 7.4 % High 0-7 1 Eosinophil % 3.1 % 0-6 1 Basophil % 0.5 % 0-2 1 Nucleated Red Blood Cells % 0.2 1 Cell Morphology 11/05/2017 Hypochromasia 1+ 1 Polychromasia 2+ 1 Retic Count 11/05/2017 Retic Count 2.7 % High 0.5-1.5 1 Corrected Retic Count 1.4 % 0.5-1.5 1 Maturation Factor Retic 2.0 1 Retic Index 0.70 1 Mean Retic Volume 106.7 1 Immature Retic Fraction 0.64 1 RBC Retic Count 3.10 10^6/uL Low 4.6-6.2 1 Hematocrit for Retic CNT 23 % Low 35-47 1 CBC No Diff 10/22/2017 White Blood Count 9.2 10^3/uL 3.5-10.8 Red Blood Count 5.47 10^6/uL High 4.0-5.4 Hemoglobin 13.7 g/dL 12.0-16.0 Hematocrit 41 % 35-47 Mean Corpuscular Volume 75 fL Low 80-97 Mean Corpuscular Hemoglobin 25 pg Low 27-31 Mean Corpuscular HGB Conc 33 g/dL 31-36 Red Cell Distribution Width 16 % High 10.5-15 Platelet Count 211 10^3/uL 150-450 Mean Platelet Volume 9 um3 7.4-10.4 Urinalysis Profile 10/22/2017 Urine Color Yellow Urine Appearance Clear Urine Specific Jordan 1.018 1.010-1.030 Urine pH 5.0 5-9 Urine Urobilinogen Negative Negative Urine Ketones Negative Negative Urine Protein Negative Negative Urine Leukocytes Trace Negative Urine Blood Negative Negative * * Negative 2 Urine Nitrite Negative Negative Urine Bilirubin Negative Negative Urine Glucose 1+(50 mg/dL) Negative Urine White Blood Cell Trace(0-5/hpf) Absent Urine Red Blood Cell Trace(0-2/hpf) Absent Urine Bacteria Absent Absent Urine Squamous Epithelial Cell Present Absent Comp Metabolic Panel 10/22/2017 Sodium 138 mmol/L 133-145 Potassium 4.0 mmol/L 3.5-5.0 Chloride 104 mmol/L 101-111 Co2 Carbon Dioxide 26 mmol/L 22-32 Anion Gap 8 mmol/L 2-11 Glucose 145 mg/dL High 70-100 Blood Urea Nitrogen 16 mg/dL 6-24 Creatinine 0.86 mg/dL 0.51-0.95 BUN/Creatinine Ratio 18.6 8-20 Calcium 9.3 mg/dL 8.6-10.3 Total Protein 6.5 g/dL 6.4-8.9 Albumin 4.1 g/dL 3.2-5.2 Globulin 2.4 g/dL 2-4 Albumin/Globulin Ratio 1.7 1-3 Total Bilirubin 0.60 mg/dL 0.2-1.0 Alkaline Phosphatase 70 U/L 34-104 Alt 24 U/L 7-52 Ast 19 U/L 13-39 Egfr Non- 67.3 >60 Egfr 86.6 >60 3 Inr/Protime 10/22/2017 Inr 0.93 0.77-1.02 Laboratory test finding 10/22/2017 Partial Thrombo Time 28.9 seconds 26.0 -36.3 PTT Type & Screen 10/22/2017 Patient Blood Type B Positive Antibody Screen NEGATIVE Urine Culture And 10/22/2017 Urine Culture SEE RESULT BELOW 4 Sensitivities Laboratory test finding 10/12/2017 Hemoglobin A1c 7.2 [...] Egfr Non- 66.4 >60 Egfr 85.4 >60 5 CBC No Diff 05/04/2017 White Blood Count [...] And 04/24/2017 Urine Culture SEE RESULT BELOW 6 Sensitivities Urinalysis Profile 04/24/2017 Urine Color Jaki Urine Appearance Cloudy Urine Specific Jordan 1.025 1.010-1.030 Urine pH 5.0 5-9 Urine Urobilinogen Negative Negative Urine Ketones Negative Negative Urine Protein Negative Negative Urine Leukocytes 1+ Negative Urine Blood Negative Negative * * Negative 7 Urine Nitrite Negative Negative Urine Bilirubin Negative [...] Egfr Non- 57.2 >60 Egfr 73.6 >60 8 CBC Auto Diff 04/24/2017 White Blood Count [...] test finding 09/07/2016 Cytology SEE RESULT BELOW 9 HPV Rna Ww/Reflex Genotype Negative Negative 10 Laboratory test finding 09/07/2016 Hemoglobin A1c 6.8 5-7 Inr/Protime 08/31/2016 Inr 2.05 High 0.89-1.11 Inr/Protime 07/27/2016 Inr 1.89 High 0.89-1.11 Inr/Protime 07/20/2016 Inr 2.05 High 0.89-1.11 Inr/Protime 07/14/2016 Inr 3.23 High 0.89-1.11 Inr/Protime 06/30/2016 Inr 2.27 High 0.89-1.11 Lipid Profile (Trig/Chol/HDL) 06/16/2016 Triglycerides 154 mg/dL 11 Cholesterol 148 mg/dL 12 HDL Cholesterol 44.2 mg/dL 13 LDL Cholesterol 73 mg/dL 14 Comp Metabolic Panel 06/16/2016 Sodium 138 mmol/L [...] Egfr Non- 58.8 >60 Egfr 75.6 >60 15 Inr/Protime 06/16/2016 Inr 2.46 High 0.89-1.11 Inr/Protime [...] Egfr Non- 59.5 >60 Egfr 76.5 >60 16 CBC Auto Diff 04/26/2016 White Blood Count [...] test finding 04/26/2016 B-Type Natriuretic 54 pg/mL 17 Peptide BNP Inr/Protime 04/11/2016 Inr 2.52 High 0.89-1.11 Inr/Protime 04/03/2016 Inr 2.67 High 0.89-1.11 Inr/Protime 03/28/2016 Inr 3.85 High 0.89-1.11 Inr/Protime 03/15/2016 Inr 2.21 High 0.89-1.11 Inr/Protime 03/06/2016 Inr 1.87 High 0.89-1.11 Inr/Protime 03/02/2016 Inr 3.89 High 0.89-1.11 Inr/Protime 02/29/2016 Inr 5.78 High 0.89-1.11 18 Inr/Protime 02/14/2016 Inr 2.84 High 0.89-1.11 Inr/Protime 01/31/2016 Inr 2.23 High 0.89-1.11 Inr/Protime 01/24/2016 Inr 1.72 High 0.89-1.11 Inr/Protime 01/17/2016 Inr 1.64 High 0.89-1.11 Inr/Protime 01/10/2016 Inr 1.66 High 0.89-1.11 Inr/Protime 01/07/2016 Inr 4.44 High 0.89-1.11 Inr/Protime 12/10/2015 Inr 2.73 High 0.89-1.11 Laboratory test finding 11/11/2015 Inr/Protime 2.07 High 0.89-1.11 19 Laboratory test finding 10/27/2015 Inr/Protime 2.76 High 0.89-1.11 20 Laboratory test finding 10/20/2015 Inr/Protime 1.87 High 0.89-1.11 21 Laboratory test finding 10/13/2015 Inr/Protime 3.51 High 0.89-1.11 22 Laboratory test finding 10/06/2015 Inr/Protime 3.48 High 0.89-1.11 Laboratory test finding 09/29/2015 Inr/Protime 1.95 High 0.89-1.11 23 Laboratory test finding 09/22/2015 Inr/Protime 1.95 High [...] Laboratory test 07/30/2015 Inr/Protime 2.87 High 0.89-1.11 24 finding Laboratory test 07/16/2015 Inr/Protime 1.99 High 0.89-1.11 25 finding Laboratory test 06/18/2015 Inr/Protime 2.58 High 0.78-1.07 26, 27 finding Laboratory test 06/04/2015 Inr/Protime 2.62 High 0.78-1.07 28 finding Laboratory test 05/27/2015 Inr/Protime 1.63 High 0.78-1.07 finding Laboratory test 05/06/2015 Inr/Protime 2.28 High 0.78-1.07 29 finding Laboratory test 04/29/2015 Inr/Protime 2.22 High 0.78-1.07 30 finding Laboratory test 04/22/2015 Inr/Protime 1.19 High 0.78-1.07 31 finding Laboratory test 04/16/2015 Inr/Protime 4.41 High 0.78-1.07 finding Laboratory test 04/09/2015 Inr/Protime 3.88 High 0.78-1.07 32 finding Inr/Protime 03/19/2015 Inr 2.96 High 0.78-1.07 Laboratory test 03/05/2015 Inr/Protime 2.28 High 0.78-1.07 finding Laboratory test 02/25/2015 Inr/Protime 1.95 High 0.78-1.07 finding Laboratory test 02/18/2015 Inr/Protime 1.71 High 0.78-1.07 finding Laboratory test 02/02/2015 TSH (Thyroid Stim 1.56 ?IU/mL 0.34-5.60 33, 34 finding Horm) Hemoglobin A1c (Glyco HGB) 6.0 % Less than 6.0 33, 35 Hepatitis C Antibody Nonreactive Nonreactive 33 Lipid Profile (Trig/Chol/HDL) 02/02/2015 Triglycerides 69 mg/dL 33, 36 Cholesterol 113 mg/dL 33, 37 HDL Cholesterol 38.1 mg/dL 33, 38 LDL Cholesterol 61 mg/dL 33, 39 Comp Metabolic Panel 02/02/2015 Sodium 139 mmol/L 133-145 33 Potassium 4.0 mmol/L 3.5-5.0 33 Chloride 107 mmol/L 101-111 33 Co2 Carbon Dioxide 26 mmol/L 22-32 33 Anion Gap 6 mmol/L 2-11 33 Glucose 118 mg/dL High 70-100 33 Blood Urea Nitrogen 22 mg/dL 6-24 33 Creatinine 1.05 mg/dL High 0.51-0.95 33 BUN/Creatinine Ratio 21.0 High 8-20 33 Calcium 9.2 mg/dL 8.6-10.3 33 Total Protein 6.3 g/dL Low 6.4-8.9 33 Albumin 4.1 g/dL 3.2-5.2 33 Globulin 2.2 g/dL 2-4 33 Albumin/Globulin Ratio 1.9 1-3 33 Total Bilirubin 0.50 mg/dL 0.2-1.0 33 Alkaline Phosphatase 56 U/L 34-104 33 Alt 24 U/L 7-52 33 Ast 18 U/L 13-39 33 Egfr Non- 53.8 >60 33 Egfr 69.2 >60 33, 40 Laboratory test finding 01/21/2015 Inr 2.02 High [...] test finding 11/05/2014 Inr 2.29 High 0.78-1.07 41 Laboratory test finding 10/30/2014 Inr 1.42 High 0.78-1.07 42 Laboratory test finding 10/23/2014 Inr 1.53 High 0.78-1.07 43 Laboratory test finding 10/16/2014 Inr 1.98 High 0.78-1.07 44 Laboratory test finding 10/12/2014 Inr 2.32 High 0.78-1.07 45 Laboratory test finding 10/08/2014 Inr 4.21 High 0.78-1.07 46 Laboratory test finding 10/05/2014 Inr 2.54 High [...] Laboratory test 04/06/2014 Inr 2.25 High 0.85-1.06 33, 47 finding Inr/Protime 03/30/2014 Inr 4.09 High 0.85-1.06 Laboratory test 03/19/2014 Inr 1.48 High 0.85-1.06 finding Laboratory test 03/05/2014 Inr 2.25 High 0.85-1.06 finding Laboratory test 02/26/2014 Inr 2.15 High 0.85-1.06 finding Laboratory test 02/24/2014 Inr 5.10 High 0.85-1.06 finding Laboratory test 01/28/2014 Hemoglobin A1c 6.0 5-7 finding Urine Microalbumin 01/28/2014 Ur Microalbumin 5.0 mg/dL <30 48 Random (mg/L) Urine Creatinine 66.09 mg/dL Urine Microalbumin/Creatinine 7.5 Less Than 31 Laboratory test 01/21/2014 Inr 2.35 High 0.85-1.06 finding Laboratory test 01/21/2014 TSH (Thyroid 1.67 IU/mL 0.34-5.60 49, 50 finding Stimulating Horm) Hemoglobin A1c 4.3 % Less than 6.0 49, 51 Hepatitis C Antibody Nonreactive Nonreactive 49 Comp Metabolic Panel 01/21/2014 Sodium 139 mmol/L 133-145 49 Potassium 4.1 mmol/L 3.7-5.6 49 Chloride 106 mmol/L 101-111 49 Co2 Carbon Dioxide 25 mmol/L 22-32 49 Anion Gap 8 mmol/L 2-11 49 Glucose 124 mg/dL High 70-100 49 Blood Urea Nitrogen 17 mg/dL 6-24 49 Creatinine 0.92 mg/dL 0.51-0.95 49 BUN/Creatinine Ratio 18.5 8-20 49 Calcium 8.9 mg/dL 8.6-10.3 49 Total Protein 6.3 g/dL Low 6.4-8.9 49 Albumin 3.9 g/dL 3.2-5.2 49 Globulin 2.4 g/dL 2-4 49 Albumin/Globulin Ratio 1.6 1-3 49 Total Bilirubin 0.50 mg/dL 0.2-1.0 49 Alkaline Phosphatase 43 U/L 34-104 49 Alt 33 U/L 7-52 49 Ast 23 U/L 13-39 49 Egfr Non- 62.9 >60 49 Egfr 80.9 >60 49, 52 Lipid Profile (Trig/Chol/HDL) 01/21/2014 Triglycerides 94 mg/dL 49, 53 Cholesterol 137 mg/dL 49, 54 HDL Cholesterol 55.4 mg/dL 49, 55 LDL Cholesterol 63 mg/dL 49, 56 Laboratory test finding 01/07/2014 Inr 2.04 High [...] test finding 08/28/2013 Inr 3.36 High 0.85-1.06 57 Laboratory test finding 08/21/2013 Inr 4.20 High 0.85-1.06 58 Laboratory test finding 08/14/2013 Inr 4.14 High 0.85-1.06 59 Laboratory test finding 07/17/2013 Inr 2.45 High 0.85-1.06 60 Laboratory test finding 07/10/2013 Inr 3.12 High [...] test finding 12/05/2012 Inr 2.64 High 0.87-0.97 61 Laboratory test finding 11/28/2012 Inr 3.36 High 0.87-0.97 62 Laboratory test finding 11/21/2012 Inr 3.78 High 0.87-0.97 63 Laboratory test finding 11/14/2012 Inr 3.19 High 0.87-0.97 64 Basic Metabolic Panel 11/07/2012 Sodium 139 mmol/L 133-145 Potassium 4.1 mmol/L 3.5-5.0 Chloride 105 mmol/L 101-111 Co2 Carbon Dioxide 26.0 mmol/L 22-32 Anion Gap 8.0 mmol/L 2-11 Glucose 168 mg/dL High 70-100 Blood Urea Nitrogen 22 mg/dL 6-24 Creatinine 1.00 mg/dL 0.50-1.40 BUN/Creatinine Ratio 22.0 High 8-20 Calcium 9.1 mg/dL 8.1-9.9 Egfr Non- 57.6 >60 Egfr 74.0 >60 65 Laboratory test finding 11/07/2012 Inr 4.56 High 0.87-0.97 66 Laboratory test finding 10/07/2012 Inr 2.66 High 0.82-1.17 67 Laboratory test finding 09/11/2012 Hemoglobin A1c 5.6 5-7 Protime W/ Inr 09/11/2012 Inr 1.9 Laboratory test finding 09/09/2012 Inr 1.57 High 0.82-1.17 68 Inr/Protime 09/06/2012 Inr 3.76 High 0.82-1.17 69 Lipid Profile (Trig/Chol/HDL) 08/31/2012 Triglycerides 115 mg/dL 40-200 Cholesterol 194 mg/dL Less than 200 HDL Cholesterol 80 mg/dL High 40-60 70 Cholesterol/HDL Ratio 2.4 Average 1-4.44 LDL Cholesterol 91.0 mg/dL Less Than 100 71 Urine Microalbumin Random 08/31/2012 Ur Microalbumin (Mg/L) 23.0 mg/L 72 Urine Creatinine 197.5 mg/dL Urine Microalbumin/Creatinine 11.6 UG/MG Less Than 31 Laboratory test finding 08/31/2012 Hemoglobin A1c 5.8 % Less than 6.0 73 Laboratory test finding 08/29/2012 Inr 1.95 High 0.82-1.17 74 Laboratory test finding 08/22/2012 Inr 3.81 High 0.82-1.17 75 Laboratory test finding 07/19/2012 Inr 3.08 High 0.82-1.17 76 Laboratory test finding 07/17/2012 Inr 2.94 High 0.82-1.17 77 D Dimer Quantitative < 200 NG/ML Less Than 230 78 Laboratory test finding 07/17/2012 Uric Acid 5.4 [...] test finding 06/21/2012 Inr 2.25 High 0.82-1.17 79 International Normalized 05/24/2012 Inr 2.62 High 0.88-1.13 80 Ratio Protime 32.5 SEC High 10.3-13.5 81 International Normalized Ratio 04/26/2012 Inr 2.69 High 0.88-1.13 82 Protime 33.3 SEC High 10.3-13.5 83 International Normalized Ratio 04/19/2012 Inr 2.37 High 0.88-1.13 84 Protime 29.2 SEC High 10.3-13.5 85 International Normalized Ratio 04/12/2012 Inr 1.73 High 0.88-1.13 86 Protime 21.0 SEC High 10.3-13.5 87 International Normalized Ratio 04/05/2012 Inr 1.73 High 0.88-1.13 88 Protime 21.1 SEC High 10.3-13.5 89 International Normalized Ratio 03/22/2012 Inr 2.13 High 0.88-1.13 90 Protime 26.1 SEC High 10.3-13.5 91 Protime 03/15/2012 Inr 1.63 High 0.88-1.13 92 Protime 19.8 SEC High 10.3-13.5 93 Protime 02/15/2012 Inr 1.87 High 0.88-1.13 94 Protime 22.8 SEC High 10.3-13.5 95 International Normalized Ratio 01/18/2012 Inr 3.12 High 0.88-1.13 96 Protime 38.9 SEC High 10.3-13.5 97 International Normalized Ratio 01/04/2012 Inr 3.21 High 0.88-1.13 98 Protime 40.1 SEC High 10.3-13.5 99 International Normalized Ratio 12/07/2011 Inr 2.01 High 0.88-1.13 100 Protime 24.6 SEC High 10.3-13.5 101 International Normalized Ratio 11/09/2011 Inr 2.68 High 0.88-1.13 102 Protime 32.9 SEC High 10.3-13.5 103 International Normalized Ratio 10/11/2011 Inr 2.16 High 0.88-1.13 104 Protime 26.3 SEC High 10.3-13.5 105 International Normalized Ratio 09/27/2011 Inr 2.00 High 0.88-1.13 106 Protime 24.3 SEC High 10.3-13.5 107 International Normalized Ratio 09/13/2011 Inr 2.75 High 0.88-1.13 108 Protime 33.8 SEC High 10.3-13.5 109 Basic Metabolic Panel 09/08/2011 Sodium 140 mmol/L 135-145 Potassium 4.2 mmol/L 3.5-5.0 Chloride 107 mmol/L 101-111 Co2 (Carbon Dioxide) 26.0 mmol/L 22-32 Anion Gap 7.0 mmol/L 2-11 110 Glucose 122 mg/dL High 70-100 BUN 14 mg/dL 6-24 Creatinine 1.0 mg/dL 0.50-1.40 One Over Creatinine 1.00 BUN/Creatinine Ratio 14.0 8-20 Calcium 8.9 mg/dL 8.1-9.9 eGFR Non- 57.8 > 60 eGFR 74.3 > 60 111 Lipid Profile (Trig/Chol/HDL) 09/08/2011 Triglyceride 97 mg/dL 40-200 Cholesterol 120 mg/dL Less Than 200 112 High Density Lipoprotein 42 mg/dL 40-60 113 Cholesterol/HDL Ratio 2.86 AVERAGE 1-4.44 Low Density Lipoprotein 59 mg/dL Less Than 100 114 Laboratory test finding 09/08/2011 Alt (SGPT) 47 U/L 14-54 Protime 09/06/2011 Inr 3.57 High 0.88-1.13 115 Protime 44.4 SEC High 10.3-13.5 116 Protime W/ Inr 08/30/2011 Prothrombin Time 29.4 [...] Normalized Ratio 06/12/2011 Inr 1.53 High 0.82-1.17 117 Protime 18.5 SEC High 10.2-14.8 118 International Normalized Ratio 06/09/2011 Inr 4.26 High 0.82-1.17 119 Protime 54.2 SEC High 10.2-14.8 120 CBC Auto Diff 06/07/2011 White Blood Count [...] 150-450 Mean Platelet Volume 8.7 um3 7.4-10.4 121 Manual Differential 06/07/2011 Polysegmented Neutrophil 62 % 38-83 Lymphocyte 27 % 25-47 Monocyte 7 % 0-13 Eosinophil 4 % 0-6 Absolute Neutrophil Count 5.2 Anisocytosis SLIGHT Hypochromasia SLIGHT Polychromasia SLIGHT Ovalocytes FEW Protime 06/07/2011 Inr 5.66 High 0.82-1.17 122 Protime 73.1 SEC High 10.2-14.8 123 Laboratory test finding 06/07/2011 PTT (Aptt) 56.3 High 25.15-38.53 International Normalized Ratio 05/12/2011 Inr 2.94 High 0.82-1.17 124 Protime 36.7 SEC High 10.2-14.8 125 International Normalized Ratio 05/05/2011 Inr 3.54 High 0.82-1.17 126 Protime 44.6 SEC High 10.2-14.8 127 International Normalized Ratio 04/07/2011 Inr 2.02 High 0.82-1.17 128 Protime 24.7 SEC High 10.2-14.8 129 Lipid Profile (Trig/Chol/HDL) 04/07/2011 Triglyceride 82 mg/dL 40-200 Cholesterol 132 mg/dL Less Than 200 130 High Density Lipoprotein 45 mg/dL 40-60 131 Cholesterol/HDL Ratio 2.93 AVERAGE 1-4.44 Low Density Lipoprotein 71 mg/dL Less Than 100 132 Laboratory test finding 04/07/2011 Alt (SGPT) 32 U/L 14-54 International Normalized Ratio 03/10/2011 Inr 2.47 High 0.82-1.17 133 Protime 30.6 SEC High 10.2-14.8 134 International Normalized Ratio 02/24/2011 Inr 3.12 High 0.82-1.17 135 Protime 39.1 SEC High 10.2-14.8 136 International Normalized Ratio 02/17/2011 Inr 3.23 High 0.82-1.17 137 Protime 40.6 SEC High 10.2-14.8 138 Laboratory test finding 02/14/2011 Hemoglobin A1c 5.4 % Less Than 6.0 139 Protime W/ Inr 02/02/2011 Prothrombin Time 28.0 [...] Protime W/ Inr 10/12/2010 Inr 2.13 1 Left Shift Imm Grans 2 *Ascorbic acid is present which may interfere with detection of blood. 3 Because ethnic data is not always readily [...] 15-29 5 Kidney failure <15 (or dialysis) 4 SEE RESULT BELOW Name: JAYJAYAMANDA : [address]: Amanda Wright MD Acct: [id number] Unit: [id number] AGE: 62 Location: PAT Re10/22/17 SEX: F Status: REG REF SPEC: [id number] ELDON: 10/22/17-1340 [facility] [address]: Amanda Wright MD REQ: [id number] RECD: 10/22/17 STATUS: COMP _ SOURCE: URINE [facility]: ORDERED: Urine Culture Procedure Result Reported Site Urine Culture Final 10/23/17- 1222 ML Organism 1 STREP GROUP B [place] Count 10-25,000 (Moderate) CFU/ML Susceptibility testing of penicillins and other B-lactams approved by FDA for treatment of Streptococcus pyogenes (Group A Strep) and Streptococcus agalactiae (Group B Strep) is not necessary for clinical purposes and need not be done routinely, since as with vancomycin, resistant strains have not been recognized. (CLSI [id number];p.66) Positive isolates will be saved for one week. Please call the Microbiology Laboratory if further susceptibility testing is needed. * ML - MAIN LAB ([facility]) . END OF REPORT * ML=Testing performed at Main Lab DEPARTMENT OF PATHOLOGY, [address] [place] [id number] Scott Zapata M.D. Director [facility] # [id number] 5 Because ethnic data is not always readily [...] 15-29 5 Kidney failure <15 (or dialysis) 6 SEE RESULT BELOW Name: AMANDA MEDINA : [address]: Reva Birch NP Acct: [id number] Unit: [id number] AGE: 62 Location: LAB Re04/24/17 SEX: F Status: REG REF SPEC: [id number] ELDON: 04/24/17-[address]: Reva Birch NP REQ: [id number] RECD: 04/24/17-1050 STATUS: COMP _ SOURCE: URINE [facility]: ORDERED: Urine Culture Procedure Result Reported Site Urine Culture Final 04/25/17- 1533 ML Organism 1 STREP GROUP B [place] Count 1-10,000 (Few) CFU/ML Susceptibility testing of penicillins and other B-lactams approved by FDA for treatment of Streptococcus pyogenes (Group A Strep) and Streptococcus agalactiae (Group B Strep) is not necessary for clinical purposes and need not be done routinely, since as with vancomycin, resistant strains have not been recognized. (CLSI E779-N53;p.66) Positive isolates will be saved for one week. Please call the Microbiology Laboratory if further susceptibility testing is needed. * ML - MAIN LAB ([facility]) . END OF REPORT * ML=Testing performed at Main Lab DEPARTMENT OF PATHOLOGY, [address] [place] [address] Scott Zapata M.D. Director [facility] # [id number] 7 *Ascorbic acid is present which may interfere with detection of blood. 8 Because ethnic data is not always readily [...] 15-29 5 Kidney failure <15 (or dialysis) 9 SEE RESULT BELOW Name: AMANDA MEDINA : [address]: Reva Birch NP Acct: [id number] Unit: [id number] AGE: 61 Location: [facility] Re09/07/16 SEX: F Status: REG REF SPEC: [id number] ELDON: 09/07/16-1010 [facility] [address]: Reva Birch NP REQ: [id number] RECD: 09/07/16 STATUS: SOUT _ ORDERED: IMAGE ANALYSIS, HPV/Thin Prep, HPV 16/18 GENE COMMENTS: [id number] FINAL DIAGNOSIS Negative for Intraepithelial lesion or [...] (signature on file) NIRAV Simpson (ASCP) 09/08 1325 This Pap test was evaluated with the assistance of the ThinPrep Test Imaging System. Due to cytologic findings at the nurse examiner microscope, comprehensive manual rescreening by a Bacteriologist Food may be required. The Pap Smear is [...] performed at Main Lab DEPARTMENT OF PATHOLOGY, [address] [place] [address] RUN DATE: 09/08/16 [facility] LAB LIVE PAGE 1 Patient: AMANDA MEDINA [id number] (Continued) Scott Zapata M.D. Director [facility] # [id number] 10 The high-risk HPV types detected by the assay include: 16, 18, 31, 33, 35, 39, 45, 51, 52, 56, 58, 59, 66, and 68. 11 Desirable <150 Borderline high 150-199 High 200-499 Very High >500 12 Desirable <200 Borderline high 200-239 High >239 13 Low <40 Desirable: 40-60 High: >60 14 Desirable: <100 mg/dL Near Optimal: 100-129 mg/dL Borderline High: 130-159 mg/dL High: 160-189 mg/dL Very High: >189 mg/dL 15 Because ethnic data is not always readily [...] 15-29 5 Kidney failure <15 (or dialysis) 16 Because ethnic data is not always readily [...] 15-29 5 Kidney failure <15 (or dialysis) 17 >100 to <200 pg/mL: likely compensated congestive heart failure (CHF) 200 to 400 pg/mL: likely moderate CHF >400 pg/mL: likely moderate to severe CHF [address] Jj by [id number] at 0750 on 02/29/16. Results read back accurately. 19 STANDING ORDER VALID 07/30/15-01/28/16 STAT 20 STANDING ORDER VALID 07/30/15-01/28/16 STAT 21 STANDING ORDER VALID 07/30/15-01/28/16 STAT 22 STANDING ORDER VALID 07/30/15-01/28/16 STAT 23 STANDING ORDER VALID 07/30/15-01/28/16 STAT 24 Effective immediately, due to a laboratory mean normal Protime change, the reference range for the INR has changed. 25 Effective immediately, due to a laboratory mean normal Protime change, the reference range for the INR has changed. 26 EXP 09/07/15 27 EXP 09/07/15 28 EXP 09/07/15 29 EXP 09/07/15 30 EXP 09/07/15 31 EXP 09/07/15 32 EXP 09/07/15 33 FASTING 34 FASTING 35 Therapeutic target for the treatment of diabetes Mellitus patients is <7% HBA1C, and in selective patients <6.0%.Please refer to [place] [employer] Diabetic care guidelines for further information. 36 Desirable <150 Borderline high 150-199 High 200-499 Very High >500 37 Desirable <200 Borderline high 200-239 High >239 38 Low <40 Desirable: 40-60 High: >60 39 Desirable: <100 mg/dL Near Optimal: 100-129 mg/dL Borderline High: 130-159 mg/dL High: 160-189 mg/dL Very High: >189 mg/dL 40 Because ethnic data is not always readily [...] 15-29 5 Kidney failure <15 (or dialysis) 41 Please note: Effective October 07, 2014, the reference value for this test has changed due to the validation and activation of a new reagent lot number. 42 Please note: Effective October 07, 2014, the reference value for this test has changed due to the validation and activation of a new reagent lot number. 43 Please note: Effective October 07, 2014, the reference value for this test has changed due to the validation and activation of a new reagent lot number. 44 Please note: Effective October 07, 2014, the reference value for this test has changed due to the validation and activation of a new reagent lot number. 45 Please note: Effective October 07, 2014, the reference value for this test has changed due to the validation and activation of a new reagent lot number. 46 Please note: Effective October 07, 2014, the reference value for this test has changed due to the validation and activation of a new reagent lot number. 47 FASTING 48 Microalbuminuria in a random sample is defined as: Microalbumin/Creatinine ratio of 30-299 ug/mg. 49 PT IS FASTING 50 PT IS FASTING 51 Therapeutic target for the treatment of diabetes Mellitus patients is <7% HBA1C, and in selective patients <6.0%.Please refer to [place] [employer] Diabetic care guidelines for further information. 52 Because ethnic data is not always readily [...] 15-29 5 Kidney failure <15 (or dialysis) 53 Desirable <150 Borderline high 150-199 High 200-499 Very High >500 54 Desirable <200 Borderline high 200-239 High >239 55 Low <40 Desirable: 40-60 High: >60 56 Desirable <100 Near Optimal 100-129 Borderline high 130-159 High 160-189 Very High >189 57 Please note the change in the INR reference range effective 13. 58 Please note the change in the INR reference range effective 13. 59 Please note the change in the INR reference range effective 13. 60 Please note the change in the INR reference range effective 13. 61 Please note the change in INR [...] prosthetic heart valves 2.5 - 3.5 62 Please note the change in INR reference [...] from prosthetic heart valves 2.5 - 3.5 63 Please note the change in INR reference [...] prosthetic heart valves 2.5 - 3.5 64 Please note the change in INR reference [...] prosthetic heart valves 2.5 - 3.5 65 Because ethnic data is not always readily [...] 15-29 5 Kidney failure <15 (or dialysis) 66 Please note the change in INR reference [...] from prosthetic heart valves 2.5 - 3.5 67 The INR(International Normalized Ratio) was adopted by [...] from prosthetic heart valves 2.5 - 3.5 68 The INR(International Normalized Ratio) was adopted by [...] from prosthetic heart valves 2.5 - 3.5 69 The INR(International Normalized Ratio) was adopted by [...] from prosthetic heart valves 2.5 - 3.5 70 HDL Interpretation: Undesirable: High Risk: Less than 40 MG/DL Desirable: Low Risk: Greater than 60 MG/DL 71 LDL Interpretation: Low Risk Optimal Level: LDL Less than 100 MG/DL Near or Above Optimal: LDL 100-129 MG/DL Borderline High Risk: LDL 130-159 MG/DL High Risk: LDL 160-189 MG/DL Very High Risk: LDL Greater than 189 MG/DL 72 Microalbuminuria in a random sample is defined as: Microalbumin/Creatinine ratio of 30-299 ug/mg. 73 Therapeutic target for the treatment of diabetes Mellitus patients is <7% HBA1C, and in selective patients <6.0%.Please refer to [place] [employer] Diabetic care guidelines for further information. 74 The INR(International Normalized Ratio) was adopted by [...] from prosthetic heart valves 2.5 - 3.5 75 The INR(International Normalized Ratio) was adopted by [...] prosthetic heart valves 2.5 - 3.5 76 Effective June 10, 2012, in conjunction with the upgrade of the hospital information system, [facility] will release the International Normalized [...] prosthetic heart valves 2.5 - 3.5 77 Effective June 10, 2012, in conjunction with the upgrade of the hospital information system, [facility] will release the International Normalized [...] from prosthetic heart valves 2.5 - 3.5 78 Please note: The following may produce a false positive D Dimer test: - Rheumatoid factor greater than 60 IU/ml - Plasma hemoglobin greater than 0.05 gm/dl - Bilirubin greater than 50 mg/dl - Lipids greater than 1000 mg/dl - FDP greater than 20 ug/ml 79 Recommended INR for Patients on Oral Anticoagulants Prophylaxis 2.0 - 3.0 Treatment of thrombosis 2.0 - 3.0 Prevention of embolism 2.0 - 3.0 Prevention of embolism from prosthetic heart valves 2.5 - 3.5 80 Recommended INR for Patients on Oral [...] BASED ON THE INR VALUE ALONE. 106 Recommended INR for Patients on Oral Anticoagulants Prophylaxis 2.0 - 3.0 Treatment of thrombosis 2.0 - 3.0 Prevention of embolism 2.0 - 3.0 Prevention of embolism from prosthetic heart valves 2.5 - 3.5 107 DIAGNOSIS,TREATMENT,AND THERAPY MUST BE BASED ON THE INR VALUE ALONE. 108 Recommended INR for Patients on Oral Anticoagulants Prophylaxis 2.0 - 3.0 Treatment of thrombosis 2.0 - 3.0 Prevention of embolism 2.0 - 3.0 Prevention of embolism from prosthetic heart valves 2.5 - 3.5 109 DIAGNOSIS,TREATMENT,AND THERAPY MUST BE BASED ON THE INR VALUE ALONE. 110 Anion gap measurement may be of limited value in the presence of any alkalosis, especially in a combined acid base disorder. . 111 Because ethnic data is not always readily [...] 15-29 5 Kidney failure <15 (or dialysis) 112 CHOLESTEROL INTERPRETATION: Desirable: Less than 200 MG/DL Borderline-High Risk: 200-239 MG/DL High-Risk: 240 MG/DL and over 113 HDL INTERPRETATION: Undesirable: High Risk: Less than 40 MG/DL Desirable: Low Risk: Greater than 60 MG/DL 114 LDL INTERPRETATION: Low Risk Optimal Level: LDL Less than 100 MG/DL Near or Above Optimal: LDL 100-129 MG/DL Borderline High Risk: LDL 130-159 MG/DL High Risk: LDL 160-189 MG/DL Very High Risk: LDL Greater than 189 MG/DL 115 Recommended INR for Patients on Oral Anticoagulants Prophylaxis 2.0 - 3.0 Treatment of thrombosis 2.0 - 3.0 Prevention of embolism 2.0 - 3.0 Prevention of embolism from prosthetic heart valves 2.5 - 3.5 116 DIAGNOSIS,TREATMENT,AND THERAPY MUST BE BASED ON THE INR VALUE ALONE. 117 Recommended INR for Patients on Oral Anticoagulants Prophylaxis 2.0 - 3.0 Treatment of thrombosis 2.0 - 3.0 Prevention of embolism 2.0 - 3.0 Prevention of embolism from prosthetic heart valves 2.5 - 3.5 118 DIAGNOSIS,TREATMENT,AND THERAPY MUST BE BASED ON THE INR VALUE ALONE. 119 Recommended INR for Patients on Oral Anticoagulants Prophylaxis 2.0 - 3.0 Treatment of thrombosis 2.0 - 3.0 Prevention of embolism 2.0 - 3.0 Prevention of embolism from prosthetic heart valves 2.5 - 3.5 120 DIAGNOSIS,TREATMENT,AND THERAPY MUST BE BASED ON THE INR VALUE ALONE. 121 Imm. NE 1 122 VERBAL TO KEITH/ED BY EDD at 1944 [...] BASED ON THE INR VALUE ALONE. 126 Recommended INR for Patients on Oral Anticoagulants Prophylaxis 2.0 - 3.0 Treatment of thrombosis 2.0 - 3.0 Prevention of embolism 2.0 - 3.0 Prevention of embolism from prosthetic heart valves 2.5 - 3.5 127 DIAGNOSIS,TREATMENT,AND THERAPY MUST BE BASED ON THE INR VALUE ALONE. 128 Recommended INR for Patients on Oral Anticoagulants Prophylaxis 2.0 - 3.0 Treatment of thrombosis 2.0 - 3.0 Prevention of embolism 2.0 - 3.0 Prevention of embolism from prosthetic heart valves 2.5 - 3.5 129 DIAGNOSIS,TREATMENT,AND THERAPY MUST BE BASED ON THE INR VALUE ALONE. 130 CHOLESTEROL INTERPRETATION: Desirable: Less than 200 MG/DL Borderline-High Risk: 200-239 MG/DL High-Risk: 240 MG/DL and over 131 HDL INTERPRETATION: Undesirable: High Risk: Less than 40 MG/DL Desirable: Low Risk: Greater than 60 MG/DL 132 LDL INTERPRETATION: Low Risk Optimal Level: LDL Less than 100 MG/DL Near or Above Optimal: LDL 100-129 MG/DL Borderline High Risk: LDL 130-159 MG/DL High Risk: LDL 160-189 MG/DL Very High Risk: LDL Greater than 189 MG/DL 133 Recommended INR for Patients on Oral Anticoagulants Prophylaxis 2.0 - 3.0 Treatment of thrombosis 2.0 - 3.0 Prevention of embolism 2.0 - 3.0 Prevention of embolism from prosthetic heart valves 2.5 - 3.5 134 DIAGNOSIS,TREATMENT,AND THERAPY MUST BE BASED ON THE INR VALUE ALONE. 135 Recommended INR for Patients on Oral Anticoagulants Prophylaxis 2.0 - 3.0 Treatment of thrombosis 2.0 - 3.0 Prevention of embolism 2.0 - 3.0 Prevention of embolism from prosthetic heart valves 2.5 - 3.5 136 DIAGNOSIS,TREATMENT,AND THERAPY MUST BE BASED ON THE INR VALUE ALONE. 137 Recommended INR for Patients on Oral Anticoagulants Prophylaxis 2.0 - 3.0 Treatment of thrombosis 2.0 - 3.0 Prevention of embolism 2.0 - 3.0 Prevention of embolism from prosthetic heart valves 2.5 - 3.5 138 DIAGNOSIS,TREATMENT,AND THERAPY MUST BE BASED ON THE INR VALUE ALONE. 139 THERAPEUTIC TARGET FOR THE TREATMENT OF DIABETES MELLITUS PATIENTS IS <7% HBA1C, AND IN SELECTIVE PATIENTS <6.0%. PLEASE REFER TO [place] [employer] DIABETIC CARE GUIDELINES FOR FURTHER INFORMATION. Procedures Date CPT Code Description Status Comment 11/01/2017 13008 TKR Total Knee Replacement Completed 11/01/2017 31404 TKR Total Knee Replacement Completed 10/17/2017 21847 Stress Test Completed 10/17/2017 22170 EKG Tracing & Completed Interpretation 10/17/2017 46508 Myocardial Perfusion Imaging Completed Tomographic (Spect) Multiple Studies 05/17/2017 92727 TKR Total Knee Replacement Completed 05/17/2017 08335 TKR Total Knee Replacement Completed 05/07/2017 42894 EKG Tracing & Completed Interpretation 05/04/2017 31512 EKG, Interpretation Only Completed 04/30/2017 24123 ECHO Transthoracic, Real-Time Completed 2D With Doppler And Color Flow 03/09/2017 53281 Inject/Drain Joint/Bursa Major Completed 09/27/2016 Mammogram Completed 06/02/2016 49836 Event Monitor/Phys Completed Review/Interp. 05/10/2016 02497 Stress Test Completed 05/10/2016 79832 Myocardial Perfusion Imaging Completed Tomographic (Spect) Multiple Studies 05/05/2016 71600 Holter Monitor Review (24 hr) Completed review & interp only 05/03/2016 34166 ECG Monitor/Recording W/Visual Completed Superimposition Scanning 04/26/2016 52803 ECG Monitor/Recording W/Visual Completed Superimposition Scanning 04/26/2016 98359 EKG Tracing & Completed Interpretation 01/03/2016 61462 EKG Tracing & Completed Interpretation 11/01/2015 Diabetic Retinal Eye Exam Completed 08/26/2015 Mammogram Completed 11/02/2014 89575 EKG Tracing & Completed Interpretation 10/20/2014 07896 Inject/Drain Joint/Bursa Major Completed 06/09/2014 Diabetic Retinal Eye Exam Completed 04/23/2014 Diabetic Retinal Eye Exam Completed Document: 04/23/14 - Eye Exam Form For Diabetes 11/03/2013 10292 EKG Tracing & Completed Interpretation 06/11/2013 Colonoscopy Completed 12/23/2012 Diabetic Retinal Eye Exam Completed 10/04/2012 60697 ECHO Transthoracic, Real-Time Completed 2D With Doppler And Color Flow 10/01/2012 71505 Stress Test Completed 10/01/2012 86444 Myocardial Perfusion Imaging Completed Tomographic (Spect) Multiple Studies 09/26/2012 79689 EKG Tracing & Completed Interpretation 09/11/2012 92006 EKG Tracing & Completed Interpretation 2010 80575 Endometrial Sampling W Or W/O Completed Endocervical BX W Or W/O Cerv Dilat 12/31/2009 79906 Endometrial Sampling W Or W/O Completed Endocervical BX W Or W/O Cerv Dilat 07/10/2008 Mammogram Completed 06/04/2008 95071 EKG Tracing & Completed Interpretation Encounters Type Date Location Provider CPT E/M Dx Office Visit 10/17/2017 [facility] [place], 28867 I25.10 9:45a Marcelina Flores, LOCATED WITHIN [facility] Z01.810 M17.12 Office Visit 10/12/2017 4:20p Marcelina [facility] Zeinab Merrill, 58987 Z01.818 Tonja Elijah Flores E11.9 Z79.01 M17.12 Office Visit 07/11/2017 9:15a [facility] Wright M.D. 37786 M25.562 C.M.A. M25.462 M17.12 Office Visit 05/19/2017 2:13[place] [address] I25.10 [facility]oc[facility] Z79.01 Z86.711 Z96.651 Office Visit 05/18/2017 2:12p [facility] [address] I25.10 Hospitalists Z79.01 Z86.711 Z96.651 Office Visit 05/17/2017 2:10p [facility], [place] [address] Z79.01 Hospitalists Z86.711 I25.10 Z96.651 Office Visit 05/07/2017 11:15a [facility] [place], 06645 I25.10 [facility] Mark, FAC, [facility] M17.11 Z01.810 Office Visit 04/18/2017 11:20a [facility] Reva Birch, N.P. 15553 Z01.818 - [place] M17.0 E11.9 Z86.711 I25.10 I10 E78.00 Office Visit 03/09/2017 10:20a [facility] Rvea Birch, N.P. 33011 E11.9 - [place] I10 Office Visit 03/09/2017 8:00a [facility] Wright M.D. 66375 M25.562 C.M.A. M25.561 M25.462 M25.461 M17.0 Office Visit 02/08/2017 8:00a [facility] Zeinab Momin, 30531 Z79.01 - Elijah Flores Z86.711 Office Visit 12/06/2016 8:40a [facility] Reva Birch, N.P. 98195 I10 - [place] Office Visit 10/23/2016 8:00a [facility] Reva Birch, N.P. 77805 Z79.01 - [place] Z86.711 Office Visit 09/21/2016 8:00a [facility] Reva Birch, N.P. 36457 Z79.01 - [place] Z86.711 Office Visit 09/07/2016 9:00a [facility] Reva Birch, N.P. 01361 Z00.01 - [place] Z12.31 I10 E78.00 Z79.84 E11.9 D68.8 I25.10 Z12.4 Z11.51 Office Visit 07/12/2016 8:45a [facility] [place], 67960 R07.9 Marcelina Flores, [facility] I25.10 Office Visit 06/01/2016 12:37p [facility] Reva Birch, N.P. 01103 Z79.01 - [place] Z86.711 Office Visit 04/26/2016 2:20p [facility] [place] [address] R07.9 [facility] R00.2 R06.02 I25.2 Z86.711 R94.31 I10 E11.9 Z79.01 E78.5 Office Visit 02/15/2016 4:00p [facility] - Reva Birch, N.P. 33577 I10 [place] E11.9 Office Visit 01/03/2016 8:45a [facility], 00140 I25.10 Marcelina Flores, [facility] Office Visit 08/13/2015 3:20p [facility] Reva Birch, N.P. 49194 Z00.00 - [place] Z12.39 I10 D68.8 E11.9 I25.10 F32.9 Office Visit 03/10/2015 4:03p [facility] Reva Birch, N.P. 65867 286.9 - [place] V58.61 Office Visit 02/05/2015 8:40a [facility] Reva Birch, N.P. 85747 401.1 - [place] 250.00 272.4 Office Visit 12/09/2014 4:01p [facility] Reva Birch, N.P. 44016 286.9 - [place] V58.61 Office Visit 12/04/2014 10:30a [facility], 60192 715.16 C.M.A. M.Tomasz. Office Visit 11/02/2014 8:45a [facility] Of Roland Montero, 24850 414.01 Marcelina Flores, [facility] Office Visit 10/20/2014 11:00a [facility] [place], 00386 715.16 C.M.A. M.Tomasz. Office Visit 09/29/2014 4:00p [facility] Reva Birch, N.P. 08319 844.9 - [place] 719.46 Office Visit 09/11/2014 12:35p [facility] Reva Birch, N.P. 32570 286.9 - [place] V58.61 Office Visit 06/10/2014 8:53a [facility] Zeinab Momin, 08495 V58.61 - [place] M.D. 286.9 Office Visit 03/10/2014 3:14p [facility] Zeinab Momin, 15938 286.9 - [place] M.D. V58.61 Office Visit 01/28/2014 4:00p [facility] Reva Birch, N.P. 79389 250.00 - [place] 401.1 681.11 Office Visit 12/09/2013 9:40a [facility] - Yeni Zavala M.D., 16448 286.9 [place] FACP V58.61 Office Visit 11/03/2013 12:15p [facility] [place], 12816 414.01 Marcelina Flores, FAC, [facility] Office Visit 09/11/2013 3:43p [facility] - Yeni Zavala M.D., 59045 286.9 [place] FACP V58.61 Office Visit 07/11/2013 3:00p [facility] Reva Birch, N.P. 15126 V70.0 - [place] V76.10 250.00 272.4 286.9 414.01 401.1 311 V03.82 V06.1 Office Visit 06/10/2013 9:48a [facility] Yeni Zavala M.D., 79157 V58.61 - [place] FACP 444.22 Office Visit 03/10/2013 10:12a [facility] Yeni Zavala M.D., 21666 V58.61 - [place] FACP 444.22 Office Visit 02/24/2013 2:20p [facility] Reva Birch, N.P. 61870 729.5 - [place] Office Visit 12/19/2012 4:00p [facility] Yeni Zavala M.D., 37516 414.01 - [place] FACP V58.61 719.46 Office Visit 12/09/2012 8:59a [facility] Yeni Zavala M.D., 09580 V58.61 - [place] FACP 444.22 Office Visit 10/07/2012 10:15a [facility] Can Mon[place], 51611 414.9 Rn Ostomy M.Tomasz., FAC, [facility] Office Visit 09/26/2012 8:30a [facility] [place], 44772 414.9 Rn Ostomy Roman.Tomasz., FAC, [facility] Office Visit 09/23/2012 12:00p [facility] - Yeni Zavala M.D., 00376 786.2 [place] FACP Office Visit 09/11/2012 4:20p [facility] - Yeni Zavala M.D., 52911 V72.84 [place] FACP 414.00 250.00 626.8 Office Visit 09/11/2012 4:11p [facility] Yeni Zavala M.D., 17938 444.22 - [place] FACP V58.61 Office Visit 06/21/2012 3:40p [facility] Reva Birch, N.P. 24404 789.07 - [place] Office Visit 06/10/2012 9:04a [facility] Yeni Zavala M.D., 45823 V58.61 - [place] FACP 444.22 Office Visit 01/15/2012 1:20p [facility] Reva Birch, N.P. 82267 719.43 - [place] Office Visit 06/15/2011 4:00p DO Not Use Yeni Zavala M.D., 14013 V58.61 [facility]n [facility]-[place] FACP 444.22 Office Visit 06/08/2011 11:40a DO Not Use [facility] Yeni Zavala 73543 924.00 M.DEdwar, FACP 444.22 v04.81 Office Visit 02/15/2011 4:00p DO Not Use [facility] Yeni Zavala 04510 250.00 M.D., FACP Office Visit 10/19/2010 4:00p DO Not Use [facility] Yeni Zavala, 73865 250.00 M.D., FACP 414.00 780.79 401.1 Office Visit 08/01/2010 4:00p DO Not Use Reva Birch, 72583 535.00 [facility] N.P. Office Visit 06/29/2010 4:00p DO Not Use Yeni Zavala M.D., 51885 414.00 [facility] FACP 250.00 780.79 311 V04.81 Office Visit 02/23/2010 4:00p DO Not Use [facility] Yeni Zavala 77131 250.00 M.D., FACP 414.00 Office Visit 12/01/2009 11:30a DO Not Use Reva Birch, 89804 626.2 [facility] N.P. Office Visit 11/22/2009 10:15a DO Not Use Yeni Zavala M.D., 31416 250.00 [facility] FACP 626.2 Office Visit 10/14/2009 4:00p DO Not Use [facility] Yeni Zavala, 11518 382.9 M.D., FACP V04.81 Office Visit 06/30/2009 9:30a DO Not Use [facility] Yeni Zavala, 99115 250.00 M.D., FACP 414.00 Office Visit 03/30/2009 9:45a DO Not Use [facility] Yeni Zavala 62843 250.02 M.D., FACP Office Visit 02/04/2009 9:00a DO Not Use [facility] Yeni Zavala, 27312 250.00 M.D., FACP 414.00 Office Visit 01/05/2009 11:00a DO Not Use Reva Birch, 15696 727.05 [facility] N.P. Office Visit 10/02/2008 9:00a DO Not Use Yeni Zavala M.D., 22387 250.00 [facility] FACP Office Visit 08/28/2008 9:00a DO Not Use Yeni Zavala M.D., 56137 414.00 Rn [facility] FACP 277.7 Office Visit 06/17/2008 8:30a DO Not Use [facility] Reva Birch, 58349 272.0 N.P. 790.21 Office Visit 06/04/2008 10:15a DO Not Use Reva Birch, 98692 V72.31 [facility] 401[facility]1 Plan of Care Future Appointment(s):12/07/2017 10:45 am - Amanda [facility]11/13/2017 10:20 am - Ravindra Estrada NP at [facility]01/14/2018 4:00 pm - Reva Birch N.P. at [facility]11/12/2017 - Mariela Collins, PAM17.12 Unilateral primary osteoarthritis, left kneeNew Therapy:Physical TherapyFollow up:Follow up: 3 [id number] Pain in left knee
[2017-11-17 06:38] VITALS: BP 143/111
== END 2017-11-17 06:36 | disposition left against medical advice (07) ==
LOC: ED 05:10
DX: K59.00 Constipation, unspecified (principal); Z53.21 Procedure and treatment not carried out due to patient leaving prior to being seen by health care provider

== ENCOUNTER 2019-04-16 15:54 | Emergency (ER) | payer BC ==
[2019-04-16 16:07] VITALS: BP 156/81
[2019-04-16] MEDS ORDERED: Cephalexin CAP* 500 MG PO ONE (16:36)
[2019-04-16] MEDS ORDERED: Phenazopyridine TAB* 100 MG PO ONE (16:36)
--- NOTE | 2019-04-16 16:37 | UC ---
Complaint Female HPI - HPI Summary HPI Summary: 64 yo female with dysuria /urgency and frequency x 5-7 days no f/c no n/v no abd pain or back pain hx DM no hx pyleo or kidney stone - History Of Current Complaint Chief Complaint: UCGU Stated Complaint: POSSIBLE UTI Time Seen by Provider: 04/16/19 16:30 Hx Obtained From: Patient Onset/Duration: Gradual Onset, Lasting Days Timing: Constant Severity Initially: Mild Severity Currently: Mild Pain Intensity: 4 Pain Scale Used: 0-10 Numeric Character: Burning Aggravating Factor(s): Urination Associated Signs And Symptoms: Negative: Fever, Back Pain, Vaginal Bleeding/ Discharge, Vaginal Discharge, Nausea, Vomiting(# Of Episodes =), Genital Swelling, Genital Blisters, Retained Foregin Body (Specify) Related Hx: Similar Episode/Dx as: - UTI - Allergies/Home Medications Allergies/Adverse Reactions: Allergies Allergy/AdvReac Type Severity Reaction Status Date / Time azithromycin Allergy Hives Verified 04/16/19 16:07 bupropion Allergy Headache Verified 04/16/19 16:07 lactose Allergy GI Upset Verified 04/16/19 16:07 Home Medications: Home Medications Bupropion XL* [Wellbutrin XL *] 150 mg PO DAILY 04/16/19 [History Confirmed 03/28] PMH/Surg Hx/FS Hx/Imm Hx Previously Healthy: Yes - Surgical History Surgical History: Yes Surgery Procedure, Year, and Place: uterine fibroids removed, 2000, [facility]. CARDIAC STENTS 2002 and 2008. Bilateral knee replacement 2017 - Family History Known Family History: Positive: Cardiac Disease, Hypertension - Social History Alcohol Use: None Alcohol Amount: hx etoh abuse Substance Use Type: None Substance Use Comment - Amount & Last Used: clean 31 years Smoking Status (MU): Former Smoker Type: Cigarettes Amount Used/How Often: pack a day for 20 ears Length of Time of Smoking/Using Tobacco: 17 years Have You Smoked in the Last Year: No When Did the Patient Quit Smoking/Using Tobacco: 1996 - Immunization History Most Recent Influenza Vaccination: 2017 Most Recent Pneumonia Vaccination: never Review of Systems All Other Systems Reviewed And Are Negative: Yes Constitutional: Positive: Negative Skin: Positive: Negative Eyes: Positive: Negative ENT: Positive: Negative Respiratory: Positive: Negative Cardiovascular: Positive: Negative Gastrointestinal: Positive: Negative Genitourinary: Positive: Dysuria, Frequency, Urgency. Negative: Hematuria Motor: Positive: Negative Neurovascular: Positive: Negative Musculoskeletal: Positive: Negative Neurological: Positive: Negative Psychological: Positive: Negative Physical Exam Triage Information Reviewed: Yes Appearance: Well-Appearing, No Pain Distress, Well-Nourished Vital Signs: Initial Vital Signs Temp 97.8 F 04/16/19 16:03 Pulse 75 04/16/19 16:03 Resp 16 04/16/19 16:03 BP 156/81 04/16/19 16:03 Pulse Ox 97 04/16/19 16:03 Vital Signs Reviewed: Yes Eyes: Positive: Conjunctiva Clear ENT: Positive: Hearing grossly normal. Negative: Pharyngeal erythema, Nasal congestion, Tonsillar swelling, Tonsillar exudate, Hoarse voice, Sinus tenderness Neck: Positive: Supple, Nontender, No Lymphadenopathy Respiratory: Positive: Lungs clear, Normal breath sounds, No respiratory distress, No accessory muscle use Cardiovascular: Positive: RRR, No Murmur Musculoskeletal: Positive: ROM Intact, No Edema Neurological: Positive: Alert Psychological Exam: Normal Skin Exam: Normal Complaint Female Dx - Course Course Of Treatment: +++ nitrite, + leuks - Differential Dx/Diagnosis Provider Diagnosis: UTI (urinary tract infection) Discharge - Sign-Out/Discharge Documenting (check all that apply): Patient Departure All imaging exams completed and their final reports reviewed: No Studies - Discharge Plan Condition: Stable Disposition: HOME Prescriptions: Cephalexin CAP* [Keflex CAP*] 500 mg PO BID #13 cap Phenazopyridine TAB* [Pyridium TAB*] 100 mg PO TID #6 tab Patient Education Materials: Urinary Tract Infection in Women (ED) Referrals: Zeinab Momin MD [Primary Care Provider] - If Needed Additional Instructions: recheck in 3 days if not better a urine culture is pending - Billing Disposition and Condition Condition: STABLE Disposition: Home
== END 2019-04-16 16:48 | disposition home or self-care (01) ==
LOC: UCEAST 15:54
DX: N39.0 Urinary tract infection, site not specified (principal); Z87.440 Personal history of urinary (tract) infections; Z87.891 Personal history of nicotine dependence
CPT/HCPCS: 81002; 87077; 87086; 87186; 99212; A9270-GY; G0463

== ENCOUNTER 2019-08-18 10:18 | Emergency (ER) | payer BC ==
[2019-08-18 10:27] VITALS: BP 145/89
[2019-08-18 10:51] LABS: Influenza A Molecular NEGATIVE (Negative); Influenza B Molecular NEGATIVE (Negative)
--- NOTE | 2019-08-18 11:10 | UC ---
FLU HPI - HPI Summary HPI Summary: She has been achy, congested and coughing since . She's been running some fevers and is concerned she has influenza. - History of Current Complaint Chief Complaint: UCGeneralIllness Stated Complaint: FLU LIKE SYMPTOMS Time Seen by Provider: 08/18/19 10:29 Hx Obtained From: Patient Onset/Duration: Gradual Onset, Lasting Days Severity Currently: Moderate Severity Initially: Moderate Pain Intensity: 5 Associated Signs & Symptoms: Positive: Fever, Myalgia, Cough, Sore Throat, Nasal Congestion Related Hx: Possible Flu/Infectious Exposure - Allergy/Home Medications Allergies/Adverse Reactions: Allergies Allergy/AdvReac Type Severity Reaction Status Date / Time azithromycin Allergy Hives Verified 08/18/19 10:41 lactose Allergy GI Upset Verified 08/18/19 10:41 PMH/Surg Hx/FS Hx/Imm Hx - Additional Past Medical History Additional PMH: She had alcohol use disorder 30 years ago but has taken opioids subsequently when she hit her knees replaced without any difficulty. Endocrine History: Diabetes, Dyslipidemia Cardiovascular History: Cardiac Disease, Hypertension - Surgical History Surgical History: Yes Surgery Procedure, Year, and Place: uterine fibroids removed, 2000, [facility]. CARDIAC STENTS 2002 and 2008. Bilateral knee replacement 2017 - Family History Known Family History: Positive: Cardiac Disease, Hypertension - Social History Alcohol Use: None Alcohol Amount: hx etoh abuse Substance Use Type: None Substance Use Comment - Amount & Last Used: clean 31 years Smoking Status (MU): Former Smoker Type: Cigarettes Amount Used/How Often: pack a day for 20 ears Length of Time of Smoking/Using Tobacco: 17 years Have You Smoked in the Last Year: No When Did the Patient Quit Smoking/Using Tobacco: 1996 - Immunization History Most Recent Influenza Vaccination: 2017 Most Recent Pneumonia Vaccination: never Review of Systems All Other Systems Reviewed And Are Negative: Yes Constitutional: Positive: Fever, Chills Skin: Positive: Negative ENT: Positive: Sore Throat, Nasal Discharge Respiratory: Positive: Cough Cardiovascular: Positive: Negative Neurological: Positive: Negative Physical Exam - Summary Physical Exam Summary: She is nontoxic in appearance with stable vital signs Triage Information Reviewed: Yes Appearance: Well-Appearing, Obese Vital Signs: Initial Vital Signs Temp 100 F 08/18/19 10:24 Pulse 76 08/18/19 10:24 Resp 15 08/18/19 10:24 BP 145/89 08/18/19 10:24 Pulse Ox 98 08/18/19 10:24 Vital Signs Reviewed: Yes Eye Exam: Normal ENT: Positive: Pharyngeal erythema, Nasal congestion Neck exam: Normal Neck: Positive: No Lymphadenopathy Respiratory: Positive: Lungs clear, Normal breath sounds, No respiratory distress, No accessory muscle use Cardiovascular Exam: Normal Abdominal Exam: Normal Neurological Exam: Normal Flu Course/Dx - Course Course Of Treatment: Influenza swab was negative. This is still likely a viral disease and I recommended symptomatic treatment. I'm going to give her guaifenesin with codeine follow-up with her PCP. - Differential Dx/Diagnosis Provider Diagnosis: URI (upper respiratory infection) Discharge ED - Sign-Out/Discharge Documenting (check all that apply): Patient Departure All imaging exams completed and their final reports reviewed: No Studies - Discharge Plan Condition: Stable Disposition: HOME Patient Education Materials: Upper Respiratory Infection (ED), Codeine (By mouth) Referrals: Zeinab Momin MD [Primary Care Provider] - - Billing Disposition and Condition Condition: STABLE Disposition: Home
--- OUTSIDE RECORDS SUMMARY | 2019-08-18 11:13 | XMS REPORT | Continuity of Care Document ---
:1955 External Reference #:[id number] Author Name Roland Montero M.D., [facility] [place] (transmitted by agent of provider Karli iPzarro) Address [address] [place] [id number] Care Team Providers Name Role Phone Reva Birch NP - Family Care Team Information Agricultural Service Technician [phone] Zeinab Momin MD - Internal Care Team Information Agricultural Service Technician [phone] Medicine Jarred Hahn OD - Vision Therapy Care Team Information Agricultural Service Technician Problems Active Problems Provider Date Chronic ischemic heart disease Roland Montero M.D., Onset: 12/05/2013 DIEGO, CASSANDRA Coronary arteriosclerosis Roland Montero M.D., Onset: 11/03/2013 [facility] 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 Onset: 08/13/2015 Pure hypercholesterolemia Reva Birch, N.P. Onset: 12/05/2013 Type II diabetes mellitus uncontrolled Yeni Zavala M.D., FACP Onset: 2013 Depressive disorder Reva Birch, N.P. Onset: 12/05/2013 Localized, primary osteoarthritis Amanda Wright M.D. Onset: 03/09/2017 Arthroplasty of knee Amanda Wright M.D. Onset: 08/08/2017 Social History Type Date Description Comments Sex Unknown ETOH Use Denies alcohol use Tobacco Use Start: Unknown End: Patient is a former quit in 1996 Unknown smoker Recreational Drug Use Denies Drug Use Tobacco Use Start: Unknown Not exposed to second hand smoke. Smoking Status Reviewed: 06/25/19 Not exposed to second hand smoke. Exercise Type/Frequency Exercises regularly walks her dog 4-5 times a day. Allergies, Adverse Reactions, Alerts Active Allergies Reaction Severity Comments Date Zithromax RASH Moderate 10/14/2009 Inactive Allergies Wellbutrin weird headaches Moderate 06/29/2010 Medications Active Medications SIG Qnty Indications Ordering Date Provider Atorvastatin Calcium Take 1 Tablet By 90tabs Reva Birch, 01/05/2019 Mouth In The N.P. 80mg Tablets Evening Alcohol Prep 400units Reva Eyal, 07/26/2017 70% Pads N.P. Blood Glucose test blood 1units Reva Birch, 05/22/2017 Monitoring System sugars once N.P. fasting and 2 W/Device Kit hours after dinner meal Blood Glucose Test test blood sugar 100units Reva Birch, 05/22/2017 fasting in in N.P. Strips the morning and 2 hours after dinner meal Eliquis Take 1 Tablet By 60tabs Reva Birch, 05/20/2017 5mg Tablets Mouth Twice A N.P. Day Nitrostat one sl q5min up 25tabs Roland North 02/15/2015 0.4mg Tablets to 3 doses as Mark Montero, Sub needed [facility] Prozac take two 90caps Reva Birch, 11/12/2012 40mg Capsules capsules by N.P. mouth every day Lisinopril 1 tablet daily 90tabs Reva Birch, 02/23/2010 40mg Tablets N.P. Metoprolol Tartrate 1 tablet twice a 60tabs Roland Can 02/23/2010 day Mark Montero, 100mg [facility]ts [facility] Plavix 1 tablet daily 90tabs Roland Can 02/23/2010 75mg Tablets Mark Montero, [facility] Aspir-81 1 tablet daily Yeni Sally, 02/23/2010 81mg Tablets Mark, [facility] Metformin HCL ER take 2 tablets 180tabs Reva Birch, 02/23/2010 500mg by mouth once N.P. Tablets ER 24HR daily Aleksanderuvia Take 1 Tablet 30tabs Reva Patelervin, 02/23/2010 100mg Tablets Every Day 1 Hour N.P. Before Dinner Abilify 1 tabs by 30tabs Santiago, 5mg Tablets mouth every day HAMLET Hancock, RN Bupropion 1 by mouth every Unknown Hydrochloride ER (XL) day 150mg Tablets ER 24HR Medications Administered in Office Medication SIG Qnty Indications Ordering Provider Date Inj, Regadenoson, 0.1 MG Roland Montero M.D., 10/17/2017 Injection [facility] Technetium TC 99M Roland Montero M.D., 10/17/2017 Tetrofosmin, Per Unit Dose [facility] Up To 40 Millicuries Injection Technetium TC 99M Roland Montero M.D., 10/15/2017 Tetrofosmin, Per Unit Dose [facility] Up To 40 Millicuries Injection Depomedrol 40MG Amanda Wright M.D. 03/09/2017 Injection Depomedrol 40MG Amanda Wright M.D. 03/09/2017 Injection Inj, Regadenoson, 0.1 MG Francois Waite, DO [facility] 05/10/2016 Injection Technetium TC 99M Francois Waite, DO [facility] 05/10/2016 Tetrofosmin, Per Unit Dose Up To 40 Millicuries Injection Depomedrol 80MG Aristeo Pimentel M.D. 10/20/2014 Injection Inj, Regadenoson, 0.1 MG Joshua Rubio M.D., [facility], 10/01/2012 Injection [facility] Technetium TC 99M Joshua Rubio M.D., [facility], 10/01/2012 Tetrofosmin, Per Unit Dose [facility] Up To 40 Millicuries Injection Immunizations CPT Code Status Date Vaccine Lot # [id number] Given 05/24/2016 Afluria Vaccine [id number] Given 05/22/2014 Flu Vaccine [id number] Given 07/11/2013 Pneumonia Vaccine [id number] Given 07/11/2013 Tdap - Tetanus/Diptheria/Acellular Pertussis [id number] Q2035 Given 05/22/2013 Afluria Vaccine Q2035 Given 05/23/2012 Afluria Vaccine 21848 Given 06/08/2011 Influenza Virus 3Yrs & Over [id number] 27153 Given 06/29/2010 Influenza Virus 3Yrs & Over 60325 Given 10/14/2009 Influenza Virus Vaccine, Pandemic Formulation 30960 Given 10/14/2009 Administration Swine Flu Shot Vital Signs Date Vital Result Comment 06/25/2019 12:55pm Height 65.5 inches 5'5.50" Weight 220.00 lb without shoes Heart Rate 64 /min BP Systolic Sitting 146 mmHg Lue, large cuff BP Diastolic Sitting 90 mmHg Lue, large cuff BP Systolic Standing 144 mmHg Lue, large cuff BP Diastolic Standing 88 mmHg Lue, large cuff Respiratory Rate 14 /min BMI (Body Mass Index) 36.0 kg/m2 Ejection Fraction 55-60% Echo 04/30/17 12/04/2018 9:25am Height 65.5 inches 5'5.50" Weight 217.00 lb Heart Rate 62 /min BP Systolic 140 mmHg BP Diastolic 81 mmHg Body Temperature 96.9 F O2 % BldC Oximetry 95 % BMI (Body Mass Index) 35.6 kg/m2 Results Test Date Facility Test Result H/L Range Note Urine Culture And 04/16/2019 [facility] Urine Culture SEE RESULT 1, [address] [place] [id number] [phone] 1 [id number] 2 SEE RESULT BELOW Name: AMANDA MEDINA : [address]: Bran Inman MD Acct: [id number] Unit: [id number] AGE: 64 Location: [facility] Re04/16/19 SEX: F Status: DEP ER SPEC: [id number] ELDON: 04/16/19-[address] [facility] [address]: Bran Inman MD REQ: [id number] RECD: 04/16/19 STATUS: GABO HAHN DR: [facility] Zeinab Momin MD _ SOURCE: URINE [facility]: ORDERED: Urine Culture COMMENTS: [id number] Procedure Result Reported Site Urine Culture Final 04/18/19- 915 ML Organism 1 ESCHERICHIA COLI [place] Count >100,000 (Many) CFU/ML 1. ESCHERICHIA COLI [facility].I.C. RX --------- ------ Ampicillin 4 S Cefazolin <=4 S Cefepime <=1 S Ceftriaxone <=1 S Ciprofloxacin <=0.25 S Gentamicin <=1 S Levofloxacin <=0.12 S Meropenem <=0.25 S Nitrofurantoin <=16 S Tetracycline >=16 R Pipercillin/Tazobactam <=4 S Trimethoprim/Sulfamethoxazole <=20 S Amoxicillin/Clavulanic Acid <=2 S Aztreonam <=1 S Contact the Microbiology Department for any additional antibiotic reporting. * [facility] - Main Lab . END OF REPORT DEPARTMENT OF PATHOLOGY, [address] [place] [address] Scott Zapata M.D. Director [facility] # [id number] Procedures Date Code Description Status 06/25/2019 72542 EKG Tracing & Interpretation Completed 12/23/2018 [id number] Mammogram Completed 05/16/2018 [id number] Diabetic Retinal Eye Exam Completed 09/27/2016 [id number] Mammogram Completed 11/01/2015 [id number] Diabetic Retinal Eye Exam Completed 08/26/2015 [id number] Mammogram Completed 06/09/2014 [id number] Diabetic Retinal Eye Exam Completed 06/11/2013 [id number] Colonoscopy Completed 12/23/2012 [id number] Diabetic Retinal Eye Exam Completed 07/10/2008 [id number] Mammogram Completed Medical Devices Description No Information Available Encounters Description No Information Available Assessments Date Code Description Provider 06/25/2019 I25.10 Atherosclerotic heart disease of Roland Montero M.D., [facility], [place] coronary artery with FASNC Plan of Treatment 06/25/2019 - Roland Montero M.D., [facility], [id number] Atherosclerotic heart disease of [place] coronary artery withComments:As discussed, your heart seems to be doing well. Please continue to exercise.Follow up:one year Functional Status Description No Information Available Mental Status Description No Information Available Referrals Description No Information Available
== END 2019-08-18 11:24 | disposition home or self-care (01) ==
LOC: UCEAST 10:18
DX: J06.9 Acute upper respiratory infection, unspecified (principal); E11.9 Type 2 diabetes mellitus without complications; I10 Essential (primary) hypertension; Z88.1 Allergy status to other antibiotic agents; Z91.011 Allergy to milk products; Z87.891 Personal history of nicotine dependence
CPT/HCPCS: 99212; G0463